=== PATIENT | female | born 1950 | race Caucasian/White ===

== ENCOUNTER 2020-01-06 13:59 | Outpatient (CLI) | payer MEDICARE, SELFPAY ==
--- NOTE | ~2020-01-06 | XR_ITS ---
XR chest 2V 01/06/2020 15:22 Indication: Hypertension. Procedure: 2 view chest Comparison: Comparison to multiple prior studies sequentially, with oldest reviewed study dated 06/18. Findings: Heart size normal. No focal air space disease, pulmonary edema, pleural effusion or suspect ed pneumothorax. Calcified granuloma right lower lobe. There are cholecystectomy clips. Impression: 1: No acute cardiopulmonary disease. Reviewed, dictated and finalized at location A. Impression: 1: No acute cardiopulmonary disease.
--- NOTE | 2020-01-06 14:57 | ECG_ITS ---
Measurements Intervals [place] Rate: 62 P: -8 IA: 186 QRS: -19 QRSD: 76 T: 19 QT: 430 QTc: 437 Interpretive Statements SINUS RHYTHM LOW QRS VOLTAGE IN PRECORDIAL LEADS VOLTAGE CRITERIA FOR LVH BASELINE ARTIFACT- I, II, III, AVR, AVL, AVF, V1-V6 BORDERLINE ECG Electronically Signed On 01-06-2020 16:10:43 CDT by Jose Elias Roca D.O.
[2020-01-06 15:17] LABS: Basophils Percent Auto 0.5 % (0.2-1.2); Eosinophils Absolute Auto 0.2 K/mm3 (0-0.3); Eosinophils Percent Auto 3.4 % (0-4.4); Hematocrit 48.5 % (37.0-47.0); Hemoglobin 15.7 g/dL (12.0-15.0); Immature Granulocyte Absolute 0.05 K/mm3 (0.00-0.031); Immature Granulocyte Percent A 0.8 % (0-0.5); Lymphocytes Percent Auto 26.5 % (18.3-44.2); Mean Corpuscular HGB Conc 32.4 g/dl (32-36); Mean Corpuscular Hemoglobin 28.6 pg (26-34); Mean Corpuscular Volume 88.3 fl (80-100); Mean Platelet Volume 9.8 fl (7.4-10.4); Monocytes Absolute Auto 0.5 K/mm3 (0.1-0.6); Monocytes Percent Auto 7.9 % (2.6-8.5); Neutrophils Absolute Auto 3.9 K/mm3 (1.3-6.7); Neutrophils Percent Auto 60.9 % (45.5-73.1); Platelet Count Result 226 k/mm3 (150-375); Red Blood Count 5.49 M/mm3 (4.2-5.4); Red Cell Distribution Width 14.3 % (11.5-14.5); White Blood Count 6.4 K/mm3 (4.5-10.0)
[2020-01-06 15:24] LABS: Albumin Level 4.6 g/dL (3.5-5.1); Estimated Glomerular Filt Rate 44; Glucose 109 mg/dL (65-105)
[2020-01-06 15:31] LABS: Hemoglobin A1C 6.5 % (<5.7)
[2020-01-06 16:15] LABS: Urine Cotinine NEGATIVE
== END 2020-01-06 14:00 | disposition home or self-care (01) ==
PROVIDERS: PCP Internal Medicine; Visit Provider Orthopaedic Surgery
DX: M17.11 Unilateral primary osteoarthritis, right knee (principal); R94.31 Abnormal electrocardiogram [ECG] [EKG]
CPT/HCPCS: 36415; 71046; 80307; 82040; 82565; 82947; 83036; 85025; 86850; 86900; 86901; 93005

== ENCOUNTER 2020-03-19 16:23 | Emergency (ER) | payer MEDICARE, SELFPAY ==
[2020-03-19] VITALS (7 sets, daily range): BP systolic 107–153; BP diastolic 75–118; PULSE 57–166; RESP 18–22; TEMP 35.7; O2SAT 94–99
--- NOTE | 2020-03-19 16:43 | ECG_ITS ---
Measurements Intervals [place] Rate: 88 P: SD: 0 QRS: -17 QRSD: 74 T: 11 QT: 361 QTc: 439 Interpretive Statements ATRIAL FLUTTER/TACHYCARDIA VENTRICULAR PREMATURE COMPLEX LOW QRS VOLTAGE IN PRECORDIAL LEADS VOLTAGE CRITERIA FOR LVH BASELINE ARTIFACT- II, III, AVL, AVF ABNORMAL ECG Electronically Signed On 03-19-2020 16:59:45 CDT by Jose Elias Roca D.O.
[2020-03-19 16:53] LABS: Basophils Absolute Auto 0.1 K/mm3 (0.0-0.1); Basophils Percent Auto 0.7 % (0.2-1.2); Eosinophils Absolute Auto 0.3 K/mm3 (0-0.3); Eosinophils Percent Auto 3.1 % (0-4.4); Hematocrit 49.8 % (37.0-47.0); Hemoglobin 16.8 g/dL (12.0-15.0); Immature Granulocyte Absolute 0.07 K/mm3 (0.00-0.031); Immature Granulocyte Percent A 0.8 % (0-0.5); Lymphocytes Absolute Auto 3.12 K/mm3 (0.9-3.2); Lymphocytes Percent Auto 37.2 % (18.3-44.2); Mean Corpuscular HGB Conc 33.7 g/dl (32-36); Mean Corpuscular Hemoglobin 29.3 pg (26-34); Mean Corpuscular Volume 86.8 fl (80-100); Mean Platelet Volume 9.6 fl (7.4-10.4); Monocytes Absolute Auto 0.6 K/mm3 (0.1-0.6); Monocytes Percent Auto 7.5 % (2.6-8.5); Neutrophils Absolute Auto 4.3 K/mm3 (1.3-6.7); Neutrophils Percent Auto 50.7 % (45.5-73.1); Platelet Count Result 275 k/mm3 (150-375); Red Blood Count 5.74 M/mm3 (4.2-5.4); Red Cell Distribution Width 13.2 % (11.5-14.5); White Blood Count 8.4 K/mm3 (4.5-10.0)
[2020-03-19 17:01] LABS: Blood Urea Nitrogen 38 mg/dL (7-17); Calcium 10.2 mg/dL (8.4-10.2); Carbon Dioxide 21 mmol/L (22-30); Chloride 106 mmol/L (98-107); Estimated CRCL calculation 33 ml/min; Estimated Glomerular Filt Rate 34; Glucose 105 mg/dL (65-105); Potassium 4.9 mmol/L (3.4-5.0); Sodium 136 mmol/L (137-145)
--- NOTE | 2020-03-19 18:10 | ED.GENADULT ---
HPI - General Adult General Chief complaint: Syncope Stated complaint: BP ISSUES, NEAR SYNCOPE Time Seen by Provider: 03/19/20 17:59 Source: patient and family Mode of arrival: ambulatory Limitations: no limitations History of Present Illness HPI narrative: Patient is 69 years old white female complaining of near syncope, not feeling well, for the last 48 hours. Patient reports that her blood pressure was low this morning. Patient had similar symptoms 6 months ago, used to be on 2 medications for blood pressure, 1 of them stopped, today patient did not receive her blood pressure medication because the blood pressure was low earlier today. Blood pressure at this time is 116/83. Patient denies any chest pain, shortness of breath, fever, nausea, vomiting, coughing, palpitation.. Patient reports that the near syncope get worse with standing and walking, better if she sits down or lay down. Usually last for 30 minutes then resolves spontaneously. Related Data Home Medications Medication Instructions Recorded Confirmed anastrozole 1 mg tablet 1 mg PO DAILY 12/29/19 01/06/20 apixaban 5 mg tablet 5 mg PO BID 12/29/19 01/06/20 gabapentin 300 mg capsule 300 mg PO BID 12/29/19 01/06/20 lisinopril 40 mg tablet 40 mg PO DAILY 12/29/19 01/06/20 metoprolol tartrate 50 mg tablet 50 mg PO Q12H 12/29/19 01/06/20 sotalol 120 mg tablet 120 mg PO Q12H 12/29/19 01/06/20 zolpidem 10 mg tablet 5 mg PO PRN PRN tablet 12/29/19 01/06/20 multivitamin,yq-nwcd-eyimsbof 1 tablet PO DAILY 01/06/20 01/06/20 [Complete Multivitamin] omeprazole 20 mg PO DAILY 01/06/20 01/06/20 hyoscyamine sulfate 0.125 mg 0.125 mg PO QID 01/10/20 sublingual tablet Allergies Allergy/AdvReac Type Severity Reaction Status Date / Time No Known Allergies Allergy Unknown Verified 03/19/20 16:37 Review of Systems Review of Systems: Narrative: CONSTITUTIONAL: Denies fever, chills, or sweats. EYES: Denies visual changes, redness, or discharge. ENT: Denies rhinorrhea, congestion, sore throat, or otalgia. CARDIOVASCULAR: Denies chest pain, palpitations, or edema. RESPIRATORY: Denies cough or dyspnea. GASTROINTESTINAL: Denies abdominal pain, nausea, vomiting, or diarrhea. GENITOURINARY: Denies dysuria or hematuria. SKIN: Denies rash or itching. MUSCULOSKELETAL: Denies back pain, joint pain, or myalgia. NEUROLOGIC: Denies headache, numbness, or weakness. PSYCHIATRIC: Denies anxiety or depression. PMFSH Past Medical History Medical History A-fib Breast cancer Chronic fatigue CKD (chronic kidney disease) stage 3, GFR 30-59 ml/min GERD (gastroesophageal reflux disease) Hypertension SONYA (obstructive sleep apnea) Surgical History Surgical History History of cholecystectomy History of hysterectomy Family History Family History Sibling Family history of cardiac disorder Mother Patient's mother is Social History Social History Smoking status: Never smoker Second hand tobacco smoke exposure: No Alcohol intake: never Gender identity (if verbalized by the patient): Female Exam Narrative: Exam Narrative: General appearance: Well-developed, well-nourished Skin: Normal color Head: Normocephalic, nontraumatic Eyes: Clear conjunctiva ENT: Oropharynx normal, ears normal, nose normal Neck: Supple, nontender Chest and respiratory: Airway patent, no respiratory distress, no accessory muscle use Heart: Regular rate/rhythm Abdomen: Soft, nontender, no organomegaly, quiet bowel sounds Vascular: Normal peripheral pulses, normal capillary refill. Musculoskeletal: Normal range of motion, nontender back Neurologic: Alert and oriented ?3, MOLD MAKER is normal as tested, no gross motor deficit
[2020-03-19] MEDS: SODIUM CHLORIDE 0.9% IV 1,000 ML 999 ML IV CONT (18:26)
== END 2020-03-19 19:08 | disposition home or self-care (01) ==
PROVIDERS: Emergency Provider Emergency Medicine; PCP Internal Medicine
DX: I95.1 Orthostatic hypotension (principal); I48.91 Unspecified atrial fibrillation; Z79.01 Long term (current) use of anticoagulants; Z85.3 Personal history of malignant neoplasm of breast; I12.9 Hypertensive chronic kidney disease with stage 1 through stage 4 chronic kidney disease, or unspecified chronic kidney disease; N18.3 Chronic kidney disease, stage 3 (moderate); G47.33 Obstructive sleep apnea (adult) (pediatric)
CPT/HCPCS: 36415; 80048; 85025; 93005; 96360; 99284; J7030

== ENCOUNTER 2020-04-04 11:00 | Outpatient (CLI) | payer MEDICARE, SELFPAY ==
--- NOTE | ~2020-04-04 | US_ITS ---
EXAMINATION: US thyroid DATE: 04/04/2020 11:24 INDICATION: Thyroid nodule TECHNIQUE: Multiple ultrasound images of the thyroid were obtained. COMPARISON: None. FINDINGS: The right thyroid lobe measures 4.2 x 1.6 x 1.9 cm. The left thyroid lobe measures 3.9 x 1.9 x 1.5 c m. 1.5 x 1.2 x 1.3 cm wider than tall mixed solid and cystic hypoechoic nodule at the lower pole of the left thyroid which demonstrates lobular margins with no echogenic foci. (TI-RADS 2, not suspiciou s, no FNA recommended) which is decreased slightly in size from prior study at which time it measured 1.8 x 1.3 x 1.5 cm. 1.1 x 0.5 x 0.8 cm wider than tall solid heterogeneously hypoechoic to very hypo echoic nodule with smooth margins and internal echogenic foci at the superior right thyroid (TI-RADS 5, highly suspicious , FNA if >=1.0 cm, annual followup is >0.5 cm). There is normal echotexture, ech ogenicity and vascular flow throughout the remainder of the thyroid gland. IMPRESSION: 1. Bilateral thyroid nodules. Recommend ultrasound-guided biopsy of the 1.1 cm TI RADS 5 right thyroi d nodule. Reviewed, dictated and finalized at location A. IMPRESSION: 1. Bilateral thyroid nodules. Recommend ultrasound-guided biopsy of the 1.1 cm TI RADS 5 right thyroid nodule.
== END 2020-04-04 11:01 | disposition home or self-care (01) ==
PROVIDERS: PCP Internal Medicine; Visit Provider Internal Medicine
DX: E04.1 Nontoxic single thyroid nodule (principal)
CPT/HCPCS: 76536

== ENCOUNTER 2020-04-25 13:16 | Outpatient (CLI) | payer MEDICARE, SELFPAY ==
--- NOTE | ~2020-04-25 | US_ITS ---
EXAMINATION: US FNA w image guidance DATE: 04/25/2020 14:34 INDICATION: Nontoxic single right thyroid nodule. TECHNIQUE: A time-out was performed to verify the patient's name, date of , and procedure to be performed . The procedure and its benefits and risks were discussed with the patient. Risks specifically discus sed included bleeding and infection. The patient understood the risks and agreed to proceed. The neck was prepped and draped in the usual sterile manner. 4 mL 1% lidocaine was used for local anesthesia . 6 passes were made with a 25G needle into the lesion. Appropriate needle location was documented with continuous sonographic guidance. The specimens were passed to the blood bank technologist in the room. A sterile bandage was applied. There were no immediate complications. FINDINGS: Grayscale ultrasound images demonstrate biopsy needles advanced into a 1.1 cm Cystic right thyroid nodule with internal echogenic foci. On real-time imaging there appear to be rosaura e subtle, tingling associated with the echogenic foci which would favor inspissated colloid over the microcalcifications.. IMPRESSION: 1. Successful ultrasound-guided fine needle aspiration of the 1.1 cm right thyroid nodules concern. Reviewed, dictated and finalized at location A. IMPRESSION: 1. Successful ultrasound-guided fine needle aspiration of the 1.1 cm right thy roid nodules concern.
== END 2020-04-25 13:17 | disposition home or self-care (01) ==
LOC: ANHIMG 13:18
PROVIDERS: PCP Internal Medicine; Visit Provider Otolaryngology
DX: E04.2 Nontoxic multinodular goiter (principal)
CPT/HCPCS: 10005; 88173; 88305

== ENCOUNTER 2020-07-10 16:20 | Outpatient (CLI) | payer MEDICARE, SELFPAY ==
--- NOTE | ~2020-07-10 | XR_ITS ---
EXAMINATION: XR chest 2V DATE: 07/10/2020 16:35 INDICATION: Hypertension. Preop. TECHNIQUE: Frontal and lateral views of the chest were obtained. COMPARISON: Chest 2 views 01/06/2020 FINDINGS: A calcified right lung nodule and calcified subcarinal lymph nodes are consistent with old granulomatous disease. No pleural effusion or pneumothorax. The heart size is normal. Surgical clips in the right upper quadrant are likely from cholecystectomy. IMPRESSION: 1. No acute cardiopulmonary disease. Reviewed, dictated and finalized at location A.
== END 2020-07-10 16:21 | disposition home or self-care (01) ==
PROVIDERS: PCP Internal Medicine; Visit Provider Internal Medicine
DX: Z01.818 Encounter for other preprocedural examination (principal)
CPT/HCPCS: 71046

== ENCOUNTER 2020-07-29 21:05 | Emergency (ER) | payer MEDICARE, SELFPAY ==
--- NOTE | ~2020-07-29 | CT_ITS ---
EXAMINATION: CT abdomen pelvis w con EXAM DATE: 07/29/2020 22:19 INDICATION: Constipation. TECHNIQUE: Spiral CT of the abdomen and pelvis was performed following intravenous injection of 100 m L Omnipaque 350. Axial, coronal and sagittal images were reviewed. The dose-length product (DLP) fo r this examination was 696.92 mGy-cm. The exposure was tailored according to patient size (auto mA e xposure control), and iterative reconstruction (ASIR) was used as additional dose reduction technique . 06/30/2014 FINDINGS: The liver, spleen, adrenal glands and pancreas are unremarkable. There are cholecystectomy clips. Portal and splenic veins are patent. Kidneys enhance symmetrically. There is no hydronephr osis. The uterus is not identified and has likely been surgically resected. The bladder is unremar kable. There is no retroperitoneal or pelvic lymphadenopathy. There is mild scattered arterioscler otic disease. The appendix is not positively visualized. There is no pericecal inflammatory change to suggest appe ndicitis. The stomach and small bowel are unremarkable. Moderate amount of rectal vault stool with possible proctitis. No free intraperitoneal gas. The heart is normal in size. There are no paulo cardial or pleural effusions. Right lower lobe granuloma. There are no osteoblastic or osteolytic l esions identified. IMPRESSION: Moderate rectal vault stool with possible proctitis. Reviewed, dictated and finalized at location A.
[2020-07-29 21:11] VITALS: BP 126/91; PULSE 114; RESP 25; TEMP 36.5; O2SAT 100
--- NOTE | 2020-07-29 21:15 | ECG_ITS ---
Measurements Intervals [place] Rate: 99 P: [place]: 0 QRS: -10 QRSD: 87 T: 96 QT: 411 QTc: 528 Interpretive Statements ATRIAL FLUTTER/TACHYCARDIA VENTRICULAR PREMATURE COMPLEX VOLTAGE CRITERIA FOR LVH NONSPECIFIC ST & T-WAVE ABNORMALITY- ANTERIOR LEADS BASELINE ARTIFACT- I, II, III, AVR, AVL, AVF, V1-V3 ABNORMAL ECG Electronically Signed On 08-01-2020 8:04:29 CDT by Jose Elias Roca D.O.
--- NOTE | 2020-07-29 21:16 | ED.ABDPAIN ---
HPI - Abdominal Pain General Chief Complaint: Dizziness Stated Complaint: dizzy, constipated, feels like shes going to pass Time Seen by Provider: 07/29/20 21:07 History of Present Illness HPI narrative: 69 yo female presnets from home for constipation. She had recent surgery she reports that she has not had a bowel movement since then. She has associated abdominal pain. she had been taking pain meidcation, but she stopped 3 days ago. She tried docusate, miralax, and a fleets enema. Additioanlly she c/o light headedness. Related Data Home Medications Medication Instructions Recorded Confirmed anastrozole 1 mg tablet 1 mg PO DAILY 12/29/19 07/05/20 apixaban 5 mg tablet 5 mg PO BID 12/29/19 07/05/20 gabapentin 300 mg capsule 300 mg PO BID 12/29/19 07/05/20 lisinopril 40 mg tablet 40 mg PO DAILY 12/29/19 07/05/20 metoprolol tartrate 50 mg tablet 50 mg PO Q12H 12/29/19 07/05/20 sotalol 120 mg tablet 120 mg PO Q12H 12/29/19 07/05/20 multivitamin,dh-uddx-bhkxrpjm 1 tablet PO DAILY 01/06/20 07/05/20 [Complete Multivitamin] omeprazole 20 mg PO DAILY 01/06/20 07/05/20 hyoscyamine sulfate 0.125 mg 0.125 mg PO QID 01/10/20 07/05/20 sublingual tablet Allergies Allergy/AdvReac Type Severity Reaction Status Date / Time No Known Allergies Allergy Unknown Verified 07/29/20 21:19 Review of Systems Review of Systems: All systems reviewed & are unremarkable except as noted in HPI and below Constitutional: Constitutional: Denies fever(s) ENT: Reports dizziness Cardiovascular: Cardiovascular: Denies chest pain Respiratory: Respiratory: Denies dyspnea Gastrointestinal: Gastrointestinal: Denies abdominal pain, Denies nausea and Denies vomiting Genitourinary: Genitourinary: Denies hematuria and Denies dysuria Neurologic: Reports dizziness and Denies numbness PMF Past Medical History Medical History A-fib Breast cancer Chronic fatigue CKD (chronic kidney disease) stage 3, GFR 30-59 ml/min GERD (gastroesophageal reflux disease) Hypertension SONYA (obstructive sleep apnea) Polycythemia Surgical History Surgical History History of cholecystectomy History of hysterectomy Family History Family History Sibling Family history of cardiac disorder Mother Patient's mother is Social History Social History Smoking status: Never smoker Second hand tobacco smoke exposure: No Alcohol intake: never Gender identity (if verbalized by the patient): Female Spiritual care concerns: No Exam Const: General: healthy appearing, no acute distress and alert Orientation/consciousness: patient oriented x3 HENMT: Head: normal to inspection Neck: Neck: normal visual inspection and no lymphadenopathy Chest: Chest palpation & inspection: no tenderness Resp: Effort & Inspection: tachypneic Auscultation: clear to auscultation bilaterally, no rales, no rhonchi and no wheezes Cardio: Jugular venous distension: no JVD Rate: regular rate Rhythm: regular rhythm Heart sounds: no murmurs GI: Inspection: distended GI Palp: Yes Soft to palpation and Yes Tenderness to palpation present (GI) (lower ) Rectal Exam: External hemorrhoid(s) present and fecal impaction Skin: General skin exam: normal color Neuro: General: patient oriented x3, moves all extremities and CN's II-XI intact bilaterally Speech: normal speech Extrem: General: no edema Psych: Appearance: well kempt Affect: normal affect and Anxious affect present Course Vital Signs Vital signs: Vital Signs Temperature 36.5 C 07/29/20 21:11 Pulse Rate 114 H 07/29/20 21:11 Respiratory Rate 25 H 07/29/20 21:11 Blood Pressure 126/91 H 07/29/20 21:11 Pulse Oximetry 100 07/29/20 21:11 Temperature 36.6 C
[2020-07-29 21:43] LABS: Basophils Absolute Auto 0.1 K/mm3 (0.0-0.1); Basophils Percent Auto 0.4 % (0.2-1.2); Eosinophils Absolute Auto 0.2 K/mm3 (0-0.3); Eosinophils Percent Auto 1.3 % (0-4.4); Hematocrit 42.4 % (37.0-47.0); Hemoglobin 14.6 g/dL (12.0-15.0); Immature Granulocyte Absolute 0.18 K/mm3 (0.00-0.031); Immature Granulocyte Percent A 1.3 % (0-0.5); Lymphocytes Absolute Auto 2.31 K/mm3 (0.9-3.2); Lymphocytes Percent Auto 16.1 % (18.3-44.2); Mean Corpuscular HGB Conc 34.4 g/dl (32-36); Mean Corpuscular Hemoglobin 29.6 pg (26-34); Mean Corpuscular Volume 85.8 fl (80-100); Mean Platelet Volume 9.5 fl (7.4-10.4); Monocytes Percent Auto 6.6 % (2.6-8.5); Neutrophils Absolute Auto 10.7 K/mm3 (1.3-6.7); Neutrophils Percent Auto 74.3 % (45.5-73.1); Platelet Count Result 393 k/mm3 (150-375); Red Blood Count 4.94 M/mm3 (4.2-5.4); Red Cell Distribution Width 13.4 % (11.5-14.5); White Blood Count 14.3 K/mm3 (4.5-10.0)
[2020-07-29] MEDS: SODIUM CHLORIDE 0.9% IV 1,000 ML 999 ML IV CONT (21:43)
[2020-07-29] MEDS: METHYLNALTREXONE 12 MG/0.6 ML VIAL SUB-Q (21:44)
[2020-07-29] MEDS: MAGNESIUM CITRATE 300 ML BTL PO (21:45)
[2020-07-29 21:51] VITALS: BP 94/75; PULSE 82; RESP 24; O2SAT 97
[2020-07-29 21:55] LABS: Alanine Aminotransferase 32 U/L (4-35); Albumin Level 4.4 g/dL (3.5-5.1); Alkaline Phosphatase 135 U/L (38-126); Anion Gap 14 mmol/L (8-16); Aspartate Amino Transferase 27 U/L (14-36); Bilirubin,Total 1.1 mg/dL (0.2-1.3); Blood Urea Nitrogen 32 mg/dL (7-17); Calcium 9.7 mg/dL (8.4-10.2); Carbon Dioxide 19 mmol/L (22-30); Chloride 101 mmol/L (98-107); Estimated CRCL calculation 59 ml/min; Estimated Glomerular Filt Rate 40; Glucose 159 mg/dL (65-105); Sodium 134 mmol/L (137-145)
[2020-07-29 22:55] VITALS: BP 100/63; PULSE 79; RESP 25; TEMP 36.6; O2SAT 100
[2020-07-30 00:28] VITALS: BP 108/66; PULSE 91; RESP 22; O2SAT 96
--- NOTE | 2020-07-30 00:37 | PC.NURSE ---
dr marielos menjivary removed a moderate amount of stool.
[2020-07-30 02:21] VITALS: BP 110/64; PULSE 73; RESP 20; O2SAT 96
== END 2020-07-30 02:23 | disposition home or self-care (01) ==
PROVIDERS: Emergency Provider Emergency Medicine; PCP Internal Medicine
DX: K56.41 Fecal impaction (principal); K62.89 Other specified diseases of anus and rectum; I48.91 Unspecified atrial fibrillation; Z79.01 Long term (current) use of anticoagulants; Z85.3 Personal history of malignant neoplasm of breast; I12.9 Hypertensive chronic kidney disease with stage 1 through stage 4 chronic kidney disease, or unspecified chronic kidney disease; N18.30 Chronic kidney disease, stage 3 unspecified; G47.33 Obstructive sleep apnea (adult) (pediatric); D75.1 Secondary polycythemia; Z98.890 Other specified postprocedural states; I49.3 Ventricular premature depolarization; R94.31 Abnormal electrocardiogram [ECG] [EKG]; I48.92 Unspecified atrial flutter; R00.0 Tachycardia, unspecified
CPT/HCPCS: 36415; 74177; 80053; 85025; 93005; 96360; 96361; 96372; 99284; A9270; J2212; J7030; Q9967

== ENCOUNTER 2022-03-19 00:31 | Emergency (ER) | payer MEDICARE, SELFPAY ==
--- NOTE | ~2022-03-19 | CT_ITS ---
EXAMINATION: CT abdomen pelvis wo con DATE: 03/19/2022 02:33 INDICATION: Nausea, vomiting, and diarrhea. TECHNIQUE: Computed tomography (CT) of the abdomen and pelvis was performed without intravenous contr ast. Automated exposure control and iterative reconstruction technique were employed. The dose-length product was 706.49 mGy-cm. COMPARISON: CT abdomen and pelvis 07/29/2020 FINDINGS: The visualized portions of the lung bases demonstrate mild atelectasis. A calcified right l carlyle nodule and calcified right hilar lymph nodes are consistent with old granulomatous disease. No pl eural effusion. The heart size is normal. No pericardial effusion. There is a small sliding hiatal he rnia. Partially visualized is a left breast implant. The liver is normal. There are changes of cholec ystectomy. Calcifications in the spleen are consistent with old granulomatous disease. The pancreas, adrenal glands, and right kidney are normal. There is mild right hydroureter. There is a 1.9 cm cyst in left kidney. Pelvic floor dysfunction is noted. There are no dilated loops of bowel. The appendix is normal. There are no pathologically enlarged lymph nodes. There is no free intraperitoneal fluid. There is mild thoracolumbar spondylosis. IMPRESSION: 1. Mild right hydroureter. No urolithiasis. Reviewed, dictated and finalized at location A.
[2022-03-19 00:33] VITALS: BP 183/113; PULSE 98; RESP 18; TEMP 37.2; O2SAT 100
[2022-03-19] MEDS: SODIUM CHLORIDE 0.9% IV 1,000 ML 999 ML IV CONT (01:06)
[2022-03-19] MEDS: ONDANSETRON INJ 4 MG/2 ML VIAL IV PUSH (01:07)
[2022-03-19 01:13] LABS: Basophils Percent Auto 0.4 % (0.2-1.2); Eosinophils Absolute Auto 0.1 K/mm3 (0-0.3); Hematocrit 44.1 % (37.0-47.0); Hemoglobin 14.4 g/dL (12.0-15.0); Immature Granulocyte Absolute 0.05 K/mm3 (0.00-0.031); Immature Granulocyte Percent A 0.7 % (0-0.5); Lymphocytes Absolute Auto 1.77 K/mm3 (0.9-3.2); Lymphocytes Percent Auto 25.7 % (18.3-44.2); Mean Corpuscular HGB Conc 32.7 g/dl (32-36); Mean Corpuscular Volume 85.8 fl (80-100); Mean Platelet Volume 9.5 fl (7.4-10.4); Monocytes Absolute Auto 0.4 K/mm3 (0.1-0.6); Monocytes Percent Auto 5.1 % (2.6-8.5); Neutrophils Absolute Auto 4.6 K/mm3 (1.3-6.7); Neutrophils Percent Auto 67.1 % (45.5-73.1); Platelet Count Result 282 k/mm3 (150-375); Red Blood Count 5.14 M/mm3 (4.2-5.4); Red Cell Distribution Width 13.3 % (11.5-14.5); White Blood Count 6.9 K/mm3 (4.5-10.0)
--- NOTE | 2022-03-19 01:16 | ED.NAVMDI ---
HPI - Nausea/Vomiting/Diarrhea General Chief complaint: Nausea/Vomiting/Diarrhea Stated complaint: nausea and vomiting Time Seen by Provider: 03/19/22 00:54 Source: patient Mode of arrival: ambulatory Limitations: no limitations History of Present Illness HPI Narrative: Patient is a 71-year-old female complaining of nausea, vomiting and diarrhea that started approximately 3 hours prior to arrival. Patient states that they were driving up from [place] when she started to experience the above symptoms. Patient describes her vomitus as nonbilious, nonbloody. Patient describes her diarrhea as loose, nonbloody. Patient denies any abdominal pain, urinary symptoms, fever or chills. Patient also complaining of left foot swelling that started today, denies any calf pain or swelling. Patient denies any chest pain or shortness of breath. Related Data Home Medications Medication Instructions Recorded Confirmed anastrozole 1 mg tablet 1 mg PO DAILY 12/29/19 10/16/21 apixaban 5 mg tablet (Eliquis) 5 mg PO BID 12/29/19 10/16/21 gabapentin 300 mg capsule 300 mg PO BID 12/29/19 10/16/21 lisinopril 40 mg tablet 40 mg PO DAILY 12/29/19 10/16/21 metoprolol tartrate 50 mg tablet 50 mg PO Q12H 12/29/19 10/16/21 sotalol 120 mg tablet 120 mg PO Q12H 12/29/19 10/16/21 multivitamin,oy-vyyr-bikrumzx 1 tablet PO DAILY 01/06/20 10/16/21 (Complete Multivitamin) omeprazole 20 mg capsule,delayed 20 mg PO DAILY 01/06/20 10/16/21 release hyoscyamine sulfate 0.125 mg 0.125 mg PO QID 01/10/20 10/16/21 sublingual tablet celecoxib 200 mg capsule (Celebrex) 200 mg PO DAILY 10/02/20 10/16/21 Allergies Allergy/AdvReac Type Severity Reaction Status Date / Time No Known Allergies Allergy Unknown Verified 03/19/22 00:35 Review of Systems Review of Systems: All systems reviewed & are unremarkable except as noted in HPI and below Constitutional: Constitutional: Denies body ache(s), Denies chills, Denies excessive sweating, Denies fatigue, Denies fever(s), Denies headache(s), Denies lethargy, Denies malaise, Denies weakness and Denies weight loss Eyes: Eyes: Denies blurry vision, Denies change in vision and Denies loss of vision ENT: Denies dizziness, Denies ear discharge, Denies headache(s), Denies lip swelling, Denies epistaxis, Denies nasal congestion, Denies neck pain, Denies throat swelling and Denies tongue swelling Cardiovascular: Cardiovascular: Denies chest pain, Denies chest pain at rest, Denies chest pain with activity, Denies diaphoresis, Denies rapid heart rate, Denies edema, Denies irregular heart rhythm, Denies lightheadedness, Denies palpitations, Denies dyspnea and Denies dyspnea on exertion Respiratory: Respiratory: Denies chest congestion, Denies cough, Denies hemoptysis, Denies dyspnea and Denies dyspnea on exertion Gastrointestinal: Gastrointestinal: Denies abdominal pain, Denies melena, Denies hematochezia and Denies hematemesis Musculoskeletal: Musculoskeletal: Denies abnormal gait, Denies deformity, Denies joint swelling, Denies limited range of motion, Denies neck pain and Denies numbness Neurologic: Denies Abnormal speech present, Denies abnormal gait, Denies confusion, Denies dizziness, Denies headache(s), Denies focal weakness, Denies loss of vision, Denies numbness, Denies Other visual disturbances, Denies Sensory deficit (Neuro) and Denies weakness Psychiatric: Psychiatric: Denies confusion, Denies depression, Denies auditory hallucinations, Denies homicidal ideation and Denies suicidal ideation Endocrine: Endocrine: Denies cold intolerance, Denies excessive sweating, Denies fatigue, Denies heat intolerance and Denies palpitations Hematologic/Lymphatic: Hematologic/Lymphatic: Denies easy bleeding and Denies easy bruising Allergic/Immunologic: Allergic/Immunologic: Denies lip swelling, Denies throat swelling and Denies tongue swelling PMFSH Past Medical History Medical History
[2022-03-19] MEDS: PROMETHAZINE HCL 25 MG/ML AMPUL 12.5 MG IV PUSH (01:33)
[2022-03-19] MEDS: PANTOPRAZOLE SODIUM IV 40 MG VIAL IV PUSH (01:34)
[2022-03-19 02:21] VITALS: BP 153/114; PULSE 95
[2022-03-19 02:22] VITALS: BP 169/97; PULSE 93
[2022-03-19 02:23] VITALS: BP 175/94; PULSE 94
[2022-03-19 02:35] LABS: Appearance Urine Clear (Clear); Bilirubin Urine Negative (Negative); Blood Urine Negative (Negative); Color Urine Yellow (Yellow); Glucose Urine UA Negative (Negative); Ketones Urine 1+ mg/dL (Negative); Leukocyte Esterase Ur 1+ LEU/UL (Negative); Nitrate Urine Negative (Negative); Protein Urine 1+ mg/dL (Negative); Urobilinogen Urine 0.2 mg/dL (<2.0)
[2022-03-19 02:39] LABS: Mucus Urine Rare /lpf; RBC Urine 0-2 /hpf (0-2); Squamous Epithelial Cell Urine Rare /hpf (Few)
[2022-03-19 02:40] LABS: Add Urine Microscopic? YES
[2022-03-19 02:52] VITALS: BP 175/94; PULSE 93; RESP 21; O2SAT 96
[2022-03-19 06:48] VITALS: BP 144/82; PULSE 88; RESP 18; O2SAT 98
== END 2022-03-19 06:50 | disposition home or self-care (01) ==
PROVIDERS: Emergency Provider Emergency Medicine; PCP Internal Medicine
DX: K52.9 Noninfective gastroenteritis and colitis, unspecified (principal); I48.91 Unspecified atrial fibrillation; I12.9 Hypertensive chronic kidney disease with stage 1 through stage 4 chronic kidney disease, or unspecified chronic kidney disease; N18.30 Chronic kidney disease, stage 3 unspecified; R53.82 Chronic fatigue, unspecified; K21.9 Gastro-esophageal reflux disease without esophagitis; G47.33 Obstructive sleep apnea (adult) (pediatric); D75.1 Secondary polycythemia; Z96.659 Presence of unspecified artificial knee joint; Z79.01 Long term (current) use of anticoagulants
CPT/HCPCS: 36415; 74176; 81001; 85025; 96361; 96374; 96375; 99284; C9113; J2405; J2550; J7030

== ENCOUNTER 2022-11-19 00:54 | Day surgery (SDC) | payer MEDICARE, SELFPAY ==
[2022-11-15 12:47] VITALS: BMI 29.1
--- NOTE | 2022-11-19 07:06 | WPDANESEPPF ---
Anes - Initial Pre Proc Eval Procedure: Operation Date: 11/19/22 10:15 Proposed Procedures p Esophagogastroduodenoscopy - Nitin Pop MD Date/Time: 11/19/22 07:06 Surgeon: Nitin Pop MD Pre Op Diagnosis: GERD Patient Data Age: 72 Gender: F Height: 1.65 m Weight: 79.5 kg Allergies Allergy/AdvReac Type Severity Reaction Status Date / Time No Known Allergies Allergy Unknown Verified 11/19/22 08:56 Home Medications Medication Instructions Recorded Confirmed Type anastrozole 1 mg tablet 1 mg PO DAILY 12/29/19 11/19/22 History apixaban 5 mg tablet (Eliquis) 5 mg PO BID 12/29/19 11/19/22 History gabapentin 300 mg capsule 300 mg PO BID 12/29/19 11/19/22 History lisinopril 40 mg tablet 40 mg PO DAILY 12/29/19 11/19/22 History metoprolol tartrate 50 mg tablet 50 mg PO Q12H 12/29/19 11/19/22 History sotalol 120 mg tablet 120 mg PO Q12H 12/29/19 11/19/22 History multivitamin,ta-sydo-vkpdnzcw 1 tablet PO DAILY 01/06/20 11/19/22 History (Complete Multivitamin tablet) omeprazole 20 mg capsule,delayed 20 mg PO DAILY 01/06/20 11/19/22 History release hyoscyamine sulfate 0.125 mg 0.125 mg PO QID PRN Abdominal 01/10/20 11/19/22 History sublingual tablet Discomfort celecoxib 200 mg capsule (Celebrex) 200 mg PO DAILY PRN Pain, Mild 10/02/20 11/19/22 History zolpidem 10 mg tablet (Ambien) 5 mg PO QHS PRN Insomnia #30 tabs 10/29/22 11/19/22 Rx Patient hx anesthesia problems: none Family hx anesthesia problems: none Results Review: All pre-operative results and documents have been reviewed as part of the pre-operative evaluation. [facility] Past Medical History Medical History A-fib Breast cancer Chronic fatigue CKD (chronic kidney disease) stage 3, GFR 30-59 ml/min GERD (gastroesophageal reflux disease) Hypertension SONYA (obstructive sleep apnea) Polycythemia Surgical History Surgical History History of cholecystectomy History of hysterectomy History of knee replacement Family History Family History Sibling Family history of cardiac disorder Mother Patient's mother is Social History Social History (Updated 10/29/22 @ 13:29 by Jamila Daniel MA) Smoking status: Never smoker Second hand tobacco smoke exposure: No Alcohol intake: current Substance use: never Substance use type: does not use Lack of Transportation: No Lack of Food: Never True Current Housing: I Have Housing Concerned About Future Housing: No Difficulty Paying Gas/Electric Bills: YES Difficulty Paying for Meds: YES Currently Unemployed: No Education: Bachelor's Degree Difficulty w/ Childcare or Family Care: No Living arrangements: with family Gender identity (if verbalized by the patient): Female Spiritual care concerns: No Anes - Eval Final PreProcedure Day of Procedure 11/19/22 07:06 Patient weight: overweight Heart: regular rate and rhythm Lungs: clear to auscultation Airway: Mallampati scale class II Neurological: alert and oriented Last oral intake: >/= 8 hours ASA classification: III Emergent: no Anesthetic plan: proceed Anesthesia type and monitoring: general GIVS and standard monitoring Results Review: All pre-operative results and documents have been reviewed as part of the pre-operative evaluation. Informed Consent: The patient's anesthetic plan and its attendant risks and benefits were discussed with the patient/family/POA. Questions were solicited and answers provided to the satisfaction of the patient/family/POA.
[2022-11-19 08:57] VITALS: BP 161/89; PULSE 56; RESP 16; TEMP 36.4; O2SAT 100
[2022-11-19] MEDS: LACTATED RINGERS 1,000 ML 150 ML IV CONT (09:03)
--- NOTE | 2022-11-19 09:27 | PM.HPGS ---
History of Present Illness History of Present Illness Consent: Risks, benefits, and alternatives have been discussed and questions answered. Patient agrees to proceed with procedure. Chief complaint: GERD Narrative: Carmen Stewart is a 72 year old female Presents for EGD. Patient has a history of acid reflux in the past. Distal esophageal web dilated in 2014. She currently takes omeprazole 20mg p.o. daily. Recently has begun to have substernal pressure pain that will wake her up at night occasionally last for 3 minutes. She states it feels as though an hour pressure. She denies any heartburn. She has had no reflux. Currently denies any difficulty swallowing. She is referred for follow-up EGD to assess this discomfort. Family history noncontributory patient denies any bleeding or weight loss. Patient has a history of colon polyps. Most recent colonoscopy 1 year ago [facility]. She anticipates follow-up EGD every 3 years at [facility] for these polyps. Review of Systems Review of Systems: Review of systems noncontributory. [facility] Past Medical History Medical History A-fib Breast cancer Chronic fatigue CKD (chronic kidney disease) stage 3, GFR 30-59 ml/min GERD (gastroesophageal reflux disease) Hypertension SONYA (obstructive sleep apnea) Polycythemia Surgical History Surgical History History of cholecystectomy History of hysterectomy History of knee replacement Family History Family History Sibling Family history of cardiac disorder Mother Patient's mother is Social History Social History (Updated 10/29/22 @ 13:29 by Jamila Daniel MA) Smoking status: Never smoker Second hand tobacco smoke exposure: No Alcohol intake: current Substance use: never Substance use type: does not use Lack of Transportation: No Lack of Food: Never True Current Housing: I Have Housing Concerned About Future Housing: No Difficulty Paying Gas/Electric Bills: YES Difficulty Paying for Meds: YES Currently Unemployed: No Education: Bachelor's Degree Difficulty w/ Childcare or Family Care: No Living arrangements: with family Gender identity (if verbalized by the patient): Female Spiritual care concerns: No Meds Home Medications and Allergies Home Medications Medication Instructions Recorded Confirmed Type anastrozole 1 mg tablet 1 mg PO DAILY 12/29/19 11/19/22 History apixaban 5 mg tablet (Eliquis) 5 mg PO BID 12/29/19 11/19/22 History gabapentin 300 mg capsule 300 mg PO BID 12/29/19 11/19/22 History lisinopril 40 mg tablet 40 mg PO DAILY 12/29/19 11/19/22 History metoprolol tartrate 50 mg tablet 50 mg PO Q12H 12/29/19 11/19/22 History sotalol 120 mg tablet 120 mg PO Q12H 12/29/19 11/19/22 History multivitamin,tg-yyni-usocnzeu 1 tablet PO DAILY 01/06/20 11/19/22 History (Complete Multivitamin tablet) omeprazole 20 mg capsule,delayed 20 mg PO DAILY 01/06/20 11/19/22 History release hyoscyamine sulfate 0.125 mg 0.125 mg PO QID PRN Abdominal 01/10/20 11/19/22 History sublingual tablet Discomfort celecoxib 200 mg capsule (Celebrex) 200 mg PO DAILY PRN Pain, Mild 10/02/20 11/19/22 History zolpidem 10 mg tablet (Ambien) 5 mg PO QHS PRN Insomnia #30 tabs 10/29/22 11/19/22 Rx Allergies Allergy/AdvReac Type Severity Reaction Status Date / Time No Known Allergies Allergy Unknown Verified 11/19/22 08:56 Vital Signs Vital Signs - 24 hr 11/19/22 08:57 Temperature 97.5 F L Pulse Rate 56 L Respiratory Rate 16 Blood Pressure 161/89 H Pulse Oximetry 100 Oxygen Delivery Room Air Exam Narrative: Physical exam reveals patient to be alert. Vital signs stable. HEENT exam is unremarkable. Patient is anicteric. Lungs are clear to auscultation and percussion. Heart is without murmur or extra sounds. Abdo
[2022-11-19 10:44] VITALS: BP 123/66; PULSE 61; RESP 20; O2SAT 100
[2022-11-19 10:54] VITALS: BP 120/61; PULSE 55; RESP 20; O2SAT 100
[2022-11-19 11:04] VITALS: BP 143/74; PULSE 53; RESP 20; O2SAT 100
--- NOTE | 2022-11-19 11:04 | SUR.PHASEII ---
Dr. Pop verbally stated to resume Eliquis today.
== END 2022-11-19 11:21 | disposition home or self-care (01) ==
PROVIDERS: PCP Internal Medicine; Visit Provider Internal Medicine Gastroenterology
PROC: 0DJ08ZZ Inspection of Upper Intestinal Tract, Via Natural or Artificial Opening Endoscopic (ICD-10-PCS; CPT 43235; principal; 2022-11-19 10:15)
DX: K21.9 Gastro-esophageal reflux disease without esophagitis (principal); Q39.4 Esophageal web; I48.91 Unspecified atrial fibrillation; I12.9 Hypertensive chronic kidney disease with stage 1 through stage 4 chronic kidney disease, or unspecified chronic kidney disease; N18.30 Chronic kidney disease, stage 3 unspecified; G47.33 Obstructive sleep apnea (adult) (pediatric); Z85.3 Personal history of malignant neoplasm of breast; Z79.01 Long term (current) use of anticoagulants; Z79.811 Long term (current) use of aromatase inhibitors
CPT/HCPCS: 43450; 43239; 87081; J2704; J7120

== ENCOUNTER 2023-01-09 14:41 | Outpatient (CLI) | payer MEDICARE, SELFPAY ==
--- NOTE | ~2023-01-09 | US_ITS ---
EXAMINATION: US thyroid DATE: 01/09/2023 16:07 INDICATION: Nontoxic single thyroid nodule. TECHNIQUE: Multiple ultrasound images of the thyroid were obtained. COMPARISON: Ultrasound 04/04/2020 FINDINGS: The right thyroid lobe measures 5.2 x 1.8 x 1.5 cm. The left thyroid lobe measures 5.3 x 1.9 x 2.0 c m. In the right thyroid lobe, there is a 14 mm mixed cystic and solid, hypoechoic, wider than tall n odule with smooth margin without echogenic foci (TI-RADS TR3). Biopsy this nodule was benign on 2019. In the right thyroid lobe, there is a 9 mm mixed cystic and solid, isoechoic, wider than tall n odule with ill-defined margin without echogenic foci (TR2). In the left thyroid lobe, there is a 2.3 cm mixed cystic and solid, isoechoic, wider than tall nodule with lobulated margin without echogenic foci (TR3). IMPRESSION: 1. Multinodular goiter. Consider thyroid ultrasound in 2 years. Reviewed, dictated and finalized at location A.
== END 2023-01-09 14:42 | disposition home or self-care (01) ==
PROVIDERS: PCP Internal Medicine; Visit Provider Otolaryngology
DX: E04.2 Nontoxic multinodular goiter (principal)
CPT/HCPCS: 76536

== ENCOUNTER 2023-04-02 14:25 | Outpatient (CLI) | payer MEDICARE, SELFPAY ==
--- NOTE | ~2023-04-02 | US_ITS ---
Ultrasound of the soft tissues of the head/neck CLINICAL HISTORY: Scalp mass along the right hairline, now reportedly resolved as per the patient. TECHNIQUE: Real-time sonographic imaging was performed at the site of the previously palpable lump. FINDINGS: No sonographic abnormality seen in the region scanned. No soft tissue mass or fluid collect ion seen. IMPRESSION: No sonographic abnormality seen at the area scanned. Reviewed, dictated and finalized at location .
== END 2023-04-02 14:26 | disposition home or self-care (01) ==
PROVIDERS: PCP Internal Medicine; Visit Provider Physician Assistant
DX: R22.0 Localized swelling, mass and lump, head (principal); Z85.3 Personal history of malignant neoplasm of breast
CPT/HCPCS: 76536

== ENCOUNTER 2023-05-02 16:01 | Outpatient (CLI) | payer MEDICARE, SELFPAY ==
--- NOTE | ~2023-05-02 | XR_ITS ---
EXAM: XR hip RT min 2V DATE: 05/02/2023 16:17 HISTORY: M25.551 - Pain in right hip . COMPARISON: 04/27/2008. FINDINGS: Normal mineralization. No fracture or dislocation. No lytic or blastic lesion. Mild joint space narrowing and moderate osteophytosis in the right hip. Moderate degenerative change in the pubi c symphysis. No erosion or periosteal change. Soft tissues within normal limits. IMPRESSION: Moderate right hip osteoarthritis. Moderate osteitis pubis. Reviewed, dictated and finalized at location K.
== END 2023-05-02 16:02 | disposition home or self-care (01) ==
PROVIDERS: PCP Internal Medicine; Visit Provider Internal Medicine
DX: M16.11 Unilateral primary osteoarthritis, right hip (principal)
CPT/HCPCS: 73502

== ENCOUNTER 2024-06-16 09:36 | Outpatient (CLI) | payer MEDICARE, SELFPAY ==
[2024-06-16 09:48] LABS: Basophils Percent Auto 0.6 % (0.2-1.2); Eosinophils Absolute Auto 0.2 K/mm3 (0-0.3); Eosinophils Percent Auto 2.5 % (0-4.4); Hemoglobin 17.1 g/dL (12.0-15.0); Immature Granulocyte Absolute 0.04 K/mm3 (0.00-0.031); Immature Granulocyte Percent A 0.6 % (0-0.5); Lymphocytes Absolute Auto 2.09 K/mm3 (0.9-3.2); Lymphocytes Percent Auto 32.2 % (18.3-44.2); Mean Corpuscular HGB Conc 32.3 g/dl (32-36); Mean Corpuscular Hemoglobin 29.1 pg (26-34); Mean Corpuscular Volume 90.3 fl (80-100); Mean Platelet Volume 9.7 fl (7.4-10.4); Monocytes Absolute Auto 0.4 K/mm3 (0.1-0.6); Monocytes Percent Auto 6.3 % (2.6-8.5); Neutrophils Absolute Auto 3.8 K/mm3 (1.3-6.7); Neutrophils Percent Auto 57.8 % (45.5-73.1); Platelet Count Result 222 k/mm3 (150-375); Red Blood Count 5.87 M/mm3 (4.2-5.4); Red Cell Distribution Width 13.7 % (11.5-14.5); White Blood Count 6.5 K/mm3 (4.5-10.0)
[2024-06-16 09:52] LABS: Blood Urea Nitrogen 22 mg/dL (8-26); Carbon Dioxide 25 mmol/L (22-30); Chloride 105 mmol/L (98-109); Estimated Glomerular Filt Rate 44; Glucose 152 mg/dL (70-105); Ionized Calcium (POC) 1.15 mmol/L (1.11-1.31); Potassium 4.7 mmol/L (3.5-4.9); Sodium 141 mmol/L (138-146)
== END 2024-06-16 09:37 | disposition home or self-care (01) ==
LOC: ANHLAB 09:39
PROVIDERS: PCP Internal Medicine; Visit Provider Internal Medicine Hematology & Oncology
DX: D75.1 Secondary polycythemia (principal)
CPT/HCPCS: 36415; 80047; 85025

== ENCOUNTER 2024-09-02 07:50 | Outpatient (CLI) | payer MEDICARE, SELFPAY ==
--- NOTE | ~2024-09-02 | XR_ITS ---
AP and lateral views of the left femur Clinical History: Pain Findings: No acute fracture or dislocation is seen. Osseous alignment is anatomic. Moderate degenerat keshia changes at the left knee are noted. Soft tissues are unremarkable. Impression: No acute abnormality. Moderate degenerative changes at the left knee. Reviewed, dictated and finalized at [facility]. UATE RESEARCH ASSISTANT Impression: No acute abnormality. Moderate degenerative changes at the left knee.
== END 2024-09-02 07:51 | disposition home or self-care (01) ==
PROVIDERS: PCP Internal Medicine; Visit Provider Internal Medicine
DX: M17.12 Unilateral primary osteoarthritis, left knee (principal)
CPT/HCPCS: 73552

== ENCOUNTER 2024-09-09 18:17 | Observation (INO) | payer MEDICARE, SELFPAY ==
[2024-09-09] VITALS (18 sets, daily range): BP systolic 105–192; BP diastolic 57–121; PULSE 60–106; RESP 16–22; TEMP 36.4–37.2; O2SAT 97–100; BMI 25.8
--- NOTE | ~2024-09-09 | XR_ITS ---
CHEST RADIOGRAPH CLINICAL HISTORY: ams . COMPARISON: 07/10/2020 TECHNIQUE: Single portable view of the chest. FINDINGS The cardiomediastinal silhouette is unremarkable. The lungs are clear. Visualized osseous structures and soft tissues are unremarkable. IMPRESSION: No focal infiltrate or effusion. Reviewed, dictated and finalized at location A. TOR FUELING SUPERVISOR
--- NOTE | ~2024-09-09 | CT_ITS ---
History: Code stroke PROCEDURE: CT head without contrast. COMPARISON: None TECHNIQUE: Axial imaging of the head performed from the skull base to the vertex without IV contrast. Sagittal a nd coronal reformations obtained. DLP: 681 mGy-cm FINDINGS: The ventricles are normal in size, shape and position for patient of this age. There is no mass, mass effect or midline shift. There is no abnormal extra-axial fluid collection or intracranial hemorrhage. Visualized paranasal sinuses are clear. The mastoid air cells are well aerated. No acute displaced fractures within the overlying cranium. Impression: No acute intracranial hemorrhage or suspicious mass effect. These findings were relayed to Dr. Heck at 6:38 PM on 09/09/2024 Reviewed, dictated and finalized at location A. GER OF SOFTWARE Impression: No acute intracranial hemorrhage or suspicious mass effect. These findings were relayed to Dr. Heck at 6:38 PM on 09/09/2024
--- NOTE | ~2024-09-09 | MR_ITS ---
EXAMINATION: MR brain/brain stem wo con DATE: 09/10/2024 12:48 INDICATION: Confusion. TECHNIQUE: Magnetic resonance imaging (MRI) of the brain and brainstem was performed without intraven ous contrast. COMPARISON: Brain MRI 09/06/2004, CT 09/09/2024 FINDINGS: There is no intracranial hemorrhage, acute infarction, or abnormal intracranial mass lesion . There are scattered areas of nonspecific increased T2-weighted signal intensity in the cerebral whi te matter and david, which is normal for the patient's age. The ventricles are normal. The paranasal s inuses are clear. The mastoid air cells are normal. The orbits are normal. IMPRESSION: 1. Normal aging brain. Reviewed, dictated and finalized at location A. ER HAND IMPRESSION: 1. Normal aging brain.
--- NOTE | ~2024-09-09 | US_ITS ---
EXAMINATION: US carotid duplex BI DATE: 09/10/2024 13:15 INDICATION: Confusion. TECHNIQUE: Grayscale, color Doppler, and pulsed Doppler images of the cervical carotid arteries were obtained. The degree of vessel stenosis is placed in one of the following categories: normal, <50%, 5 0-69%, >=70% but less than near-occlusion, near-occlusion, or total occlusion. Note that percent sten osis relative to normal distal artery lumen diameter is indirectly measured from velocity measurement s as described by Adan, et al. Radiology 2003; 229:[id number]. COMPARISON: None. FINDINGS: RIGHT: The right common carotid artery (CCA) peak systolic velocity (PSV) is 67 cm/s. The right internal car otid artery (ICA) PSV is 69 cm/s. The right ICA end-diastolic velocity (EDV) is 22 cm/s. The right IC A/CCA PSV ratio is 1.0. Grayscale and color Doppler images yield an estimate of <50% diameter reducti on from plaque in the ICA. There is antegrade flow in the right vertebral artery. LEFT: The left CCA PSV is 76 cm/s. The left ICA PSV is 80 cm/s. The left ICA EDV is 25 cm/s. The left ICA/C CA PSV ratio is 1.1. Grayscale and color Doppler images yield an estimate of <50% diameter reduction from plaque in the ICA. There is antegrade flow in the left vertebral artery. IMPRESSION: 1. <50% stenosis in the right internal carotid artery. 2. <50% stenosis in the left internal carotid artery. Reviewed, dictated and finalized at location A. RIBUTION SYSTEMS SUPERINTENDENT
--- NOTE | 2024-09-09 18:24 | ECG_ITS ---
Test Date: 2024-09-09 18:47:27 Measurements Intervals Dillon Rate: 83 P: 0 IN: 0 QRS: -12 QRSD: 68 T: 37 QT: 383 QTc: 451 Interpretive Statements ATRIAL FLUTTER/TACHYCARDIA BORDERLINE R WAVE PROGRESSION, ANTERIOR LEADS BASELINE ARTIFACT- I, II, III, AVR, AVL, AVF, V1 ABNORMAL ECG No previous ECG available for comparison Electronically Signed On 09-09-2024 20:17:13 RETAIL ASSET PROTECTION SPECIALIST by Jose Elias Roca D.O.
[2024-09-09 18:35] LABS: Glucose Point of Care 114 mg/dl (65-105)
[2024-09-09 18:37] LABS: Basophils Percent Auto 0.4 % (0.2-1.2); Eosinophils Absolute Auto 0.2 K/mm3 (0-0.3); Eosinophils Percent Auto 2.7 % (0-4.4); Hematocrit 50.9 % (37.0-47.0); Hemoglobin 17.4 g/dL (12.0-15.0); Immature Granulocyte Absolute 0.05 K/mm3 (0.00-0.031); Immature Granulocyte Percent A 0.6 % (0-0.5); Lymphocytes Absolute Auto 2.74 K/mm3 (0.9-3.2); Mean Corpuscular HGB Conc 34.2 g/dl (32-36); Mean Corpuscular Hemoglobin 30.6 pg (26-34); Mean Corpuscular Volume 89.5 fl (80-100); Mean Platelet Volume 9.8 fl (7.4-10.4); Monocytes Absolute Auto 0.6 K/mm3 (0.1-0.6); Monocytes Percent Auto 7.8 % (2.6-8.5); Neutrophils Absolute Auto 4.2 K/mm3 (1.3-6.7); Neutrophils Percent Auto 53.5 % (45.5-73.1); Platelet Count Result 252 k/mm3 (150-375); Red Blood Count 5.69 M/mm3 (4.2-5.4); Red Cell Distribution Width 13.8 % (11.5-14.5); White Blood Count 7.8 K/mm3 (4.5-10.0)
[2024-09-09 18:48] LABS: Alanine Aminotransferase 31 U/L (6-35); Albumin Level 4.3 g/dL (3.5-5.1); Alkaline Phosphatase 72 U/L (38-126); Anion Gap 8 mmol/L (4-12); Aspartate Amino Transferase 30 U/L (14-36); Bilirubin,Total 0.4 mg/dL (0.2-1.3); Blood Urea Nitrogen 32 mg/dL (7-17); Carbon Dioxide 26 mmol/L (22-30); Chloride 103 mmol/L (98-107); Estimated CRCL calculation 36 ml/min; Estimated Glomerular Filt Rate 49; Glucose 112 mg/dL (65-110); INR 1.2; Potassium 4.4 mmol/L (3.4-5.0); Prothrombin Time 15.3 Seconds (11.1-14.7); Sodium 137 mmol/L (137-145)
[2024-09-09 18:49] LABS: Partial Thromboplastin Time 30.1 Seconds (22.3-36.8)
--- NOTE | 2024-09-09 18:51 | PC.NURSE ---
pt visitor states pt was cooking dinner when she became disorientated while cooking dinner. pt visitor states that she takes blood thinner for a fib. pt is ao x 4 upon arrival. pt is does not have any visible facial deficits. pt visitor states patient says she is confused because she was asking questions she already knew the answer to . pt denies remembering conversation with visitor. edp dr. mcfadden at bedside with patient and patient visitor assessing.
--- NOTE | 2024-09-09 18:56 | ED.GENADULT ---
HPI - General Adult General Chief complaint: Arrhythmia/Palpitations Stated complaint: afib, ams Time Seen by Provider: 09/09/24 18:44 Source: patient and family Mode of arrival: ambulatory Limitations: no limitations History of Present Illness HPI narrative: PATIENT WAS STANDING MAKING DINNER, THEN START ASKING HER SHE SPOKE TO HER DAUGHTER TODAY AND KEPT REPEATING THE SAME QUESTION AGAIN AND AGAIN. THE DROVE HER TO THE ED. ON ARRIVAL TO THE ED PATIENT IS AWAKE, ALERT ORIENTED X4 DENYING ANY SYMPTOMS. DOES NOT KNOW THE CONVERSATION BETWEEN HER AND HER ABOUT HER DAUGHTER. HISTORY OF ATRIAL FIBRILLATION, CURRENTLY ON ELIQUIS Related Data Home Medications Medication Instructions Recorded Confirmed anastrozole 1 mg tablet 1 mg PO DAILY 12/29/19 09/01/24 apixaban 5 mg tablet (Eliquis) 5 mg PO BID 12/29/19 09/01/24 lisinopril 40 mg tablet 40 mg PO DAILY 12/29/19 09/01/24 metoprolol tartrate 50 mg tablet 50 mg PO Q12H 12/29/19 09/01/24 sotalol 120 mg tablet 120 mg PO Q12H 12/29/19 09/01/24 multivitamin,xn-wdyu-nexgzhko 1 tablet PO DAILY 01/06/20 09/01/24 (Complete Multivitamin tablet) celecoxib 200 mg capsule (Celebrex) 200 mg PO DAILY PRN Pain, Mild 10/02/20 09/01/24 Allergies Allergy/AdvReac Type Severity Reaction Status Date / Time No Known Allergies Allergy Unknown Verified 09/09/24 18:20 Review of Systems Review of Systems: All systems reviewed & are unremarkable except as noted in HPI and below PMFSH Past Medical History Medical History A-fib Breast cancer Chronic fatigue CKD (chronic kidney disease) stage 3, GFR 30-59 ml/min Dizziness Encounter for annual health examination Esophageal spasm Essential (primary) hypertension Gastro-esophageal reflux disease without esophagitis GERD (gastroesophageal reflux disease) Hereditary and idiopathic neuropathy, unspecified Hx of breast cancer Hypertension SONYA (obstructive sleep apnea) Other fatigue Paroxysmal atrial fibrillation Polycythemia Surgical History Surgical History History of cholecystectomy History of hysterectomy History of knee replacement Family History Family History Sibling Family history of cardiac disorder Mother Patient's mother is Father No problems noted. Social History Social History Smoking status: Never smoker Second hand tobacco smoke exposure: No Alcohol intake: current Substance use: never Substance use type: does not use Do You Feel Safe in your Home?: Yes Lack of Transportation: No Lack of Food: Never True Current Housing: I Have Housing Concerned About Future Housing: No Difficulty Paying Gas/Electric Bills: No Difficulty Paying for Meds: YES Currently Unemployed: No Education: Bachelor's Degree Difficulty w/ Childcare or Family Care: No Living arrangements: with family 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 Gender identity (if verbalized by the patient): Female Spiritual care concerns: No Exam Narrative: GENERAL APPEARANCE: WELL-DEVELOPED, WELL-NOURISHED SKIN: NORMAL COLOR HEAD: NORMOCEPHALIC, NONTRAUMATIC EYES: CLEAR CONJUNCTIVA ENT: OROPHARYNX NORMAL, EARS NORMAL, NOSE NORMAL NECK: SUPPLE, NONTENDER CHEST AND RESPIRATORY: AIRWAY PATENT, NO RESPIRATORY DISTRESS, NO ACCESSORY MUSCLE USE HEART: REGULAR RATE/RHYTHM ABDOMEN: SOFT, NONTENDER, NO ORGANOMEGALY, QUIET BOWEL SOUNDS VASCULAR: NORMAL PERIPHERAL PULSES, NORMAL CAPILLARY REFILL. MUSCULOSKELETAL: NORMAL RANGE OF MOTION, NONTENDER BACK NEUROLOGIC: ALERT AND ORIENTED ?3, LAWYER CRIMINAL IS NORMAL TESTED, NO GROSS MOTOR DEFICIT Course Vital Signs Vital signs: Vital Signs Temperature 37.0 C 09/09/24 18:24 Pulse Rate 106 H 09/09/24 18:24 Respiratory Rate 16 09/09/24 18:24 Blood Pressure 130/103 H 09/09/24 18:24 Pulse Oximetry 100 09/09/24 18:24 Temperature 37.2 C 09/09/24 18:46 Pulse Rate 68 09/09/24 19:15 Respiratory Rate 17 09/09/24 19:15 Blood Pressure 154/105 H 09/09/24 19:15 Pulse Oximetry 98 09/09/24 19:15 Oxygen Delivery Room Air 09/09/24 18:46 Medical Decision Making MDM Narrative Medical decision making narrative: patient presents with sudden onset of confusion and repeating the same sentence again and again lasted for few minutes, resolved on arrival to the emergency room History of AFib on Eliquis Vital signs showing blood pressure 130/103, heart rate 106, normal temperature and 100% oxygenation on room air Physical examination showing no neurologic abnormalities, patient is awake, alert oriented x4 Differential diagnosis include TIA, amnesia, stress related symptoms Blood workup today includes CBC and CMP showed hemoglobin of 17.4, hematocrit 50.9, PT 15.3, creatinine of 1.1, otherwise insignificant abnormalities CT head without contrast showed no acute abnormalities Chest x-ray showed no acute abnormalities Admit to hospitalist Vital Signs Vital Signs: Vital Signs Temperature 37.0 C 09/09/24 18:24 Pulse Rate 106 H 09/09/24 18:24 Respiratory Rate 16 09/09/24 18:24 Blood Pressure 130/103 H 09/09/24 18:24 Pulse Oximetry 100 09/09/24 18:24 Temperature 37.2 C 09/09/24 18:46 Pulse Rate 68 09/09/24 19:15 Respiratory Rate 17 09/09/24 19:15 Blood Pressure 154/105 H 09/09/24 19:15 Pulse Oximetry 98 09/09/24 19:15 Oxygen Delivery Room Air 09/09/24 18:46 Lab Data 09/09/24 18:31 09/09/24 18:31 Labs: Lab Results 09/09/24 09/09/24 Range/Units 18:28 18:31 WBC 7.8 (4.5-10.0) K/mm3 RBC 5.69 H (4.2-5.4) M/mm3 Hgb 17.4 H (12.0-15.0) g/dL Hct 50.9 H (37.0-47.0) % MCV 89.5 (80-100) fl MCH 30.6 (26-34) pg MCHC 34.2 (32-36) g/dl RDW 13.8 (11.5-14.5) % Plt Count 252 (150-375) k/mm3 MPV 9.8 (7.4-10.4) fl Immature Gran % (Auto) 0.6 H (0-0.5) % Neut % (Auto) 53.5 (45.5-73.1) % Lymph % (Auto) 35.0 (18.3-44.2) % Wright % (Auto) 7.8 (2.6-8.5) % Eos % (Auto) 2.7 (0-4.4) % Baso % (Auto) 0.4 (0.2-1.2) % Lymph # (Auto) 2.74 (0.9-3.2) K/mm3 Wright # (Auto) 0.6 (0.1-0.6) K/mm3 Eos # (Auto) 0.2 (0-0.3) K/mm3 Baso # (Auto) 0.0 (0.0-0.1) K/mm3 Abs Immat Gran (auto) 0.05 H (0.00-0.031) K/mm3 Absolute Neuts (auto) 4.2 (1.3-6.7) K/mm3 Absolute Nucleated RBC 0.000 (0.0-0.012) K/mm3 Nucleated RBC % 0.0 (0.0-0.2) % PT 15.3 H (11.1-14.7) Seconds INR 1.2 APTT 30.1 (22.3-36.8) Seconds Sodium 137 (137-145) mmol/L Potassium 4.4 (3.4-5.0) mmol/L Chloride 103 (98-107) mmol/L Carbon Dioxide 26 (22-30) mmol/L Anion Gap 8 (4-12) mmol/L BUN 32 H (7-17) mg/dL Creatinine 1.10 H (0.7-1.0) mg/dL Estim Creat Clear Calc 36 ml/min Estimated GFR 49 L (59 - ) Glucose 112 H (65-110) mg/dL POC Capillary Glucose 114 H (65-105) mg/dl Calcium 10.0 (8.4-10.2) mg/dL Total Bilirubin 0.4 (0.2-1.3) mg/dL AST 30 (14-36) U/L ALT 31 (6-35) U/L Alkaline Phosphatase 72 (38-126) U/L Troponin I < 0.012 (0.000-0.034) ng/mL Total Protein 8.0 (6.3-8.2) g/dL Albumin 4.3 (3.5-5.1) g/dL Discharge Plan Discharge Clinical Impression: Brain TIA Patient Disposition: Still a Patient Condition: Improved Prescriptions: No Action anastrozole 1 mg tablet 1 mg PO DAILY Eliquis 5 mg tablet 5 mg PO BID lisinopril 40 mg tablet 40 mg PO DAILY metoprolol tartrate 50 mg tablet 50 mg PO Q12H sotalol 120 mg tablet 120 mg PO Q12H celecoxib [Celebrex] 200 mg capsule 200 mg PO DAILY PRN (Reason: Pain, Mild) Patient Comments: DOES NOT TAKE OFTEN omeprazole 40 mg capsule,delayed release(DR/EC) 40 mg PO DAILY Qty: 30 12RF zolpidem [Ambien] 10 mg tablet 5 mg PO QHS PRN (Reason: Insomnia) Qty: 30 0RF Complete Multivitamin Tablet 1 tablet PO DAILY Follow-up/Referrals: Ryne Gomes DO [Primary Care Provider] - Quality Stroke Scale Stroke Scale 1: 1a Level of consciousness: alert-0 1b Level of consciousness questions: answers both correctly-0 1c Level of consciousness commands: obeys both correctly-0 2 Best gaze: normal-0 3 Visual: no visual loss-0 4 Facial palsy: normal-0 5a Motor: left arm: no drift-0 5b Motor: right arm: no drift-0 6a Motor: left leg: no drift-0 6b Motor: right leg: no drift-0 7 Limb ataxia: absent-0 8 Sensory: normal-0 9 Best language: no aphasia-0 10 Dysarthria: normal-0 11 Extinction and inattention: no abnormality-0 Level:: 0
[2024-09-09 19:00] LABS: Troponin I < 0.012 ng/mL (0.000-0.034)
--- NOTE | 2024-09-09 21:06 | PC.NURSE ---
pt able to ambulate with a steady unassisted gait to the bathroom. upon patient returning from the bathroom states, I am confused, what am I doing . upon assessment patient is able to answer her name, year/ month, setting correctly. pt is unsure why she is here. this rn reorientated patient to why she is at [facility]. pt began to relax and lay back in the bed. pt visitor at bedside comforting patient.
[2024-09-09 21:14] LABS: Add Urine Microscopic? YES; Appearance Urine Cloudy (Clear); Bacteria Urine None Seen /hpf; Bilirubin Urine Negative (Negative); Blood Urine 1+ (Negative); Color Urine Yellow (Yellow); Glucose Urine UA Negative (Negative); Ketones Urine Negative (Negative); Leukocyte Esterase Ur Negative LEU/UL (Negative); Nitrate Urine Negative (Negative); Non Pathogenic Casts 0-2; Protein Urine 4+ mg/dL (Negative); Specific Grav Ur 1.015 (1.001-1.035); Squamous Epithelial Cell Urine None Seen /hpf (Few); Urobilinogen Urine 0.2 mg/dL (<2.0); WBC Urine 0-5 /hpf (0-3)
[2024-09-09] MEDS: ASPIRIN 81 MG CHEWABLE TABLET 324 MG PO (21:30)
[2024-09-09] MEDS: hydrALAZINE HCL 20 MG/ML VIAL IV PUSH (22:31)
[2024-09-09] MEDS: ACETAMINOPHEN 325 MG TABLET 650 MG PO (23:37)
[2024-09-10] VITALS (10 sets, daily range): BP systolic 124–158; BP diastolic 71–73; PULSE 60–80; RESP 14–18; TEMP 36.2–36.8; O2SAT 94–98
--- NOTE | 2024-09-10 00:30 | ECHO_ITS ---
Patient Info Name: Carmen Stewart Age: 73 years : 1950 Gender: Female Ht: 63 in Wt: 153 lbs BSA: 1.77 m2 HR: 60 bpm BP: 129 / 71 mmHg Technical Quality: Good Exam Date: 09/10/2024 9:07 AM Exam Location: Echo Lab Patient Status: Inpatient Admit Date: 09/09/2024 Staff Ordering Physician: Sally Shannon PA-C Window And Siding Craftsman: Veronika Harrell RDCS Attending Provider: Otoniel Weaver MD Referring Physician: Mirtha TARIQ; Exam Type: CA echo doppler w bubble study Study Info Indications - vertigo, a fib Complete two-dimensional, color flow and Doppler transthoracic echocardiogram is performed with agitated saline. Summary 1. Left ventricular chamber dimension is normal. 2. Left ventricular systolic function is normal, estimated at 60-65%. 3. There is mild concentric increased left ventricular wall thickness. 4. The left ventricular diastolic function is abnormal. 5. E/e' 12 is mildly elevated. 6. Left atrial chamber dimension is moderately enlarged. 7. There is mild mitral valve regurgitation. 8. There is trace tricuspid valve regurgitation. 9. No pulmonary hypertension, estimated pulmonary arterial systolic pressure is 29 mmHg. Left Ventricle E/e' 12 is mildly elevated. Left ventricular chamber dimension is normal. Left ventricular systolic function is normal, estimated at 60-65%. There is mild concentric increased left ventricular wall thickness. The left ventricular diastolic function is abnormal. Right Ventricle Right ventricular systolic function is normal and with normal TAPSE 2.1 cm. Right ventricular chamber dimension is normal. Left Atria Left atrial chamber dimension is moderately enlarged. Right Atria Right atrial chamber dimension is normal. Atrial Septum Agitated saline injection with and without valsalva maneuver opacified right side cardiac chambers without shunt to left side cardiac chambers. Intact interatrial septum visualized by 2D and agitated saline imaging. Aortic Valve The aortic valve is trileaflet. There is no aortic valve stenosis. There is no aortic valve regurgitation. Pulmonic Valve There is no pulmonic regurgitation. Mitral Valve There is no mitral valve stenosis. There is mild mitral valve regurgitation. Tricuspid Valve There is trace tricuspid valve regurgitation. No pulmonary hypertension, estimated pulmonary arterial systolic pressure is 29 mmHg. Pericardium/Pleural There is no pericardial effusion. Inferior Vena Cava Normal inferior vena cava with >50% collapse upon inspiration consistent with normal right atrial pressure, 5 mmHg. Aorta The aortic root size at the sinus of Valsalva is normal. Left Ventricular Outflow Tract Name Value Normal LVOT 2D LVOT Diameter 1.8 cm LVOT Doppler LVOT Peak Gradient 2 mmHg LVOT Mean Gradient 1 mmHg LVOT VTI 18 cm LVOT VTI/AV VTI Ratio 0.7 LVOT Stroke Volume 43 ml LVOT CO 3.1 l/min LVOT CI 1.7 l/min/m2 Mitral Valve Name Value Normal MV Doppler MV Decel [place] 338 cm/s2 MV PHT 65 ms MV Area (PHT) 3.4 cm2 4.0-5.0 MV Diastolic Function MV E Peak Velocity 76 cm/s MV A Peak Velocity 67 cm/s MV E/A 1.1 MV Decel Time 226 ms MV Annular TDI MV E/e' (Septal) 12.5 <=8.0 MV E/e' (Lateral) 11.9 <=8.0 MV E/e' (Average) 12.2 Tricuspid Valve Name Value Normal TV Regurgitation Doppler TR Peak Velocity 247 cm/s TR Peak Gradient 18 mmHg Estimated PAP/RSVP RA Pressure 5 mmHg <=5 PA Systolic Pressure 29 mmHg <36 RV Systolic Pressure 29 mmHg <36 Aortic Valve Name Value Normal AV Doppler AV Peak Velocity 121 cm/s AV Peak Gradient 6 mmHg AV Mean Gradient 3 mmHg AV VTI 26 cm AV Area (Cont Eq VTI) 1.7 cm2 >=3.0 AV Area (Cont Eq Darnell) 1.4 cm2 AV Regurgitation 2D LVOT Area 2.4 cm2 Ventricles Name Value Normal LV Dimensions 2D/MM IVS Diastolic Thickness (2D) 1.2 cm 0.6-1.0 LVID Diastole (2D) 3.7 cm 3.8-5.2 LVIW Diastolic Thickness (2D) 1.2 cm 0.6-0.9 LVID Systole (2D) 2.7 cm 2.2-3.5 LVOT Diameter 1.8 cm LV Mass (2D Cubed) 145.66 g 67.00-162.00 LV Mass Index (2D Cubed) 82 g/m2 43-95 Relative Wall Thickness (2D) 0.66 LV Fractional Shortening/Ejection Fraction 2D/MM LV Fractional Shortening (2D) 27 % 27-45 LV EF (2D [place]) 53 % 54-74 LV Diastolic Volume (4C MOD) 105 ml LV EF (4C MOD) 67 % LV Diastolic Volume (2C MOD) 123 ml LV EF (2C MOD) 53 % LV Diastolic Volume (BP MOD) 114 ml 46-106 LV Diastolic Volume Index (BP MOD) 64 ml/m2 29-61 LV Systolic Volume (BP MOD) 45 ml 14-42 LV Systolic Volume Index (BP MOD) 25 ml/m2 8-24 LV EF (BP MOD) 60 % 54-74 LV Diastolic Length (4C) 7.7 cm LV Systolic Length (4C) 6.8 cm LV Stroke Volume (4C MOD) 71 ml Atria Name Value Normal LA Dimensions LA Volume (4C A-L) 34 ml LA Volume (BP A-L) 36 ml RA Dimensions RA Area (4C) 14.3 cm2 <=18.0 Report Signatures
[2024-09-10 05:54] LABS: Anion Gap 6 mmol/L (4-12); Blood Urea Nitrogen 26 mg/dL (7-17); Calcium 9.4 mg/dL (8.4-10.2); Carbon Dioxide 22 mmol/L (22-30); Chloride 108 mmol/L (98-107); Estimated CRCL calculation 39 ml/min; Estimated Glomerular Filt Rate 54; Glucose 123 mg/dL (65-110); Potassium 4.1 mmol/L (3.4-5.0); Sodium 136 mmol/L (137-145)
[2024-09-10 05:58] LABS: Hemoglobin 16.7 g/dL (12.0-15.0); Mean Corpuscular HGB Conc 34.8 g/dl (32-36); Mean Corpuscular Hemoglobin 30.9 pg (26-34); Mean Corpuscular Volume 88.7 fl (80-100); Mean Platelet Volume 10.3 fl (7.4-10.4); Platelet Count Result 229 k/mm3 (150-375); Red Blood Count 5.41 M/mm3 (4.2-5.4); White Blood Count 8.1 K/mm3 (4.5-10.0)
--- NOTE | 2024-09-10 07:20 | P.PNIM_ITS ---
Progress Note: A&P Assessment and Plan (1) Brain TIA: Code(s): G45.9 - Transient cerebral ischemic attack, unspecified Status: Acute Assessment and Plan: CT head No acute intracranial hemorrhage or suspicious mass effect. brain MRI pending echo with bubble pending ultrasound carotid Dopplers pending EEG pending (2) Hyperlipidemia: Code(s): E78.5 - Hyperlipidemia, unspecified Status: Acute Assessment and Plan: fasting lipid panel tomorrow morning (3) Hypertension: Code(s): I10 - Essential (primary) hypertension Status: Acute Assessment and Plan: continue lisinopril hydralazine p.r.n. Time Spent With Patient Time with patient: Greater than 35 minutes Subjective Date/time seen: 09/10/24 07:20 Interval history: 73-year-old female presents confusion, very repetitive. CT brain was unremarkable. Possible transient global amnesia, rule out CVA. plan for MRI, echocardiogram , EEG and carotid Dopplers Review of Systems Review of Systems: 12 systems were reviewed and are negative except for as per HPI. Exam Narrative: General: well appearing, appears stated age. HEENT: normocephalic, atraumatic. Mucous membranes moist. EOMI, PERRLA, bilateral sclera anicteric, no conjunctival injection. Neck supple without JVD, lymphadenopathy, or bruit. Respiratory: clear to ascultation bilaterally. No rales/rhonic/wheezes. Cardiovascular: Regular rate and rhythm, normal S1-S2 upon ascultation. No murmurs, rubs, or clicks. PMI is nondisplaced, capillary refill less than 3 second. Abdomen: Soft, round, no pulsatile masses, nondistended and nontender. No rebound, no guarding. No CVA tenderness, no hepatosplenomegaly. Bowel sounds present to all four quadrants. No high pitch or tinkling sounds, resonant to pe rcussion. Extremities: No cyanosis, clubbing, or edema present. Pulses are palpable 2/2. Active ROM to all four extremities. Neuro: Alert and orientated x 4. PERRLA. Cranial nerves 2-12 intact without focal deficit. Skin: Warm, dry, and intact, without rash, erythema, or lesion. Psych: pleasant, cooperative, normal speech, normal affect, no hallucinations, no dysarthia Objective Data Vital Signs Vital Signs: Vital Signs - 24 hr 09/09/24 18:24 09/09/24 18:46 09/09/24 18:46 Temperature 98.6 F 98.9 F Pulse Rate 106 H 87 83 Respiratory Rate 16 19 Blood Pressure 130/103 H 171/114 H Pulse Oximetry 100 99 Oxygen Delivery 09/09/24 18:46 09/09/24 18:49 09/09/24 19:15 Temperature Pulse Rate 68 Respiratory Rate 17 Blood Pressure 171/114 H 154/105 H Pulse Oximetry 99 98 98 Oxygen Delivery Room Air 09/09/24 18:47 09/09/24 19:02 09/09/24 19:17 Temperature Pulse Rate 87 70 74 Respiratory Rate 22 H 18 19 Blood Pressure 171/114 H 154/105 H 144/100 H Pulse Oximetry 99 99 98 Oxygen Delivery 09/09/24 19:31 09/09/24 19:47 09/09/24 20:02 Temperature Pulse Rate 73 65 64 Respiratory Rate 19 22 H 20 Blood Pressure 165/96 H 192/106 H 170/107 H Pulse Oximetry 98 98 99 Oxygen Delivery 09/09/24 20:18 09/09/24 20:32 09/09/24 22:04 Temperature Pulse Rate 62 61 86 Respiratory Rate 17 16 22 H Blood Pressure 162/96 H 172/110 H 161/121 H Pulse Oximetry 100 98 98 Oxygen Delivery 09/09/24 22:27 09/09/24 22:31 09/09/24 22:36 Temperature Pulse Rate 63 60 65 Respiratory Rate 18 18 18 Blood Pressure 171/109 H 155/109 H 157/93 H Pulse Oximetry 97 99 98 Oxygen Delivery 09/09/24 22:48 09/09/24 23:16 09/09/24 23:05 Temperature 97.5 F L Pulse Rate 71 78 Respiratory Rate 16 18 Blood Pressure 116/69 105/57 L Pulse Oximetry 98 99 Oxygen Delivery Room Air 09/10/24 06:00 Temperature 98.3 F Pulse Rate 60 Respiratory Rate 18 Blood Pressure 129/71 Pulse Oximetry 98 Oxygen Delivery Meds/Results Medications: Active Medications Generic Name Dose Route Start Last Admin Trade Name Freq PRN Reason Stop Dose Admin Acetaminophen 650 mg 09/09/24 20:54 09/09/24 23:37 Acetaminophen 325 Mg Tablet PO 650 mg Q4H PRN Administration Mild Pain (1-3) or Fever Anastrozole 1 mg 09/10/24 09:00 Anastrozole (*Chemo) 1 Mg Tablet PO DAILY [facility] Apixaban 5 mg 09/10/24 09:00 Apixaban 5 Mg Tablet PO Q12HR [facility] Aspirin 81 mg 09/10/24 08:00 Aspirin 81 Mg Chewable Tablet PO DAILY@0800 [facility] Celecoxib 200 mg 09/10/24 04:32 Celecoxib 200 Mg Capsule PO DAILY PRN Pain, Mild Lisinopril 40 mg 09/10/24 09:00 Lisinopril 20 Mg Tablet PO DAILY [facility] Metoprolol Tartrate 50 mg 09/10/24 09:00 Metoprolol Tartrate 50 Mg Tab PO Q12HR [facility] Miscellaneous Information 1 each 09/10/24 00:01 Celecoxib Home Med Ordered Prn For Mild Pain, Patient Is Already On Tylenol For Pain 1-3. XX 10/10/24 00:00 CLARIFY [facility] Multivitamins/Calcium 1 tablet 09/10/24 09:00 Therapeutic Multivitamins/Minerals Tab (*Bkc) PO DAILY [facility] Pantoprazole Sodium 40 mg 09/10/24 09:00 Pantoprazole 40 Mg Tablet PO Q12H PRN ACID REFLUX Perflutren Lipid Microsphere 0 ml 09/10/24 00:30 Perflutren Lipid Microspheres 1.5 Ml Vial Diluted To 10 Ml Total Volume IV PUSH 09/13/24 00:30 ONCE PRN adequate visualization Protocol Sotalol HCl 120 mg 09/10/24 09:00 Sotalol Hcl 40 Mg Tablet PO Q12HR [facility] Radiology Results: ITS Impressions Head CT 09/09/24 18:38 Impression: No acute intracranial hemorrhage or suspicious mass effect. These findings were relayed to Dr. Heck at 6:38 PM on 09/09/2024 Chest X-Ray 09/09/24 19:27 IMPRESSION: No focal infiltrate or effusion. Labs Labs: Laboratory Results - last 24 hr 09/09/24 09/09/24 09/09/24 18:28 18:31 21:03 WBC 7.8 RBC 5.69 H Hgb 17.4 H Hct 50.9 H MCV 89.5 MCH 30.6 MCHC 34.2 RDW 13.8 Plt Count 252 MPV 9.8 Immature Gran % (Auto) 0.6 H Neut % (Auto) 53.5 Lymph % (Auto) 35.0 Weld % (Auto) 7.8 Eos % (Auto) 2.7 Baso % (Auto) 0.4 Lymph # (Auto) 2.74 Weld # (Auto) 0.6 Eos # (Auto) 0.2 Baso # (Auto) 0.0 Abs Immat Gran (auto) 0.05 H Absolute Neuts (auto) 4.2 Absolute Nucleated RBC 0.000 Nucleated RBC % 0.0 PT 15.3 H INR 1.2 APTT 30.1 Sodium 137 Potassium 4.4 Chloride 103 Carbon Dioxide 26 Anion Gap 8 BUN 32 H Creatinine 1.10 H Estim Creat Clear Calc 36 Estimated GFR 49 L Glucose 112 H POC Capillary Glucose 114 H Calcium 10.0 Total Bilirubin 0.4 AST 30 ALT 31 Alkaline Phosphatase 72 Troponin I < 0.012 Total Protein 8.0 Albumin 4.3 TSH (Reflex) Urine Color Yellow Urine Appearance Cloudy H Urine pH 6.0 Ur Specific [place] 1.015 Urine Protein 4+ H Urine Glucose (UA) Negative Urine Ketones Negative Ur Blood (Man) 1+ H Urine Nitrate Negative Urine Bilirubin Negative Urine Urobilinogen 0.2 Leukocyte Esterase Rfl Negative Urine RBC 3-5 H Urine WBC 0-5 Ur Squamous Epith Cells None seen Urine Bacteria None seen Urine Casts 0-2 09/10/24 05:10 WBC 8.1 RBC 5.41 H Hgb 16.7 H Hct 48.0 H MCV 88.7 MCH 30.9 MCHC 34.8 RDW 14.0 Plt Count 229 MPV 10.3 Immature Gran % (Auto) Neut % (Auto) Lymph % (Auto) Weld % (Auto) Eos % (Auto) Baso % (Auto) Lymph # (Auto) Weld # (Auto) Eos # (Auto) Baso # (Auto) Abs Immat Gran (auto) Absolute Neuts (auto) Absolute Nucleated RBC Nucleated RBC % PT INR APTT Sodium 136 L Potassium 4.1 Chloride 108 H Carbon Dioxide 22 Anion Gap 6 BUN 26 H Creatinine 1.00 Estim Creat Clear Calc 39 Estimated GFR 54 L Glucose 123 H POC Capillary Glucose Calcium 9.4 Total Bilirubin AST ALT Alkaline Phosphatase Troponin I Total Protein Albumin TSH (Reflex) 2.290 Urine Color Urine Appearance Urine pH Ur Specific [place] Urine Protein Urine Glucose (UA) Urine Ketones Ur Blood (Man) Urine Nitrate Urine Bilirubin Urine Urobilinogen Leukocyte Esterase Rfl Urine RBC Urine WBC Ur Squamous Epith Cells Urine Bacteria Urine Casts Quality VTE Prophylaxis VTE prophylaxis: mechanical ordered and pharmacologic ordered Stroke Date of last known normal: 09/09/24 Hospitalist MIPS Advance Care Plan I have confirmed that the patient's Advanced Care Plan is present, code status is documented, or surrogate decision maker is listed in patient medical record.: Yes Medication Reconciliation I have utilized all available resources to obtain, update and review the patients current medications (includes all prescriptions, OTC, herbals, cannabis, and nutritional supplements).: Yes
[2024-09-10] MEDS: THERAPEUTIC MULTIVITAMINS/MINERALS TAB (*BKC) 1 TABLET PO (08:17)
[2024-09-10] MEDS: SOTALOL HCL 40 MG TABLET 120 MG PO ×2 (08:18→20:40)
[2024-09-10] MEDS: METOPROLOL TARTRATE 50 MG TAB PO ×2 (08:18→20:41)
[2024-09-10] MEDS: lisinopriL 20 MG TABLET 40 MG PO (08:18)
[2024-09-10] MEDS: APIXABAN 5 MG TABLET PO ×2 (08:19→20:41)
[2024-09-10] MEDS: ASPIRIN 81 MG CHEWABLE TABLET PO (08:19)
[2024-09-10] MEDS: ANASTROZOLE (*CHEMO) 1 MG TABLET PO (08:49)
[2024-09-10] MEDS: ALPRAZolam (*CRX) 0.25 MG TABLET PO (12:00)
--- NOTE | 2024-09-10 15:17 | WPDNEURCNPN ---
Assessment and Plan Assessment and plan (1) Brain TIA: Code(s): G45.9 - Transient cerebral ischemic attack, unspecified Status: Acute (2) Polycythemia: Code(s): D75.1 - Secondary polycythemia Status: Acute (3) Neuropathy: Code(s): G62.9 - Polyneuropathy, unspecified Status: Acute (4) Type II diabetes mellitus with renal manifestations: Code(s): E11.29 - Type 2 diabetes mellitus with other diabetic kidney complication Status: Acute Plan I suspect that she might have had a an embolic event due to atrial fibrillation despite being on anticoagulation which is quite possible. The blood pressure might have gone up due to this event and then she has had headache. Of course partial complex seizure would be in the differential diagnosis. Treatment will still be still that of the atrial fibrillation and cerebrovascular disease. MRI of the brain did not show any significant abnormality. Carotid Doppler study did not show any significant abnormal findings. Neuro exam did not show any significant focal findings at this time. She has similar spell 12 years ago. Although she has been Eliquis but as we aware the despite this she can still have an occasional spell of embolization. I believe that the possibility of left atrial appendage ablation is being considered. Also suggest lipid profile and continue cardiac workup for atrial fibrillation. Consult date: 09/10/24 HPI: Cramen Stewart is a 73 year old female With history of episode where she kept repeating the same sentence to her yesterday while she was in the kitchen seeing that I do not feel right and she has was somewhat confused and later on she did not remember the whole episode. Something like this happen once a gain 12 years ago. She is known to have atrial fibrillation and she is on Eliquis. Atrial fibrillation initially diagnosed in 2005 or so. She has a pending appointment to see a cardiac newspaper distributor supervisor in near future. Apparently she has also been known to have atrial flutter fibrillation. Is also history of cancer of breast. Her took her blood pressure when she was having the spell and noted that her blood pressure was high however he did not pay attention to the heart rate at that time. She appeared awake and did not appear to be paralyzed on either left or right side or have any seizure-like activity but the patient has lack of awareness of what happened for nearly half an hour. Pre it was noted that she also has history of polycythemia and her hematocrit was 50.9 on admission and was 48.7 today. She also has had headache last night but please also to in or head on and off past with the for the 12 years ago she has had a similar spell a the seroma wears the at that time she was also diagnosed to have peripheral neuropathy and neck pain and has had follow-up with Dr. Polanco. The notes are in the chart and reviewed by myself. Review of Systems Review of Systems: All systems reviewed & are unremarkable except as noted in HPI and below PMFSH Past Medical History Medical History A-fib Breast cancer Chronic fatigue CKD (chronic kidney disease) stage 3, GFR 30-59 ml/min Dizziness Encounter for annual health examination Esophageal spasm Essential (primary) hypertension Gastro-esophageal reflux disease without esophagitis GERD (gastroesophageal reflux disease) Hereditary and idiopathic neuropathy, unspecified Hx of breast cancer Hypertension SONYA (obstructive sleep apnea) Other fatigue Paroxysmal atrial fibrillation Polycythemia Surgical History Surgical History History of cholecystectomy History of hysterectomy History of knee replacement Family History Family History Sibling Family history of cardiac disorder Mother Patient's mother is Father No problems noted. Social History Social History Smoking status: Never smoker Second hand tobacco smoke exposure: No Alcohol intake: never Substance use: never Substance use type: does not use Do You Feel Safe in your Home?: Yes Lack of Transportation: No Lack of Food: Never True Current Housing: I Have Housing Concerned About Future Housing: No Difficulty Paying Gas/Electric Bills: No Difficulty Paying for Meds: No Currently Unemployed: No Education: Bachelor's Degree Difficulty w/ Childcare or Family Care: No Living arrangements: with family Occupation/Education: retired Additional occupation/education comments: [employer] Gender identity (if verbalized by the patient): Female Spiritual care concerns: No Meds Home Medications and Allergies Home Medications Medication Instructions Recorded Confirmed Type anastrozole 1 mg tablet 1 mg PO DAILY 12/29/19 09/09/24 History apixaban 5 mg tablet (Eliquis) 5 mg PO BID 12/29/19 09/09/24 History lisinopril 40 mg tablet 40 mg PO DAILY 12/29/19 09/09/24 History metoprolol tartrate 50 mg tablet 50 mg PO Q12H 12/29/19 09/09/24 History sotalol 120 mg tablet 120 mg PO Q12H 12/29/19 09/09/24 History multivitamin,[id number] 1 tablet PO DAILY 01/06/20 09/09/24 History (Complete Multivitamin tablet) celecoxib 200 mg capsule (Celebrex) 200 mg PO DAILY PRN Pain, Mild 10/02/20 09/09/24 History omeprazole 40 mg capsule,delayed 40 mg PO DAILY PRN Acid Reflux 09/09/24 09/09/24 History release Allergies Allergy/AdvReac Type Severity Reaction Status Date / Time No Known Allergies Allergy Unknown Verified 09/09/24 18:20 Vital Signs Vital Signs - 24 hr 09/09/24 18:24 09/09/24 18:46 09/09/24 18:46 Temperature 98.6 F 98.9 F Pulse Rate 106 H 87 83 Respiratory Rate 16 19 Blood Pressure 130/103 H 171/114 H Pulse Oximetry 100 99 Oxygen Delivery 09/09/24 18:46 09/09/24 18:49 09/09/24 19:15 Temperature Pulse Rate 68 Respiratory Rate 17 Blood Pressure 171/114 H 154/105 H Pulse Oximetry 99 98 98 Oxygen Delivery Room Air 09/09/24 18:47 09/09/24 19:02 09/09/24 19:17 Temperature Pulse Rate 87 70 74 Respiratory Rate 22 H 18 19 Blood Pressure 171/114 H 154/105 H 144/100 H Pulse Oximetry 99 99 98 Oxygen Delivery 09/09/24 19:31 09/09/24 19:47 09/09/24 20:02 Temperature Pulse Rate 73 65 64 Respiratory Rate 19 22 H 20 Blood Pressure 165/96 H 192/106 H 170/107 H Pulse Oximetry 98 98 99 Oxygen Delivery 09/09/24 20:18 09/09/24 20:32 09/09/24 22:04 Temperature Pulse Rate 62 61 86 Respiratory Rate 17 16 22 H Blood Pressure 162/96 H 172/110 H 161/121 H Pulse Oximetry 100 98 98 Oxygen Delivery 09/09/24 22:27 09/09/24 22:31 09/09/24 22:36 Temperature Pulse Rate 63 60 65 Respiratory Rate 18 18 18 Blood Pressure 171/109 H 155/109 H 157/93 H Pulse Oximetry 97 99 98 Oxygen Delivery 09/09/24 22:48 09/09/24 23:16 09/09/24 23:05 Temperature 97.5 F L Pulse Rate 71 78 Respiratory Rate 16 18 Blood Pressure 116/69 105/57 L Pulse Oximetry 98 99 Oxygen Delivery Room Air 09/10/24 06:00 09/10/24 08:18 09/10/24 08:18 Temperature 98.3 F Pulse Rate 60 72 72 Respiratory Rate 18 Blood Pressure 129/71 Pulse Oximetry 98 Oxygen Delivery 09/10/24 08:00 09/10/24 11:08 09/10/24 12:00 Temperature Pulse Rate 71 68 Respiratory Rate Blood Pressure Pulse Oximetry 94 Oxygen Delivery Room Air 09/10/24 14:00 Temperature 97.7 F Pulse Rate 70 Respiratory Rate 14 Blood Pressure 124/73 Pulse Oximetry 98 Oxygen Delivery Exam Const: General: cooperative, well developed and alert Orientation/consciousness: patient oriented x3 HENMT: Head: atraumatic Mouth: Yes oropharynx normal Eyes: Alignment and Position: position normal Pupils: Equal, round and reactive pupils present EOM: EOMs intact bilaterally Neck: Neck: supple Resp: Effort & Inspection: normal respiratory effort Cardio: Rate: regular rate Rhythm: regular rhythm Neuro: General: patient oriented x3 Cranial nerves: Yes CN's II-XII intact bilaterally, Yes facial sensation intact/muscles of mastication intact, Yes Equal, round and reactive pupils present, Yes facial symmetry and Yes Midline tongue present Cognition (Neuro): normal cognition Speech: normal speech Gait exam (Neuro): Normal gait present Motor exam (neuro): 5/5 motor strength present throughout Sensory Exam: normal sensation Coordination: [id number] test normal and Normal rapid alternating movements of the distal upper extremity present (Neuro) Results Labs 09/10/24 05:10 09/10/24 05:10 Labs: Short CBC 09/09/24 09/10/24 Range/Units 18:31 05:10 WBC 7.8 8.1 (4.5-10.0) K/mm3 Hgb 17.4 H 16.7 H (12.0-15.0) g/dL Hct 50.9 H 48.0 H (37.0-47.0) % Plt Count 252 229 (150-375) k/mm3 BMP 09/09/24 09/10/24 18:31 05:10 Sodium 137 136 L Potassium 4.4 4.1 Chloride 103 108 H Carbon Dioxide 26 22 BUN 32 H 26 H Creatinine 1.10 H 1.00 Glucose 112 H 123 H Calcium 10.0 9.4 Cardiac Enzymes 09/09/24 Range/Units 18:31 Troponin I < 0.012 (0.000-0.034) ng/mL Liver Function 09/09/24 Range/Units 18:31 Total Bilirubin 0.4 (0.2-1.3) mg/dL AST 30 (14-36) U/L ALT 31 (6-35) U/L Alkaline Phosphatase 72 (38-126) U/L Albumin 4.3 (3.5-5.1) g/dL Urine 09/09/24 Range/Units 21:03 Urine Color Yellow (Yellow) Urine Appearance Cloudy H (Clear) Urine pH 6.0 (5.0-9.0) Ur Specific [place] 1.015 (1.001-1.035) Urine Protein 4+ H (Negative) mg/dL Urine Glucose (UA) Negative (Negative) mg/dL
[2024-09-10 17:07] LABS: Cholesterol 187 mg/dL (0-200); HDL Direct 55 mg/dL; Triglycerides 107 mg/dL (<150)
[2024-09-10 17:18] LABS: LDL Cholesterol Direct 111 mg/dL
[2024-09-10 18:13] LABS: Folic Acid 14.1 ng/mL (2.76->20)
[2024-09-10] MEDS: ACETAMINOPHEN 325 MG TABLET 650 MG PO (20:41)
[2024-09-11] VITALS (7 sets, daily range): BP systolic 124–131; BP diastolic 75–84; PULSE 58–69; RESP 16–18; TEMP 36.1–36.2; O2SAT 96–98
[2024-09-11 05:54] LABS: Hematocrit 47.5 % (37.0-47.0); Hemoglobin 15.6 g/dL (12.0-15.0); Mean Corpuscular HGB Conc 32.8 g/dl (32-36); Mean Corpuscular Hemoglobin 30.6 pg (26-34); Mean Corpuscular Volume 93.3 fl (80-100); Mean Platelet Volume 9.9 fl (7.4-10.4); Platelet Count Result 188 k/mm3 (150-375); Red Blood Count 5.09 M/mm3 (4.2-5.4); Red Cell Distribution Width 14.1 % (11.5-14.5); White Blood Count 6.3 K/mm3 (4.5-10.0)
[2024-09-11 06:07] LABS: Anion Gap 8 mmol/L (4-12); Blood Urea Nitrogen 27 mg/dL (7-17); Calcium 8.9 mg/dL (8.4-10.2); Carbon Dioxide 22 mmol/L (22-30); Chloride 107 mmol/L (98-107); Cholesterol 172 mg/dL (0-200); Estimated CRCL calculation 39 ml/min; Estimated Glomerular Filt Rate 54; Glucose 106 mg/dL (65-110); HDL Direct 49 mg/dL; Potassium 4.1 mmol/L (3.4-5.0); Sodium 137 mmol/L (137-145); Triglycerides 87 mg/dL (<150)
[2024-09-11 06:17] LABS: LDL Cholesterol Direct 99 mg/dL
[2024-09-11] MEDS: APIXABAN 5 MG TABLET PO (08:42)
[2024-09-11] MEDS: ASPIRIN 81 MG CHEWABLE TABLET PO (08:42)
[2024-09-11] MEDS: THERAPEUTIC MULTIVITAMINS/MINERALS TAB (*BKC) 1 TABLET PO (08:42)
[2024-09-11] MEDS: SOTALOL HCL 40 MG TABLET 120 MG PO (08:42)
[2024-09-11] MEDS: lisinopriL 20 MG TABLET 40 MG PO (08:42)
[2024-09-11] MEDS: ANASTROZOLE (*CHEMO) 1 MG TABLET PO (08:43)
[2024-09-11] MEDS: METOPROLOL TARTRATE 50 MG TAB PO (08:43)
--- NOTE | 2024-09-11 15:45 | PM.DS ---
DS: Admitting Diagnosis Discharge Date 09/11/2024 Admitting Diagnosis Altered Mental Status DS: Discharge Diagnosis Discharge Diagnosis (1) Brain TIA: Code(s): G45.9 - Transient cerebral ischemic attack, unspecified Status: Acute Assessment and Plan: - Patient noted with an episode of altered mentation and brought to the ER for evaluation. - Patient noted to be repeating the same question to her multiple times and BP elevated when checked, SBP 170's. - Patient with Hx of A-Fib. - EKG on admission; A-Flutter Rate 83. - Currently maintains SR on telemetry. - MRI brain negative for acute. - CT head No acute intracranial hemorrhage or suspicious mass effect. - ECHO showing EF 60-65% with no intra-cardiac thrombus. - Carotid duplex negative. - Seen by Neurologist and symptoms suspected to be secondary to possibly embolic event vs partial complex seizure vs other. - Pt scheduled to see train control technician this coming week and consider left atrial appendage ablation. - LDL 99, started on statin. - No focal neuro deficits noted inpatient. - Patient stable for discharge and cleared by neurologist for discharge and outpatient follow-up. (2) Hyperlipidemia: Code(s): E78.5 - Hyperlipidemia, unspecified Status: Acute Assessment and Plan: - LDL 99. - Started on statin. - Outpatient follow-up by PCP. (3) Hypertension: Code(s): I10 - Essential (primary) hypertension Status: Acute Assessment and Plan: - Well controlled inpatient. - Resume lisinopril. Plan Discharge home. DS: Summary Hospital Course Reason for hospitalization: Altered Mental Status. Hospital Course: Patient was brought in to the ER by her with reports of alteration on temptation. Patient apparently was asking her the same question repeatedly, which is not her norm. Patient's BP was observed at home and noted to be elevated, SBP > 170's, DBP > 100. She was brought to the ER for evaluation due to the patient's Hx of Paroxismal A-Fib and pt being on anticoagulation. Patient's initial EKG showed A-Flutter Rate 83, with her CT head noted to be negative for acute. She was admitted for further work-up, with the patient's MRI brain being negative for acute, carotid duplex negative, and TTE showing EF 60-65% with no intracardiac embolus noted. She was seen by the Neurologist and her symptoms were suspected to be likely secondary to possibly TIA vs partial complex seizure vs other. Patient has an appointment with an train control technician this coming week, and consideration for possible left-atrial appendage ablation to be discussed according to patient. Patient with no acute neuro deficits noted inpatient, telemetry maintaining SR, and patient with no acute symptoms. Pt has been cleared for discharge by the neurologist who will follow-up with patient outpatient. Patient is medically stable for discharge with no acute distress noted or reported prior to discharge. Patient to be started on low-dose aspirin and statin, and will continue with Eliquis for anticoagulation. Status at Discharge Functional status at discharge: independent ambulation Overall status at discharge: patient is back to baseline Time Spent with Patient Time attestation: Total time spent providing and/or coordinating discharge services: Time spent: Greater than 30 minutes Exam Narrative: General: well appearing, appears stated age, no acute distress. HEENT: normocephalic, atraumatic. Mucous membranes moist. EOMI, PERRL, anicteric, Neck supple. Respiratory: clear to auscultation bilaterally. Cardiovascular: Regular rate and rhythm, no murmurs. Abdomen: Soft, round, nondistended and nontender. Bowel sounds present to all four quadrants. Extremities: No cyanosis, clubbing, or edema present. Pulses are palpable 2/2. Active ROM to all four extremities. Neuro: Alert and orientated x 4. Cranial nerves 2-12 intact without focal deficit. Skin: Warm, dry, and intact, without rash, erythema, or lesion. Psych: pleasant and cooperative. DS: Data Data Completed and Pending Labs on day of discharge: Labs from last 24 hours 09/11/24 09/10/24 05:09 16:42 WBC 6.3 RBC 5.09 Hgb 15.6 H Hct 47.5 H MCV 93.3 D MCH 30.6 MCHC 32.8 RDW 14.1 Plt Count 188 MPV 9.9 Sodium 137 Potassium 4.1 Chloride 107 Carbon Dioxide 22 Anion Gap 8 BUN 27 H Creatinine 1.00 Estim Creat Clear Calc 39 Estimated GFR 54 L Glucose 106 Calcium 8.9 Triglycerides 87 107 Cholesterol 172 187 LDL Cholesterol Direct 99 111 HDL Direct 49 55 Vitamin B12 295.0 Methylmalonic Acid Pending Folate 14.1 Discharge Plan Discharge Attending physician on discharge: Deven Uribe Consulting providers: Gail Villanueva Discharging Clinician: Yeimi Robison Anticipated Discharge Date/Time: 09/11/24 16:16 Patient Disposition: Home, Self-Care Activity: as tolerated Diet: heart healthy Patient Instructions: Antibiotic Form Stand Alone Forms: General Discharge Information Follow-up/Referrals: Gail Villanueva MD [Physician] - 2 Weeks Ryne Gomes DO [Primary Care Provider] - 1 Week Discharge Medications: New aspirin [Children's Aspirin] 81 mg Tablet,Chewable 81 mg PO DAILY@0800 Qty: 30 0RF simvastatin 20 mg tablet 20 mg PO QPM Qty: 30 0RF Continued anastrozole 1 mg tablet 1 mg PO DAILY Eliquis 5 mg tablet 5 mg PO BID lisinopril 40 mg tablet 40 mg PO DAILY metoprolol tartrate 50 mg tablet 50 mg PO Q12H sotalol 120 mg tablet 120 mg PO Q12H celecoxib [Celebrex] 200 mg capsule 200 mg PO DAILY PRN (Reason: Pain, Mild) Patient Comments: DOES NOT TAKE OFTEN omeprazole 40 mg capsule,delayed release(DR/EC) 40 mg PO DAILY PRN (Reason: Acid Reflux) Complete Multivitamin Tablet 1 tablet PO DAILY Date of admission: 09/09/24 22:40 Primary Care Provider: Ryne Gomes Admitting Provider: Otoniel Weaver Attending physician on admission: Otoniel Weaver Condition: Improved Quality VTE Prophylaxis VTE prophylaxis: pharmacologic ordered Hospitalist MIPS Heart Failure (Exclusion) Patient has history of Heart Transplant or Left Ventricular Assistive Device?: No IF YES, STOP HERE Heart Failure (Qualifier) Patient has current or prior documentation of LVEF less than or equal to 40%, or mod/servere depressed LVSF?: No IF NO, STOP HERE If Yes, Heart Failure (Qualifier) Patient was prescribed or already taking an Angiotensin-Converting Enzyme (DIAMANTE) Inhibitor, or Antiotensin Receptor Shantelle (ARB): Yes
[2024-09-15 14:03] LABS: Methylmalonic Acid 202 nmol/L (69-390)
--- NOTE | 2024-09-15 15:37 | HP_ITS ---
DATE OF SERVICE: 09/09/2024 CHIEF COMPLAINT: Confusion. HISTORY OF PRESENT ILLNESS: This is a pleasant 73-year-old female with paroxysmal atrial fibrillation, on chronic anticoagulation, polycythemia, sarcoidosis, obstructive sleep apnea, hypertension, chronic kidney disease, gastroesophageal reflux disease, remote history of breast cancer, and prediabetes, who presented to the Emergency Department via private vehicle accompanied by her for evaluation of confusion. The patient and her provide the following history. She seemed to be in her usual state of health when she got up this morning and had a normal afternoon at home. When her returned home this evening, she was in the kitchen cooking dinner. She called out for him that dinner was ready and when he went into the kitchen, she was standing at the counter and told him that she was feeling confused. She kept telling him that something does not feel right and she kept repeatedly asking the same questions. It is my understanding that she had a similar episode years ago in which she was diagnosed with transient global amnesia. She denies other associated symptoms and specifically, denies vertigo or visual changes, facial droop, difficulty speaking and swallowing, focal weakness, and paresthesias. She also denies recent cold and flu symptoms, fever, headache, chest pain, palpitations, shortness of breath, nausea, vomiting, diarrhea, and dysuria. She has not had any recent falls or head trauma. PAST MEDICAL HISTORY: 1. Paroxysmal atrial fibrillation, on chronic anticoagulation. 2. Remote history of right breast cancer. 3. Chronic kidney disease, stage 3. 4. Prediabetes. 5. Hypertension. 6. Gastroesophageal reflux disease. 7. Polycythemia. 8. Obstructive sleep apnea. 9. Sarcoidosis. PAST SURGICAL HISTORY: 1. Cholecystectomy. 2. Hysterectomy. 3. Total knee arthroplasty. 4. Right breast mastectomy. ALLERGIES: NO KNOWN DRUG ALLERGIES. HOME MEDICATIONS: 1. Anastrozole 1 mg daily. 2. Apixaban 5 mg daily. 3. Celecoxib 200 mg as needed for pain. 4. Lisinopril 40 mg daily. 5. Metoprolol tartrate 50 mg twice daily. 6. Multivitamin daily. 7. Omeprazole 40 mg as needed for reflux. 8. Sotalol 120 mg q.12 hours. 9. Zolpidem 5 mg as needed for insomnia. FAMILY HISTORY: Noncontributory. SOCIAL HISTORY: The patient is and lives with her spouse in [place]. She designates her Sha as her surrogate decision maker and she wishes to be full code. No alcohol, tobacco, or illicit substance abuse. PERTINENT LABORATORY DATA: WBC count 7.8, hemoglobin 17.4, hematocrit 50.9%, and platelet 252. Sodium 137, potassium 4.4, BUN 32, and creatinine 1.10. Troponin less than 0.012. IMAGIN. Head CT no acute intracranial findings. 2. Chest x-ray, no focal infiltrate or effusion. PHYSICAL EXAMINATION: CURRENT VITAL SIGNS: Temperature 97.5, pulse 78, respiratory rate 18, SpO2 97% room air, and temperature 105.7. GENERAL: Well-developed female, sitting up in bed, in no acute distress. Weight 80.73 kg. BMI: 26.7. HEENT: Normocephalic, atraumatic. RADHA, EOMI. Sclerae anicteric. Oral mucosa moist neck supple. No carotid bruits. RESPIRATORY: Respirations are nonlabored. LUNGS: Clear to auscultation. CARDIOVASCULAR: Irregular rate and rhythm with normal S1, S2. GASTROINTESTINAL: Abdomen is soft, nontender, nondistended with positive bowel sounds. INTEGUMENT: Skin is warm, dry, and intact on limited exam. EXTREMITIES: No cyanosis, clubbing, or edema. Radial and pedal pulses palpable. NEUROLOGIC: She is alert and oriented x4, although is confused about what transpired earlier this evening. Cranial nerves 2 to 12 are grossly intact. No pronator drift. Speech is clear. No facial asymmetry. Hand house calls nurse practitioner and foot pushes are strong and equal bilaterally. Normal [id number]-je-zlfz and rapid alternating movements. Strength equal in upper and lower extremities. PSYCHIATRIC: Pleasant, cooperative. She is confused with regard to the events that happened earlier today and is repetitive. INITIAL IMPRESSION: 1. Confusion. 2. Paroxysmal atrial fibrillation, on chronic anticoagulation. 3. Hypertension. 4. Chronic kidney disease, stage 3. 5. Gastroesophageal reflux disease. 6. History of breast cancer. PLAN: The patient presented to the Emergency Department for evaluation of confusion as detailed in HPI. Labs, imaging, and EKG were all reports were personally reviewed. She continues to be a bit repetitive at this time. There are no gross focal deficits on exam. Differential diagnosis includes transient global amnesia versus transient cerebral ischemia versus partial seizure versus less likely cerebrovascular accident. She will be monitored on telemetry overnight with q.4h neurologic checks. Brain MRI, carotid Doppler ultrasounds, and echocardiogram have been ordered. Check fasting lipids in a.m. Blood pressures have been running a bit higher than her baseline and will be monitored closely. Renal function is stable on review of previous labs. Her hemoglobin is a little over 17 and she reports that she typically has therapeutic phlebotomy when it is over 18. Her home medications will be reviewed and resumed as appropriate. And of dictation D I MT: Celestina MORALES
--- NOTE | 2024-09-18 12:49 | WPDHPUPDATE1 ---
History and Physical Update Update Date/Time: 09/18/24 12:49 Addendum to 09/09/2024 history and physical: I have utilized all available immediate resources to obtain, update, or review the patient's current medications (including all prescriptions, opzd-irt-ddleggo products, herbals, cannabis/cannabidiol products, and vitamin/mineral/dietary (nutritional) supplements). YES I confirmed that the patient's Advance Care Plan is present, code status is documented, or surrogate decision maker is listed in the patient's medical record. YES
== END 2024-09-11 16:35 | disposition home or self-care (01) ==
LOC: ANHED 20:54 → ANH2MED 09-10 13:55
PROVIDERS: Nurse Practitioner Gerontology; Physician Assistant; Psychiatry & Neurology Neurology; Admitting Provider Internal Medicine; Emergency Provider Emergency Medicine; PCP Internal Medicine; Visit Provider Nurse Practitioner Adult Health
DX: G45.9 Transient cerebral ischemic attack, unspecified (principal); R29.700 NIHSS score 0; D75.1 Secondary polycythemia; E78.5 Hyperlipidemia, unspecified; I48.0 Paroxysmal atrial fibrillation; I48.92 Unspecified atrial flutter; I12.9 Hypertensive chronic kidney disease with stage 1 through stage 4 chronic kidney disease, or unspecified chronic kidney disease; N18.30 Chronic kidney disease, stage 3 unspecified; R73.03 Prediabetes; G47.33 Obstructive sleep apnea (adult) (pediatric); K21.9 Gastro-esophageal reflux disease without esophagitis; G60.9 Hereditary and idiopathic neuropathy, unspecified; D86.9 Sarcoidosis, unspecified; R53.82 Chronic fatigue, unspecified; Z79.01 Long term (current) use of anticoagulants; Z79.899 Other long term (current) drug therapy; Z85.3 Personal history of malignant neoplasm of breast; Z90.49 Acquired absence of other specified parts of digestive tract; Z96.659 Presence of unspecified artificial knee joint
CPT/HCPCS: 36415; 70450; 70551; 71045; 80048; 80053; 80061; 81001; 82607; 82746; 82948; 83921; 84443; 84484; 85025; 85027; 85610; 85730; 93005; 93306; 93880; 96374; 96375; 97161; 97165; 99285; A9270; G0378; J0360

== ENCOUNTER 2025-02-25 11:04 | Outpatient (CLI) | payer MEDICARE, SELFPAY ==
--- NOTE | ~2025-02-25 | US_ITS ---
US thyroid INDICATION: Nontoxic thyroid nodule TECHNIQUE: Real-time sonographic images of the thyroid gland were obtained. COMPARISON: Comparison to multiple prior studies sequentially, with oldest reviewed study dated 06/2020. FINDINGS: The right thyroid lobe measures 4.6 x 1.6 x 1.7 cm. The left thyroid lobe measures 5.1 x 1 .6 x 1.7 cm. The thyroid gland is diffusely heterogeneous with multiple small masses of varying size and echogenicity. In the right lobe largest mass measures 10 x 5 x 9 mm and is mostly solid, hypoecho ic, wider than tall, smoothly marginated without microcalcifications. There is an 8 mm cyst. In the l eft lobe there is a heterogeneous left thyroid mass measuring 1.8 x 1.4 x 1.8 cm which is solid, pred ominantly hypoechoic, wider than tall, internal echogenic foci with ill-defined margins without signi ficant change from prior examination allowing for differences of technique. IMPRESSION: 1. Stable bilateral thyroid masses, consistent with multinodular goiter. Consider ultrasound in 2 ye ars.. Reviewed, dictated and finalized at location A. IMPRESSION: 1. Stable bilateral thyroid masses, consistent with multinodular goiter. Consi aurea ultrasound in 2 years..
--- OUTSIDE RECORDS SUMMARY | 2025-02-26 12:28 | XMS_ITS | Encounter Summary ---
Author Organization [facility] Address [address] [place] [address] Phone Care Team Providers Care Parts Casting Machine Operator Name Role Phone Natalie Cerrato MD Unavailable Joaquin Hurd MD Unavailable Gretta Heath MD Unavailable [phone] Ryne Gomes DO Primary Care Provider [phone] Tobin Francis MD Unavailable [phone] Encounter Details Date Type Department Care Team (Late st Contact Info) Description 02/22/2025 Telephone [facility] Cardiology [address] [facility] Advanced Medicine 8th [place] [address] [place] [address] Tobin Francis MD [address] [facility] [place], [place] [id number] Social History Tobacco Use Types Packs/Day Years Used Date Smoking Tobacco: Never Smokeless Tobacco: Never Alcohol Use Standard Drinks/Week Comments No 0 (1 standard drink = 0.6 oz pur e alcohol) AUDIT-C Answer Date Recorded Q1: How often do you have a drink containing alcohol? Never 12/14/2024 Q2: How many drinks containi ng alcohol do you have on a typical day when you are drinking? Patient does not drink Q3: How often do you have si x or more drinks on one occasion? Never 12/14/2024 PHQ-2 Answer Date Recorded PHQ-2 Total Score (If total score is 3 or more points, staff should administer the PHQ-9) 0 12/14/2024 PHQ-9 Answer Date Recorded PHQ-9 Total Score 0 12/14/2024 Personal Safety Answer Date Recorded Have you ever been in or are you currently in a harmful physical or emotional relationship or is someone making you feel afraid or unsafe? Denies 12/14/2024 Comments No Sex and Gender Information Value Date Recorded Sex Assigned at Not on file Legal Sex Female 8:52 PM ASSEMBLY HAND Gender Identity Female 12/13/2020 9:57 AM ASSEMBLY HAND Sexual Orientation Straight 12/13/2020 9: 57 AM ASSEMBLY HAND documented as of this encounter Miscellaneous Notes * Telephone Encounter - Michelle Ramírez RN - 02/25/2025 9:41 AM CDT Plastics called and informed that this patient just had an ablation in November and can not stop the eliquis at all until after 03/13 after this then 2-3 days prior to the surgery is out usual recommendation * Telephone Encounter - Angela Landon - 02/22/2025 3:24 PM CDT [facility] is calling in regards to seeing how long the patient has to wait to get breast reconstruction surgery after her ablation. They also would like to know how long the patient would need to be off Eliquis. documented in this encounter Plan of Treatment Not on file documented as of this encounter Visit Diagnoses Not on filedocumented in this encounter Care Teams Parts Casting Machine Operator Relationship Specialty Start Date End Date Ryne Gomes DO [address] [address] PCP - General Internal Medicine 07/19/24 Natalie Cerrato MD [address] [place] [address] Surgeon Surgical Oncology 05/01/18 Joaquin Hurd MD [address] [place] [address] Consulting Physician Cardiology 07/21/19 Gretta Heath MD [address] [place] [address] Medical Oncologist/Diamond Wheel Molder Medical Oncology 07/06/20 Tobin Francis MD [address] [place] [address] Consulting Physician Cardiology 10/06/24 documented as of this encounter
--- OUTSIDE RECORDS SUMMARY | 2025-02-26 12:28 | XMS_ITS | Clinical Summary ---
Author Organization [facility] Address [address] [place] [address] Care Team Providers Care Lineman Name Role Phone Natalie Cerrato MD Unavailable [phone] Joaquin Hurd MD Unavailable Gretta Heath MD Unavailable [phone] Ryne Gomes DO Primary Care Provider [phone] Tobin Francis MD Unavailable [phone] Allergies No known active allergies Medications multivitamin tablet tablet take 1 by Oral route once 0 0 06/03/2014 Active zolpidem (AMBIEN) 10 mg tabletIndicatio ns:Sleep-Onset Insomnia Take 0.5 tablets (5 mg total) by mouth nightly as needed for sleep 1/2 tablet prn q hs Active Eliquis 5 mg tablet TAKE 1 TABLET(5 MG) BY MOUTH TWICE DAILY 180 tablet 3 04/08/2024 Active cholecalciferol , vitamin D3, (VITAMIN D3 ORAL)Indication s:supplement Take 1 tablet by mouth every evening Active amiodarone (PACERONE) 200 mg tablet Take 1 tablet (200 mg total) by mouth daily 30 tablet 12/16/[address] (PROTONIX) 40 mg EC tablet TAKE 1 TABLET(40 MG) BY MOUTH DAILY 90 tablet 12/15/2024 Active anastrozole (ARIMIDEX) 1 mg tabletIndicatio ns:Malignant neoplasm of lower-inner quadrant of left breast in female, estrogen receptor positive (HCC) Take 1 tablet (1 mg total) by mouth daily 90 tablet 3 01/10/2025 Active lisinopriL (PRINIVIL,ZESTR IL) 40 mg tablet Take 1 tablet (40 mg total) by mouth every morning 90 tablet 3 01/13/2025 Active Active Problems Problem Noted Date Diagnosed Date AF (atrial fibrillation) 12/14/2024 Assessment & Plan (01/26/2025 4:38 PM CDT): -Persistent symptomatic atrial fibrillations s/p electrical isolation of the pulmonary veins and LA roof line and right atrial CTI line AF terminated with isolation of the RPV pair- 12/14/2024 -Post ablation, she continues to have some PAF, but burden has lessened -Given ongoing nausea and increased SOB, will stop amiodarone -Continue Eliquis for stroke risk reduction -BP elevated, I have asked her to follow up with her PCP for HTN management Atrial flutter 12/08/2023 History of colon polyps 07/24/2021 Overview (07/24/2021): Added automatically from request for surgery [id number] S/P breast reconstruction 02/19/2021 Overview (02/19/2021): Added automatically from request for surgery [id number] Idiopathic peripheral neuropathy 09/12/2020 Assessment & Plan (09/03/2021 11:46 AM PIE BOTTOMER): Patient continues on gabapentin for treatment of dysesthesia and paresthesia associated with idiopathic peripheral neuropathy in her lower extremities. She cites good tolerability and efficacy. I have renewed her gabapentin 300 mg t.i.d. as previously prescribed. She will follow-up in neurology clinic in a year. Assessment & Plan (09/12/2020 12:55 PM PIE BOTTOMER): Patient is a former patient of [facility] being treated for idiopathic peripheral neuropathy manifested as neuropathic pain and numbness in her feet and legs. Prior medical records from [facility] have been requested but are unavailable for review E at this time. They will be requested to incorporate into her medical record to facilitate transfer in care. Her physical examination is consistent with a history of neuropathy. She states that the gabapentin 300 mg t.i.d. that she was previously prescribed as working well for her with good tolerability and efficacy. She is in need of refill. I will renew her gabapentin 300 mg t.i.d. as previously prescribed. I will see her back in the office in 1 year. Neuropathic pain of both legs 09/12/2020 Assessment & Plan (09/12/2020 12:56 PM PIE BOTTOMER): Patient has history of peripheral neuropathy with neuropathic pain as a presenting symptom. Gabapentin 300 mg t.i.d. has been historically prescribed with good tolerability and efficacy. 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 07/01/2019 Malignant neoplasm of lower- inner quadrant of breast in female, estrogen receptor positive 07/01/2019 HX: breast cancer 07/01/2019 Bone disease 07/01/2019 Labile hypertension 04/12/2019 Dizziness 10/06/2018 History of breast cancer 05/14/2018 Assessment & Plan (12/15/2024 8:05 AM PIE BOTTOMER): Continue anastrazole Assessment & Plan (12/14/2024 2:03 PM PIE BOTTOMER): Continue anastrazole H/O sarcoidosis 02/20/2018 ALEXIS (dyspnea on exertion) 02/20/2018 Assessment & Plan (01/26/2025 4:30 PM CDT): -Post ablation, she has ongoing SOB, nausea and worsening reflux/GERD symptoms -Chest CT w/wo contrast Chronic fatigue 02/20/2018 Decorative tattoo 04/15/2017 Stage 3 chronic kidney disease 01/13/2017 Overview (03/21/2017): CKD (chronic kidney disease) stage 3, GFR 30-59 ml/min Chronic anticoagulation 07/10/2016 Overview (01/31/2017): Chronic anticoagulation Assessment & Plan (12/15/2024 8:06 AM PIE BOTTOMER): For atrial fibrillation, continue apixaban Assessment & Plan (12/14/2024 2:03 PM PIE BOTTOMER): Resume Eliquis tonight per cardiology post procedure recs Dehydration 05/06/2016 Benign hypertension 04/18/2016 Overview (01/30/2017): HTN (hypertension), benign Assessment & Plan (12/15/2024 8:06 AM PIE BOTTOMER): Continue home lisinopril 40mg daily Assessment & Plan (12/14/2024 2:03 PM PIE BOTTOMER): BP controlled post ablation. Continue home lisinopril 40 daily Paroxysmal atrial fibrillation 04/18/2016 Overview (01/30/2017): Paroxysmal atrial fibrillation Assessment & Plan (12/15/2024 8:05 AM PIE BOTTOMER): Presented for planned EP study with ablation under general anesthesia 12/14, successful electrical isolation of the pulmonary veins and LA roof line and right atrial CTI line. AF terminated with isolation of the RPV pair per procedure notes. Ms. Stewart was monitored overnight, Monitor on tele overnight - amiodarone 200 mg daily - Eliquis 5 mg BID - Protonix 40 mg daily x 30 days per cards - Monitor R groin site (hx CKD 3 on Eliquis) - Cardiology to see in am and plan DC home Assessment & Plan (12/14/2024 2:13 PM PIE BOTTOMER): Presented for planned EPS with ablation under general anesthesia. Successful electrical isolation of the pulmonary veins and LA roof line and right atrial CTI line. AF terminated with isolation of the RPV pair per procedure notes Monitor on tele overnight Resume amiodarone 200 mg daily tonight Resume Eliquis 5 mg BID tonight (last dose AM 12/13) Protonix 40 mg daily x 30 days per cards Monitor R groin site (hx CKD 3 on Eliquis) Cardiology to see in am and plan DC home Malignant neoplasm of female breast 04/18/2016 Overview (01/30/2017): Malignant neoplasm of female breast, unspecified laterality, unspecified site of breast Palpitations 04/18/2016 Overview (01/31/2017): Palpitations Right upper quadrant abdominal pain 07/31/2015 Gastroesophageal reflux disease without esophagi tis 06/13/2015 Assessment & Plan (01/26/2025 4:39 PM CDT): -Increase GERD symptoms post ablation despite taking Protonix -Chest CT as above -Follow up with GI/PCP Other chest pain 03/06/2015 Diarrhea 03/06/2015 Elevated liver enzymes 03/06/2015 Resolved Problems Problem Noted Date Diagnosed Date Resolved Date Encounter for monitoring sotalol therapy 04/01/2018 12/14/2024 Encounters Date Type Department Care Team Description 02/22/2025 10:15 AM CDT Office Visit [facility] [address] [facility] [address] [place] [address] Emmanuel Mantilla MD Status post breast reconstruction (Primary Dx); Ruptured silicone breast implant, initial encounter 02/22/2025 Telephone [facility] [address] [place] [address] [address] [place] [address] Emmanuel Mantilla MD 02/22/2025 Telephone [facility] [address] [place] [address] Advanced Medicine 8th [place] [address] [place] [address] Tobin Francis MD 02/07/2025 Telephone [facility] [address] [facility] Floor 8 [place] [address] chest with schedule for 03/2302/04/2025 10:18 AM CDT - 02/04/2025 11:59 PM CDT Hospital Encounter [facility] [address] [place] [address] Persistent atrial fibrillation (HCC); ALEXIS (dyspnea on exertion); H/O sarcoidosis; Gastroesophageal reflux disease without esophagitis; HX: breast cancer Discharge Disposition: Discharge to home or self care 02/04/2025 Results Follow-Up [facility] [address] [facility] Medical Office Building [address] [place] [address] Nati Zapata NP 01/31/2025 Telephone [facility] 8th [place] [address] [place] [phone] Tobin Francis MD 01/26/2025 2:15 PM CDT Office Visit [facility] [address] [place] [address] 8th [place] [address] [place] [address] Nati Zapata NP Paroxysmal atrial fibrillation (HCC) (Primary Dx); Persistent atrial fibrillation (HCC); ALEXIS (dyspnea on exertion); H/O sarcoidosis; Gastroesophageal reflux disease without esophagitis; HX: breast cancer 01/26/2025 Results Follow-Up [facility] [address] [place] [address] 8th [place] [address] [place] [phone] Nati Zapata NP 01/14/2025 Telephone [facility] [address] [facility] [address] [place] [address] Bret Freeman MD 01/11/2025 1:03 PM CDT - 01/11/2025 11:59 PM CDT Hospital Encounter [facility] Breast Imaging [facility] ([facility]) [address] [place] [address] History of breast reconstruction Discharge Disposition: Discharge to home or self care 01/10/2025 Orders Only [facility] Floor 8 [place] [address] Suzette Howell, RN Malignant neoplasm of lower-inner quadrant of left breast in female, estrogen receptor positive (HCC) 12/24/2024 Orders Only [facility] [address] [facility] [address] 8 [place] [address] Suzette Howell RN Malignant neoplasm of lower-inner quadrant of left breast in female, estrogen receptor positive (HCC) (Primary Dx); Lymph node enlargement 12/24/2024 Telephone [facility] [address] [facility] [address] [place] [address] Emmanuel Mantilla MD 12/14/2024 8:23 AM PIE BOTTOMER Anesthesia Event [facility] Electrophysiology Lab [address] [place] [address] Veronika Begum MD Hall, Jill Marie, NP 12/14/2024 7:30 AM PIE BOTTOMER - 12/14/2024 10:35 AM PIE BOTTOMER Surgery [facility] Electrophysiology Lab [address] [place] [address] Tobin Francis MD ABLATION ATRIAL FIBRILLATION (A-FIB) VIA PULMONARY VEIN ISOLATION [id number] 12/14/2024 5:56 AM PIE BOTTOMER - 12/15/2024 11:23 AM PIE BOTTOMER Hospital Encounter [address] [address] Tobin Francis MD Patel, Kieran, MD Choi, Cheuk Ho Jeffrey, MD Atrial flutter, unspecified type (HCC) [I48.92] (Primary Dx); Paroxysmal atrial fibrillation (HCC) Discharge Disposition: Discharge to home or self care 12/10/2024 10:31 AM PIE BOTTOMER - 12/10/2024 11:59 PM PIE BOTTOMER Hospital Encounter [facility] [address] [place] [address] Tobin Francis MD Paroxysmal atrial fibrillation (HCC) Discharge Disposition: Discharge to home or self care 12/10/2024 9:30 AM PIE BOTTOMER Pre-Admission Testing [facility] Center for Preoperative Assessment and Planning [facility]) [address] [place] [address] Medication management; Paroxysmal atrial fibrillation (HCC) from Last 3 Months Immunizations Immunization Administration Dates Next Due Influenza, Trivalent, Adjuvanted, Intramuscular 01/07/2020 Influenza, Trivalent, High D ose, Split, Preservative Free, Intramuscular 12/15/2024 Influenza, Trivalent, Preservative Free, Intramu scular 07/25/2015 Influenza, Unspecified 08/29/2016 Pneumococcal Conjugate PCV 13 01/07/2020 Tdap 08/02/2014 ZOSTER LIVE 08/02/2014 Surgical History Surgery Date Site/Laterality Comments CHOLECYSTECTOMY 10/27/2005 - 10/26/2006 HYSTERECTOMY 10/27/2002 - 10/26/2003 PORT PLACEMENT CHEST >5 YEARS 05/01/2016 N/A MASTECTOMY 10/27/2015 - 10/26/2016 w/reconstruction TOTAL KNEE ARTHROPLASTY 09/26/2020 - 10/26/2020 Right BREAST SURGERY August2016 JOINT REPLACEMENT July2020 CARDIAC ELECTROPHYSIOLOGY PROCEDURE 12/14/2024 N/A Procedure: ABLATION ATRIAL FIBRILLATION (A-FIB) VIA PULMONARY VEIN ISOLATION 00528; Surgeon: Tobin Francis MD; Location: [facility] EP LAB; Service: Cardiovascular; Laterality: N/A; 3rd case Medical devices from this surgery are in the Medical Devices section. CARDIAC ELECTROPHYSIOLOGY PROCEDURE 12/14/2024 N/A Procedure: ABLATION ATRIAL FIBRILLATION ADDITIONAL LINE OR FOCI (+) [id number]; Surgeon: Tobin Francis MD; Location: [facility] EP LAB; Service: Cardiovascular; Laterality: N/A; Medical devices from this surgery are in the Medical Devices section. Medical History Medical History Date Comments Gastroesophageal reflux disease Hypertension Neuropathy Irregular heartbeat Sleep apnea Hiatal hernia Back pain Paroxysmal A-fib (HCC) paroxysma l atrial Sarcoidosis Ocular History of colon polyps Breast cancer, left (HCC) Last c hemo 2017 Arthritis Transient ischemic attack (TIA) 08/2024 Family History Medical History Relation Name Comments Parkinsonism Father Pneumonia Father Cancer Mother Iris curless Heart attack Mother Iris curless Myocardial Infa rction; Cause of : Myocardial Infarction Hypertension Mother Iris curless Non-Hodgkin's Lymphoma Mother Iris curless No Known Problems Sister 1 No Known Problems Sister 2 No Known Problems Sister 3 No Known Problems Sister 4 Cancer Son Jefferson Stewart Anesthesia problems Neg Hx Relation Name Status Comments Father Mother Iris curless (Age 70) Sister 1 Alive Sister 2 Alive Sister 3 Alive Sister 4 Alive Son Jefferson Stewart Social History Tobacco Use Types Packs/Day Years Used Date Smoking Tobacco: Never Smokeless Tobacco: Never Tobacco Cessation:Counseling Given: Not Answered Alcohol Use Standard Drinks/Week Comments No 0 [...] on file Legal Sex Female 8:52 PM PIE BOTTOMER Gender Identity Female 12/13/2020 9:57 AM PIE BOTTOMER Sexual Orientation Straight 12/13/2020 9: 57 AM PIE BOTTOMER Obstetrics History Last Filed Vital Signs Vital Sign Reading Time Taken Comments Blood Pressure 163/98 01/26/2025 2:18 PM CDT Pulse 88 01/26/2025 2:18 PM CDT Temperature 36.5 C (97.7 F) 12/15/2024 8:15 AM PIE BOTTOMER Respiratory Rate 16 12/15/2024 8:15 AM PIE BOTTOMER Oxygen Saturation 100% 01/26/2025 2:18 PM CDT Inhaled Oxygen Concentration - - Weight 68.5 kg (151 lb) 02/22/2025 10:03 AM CDT Height 161 cm (5' 3.4 ) 02/22/2025 10:03 AM CDT Body Mass Index 26.41 02/22/2025 10:03 AM CDT Plan of Treatment Health Maintenance Due Date Last Done Comments Hepatitis B Screening 1968 Zoster Vaccine (1 of 2) 09/27/2014 08/02/2014 Well Visit 65+ 2014 Pneumococcal vaccine 65+ (2 of 2 - PPSV23) 03/03/2020 01/07/2020 DTaP/Tdap/Td Vaccine (2 - Td or Tdap) 08/02/2024 08/02/2014 Depression Screening 09/22/2025 09/22/2024, 09/22/20 Fall Risk Assessment 12/15/2025 12/15/2024 Osteoporosis Screening-Bone Density Scan 04/07/2026 04/07/2024, 04/01/2022, 04/01/2022, Additional history exists Colon Cancer Screening-Colonoscopy 09/26/2031 09/26/2021, 03/28/2015 Hepatitis C Screening Completed 04/21/2015 Colon Cancer Screening-CT Colonography Discontinued 09/26/2021, 03/28/2015 Colon Cancer Screening-DNA Stool Discontinued 09/26/20, 03/28/2015 Colon Cancer Screening-FIT Discontinued 09/26/2021, Colon Cancer Screening-Sigmoidoscopy Discontinued 09/26/2021, 03/28/2015 Breast Cancer Screening-Mammogram Discontinued 10/13/2024, 10/10/2023, 09/25/2022, Additional history exists Influenza Vaccine Completed 12/15/2024, , 08/29/2016, Additional history exists Medical Devices Implanted Type Area Online Marketing Specialist Device Identifier Shelf Expiration Date Model / Serial / Lot [employer] Vascade Mvp 6-12fr Venous Closure [id number] - [id number] - [id number] Implanted:Qty : 1 on 12/14/2024 by Tobin Francis MD at [facility] Collagen Right: Femoral Vein [employer] 08/06/2026 800-612C- [id number] / [id number] / [id number] [id number] [employer] Vascade Mvp 6-12fr Venous Closure [id number] - [id number] - [id number] Implanted:Qty : 1 on 12/14/2024 by Tobin Francis MD at [facility] Collagen Right: Femoral Vein [employer] 08/06/2026 800-612C- [id number] / [id number] [id number] / [id number] [id number] [employer] Vascade Mvp 6-12fr Venous Closure [id number] - [id number] - [id number] Implanted:Qty : 1 on 12/14/2024 by Tobin Francis MD at [facility] Collagen Right: Femoral Vein [employer] 08/06/2026 800-612C- [id number] / [id number] [id number] / [id number] [id number] Procedures Procedure Name Priority Date/Time Associated Diagnosis Comments CT CHEST W CONTRAST Schedule Routine, Read Routine (OP Routine) 02/04/2025 10:54 AM CDT Persistent atrial fibrillation (HCC) ALEXIS (dyspnea on exertion) H/O sarcoidosis Gastroesophageal reflux disease without esophagitis HX: breast cancer POCT CREATININE - DEVICE Routine 025 10:35 AM CDT ECG 12-LEAD Routine 01/26/2025 2:30 PM CDT Paroxysmal atrial fibrillation (HCC) US CHEST BREAST RELATED Routine 01/12/20 25 1:24 PM CDT History of breast reconstruction ATRIAL FIBRILLATION ABLATION ADDITIONAL LINE OR FOCI Routine 12/14/2024 10:50 AM PIE BOTTOMER Paroxysmal atrial fibrillation (HCC) ELECTROPHYSIOLOGIC EVALUATION (EPS) / ATRIAL FIBRILLATION ABLATION VIA PULMONARY VEIN ISOLATION Routine 12/14/2024 10:50 AM PIE BOTTOMER Paroxysmal atrial fibrillation (HCC) POCT ACTIVATED CLOTTING TIME, HIGH RANGE Routine 12/14/2024 10:09 AM PIE BOTTOMER POCT ACTIVATED CLOTTING TIME, HIGH RANGE Routine 12/14/2024 9:42 AM PIE BOTTOMER POCT ACTIVATED CLOTTING TIME, HIGH RANGE Routine 12/14/2024 9:25 AM PIE BOTTOMER NM AN PROCEDURE PLACEHOLDER Routine 12/14/2024 9:03 AM PIE BOTTOMER NM AN ELECTIVE ENDOTRACHEAL AIRWAY Routine 12/14/2024 9:03 AM PIE BOTTOMER EGFR STAT 12/14/2024 6:01 AM PIE BOTTOMER BASIC METABOLIC PANEL STAT 12/14/2024 6:[address] HEART MORPHOLOGY W CONTRAST Schedule Routine, Read Routine (OP Routine) 12/10/2024 11:40 AM PIE BOTTOMER Paroxysmal atrial fibrillation (HCC) POCT CREATININE - DEVICE Routine 025 11:11 AM PIE BOTTOMER EGFR Routine 12/10/2024 10:27 AM PIE BOTTOMER Paroxysmal atrial fibrillation (HCC) URINALYSIS, MICROSCOPIC ONLY Routine 12/10/2024 10:27 AM PIE BOTTOMER Paroxysmal atrial fibrillation (HCC) BASIC METABOLIC PANEL Routine 12/10/2024 10:27 AM PIE BOTTOMER Paroxysmal atrial fibrillation (HCC) CBC WITHOUT DIFFERENTIAL Routine 025 10:27 AM PIE BOTTOMER Paroxysmal atrial fibrillation (HCC) URINALYSIS AND REFLEX TO MICROSCOPIC Routine 12/10/2024 10:27 AM PIE BOTTOMER Paroxysmal atrial fibrillation (HCC) ECG 12-LEAD Routine 12/10/2024 10:04 AM PIE BOTTOMER Medication management SCREENING MAMMOGRAM RIGHT W MELLO UNILATERAL ONLY Schedule Routine, Read Routine (OP Routine) 10/13/2024 3:19 PM PIE BOTTOMER History of breast cancer Breast cancer screening by mammogram DEXA AXIAL SKELETON BONE DENSITY 1 OR MORE SITES Schedule Routine, Read Routine (OP Routine) 04/07/2024 11:17 AM CDT 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, estrogen receptor positive, unspecified laterality (HCC) 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 No acute findings in the chest. Specifically, no evidence of esophageal rupture. 2. Stable subcentimeter bilateral subpectoral lymph nodes. Electronically signed by: Deepika Gibbs M.D. Narrative 02/04/2025 11:12 AM CDT EXAMINATION: CT CHEST W CONTRAST HISTORY: 74-year-old female status post A. fib ablation presenting with dyspnea and concern for esophageal injury. Patient also has a history of breast cancer. TECHNIQUE: Transaxial computed tomographic images of the chest were obtained after the administration of Optiray 350 69 ml according to standard protocol. COMPARISON: CT dated 12/10/2024 and 05/01/2016 FINDINGS: Calcified granuloma in the right lower lobe. Mild bibasilar atelectasis. No suspicious pulmonary nodule. No pleural effusion or pneumothorax. The central airways are patent. Unchanged subcentimeter bilateral subpectoral and left axillary lymph nodes. No mediastinal or hilar lymphadenopathy. Calcified mediastinal and hilar lymph nodes in keeping with old healed granulomatous disease. Unchanged subcentimeter thyroid nodules. The thoracic aorta is normal in caliber with scattered atherosclerotic calcifications. There is an apparent right subclavian artery. The esophagus is decompressed. There is no periesophageal soft tissue stranding. No organized fluid collection. No significant esophageal wall thickening. Imaged portions of the upper abdomen show no acute findings. Scattered calcified splenic granulomas. The gallbladder is surgically absent. Stable changes of left mastectomy and breast reconstruction with intracapsular left silicone implant rupture, unchanged. No suspicious osseous lesions. Procedure Note Deepika Gibbs MD - 02/04/2025 EXAMINATION: CT CHEST W CONTRAST HISTORY: 74-year-old female status post A. fib ablation presenting with dyspnea and concern for esophageal injury. Patient also has a history of breast cancer. TECHNIQUE: Transaxial computed tomographic images of the chest were obtained after the administration of Optiray 350 69 ml according to standard protocol. COMPARISON: CT dated 12/10/2024 and 05/01/2016 FINDINGS: Calcified granuloma in the right lower lobe. Mild bibasilar atelectasis. No suspicious pulmonary nodule. No pleural effusion or pneumothorax. The central airways are patent. Unchanged subcentimeter bilateral subpectoral and left axillary lymph nodes. No mediastinal or hilar lymphadenopathy. Calcified mediastinal and hilar lymph nodes in keeping with old healed granulomatous disease. Unchanged subcentimeter thyroid nodules. The thoracic aorta is normal in caliber with scattered atherosclerotic calcifications. There is an apparent right subclavian artery. The esophagus is decompressed. There is no periesophageal soft tissue stranding. No organized fluid collection. No significant esophageal wall thickening. Imaged portions of the upper abdomen show no acute findings. Scattered calcified splenic granulomas. The gallbladder is surgically absent. Stable changes of left mastectomy and breast reconstruction with intracapsular left silicone implant rupture, unchanged. No suspicious osseous lesions. IMPRESSION: 1. No acute findings in the chest. Specifically, no evidence of esophageal rupture. 2. Stable subcentimeter bilateral subpectoral lymph nodes. Electronically signed by: Deepika Gibbs M.D. Nati Zapata NP IMG CT PROCEDURES Final R esult * (ABNORMAL) POCT creatinine (02/04/2025 10:35 AM CDT) Creatinine POC 1.6(H) 0.6 - 1.1 mg/dL Blood 02/04/2025 10:3 5 AM CDT 02/04/2025 10:35 AM CDT Ryne Gomes DO LAB POCT ORDERABLES - DEVICE Fin al Result [facility] Department [place] [address] * ECG 12 lead (01/26/2025 2:30 PM CDT) Nati Zapata NP ECG ORDERABLES Edited Re sult - Final * US Chest Breast Related (01/11/2025 1:24 PM CDT) Anatomical Region Laterality Modality Chest N/A Ultrasound 01/11/2025 2:25 PM CDT Impressions 01/11/2025 2:25 PM CDT Left breast intracapsular silicone implant rupture. OVERALL FINAL ASSESSMENT: BI-RADS Category 2: Benign. RECOMMENDATION: 1. Annual screening mammography is recommended of the right breast is due September 2025. 2. Clinical follow-up is recommended with plastic surgery determine management of the ruptured implant. These findings were discussed with the patient at the conclusion of the examination and all questions addressed. The radiology attending physician has personally reviewed this study, and had reviewed and/or edited this written report and agrees with it. Electronically signed by: Sophia Hidalgo M.D. Narrative 01/11/2025 2:25 PM CDT EXAMINATION: LEFT UNILATERAL CHEST WALL SONOGRAM HISTORY: 74-year-old female with history of ductal carcinoma in situ in the left breast in 2015, for which patient underwent left mastectomy and silicone implant placement in August 2016. Concern for implant rupture as of CT Chest Wall dated 12/10/2024. COMPARISON: CT Chest Wall 12/10/2024. TECHNIQUE: Ultrasound examination of the area of indicated or reported concern was performed. FINDINGS: Intracapsular rupture of retropectoral silicone implant of the left chest wall. There is mixed echogenicity material between the envelope of the implant and the capsule of the breast consistent with intracapsular rupture of silicone implant. 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 Concern for implant rupture as of CT Chest Wall dated 12/10/2024. COMPARISON: CT Chest Wall 12/10/2024. TECHNIQUE: Ultrasound examination of the area of indicated or reported concern was performed. FINDINGS: Intracapsular rupture of retropectoral silicone implant of the left chest wall. There is mixed echogenicity material between the envelope of the implant and the capsule of the breast consistent with intracapsular rupture of silicone implant. IMPRESSION: Left breast intracapsular silicone implant rupture. OVERALL FINAL ASSESSMENT: BI-RADS Category 2: Benign. RECOMMENDATION: 1. Annual screening mammography is recommended of the right breast is due September 2025. 2. Clinical follow-up is recommended with plastic surgery determine management of the ruptured implant. These findings were discussed with the patient at the conclusion of the examination and all questions addressed. The radiology attending physician has personally reviewed this study, and had reviewed and/or edited this written report and agrees with it. Electronically signed by: Sophia Hidalgo M.D. us Emmanuel Mantilla MD IM MAMMO PROCEDURES Final Result * ELECTROPHYSIOLOGIC EVALUATION (EPS) / ATRIAL FIBRILLATION ABLATION VIA PULMONARY VEIN ISOLATION, ATRIAL FIBRILLATION ABLATION ADDITIONAL LINE OR FOCI (12/14/2024 10:50 AM PIE BOTTOMER) Anatomical Region Laterality Modality X-Ray Angiograph y Narrative 12/14/2024 11:10 AM PIE BOTTOMER Table formatting from the original result was not included. Images from the original result were not included. Patient Name: Carmen Stewart Date of : 1950 Referring Physician: Dr. Romero and Dr. Hurd ([facility]) Procedure Date: 12/14/2024 PROCEDURE: ATRIAL FIBRILLATION ABLATION Procedure: [x] AF Ablation procedure (38157) -- includes LA/CS pacing, transseptal, 3D mapping, IC ultrasound [x] +Other AF line/ablation (33388) -- right or left flutters (up to 2) [] +Other Arrhythmia (66769) -- SVT or VT (up to 2) [] +IV drug (07798) HISTORY HPI Carmen Stewart is a 74 y.o. year old female with symptomatic persistent, atrial fibrillation referred for consideration for catheter ablation. Carmen Stewart presented today in sinus rhythm, but with anesthesia, she converted to a disorganized atrial tachycardia. Afib Symptoms Include: [x] Anxiety [x] Chest Pain [] Dyspnea at rest [x] Dyspnea on exertion [x] Fatigue [x] Irregular heartbeat [] Lightheadedness [x] Palpitations [] other Prior Therapies to Maintain Sinus Rhythm: [x] Amiodarone [] Sotalol [] Dofetilide [] Flecainide [] Propafenone [] Dronedarone [] Catheter ablation [] Maze surgery [id number] Score: [] Congestive heart failure history [] Hypertension history [] Age > 64 [x] Age > 74 (2) [] Diabetes history [] Stroke/TIA history (2) [x] Female gender [] Vascular disease Therapies to Minimize Stroke Risk: [] Warfarin [x] Apixaban [] Rivaroxaban [] Dabigatran [] Edoxaban [] Left Atrial Appendage Closure [] Other Preoperative Cardiac Imaging: Preop CT scan demonstrated 3 PVs and no FABIAN thrombus. Risks and expected recovery has been explained in detail. Alternative options have been explored, and in a shared-decision making fashion we have decided that this was the most appropriate procedure. Method NPO status confirmed. Grounding pad applied. Defibrillator pads applied. Continuous surface ECG, pulse oximetry, and blood pressure were monitored. Procedure was performed under general anesthesia, with anesthesia services. A li bladder catheter was not used. A radial arterial line was not used. Both groins were clipped, prepped with Chloraprep, and draped in sterile fashion. Local anesthesia administered with lidocaine 2%. Right femoral vein was accessed for catheter placement, using ultrasound guidance, micro-puncture needle/wire, and modified seldinger technique. 3 sheaths were placed. The following catheters and long sheaths were used: [] Basurto ViewFlex Xtra 10Fr ICE catheter (2D) [x] [employer] SoundStar ECO 8Fr ICE catheter (2D) [] Matinicus Scientific 8.5Fr Ultra ICE catheter (2D) [] Basurto Inquiry 6Fr 10-pole diagnostic catheter [] Basurto CRD2 5Fr 4-pole diagnostic catheter [] Basurto Advisor HD Grid 16-pole diagnostic catheter [x] [employer] DecaNav 10-pole diagnostic catheter [] [employer] OctaRay 32-pole diagnostic catheter [] [employer] Optrell 48-pole diagnostic catheter [] Basurto 8Fr SL1 long sheath [] Basurto 11Fr Agilis NxT deflectable sheath [x] [employer] 11Fr Visigo deflectable sheath [] Medtronic FlexCath Contour 15Fr deflectable sheath [] Oscor 13Fr deflectable sheath Ablation Device: [] [employer]Media Tacticath (D-curve) unidirectional irrigated ablation catheter [] Basurto Medical Tacticath (D/F-curve) bidirectional irrigated ablation catheter [] Basurto Medical Tactiflex (D-curve) unidirectional irrigated ablation catheter [] Basurto Medical Tactiflex (D/F-curve) bidirectional irrigated ablation catheter [] [employer] Thermocool ST (D-curve) unidirectional irrigated ablation ablation catheter [x] [employer] QDot (D-curve) unidirectional irrigated ablation ablation catheter [] MicroSolar Arctic Front balloon cryoablation catheter [] MicroSolar Pulse Select multipolar pulsed field catheter Mapping System: [] BasurtoОЛЬГА [x] [employer] Intracardiac ultrasound (ICE) was carefully advanced into the right atrium to guide sheath placement over a J-wire, catheter placement, guide transseptal puncture, identify potential complications, identify anatomic structures and ensure proper contact between ablation catheter and tissue. Heparin was given to achieve a target ACT of 350 seconds. Heparin was given prior to transseptal puncture. Transseptal access was performed under ICE guidance. The single transseptal puncture was performed with a SafeSept wire through a Brockenbrough needle assembly.The wire was visualized as it entered the LSPV. 3D mapping was performed to identify pulmonary veins, and relevant structures. The course of the esophagus was identified by ICE or fluoroscopy and tagged on the 3D map. The right phrenic nerve was identified with high output pacing (20mA/2ms pacing) and tagged on the 3D map. Catheter-based radiofrequency ablation was performed using a Sutus power generator. A bilateral wide area antral PVI was performed with manual catheter manipulation. RF ablation was used: target power of 90 Márquez/4 seconds was used on the posterior wall, 50 Márquez/10-15 seconds was used elsewhere, with 7-20 grams of non-zero force Ablation strategy included: [x] Bilateral antral wide area circumferential ablation (WACA or PVI) [x] Empiric LA Linear Lesions (i.e. roof line, floor line, mitral annular line) [] Complex Fractionated Atrial Electrogram [] Cryoablation [] Convergent Procedure [x] Focal Ablation [] Ganglion Plexus Ablation [] Segmental PV Ablation [] Rotor Based Mapping Adjunctive Ablation Location: [x] RA cavotricuspid isthmus line [] RA SVC isolation [] RA coronary sinus isolation [x] LA roof line [] LA floor line [] LA anterior line [] LA lateral line [] Ligament/Vein of Niraj [x] Other: focal in RPV brina for epicardial connection Ablation was not performed on the esophagus. Ablation was terminated for any rise in esophageal temperature. Maximum esophageal temperature was 37.5 degrees. Esophagus was diffusely over the common left PV vein pair. Interestingly, the LPVs were auto-isolated. Entrance and exit block were demonstrated after 30+ minutes after ablation using careful voltage mapping and high-output pacing (10mA/2ms) inside the ablation lesion set and on the ablation lesion set. No arrhythmia was induced post-ablation. Maps after the ablation confirm isolation of all four PV and creation of LA roof line. CTI timing went from 60ms to 150ms, birdirectionally. PA view, with auto-isolation of LPV and catheter ablation isolation of the RPVs. HAITIAN, with isolation of LPV and LA roof line. WEINSTEIN view. Phrenic tagged in blue. Termination of AF with isolation of the RPVs. ICE was used to rule out pericardial effusion. Hemostasis was obtained with a Cardiva MVP collagen plug. Protamine was NOT used for reversal. Estimated Blood Loss 5-10 mL Complications None Sheath Access: 9:00 am Sheath Pull: 10:50 am Conclusions Successful electrical isolation of the pulmonary veins and LA roof line and right atrial CTI line AF terminated with isolation of the RPV pair. Recommendations Continue oral anticoagulant (first dose tonight). Antiarrhythmic use: amiodarone for one more month, then stop.. OTC PPI for one month. Follow up in 1 months and 3 months in EP clinic as scheduled. Head of bed to 30 degrees in holding. OK to ambulate in three hours Anticipate Overnight rest & observation in the hospital I was present during the entire procedure and personally confirmed the above report. Tobin Francis MD 12/14/2024 Tobin Francis MD CV ELECTROPHYSIOLOGY PROCS Final Result * (ABNORMAL) POC Activated Clotting Time, High Range (12/14/2024 10:09 AM PIE BOTTOMER) ACT 353(H) 87 - 138 sec POC Performer [address] [facility] POC Device Number [id number] [facility] Blood 12/14/2024 10:0 9 AM PIE BOTTOMER 12/14/2024 10:09 AM PIE BOTTOMER Tobin Francis MD LAB BLOOD ORDERABLES Final Result Performing Organization Address [facility] de Phone Number [facility] [place] [address] * (ABNORMAL) POC Activated Clotting Time, High Range (12/14/2024 9:42 AM PIE BOTTOMER) ACT 371(H) 87 - 138 sec POC Performer [address] [facility] POC Device Number [id number] [facility] Blood 12/14/2024 9:42 AM PIE BOTTOMER 12/14/2024 9:42 AM PIE BOTTOMER Tobin Francis MD LAB BLOOD ORDERABLES Final Result Performing Organization Address [facility] de Phone Number [facility] [place] [address] * (ABNORMAL) POC Activated Clotting Time, High Range (12/14/2024 9:25 AM PIE BOTTOMER) ACT 337(H) 87 - 138 sec POC Performer [address] [facility] POC Device Number [id number] [facility] Blood 12/14/2024 9:25 AM PIE BOTTOMER 12/14/2024 9:25 AM PIE BOTTOMER Tobin Francis MD LAB BLOOD ORDERABLES Final Result Performing Organization Address [facility] [place] [address] * NM AN ELECTIVE ENDOTRACHEAL AIRWAY, NM AN PROCEDURE PLACEHOLDER (12/14/2024 9:03 AM PIE BOTTOMER) Narrative Jefferson Victor, TORIE - 12/14/2024 9:03 AM PIE BOTTOMER Jefferson Victor, STRIP DEBURRER 12/14/2024 9:03 AM Airway Patient location: OR Urgency: elective Indications for airway management: anesthesia and airway protection Difficult airway: no Staff: Supervising provider: Veronika Begum MD Placed by: STRIP DEBURRER: Jefferson Victor CRNA Emergent airway documentation: Risks and benefits discussed: yes Consent obtained: yes Consent given by: patient Airway prep: Preoxygenated: yes Patient position: sniffing Mask difficulty assessment: 1 - vent by mask Spontaneous ventilation during airway: absent Sedation level during airway: GA Final airway details: Final airway type: endotracheal airway Tube type: ETT ETT size: 7.0 mm Cuffed: yes Technique used for successful ETT placement: direct laryngoscopy Devices/Methods used in placement: intubating stylet Insertion site: oral Blade type: Ricci Blade size: 3 Cormack-Lehane (direct): grade I - full view of glottis Initial cuff pressure: 25 cm H2O Cuff volume: 7 mL Cuff inflated with: air ETT to lips: 22 cm Placement verified by: auscultation and CO2 detection Airway secured with: silk tape Number of attempts: 1 Veronika Begum MD ANESTHESIA ORDERABLES F inal Result * (ABNORMAL) eGFR (12/14/2024 6:01 AM PIE BOTTOMER) eGFR 34(L) >=60 mL/min/1. 73 m2 Comment: Interpretive Data Reference Interval Normal >/= 90 mL/min/1.73m2 Mildly decreased* 60 - 89 mL/min/1.73m2 Mildly to moderately decreased 45 - 59 mL/min/1.73m2 Moderately to severely decreased 30 - 44 mL/min/1.73m2 Severely decreased 15 - 29 mL/min/1.73m2 Kidney Failure < 15 mL/min/1.73m2 *Relative to young adult level Estimated glomerular filtration rate is determined by the 2020 CKD-EPI equation recommended by the National Kidney Foundation (A Unifying Approach to GFR Estimation: Recommendations of the NKF-ASK Task Force on Reassessing the Inclusion of Race in Diagnosing Kidney Disease, JASN 2020). The CKD-EPI equation should not be used for patients with unstable renal function and has not been validated in children and those over 70. Current interpretive data was last reviewed 2021. Blood 12/14/2024 6:01 AM PIE BOTTOMER 12/14/2024 6:42 AM PIE BOTTOMER Annie Norris BUSINESS INTELLIGENCE ARCHITECT LAB BLOOD ORDERABLES Final Re sult Performing Organization Address City/[facility]/ZIP Co de Phone Number [facility] [place] [address] * (ABNORMAL) Basic metabolic panel (12/14/2024 6:01 AM PIE BOTTOMER) Sodium 141 135 - 145 mmol/L Potassium, pl 4.7 3.3 - 4.9 mmol/L [facility] Comment:Hemolyzed; Potassium value may be falsely elevated by as much as 0.6-1.0 mmol/L. Suggest redraw and reanalysis. Chloride 105 97 - 110 mmol/L [facility] CO2 24 22 - 32 mmol/L [facility] Anion gap 12 2 - 15 mmol/L [facility] BUN 27(H) 6 - 25 mg/dL [facility] Creatinine 1.58(H) 0.60 - 1.10 mg/dL [facility] Glucose 119 70 - 199 mg/dL [facility] Comment: Interpretive Data Fasting glucose >/= 126 mg/dl is diagnostic for diabetes. Fasting is defined as no caloric intake for at least 8 hours. Fasting glucose between 100 mg/dl to 125 mg/dl is diagnostic of prediabetes. In a patient with classic symptoms of hyperglycemia or hyperglycemic crisis, a random glucose >/= 200 mg/dl is diagnostic for diabetes. In the absence of unequivocal hyperglycemia, results should be confirmed by repeat testing. The classification and Diagnosis of Diabetes Diabetes Care 2021; 46: S19-S40. Current interpretive data was last revised 2022. Calcium 9.0 8.5 - 10.3 mg/dL [facility] Blood 12/14/2024 6:01 AM PIE BOTTOMER 12/14/2024 6:42 AM PIE BOTTOMER Annie Norris BUSINESS INTELLIGENCE ARCHITECT LAB BLOOD ORDERABLES Final Re sult [facility] Department [place] [address] * CT Heart Morphology W Contrast (12/10/2024 11:40 AM PIE BOTTOMER) Anatomical Region Laterality Modality Chest N/A Computed Tomogra phy 12/10/2024 1:12 PM PIE BOTTOMER Impressions 12/10/2024 5:29 PM PIE BOTTOMER 1. Pulmonary vein anatomy as described above. 2. A subcentimeter left subpectoral lymph node has increased in size when compared to 2016 examination. This is favored to be reactive, though a conservative approach for further management would be a follow-up chest CT in 3-6 months if no priors more recent than the 2016 examination are available. Dictated by: Conrad Mena MD The radiology attending physician has personally reviewed this study, and had reviewed and/or edited this written report and agrees with it. Electronically signed by: Carlos Villanueva M.D. Narrative 12/10/2024 5:29 PM PIE BOTTOMER EXAMINATION: CT HEART MORPHOLOGY W CONTRAST HISTORY: Patient with arrhythmia, pre radiofrequency ablation procedure. TECHNIQUE: Heart CT performed during administration of 93 mL of Optiray 350, intravenously per pulmonary vein protocol. Images were transferred to an independent workstation for additional 3D post-processing. FINDINGS: Comparison is made to CT dated 05/01/2016 Pulmonary vein anatomy: There is 1 veins on the left and 2 veins on the right. * Right superior pulmonary vein ostial diameter: 25 x 24 mm. * Right inferior pulmonary vein ostial diameter: 28 x 25 mm. * Left pulmonary vein ostial diameter: 32 x 24 mm. * No early branching The left atrial appendage does not contain thrombus Left atrial diameter: 43 mm Esophagus lies immediately posterior to the left pulmonary vein. Other findings: The heart size is normal. There is no pericardial effusion. There are no significant coronary calcifications. The thoracic aorta is normal in caliber. There is an aberrant right subclavian artery. Calcified granuloma in the right lower lobe. No consolidation, pleural effusion, or pneumothorax. Several subcentimeter hypodense thyroid nodules. Calcified mediastinal and hilar lymph nodes in keeping with old granulomatous disease. There is a subcentimeter left subpectoral lymph node on series 9 image 36 measuring 8 mm. This is increased in size when compared to the 2016 examination. There is a left subpectoral silicone breast implant which demonstrates evidence of intracapsular rupture. Calcified granulomas in the spleen. Cholecystectomy. Small hiatal hernia. No suspicious osseous lesion. Procedure Note Carlos Villanueva MD - 12/10/2024 EXAMINATION: CT HEART MORPHOLOGY W CONTRAST HISTORY: Patient with arrhythmia, pre radiofrequency ablation procedure. TECHNIQUE: Heart CT performed during administration of 93 mL of Optiray 350, intravenously per pulmonary vein protocol. Images were transferred to an independent workstation for additional 3D post-processing. FINDINGS: Comparison is made to CT dated 05/01/2016 Pulmonary vein anatomy: There is 1 veins on the left and 2 veins on the right. * Right superior pulmonary vein ostial diameter: 25 x 24 mm. * Right inferior pulmonary vein ostial diameter: 28 x 25 mm. * Left pulmonary vein ostial diameter: 32 x 24 mm. * No early branching The left atrial appendage does not contain thrombus Left atrial diameter: 43 mm Esophagus lies immediately posterior to the left pulmonary vein. Other findings: The heart size is normal. There is no pericardial effusion. There are no significant coronary calcifications. The thoracic aorta is normal in caliber. There is an aberrant right subclavian artery. Calcified granuloma in the right lower lobe. No consolidation, pleural effusion, or pneumothorax. Several subcentimeter hypodense thyroid nodules. Calcified mediastinal and hilar lymph nodes in keeping with old granulomatous disease. There is a subcentimeter left subpectoral lymph node on series 9 image 36 measuring 8 mm. This is increased in size when compared to the 2016 examination. There is a left subpectoral silicone breast implant which demonstrates evidence of intracapsular rupture. Calcified granulomas in the spleen. Cholecystectomy. Small hiatal hernia. No suspicious osseous lesion. IMPRESSION: 1. Pulmonary vein anatomy as described above. 2. A subcentimeter left subpectoral lymph node has increased in size when compared to 2016 examination. This is favored to be reactive, though a conservative approach for further management would be a follow-up chest CT in 3-6 months if no priors more recent than the 2016 examination are available. Dictated by: Conrad Mena MD The radiology attending physician has personally reviewed this study, and had reviewed and/or edited this written report and agrees with it. Electronically signed by: Carlos Villanueva M.D. us Tobin Francis MD IMG CT PROCEDURES Fi nal Result * (ABNORMAL) POCT creatinine (12/10/2024 11:11 AM PIE BOTTOMER) Creatinine POC 1.6(H) 0.6 - 1.1 mg/dL Blood 12/10/2024 11:1 1 AM PIE BOTTOMER 12/10/2024 11:11 AM PIE BOTTOMER us Tobin Francis MD LAB POCT ORDERABLES - DEVICE Final Result [facility] Department [place] [address] * (ABNORMAL) eGFR (12/10/2024 10:27 AM PIE BOTTOMER) eGFR 34(L) >=60 mL/min/1. 73 m2 Comment: Interpretive Data Reference Interval Normal >/= 90 mL/min/1.73m2 Mildly decreased* 60 - 89 mL/min/1.73m2 Mildly to moderately decreased 45 - 59 mL/min/1.73m2 Moderately to severely decreased 30 - 44 mL/min/1.73m2 Severely decreased 15 - 29 mL/min/1.73m2 Kidney Failure < 15 mL/min/1.73m2 *Relative to young adult level Estimated glomerular filtration rate is determined by the 2020 CKD-EPI equation recommended by the National Kidney Foundation (A Unifying Approach to GFR Estimation: Recommendations of the NKF-ASK Task Force on Reassessing the Inclusion of Race in Diagnosing Kidney Disease, JASN 202). The CKD-EPI equation should not be used for patients with unstable renal function and has not been validated in children and those over 70. Current interpretive data was last reviewed 2021. Blood 12/10/2024 10:2 7 AM PIE BOTTOMER 12/10/2024 11:09 AM PIE BOTTOMER us Tobin Francis MD LAB BLOOD ORDERABLES Final Result [facility] [place] [address] * (ABNORMAL) Urinalysis reflex to microscopic (12/10/2024 10:27 AM PIE BOTTOMER) Color, ur Straw Yellow Clarity, ur Clear Clear [facility] Specific gravity, ur 1.023 1.003 - 1.030 [facility] pH, urine 6.0 [facility] Comment: Interpretive Data U rine pH is affected by diet, medications, systemic acid-base disturbances, and renal tubular function. pH may affect urinary stone formation. For example, urine pH below 6.0 may help reduce the tendency for calcium phosphate stones and pH greater than 6.0 may reduce the tendency for uric acid stone formation. Source: [facility] Current Interpretive Data was last revised on 2017 Protein, ur ql 3+(A) Negative [facility] Glucose, ur ql Negative Negative [facility] Ketones, ur Negative Negative [facility] Bilirubin, ur Negative Negative [facility] Blood, ur Negative Negative [facility] Urobilinogen, ur <2.0 <2.0 mg/dL [facility] Nitrite, ur Negative Negative [facility] Leukocyte esterase, ur Negative Negative [facility] UA reflex comment Reflex to microscopic UA will be performed. [facility] Urine 12/10/2024 10:2 7 AM PIE BOTTOMER 12/10/2024 10:50 AM PIE BOTTOMER Tobin Francis MD LAB URINE ORDERABLES Final Result [facility] Department [place] [address] * (ABNORMAL) Urinalysis, microscopic only (12/10/2024 10:27 AM PIE BOTTOMER) WBC, ur 0-5 0 - 5 /HPF RBC, ur 0-2 0 - 2 /HPF [facility] Epithelial cells, squamous, ur 1-5 0 - 5 /HPF [facility] Epithelial cells, transitional, ur 1-5 0 - 0 /HPF [facility] Bacteria, ur Trace(A) [facility] Mucous, ur Present(A) [facility] Hyaline casts, ur 11-20(A) 0 - 10 /LPF [facility] Urine 12/10/2024 10:2 7 AM PIE BOTTOMER 12/10/2024 10:50 AM PIE BOTTOMER Tobin Francis MD LAB URINE ORDERABLES Final Result Performing Organization Address City/[facility]/ZIP Co de Phone Number [facility] Department [place] [address] * (ABNORMAL) CBC without differential (12/10/2024 10:27 AM PIE BOTTOMER) WBC 8.1 3.8 - 9.9 K/cumm Hgb 16.1(H) 11.9 - 15.5 g/dL [facility] Hct 47.5(H) 35.6 - 45.5 % [facility] Plt 240 150 - 400 K/cumm [facility] MPV 9.9 9.1 - 12.3 fL [facility] RBC 5.34(H) 3.90 - 5.20 M/cumm [facility] MCV 89.0 81.3 - 96.4 fL [facility] MCH 30.1 27.1 - 33.3 pg [facility] MCHC 33.9 32.3 - 35.7 g/dL [facility] RDW CV 14.0 11.1 - 14.9 % [facility] RDW SD 44.8 35.7 - 48.1 fL [facility] NRBC abs 0.00 0.00 - 0.01 K/cumm [facility] Blood 12/10/2024 10:2 7 AM PIE BOTTOMER 12/10/2024 11:09 AM PIE BOTTOMER Tobin Francis MD LAB BLOOD ORDERABLES Final Result Performing Organization Address City/[facility]/ZIP Co de Phone Number [facility] Department [place] [address] * (ABNORMAL) Basic metabolic panel (12/10/2024 10:27 AM PIE BOTTOMER) Pathologist [facility] Sodium 142 135 - 145 mmol/L Potassium, pl 4.4 3.3 - 4.9 mmol/L [facility] Chloride 104 97 - 110 mmol/L [facility] CO2 27 22 - 32 mmol/L [facility] Anion gap 11 2 - 15 mmol/L [facility] BUN 32(H) 6 - 25 mg/dL [facility] Creatinine 1.58(H) 0.60 - 1.10 mg/dL [facility] Glucose 117 70 - 199 mg/dL [facility] Comment: Interpretive Data Fasting glucose >/= 126 mg/dl is diagnostic for diabetes. Fasting is defined as no caloric intake for at least 8 hours. Fasting glucose between 100 mg/dl to 125 mg/dl is diagnostic of prediabetes. In a patient with classic symptoms of hyperglycemia or hyperglycemic crisis, a random glucose >/= 200 mg/dl is diagnostic for diabetes. In the absence of unequivocal hyperglycemia, results should be confirmed by repeat testing. The classification and Diagnosis of Diabetes Diabetes Care 2021; 46: S19-S40. Current interpretive data was last revised 2022. Calcium 9.3 8.5 - 10.3 mg/dL [facility] Blood 12/10/2024 10:2 7 AM PIE BOTTOMER 12/10/2024 11:09 AM PIE BOTTOMER Tobin Francis MD LAB BLOOD ORDERABLES Final Result [facility] Department [place] [address] * ECG 12 lead (12/10/2024 10:04 AM PIE BOTTOMER) Ventricular Rate EKG/Min 65 BPM [facility] Atrial Rate 65 BPM [facility] NM-Interval (MSEC) 272 ms [facility] QRS-Interval (MSEC) 78 ms [facility] QT-Interval (MSEC) 428 ms [facility] QTc 445 ms [facility] P Oh[place] 43 degrees [facility] R [place]man -12 degrees [facility] T [place] 43 degrees [facility] Diagnosis Sinus rhythm with 1st degree A-V block Possible Anterior infarct , age undetermined Abnormal ECG When compared with ECG of 11-SEP-2006 20:34, no significant change Confirmed by NINA OCONNELL M.D ([id number]) on 12/13/2024 9:54:35 AM [facility] 12/10/2024 10:0 4 AM PIE BOTTOMER 12/13/2024 9:54 AM PIE BOTTOMER us Tobin Francis MD ECG ORDERABLES Poornima esvin Result [facility] * Screening Mammogram Right W [place] Unilateral Only (10/13/2024 3:19 PM PIE BOTTOMER) Anatomical Region Laterality Modality Breast Right Mammography Narrative 10/14/2024 3:16 PM PIE BOTTOMER Mammogram Technique: Right Breast Digital Breast Tomosynthesis, Unilateral C-view 2D Screening mammogram. Views obtained: . Computer Aided Detection was performed. Mammogram Findings: The present examination has been compared to prior imaging studies performed at [facility] on 09/18/2021, 09/25/2022 and 10/10/2023. There are scattered areas of fibroglandular density. There is no suspicious abnormality in the right breast. Patient status post contralateral mastectomy for personal history of breast cancer. Impression: There is no mammographic evidence of malignancy. Annual screening mammography is recommended. OVERALL FINAL ASSESSMENT: BI-RADS CATEGORY 1: Negative. Procedure Note Rosa M Lui MD - 10/14/2024 Mammogram Technique: Right Breast Digital Breast Tomosynthesis, Unilateral C-view 2DScreening mammogram. Views obtained: . Computer Aided Detection was performed. Mammogram Findings: The present examination has been compared to prior imaging studies performed at [facility] on 09/18/2021, 09/25/2022 and 10/10/2023. There are scattered areas of fibroglandular density. There is no suspicious abnormality in the right breast. Patient status post contralateral mastectomy for personal history ofbreast cancer. Impression: There is no mammographic evidence of malignancy. Annual screening mammography is recommended. OVERALL FINAL ASSESSMENT: BI-RADS CATEGORY 1: Negative. Caterina Paul [employer]IGENCE ARCHITECT IMG MAMMO PROCEDURES Final Res ult * Dexa Axial Skeleton Bone Density 1 or 2 Site (04/07/2024 11:17 AM CDT) Anatomical Region Laterality Modality Body N/A Digital Radiogra phy 04/07/2024 11:2 2 AM CDT Impressions 04/07/2024 12:05 PM CDT 1. The bone mineral density of the lumbar spine is normal. There has been a statistically significant increase in bone mineral density since the baseline examination of 04/21/2019. 2. The bone mineral density of the left femoral neck is normal. 3. The bone mineral density of the left total hip is normal. There has been no significant change in bone mineral density since the baseline examination of 04/21/2019. 4. Overall, the above findings are normal by WHO criteria. 5. Calculation of fracture risk using the FRAX model is not appropriate in certain settings. It was not performed in this patient because the patient met the following condition(s): normal bone density, interfering medication (anastrozole, zoledronic acid). General comments regarding interpretation of bone density measurements: A) In children, premenopausal woman and males under age 50 not at increased risk for fractures only Z-scores, not T-scores are used to indicate risk. A Z-score above -2.0 is defined as within the expected range for age and Z-score at or less than -2.0 is below the expected range for age . A Z-score below the expected range for age in a patient with recent fractures and/or chronic corticosteroid treatment is consistent with a diagnosis of osteoporosis. B) In post menopausal women and males over 50, comparison of the measured bone mineral density with the average value in young normal subjects (the T-score ) has been found to be useful in assessing fracture risk. Fracture risk approximately doubles for each 1.0 standard deviation (SD) in individual's hip or spine bone mineral density is below the average value of young normal subjects. The World Health Organization (WHO) has defined T-scores of -1.0 to -2.5 as diagnostic of low bone mass (OSTEOPENIA), and T-scores of -2.5 or lower to be diagnostic of OSTEOPOROSIS, based on the site of lowest bone density. Note that there will be a change in reporting format and reference databases as patients move from the younger population (group A) to the older population (group B) The National Osteoporosis Foundation (www.nof.org) recommends adequate intake of calcium and vitamin D and regular weight-bearing exercise in all patients. They recommend pharmacologic treatment in postmenopausal women and men age 50 and older presenting with any of the followin) Osteoporosis, after appropriate evaluation to exclude secondary causes. 2) A hip or vertebral (clinical or radiographic) fracture, regardless of the bone density. 3) Low bone mass (Osteopenia) and one or more of: other prior fractures, secondary causes associated with high risk of fracture (such as glucocorticoid use or total immobilization), or computed high risk of fracture (10-yr probability of hip fracture >= 3% or a 10-yr probability of any major osteoporosis-related fracture >= 20% based on the [place].-adapted WHO algorithm), available at http://www.shef.ac.uk/FRAX). Dictated by: Hannah Urbina MD The radiology attending physician has personally reviewed this study, and had reviewed and/or edited this written report and agrees with it. Electronically signed by: Salome Craven M.D. Narrative 04/07/2024 12:05 PM CDT BONE DENSITOMETRY OF THE SPINE AND HIP DATE OF STUDY: 04/07/2024 HISTORY: 73-year-old postmenopausal woman with breast cancer. She is being treated with anastrozole, vitamin D supplementation. Evaluate bone mineral density. Additional risk factors for fracture: None FINDINGS (SPINE): The bone mineral density of L1-L4 was assessed by dual-energy x-ray absorptiometry. The average bone mineral density within this region is 1.077 gm/sq-cm. This is 2.6 standard deviations above the mean of the average bone mineral density for age- and gender-matched subjects (the Z-score). It is 0.3 standard deviations above the mean peak bone mineral density in young adults (the T-score). FINDINGS (FEMORAL NECK): The bone mineral density of the left femoral neck was assessed by dual-energy x-ray absorptiometry. The average bone mineral density within the femoral neck region is 0.954 gm/sq-cm. This is 3.0 standard deviations above the mean of the average bone mineral density for age- and gender-matched subjects (the Z-score). It is 0.9 standard deviations above the mean peak bone mineral density in young adults (the T-score). FINDINGS (TOTAL HIP): The bone mineral density of the left hip was assessed by dual-energy x-ray absorptiometry. The average bone mineral density within the total hip region is 0.912 gm/sq-cm. This is 1.5 standard deviations above the mean of the average bone mineral density for age- and gender-matched subjects (the Z-score). It is 0.2 standard deviations below the mean peak bone mineral density in young adults (the T-score). SUMMARY OF CURRENT RESULTS: Region BMD T-score Z-score AP Spine (L1-L4) 1.077 0.3 2.6 Femoral Neck (Left) 0.954 0.9 3.0 Total Hip (Left) 0.912 -0.2 1.5 COMPARISON WITH PREVIOUS RESULTS Region Age BMD T-score BMD Change BMD Change Exam Date g/cm2 vs Baseline vs Previous AP Spine (L2-L4) 04/07/2024 73 1.123 0.4 0.081 (7.8%)* 0.054 (5.1%)* 04/01/2022 71 1.069 -0.1 0.027 (2.6%)* 0.027 (2.6%)* 04/21/2019 68 1.042 -0.3 Total Hip(Left) 04/07/2024 73 0.912 -0.2 0.015 (1.7%) 0.006 (0.7%) 04/01/2022 71 0.906 -0.3 0.009 (1.0%) 0.009 (1.0%) 04/21/2019 68 0.897 -0.4 *Denotes significance at 95% confidence level Procedure Note Salome Craven MD - 04/07/2024 BONE DENSITOMETRY OF THE SPINE AND HIP DATE OF STUDY: 04/07/2024 HISTORY: 73-year-old postmenopausal woman with breast cancer. She is being treated with anastrozole, vitamin D supplementation. Evaluate bone mineral density. Additional risk factors for fracture: None FINDINGS (SPINE): The bone mineral density of L1-L4 was assessed by dual-energy x-ray absorptiometry. The average bone mineral density within this region is 1.077 gm/sq-cm. This is 2.6 standard deviations above the mean of the average bone mineral density for age- and gender-matched subjects (the Z-score). It is 0.3 standard deviations above the mean peak bone mineral density in young adults (the T-score). FINDINGS (FEMORAL NECK): The bone mineral density of the left femoral neck was assessed by dual-energy x-ray absorptiometry. The average bone mineral density within the femoral neck region is 0.954 gm/sq-cm. This is 3.0 standard deviations above the mean of the average bone mineral density for age- and gender-matched subjects (the Z-score). It is 0.9 standard deviations above the mean peak bone mineral density in young adults (the T-score). FINDINGS (TOTAL HIP): The bone mineral density of the left hip was assessed by dual-energy x-ray absorptiometry. The average bone mineral density within the total hip region is 0.912 gm/sq-cm. This is 1.5 standard deviations above the mean of the average bone mineral density for age- and gender-matched subjects (the Z-score). It is 0.2 standard deviations below the mean peak bone mineral density in young adults (the T-score). SUMMARY OF CURRENT RESULTS: Region BMD T-score Z-score AP Spine (L1-L4) 1.077 0.3 2.6 Femoral Neck (Left) 0.954 0.9 3.0 Total Hip (Left) 0.912 -0.2 1.5 COMPARISON WITH PREVIOUS RESULTS Region Age BMD T-score BMD Change BMD Change Exam Date g/cm2 vs Baseline vs Previous AP Spine (L2-L4) 04/07/2024 73 1.123 0.4 0.081 (7.8%)* 0.054 (5.1%)* 04/01/2022 71 1.069 -0.1 0.027 (2.6%)* 0.027 (2.6%)* 04/21/2019 68 1.042 -0.3 Total Hip(Left) 04/07/2024 73 0.912 -0.2 0.015 (1.7%) 0.006 (0.7%) 04/01/2022 71 0.906 -0.3 0.009 (1.0%) 0.009 (1.0%) 04/21/2019 68 0.897 -0.4 *Denotes significance at 95% confidence level IMPRESSION: 1. The bone mineral density of the lumbar spine is normal. There has been a statistically significant increase in bone mineral density since the baseline examination of 04/21/2019. 2. The bone mineral density of the left femoral neck is normal. 3. The bone mineral density of the left total hip is normal. There has been no significant change in bone mineral density since the baseline examination of 04/21/2019. 4. Overall, the above findings are normal by WHO criteria. 5. Calculation of fracture risk using the FRAX model is not appropriate in certain settings. It was not performed in this patient because the patient met the following condition(s): normal bone density, interfering medication (anastrozole, zoledronic acid). General comments regarding interpretation of bone density measurements: A) In children, premenopausal woman and males under age 50 not at increased risk for fractures only Z-scores, not T-scores are used to indicate risk. A Z-score above -2.0 is defined as within the expected range for age and Z-score at or less than -2.0 is below the expected range for age . A Z-score below the expected range for age in a patient with recent fractures and/or chronic corticosteroid treatment is consistent with a diagnosis of osteoporosis. B) In post menopausal women and males over 50, comparison of the measured bone mineral density with the average value in young normal subjects (the T-score ) has been found to be useful in assessing fracture risk. Fracture risk approximately doubles for each 1.0 standard deviation (SD) in individual's hip or spine bone mineral density is below the average value of young normal subjects. The World Health Organization (WHO) has defined T-scores of -1.0 to -2.5 as diagnostic of low bone mass (OSTEOPENIA), and T-scores of -2.5 or lower to be diagnostic of OSTEOPOROSIS, based on the site of lowest bone density. Note that there will be a change in reporting format and reference databases as patients move from the younger population (group A) to the older population (group B) The National Osteoporosis Foundation (www.nof.org) recommends adequate intake of calcium and vitamin D and regular weight-bearing exercise in all patients. They recommend pharmacologic treatment in postmenopausal women and men age 50 and older presenting with any of the followin) Osteoporosis, after appropriate evaluation to exclude secondary causes. 2) A hip or vertebral (clinical or radiographic) fracture, regardless of the bone density. 3) Low bone mass (Osteopenia) and one or more of: other prior fractures, secondary causes associated with high risk of fracture (such as glucocorticoid use or total immobilization), or computed high risk of fracture (10-yr probability of hip fracture >= 3% or a 10-yr probability of any major osteoporosis-related fracture >= 20% based on the [place].-adapted WHO algorithm), available at http://www.shef.ac.uk/FRAX). Dictated by: Hannah Urbina MD The radiology attending physician has personally reviewed this study, and had reviewed and/or edited this written report and agrees with it. Electronically signed by: Salome Craven M.D. Gretta Heath MD IMDesiree DXA PROCEDURES F inal Result * COLONOSCOPY (09/26/2021 10:27 AM PIE BOTTOMER) Anatomical Region Laterality Modality Other Narrative Procedure Note Trang Alfred MD - 09/26/2021 10:27 AM CST ENDOSCOPY LAB Patient Name: Carmen Stewart Procedure Date: 09/26/2021 10:27 AM Date of : 1950 Admit Type: Outpatient Age: 70 Gender: Female Attending MD: Trang Alfred M.D. Room: [facility] ENDOSCOPY ROOM 01 Note Status: Finalized Procedure: Colonoscopy Indications: High risk colon cancer surveillance: Personalhistory of colonic polyps, Last colonoscopy: March 2015.Family h/o colon polyps. Providers: Trang Alfred M.D. Referring MD: Stewart Campbell MD Medicines: Monitored Anesthesia Care Complications: No immediate complications. Estimated blood loss: Minimal. Estimated Blood Loss: Estimated blood loss was minimal. Procedure: Pre-Anesthesia Assessment: - Immediately prior to administration ofmedications, the patient was re-assessed for adequacy to receive sedatives. The benefits, risks and alternatives of theprocedure and sedation were discussed and informed consentwas obtained. All questions were answered. Please referto the signed informed consent document in the medical record. The scope was passed under direct vision.The [id number] was introduced through the anusand advanced to the terminal ileum. The colonoscopy was performed without difficulty. The patient tolerated the procedure well. The quality of the bowel preparation was evaluated using the BBPS (BostonBowel Preparation Scale) with scores of: Right Colon = 3, Transverse Colon = 3 and Left Colon = 3 (entiremucosa seen well with no residual staining, smallfragments of stool or opaque liquid). The total BBPS score equals 9. Findings: The digital rectal exam was normal. The terminal ileum appeared normal. Two sessile polyps were found in the cecum. The polyps were 2 to 4 mmin size. These polyps were removed with a cold snare. Resection and retrieval were complete. A 3 mm polyp was found in the ascending colon. The polyp was sessile. The polyp was removed with a cold snare. Resection and retrieval were complete. A 6 mm likely subtle polyp was found in the transverse colon. Thepolyp was flat. The polyp was removed with a cold snare. Resection and retrieval were complete. A 2 mm polyp was found in the descending colon. The polyp wassessile. The polyp was removed with a cold snare. Resection and retrieval were complete. A few small-mouthed diverticula were found in the sigmoid colon. Random colon biopsies were obtained with cold biopsy forceps. Internal hemorrhoids were found during retroflexion. The hemorrhoids were moderate. Impression: - The examined portion of the ileum was normal. - Two 2 to 4 mm polyps in the cecum, removed with a cold snare. Resected and retrieved. - One 3 mm polyp in the ascending colon, removedwith a cold snare. Resected and retrieved. - One 6 mm polyp in the transverse colon, removedwith a cold snare. Resected and retrieved. - One 2 mm polyp in the descending colon, removedwith a cold snare. Resected and retrieved. - Diverticulosis in the sigmoid colon. - Internal hemorrhoids. Recommendation: - Follow-up biopsy results. Please call the officeif you do not receive results in 2 weeks. - Patient has a contact number available for emergencies. The signs and symptoms of potential delayed complications were discussed with thepatient. Return to normal activities tomorrow. Written discharge instructions were provided to thepatient. - Contact Information: During normal business hours - [facility] Coordinator: [phone] After hours, evening, nights, weekends and holidays- Please call the hospital hammer operator at and ask for the GI fellow dermatology nurse practitioner. Electronically by Dr Trang Alfred Trang Alfred M.D. 09/26/2021 10:57:55 AM Number of Addenda: 0 Note Initiated On: 09/26/2021 10:27 AM Trang Alfred MD ENDOSCOPY PROCEDURES Final Result * Serum Hepatitis C ab (04/21/2015 5:19 AM CDT) HCV ab NON-REACTI VE NON-REACTI VE HISTORICAL RESULTS Hepatitis signal to cutoff ratio 0.01 <1.00 HISTORICAL RESULTS Serum 04/21/2015 5:19 AM CDT Narrative HISTORICAL RESULTS - 04/26/2015 5:00 PM CDT Test performed at [employer] [facility] [address] Director: CONRAD JONES DO,MPH us Historical Provider LAB BLOOD ORDERABLES Poornima l Result HISTORICAL RESULTS from Last 3 Months or Most Recently Relevant to [place] [address] [facility] MEDICARE ADVANTAGE [employer] MEDICARE ADVANTAGE UHC MEDICARE ADVANTAGE Advance Directives For more information, please contact: [phone] * Full Code (Latest Code Status on File) Date Activated Date Inactivated Comments 09/26/2021 9:54 AM 09/26/2021 3:23 PM Care Teams Lineman Relationship Specialty Start Date End Date Ryne Gomes DO [address] [place] [id number] PCP - General Internal Medicine 07/19/24 Natalie Cerrato MD [address] [place] [address] Surgeon Surgical Oncology 05/01/18 Joaquin Hurd MD [address] [place] [address] Consulting Physician Cardiology 07/21/19 Gretta Heath MD [address] [place] [address] Medical Oncologist/Tying Machine Operator Medical Oncology 07/06/20 Tobin Francis MD [address] [place] [address] Consulting Physician Cardiology 10/06/24
--- OUTSIDE RECORDS SUMMARY | 2025-02-26 12:28 | XMS_ITS | Encounter Summary ---
Author Organization [facility] Address [address] [place] [address] Phone Care Team Providers Care Biosolids Management Technician Name Role Phone Natalie Cerrato MD Unavailable Joaquin Hurd MD Unavailable [phone] Gretta Heath MD Unavailable [phone] Ryne Gomes DO Primary Care Provider [phone] Tobin Francis MD Unavailable [phone] Encounter Details Date Type Department Care Team (Late st Contact Info) Description 02/04/2025 Results Follow-Up [facility] Cardiology [address] [facility] [address] [place] [address] Nati Zapata, SARAH [address] [address] Social History Tobacco Use Types Packs/Day Years [...] on file Legal Sex Female 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 Gender Identity Female 12/13/2020 9:57 AM ENTERTAINMENT & MEDIA CORRESPONDENT Sexual Orientation Straight 12/13/2020 9: 57 AM ENTERTAINMENT & MEDIA CORRESPONDENT documented as of this encounter Plan of Treatment Not on file documented as of this encounter Visit Diagnoses Not on filedocumented in this encounter Care Teams Biosolids Management Technician Relationship Specialty Start Date End Date Ryne Gomes DO [address] [place] [address] PCP - General Internal Medicine 07/19/24 Natalie Cerrato MD [address] [place] [address] Surgeon Surgical Oncology 05/01/18 Joaquin Hurd MD [address] [place] [address] Consulting Physician Cardiology 07/21/19 Gretta Heath MD [address] [place] [address] Medical Oncologist/Nanotechnology Technician Medical Oncology 07/06/20 Tobin Francis MD [address] [facility] [address] [place] [address] Consulting Physician Cardiology 10/06/24 documented as of this encounter
--- OUTSIDE RECORDS SUMMARY | 2025-02-26 12:28 | XMS_ITS ---
Author Organization [facility] Address [address] [place] [address] [address] [place] [address] Care Team Providers Care Utility Locate Technician Name Role Phone Angela Carlin Unavailable [phone] REASON FOR VISIT LBP Encounters Encounter Location Date Provider Diagnosis [facility] [address] [facility] [address] [place] [address] 08/23/2024 Angela Carlin Plan Of Treatment No Information Progress Notes * Carmen STEWART EDOB:[birth year] (74 yo F)Acc No.[id number]:08/23/2024 Patient: Carmen MORELAND Taiwo Provider: Radha Carlin MD :1950 A ge:73 Y S ex:Female Date:08/23/2024 [facility] Subjective: * Chief Complaints: * 1 . LBP. * Medical History: Objective: * Vitals: Assessment: Plan: * Treatment: Forms: * Billing Information: * Visit Code: * Procedure Codes: * Electronic signature of Larisa Carlin MD on 02/26/2025 at 12:27 PM CDT Sign off status: Pending * Provider: Radha Carlin MD Date: Generated for Deidra garcia/Ellen/eTransmitting on: 0 02/26/2025 12:27 PM CDT
--- OUTSIDE RECORDS SUMMARY | 2025-02-26 12:28 | XMS_ITS | Encounter Summary ---
Author Organization [facility] Address [address] [place] [address] Phone Care Team Providers Care [place] Guide Name Role Phone Natalie Cerrato MD Unavailable [phone] Joaquin Hurd MD Unavailable [phone] Gretta Heath MD Unavailable [phone] Ryne Gomes DO Primary Care Provider [phone] Tobin Francis MD Unavailable [phone] Encounter Details Date Type Department Care Team (Late st Contact Info) Description 01/26/2025 Results Follow-Up [facility] Cardiology [address] 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 Gender Identity Female 12/13/2020 9:57 AM PATTERN CHAIN MAKER SUPERVISOR Sexual Orientation Straight 12/13/2020 9: 57 AM PATTERN CHAIN MAKER SUPERVISOR documented as of this encounter Plan of Treatment Not on file documented as of this encounter Visit Diagnoses Not on filedocumented in this encounter Care Teams [place] Guide Relationship Specialty Start Date End Date Ryne Gomes DO [address] [place] [address] PCP - General Internal Medicine 07/19/24 Natalie Cerrato MD [address] [place] [address] Surgeon Surgical Oncology 05/01/18 Joaquin Hurd MD [address] [place] [address] Consulting Physician Cardiology 07/21/19 Gretta Heath MD [address] [facility] [address] [place] [address] Medical Oncologist/Special Day Class Teacher Medical Oncology 07/06/20 Tobin Francis MD [address] [facility] [address] [place] [address] Consulting Physician Cardiology 10/06/24 documented as of this encounter
--- OUTSIDE RECORDS SUMMARY | 2025-02-26 12:28 | XMS_ITS | Encounter Summary ---
Author Organization [facility] Address [address] [place] [address] Phone Care Team Providers Care Portrait Artist Name Role Phone Stewart Campbell MD Primary Care Provider [phone] Natalie Cerrato MD Unavailable [phone] Joaquin Hurd MD Unavailable Gretta Heath MD Unavailable [phone] Ryne Gomes DO Primary Care Provider [phone] Tobin Francis MD Unavailable [phone] Encounter Details Date Type Department Care Team (Late st Contact Info) Description 04/07/2024 Orders Only [facility] Oncology [address] [facility] [address] [place] [address] Gretta Heath MD [address] [facility] [address] [place] [address] Malignant neoplasm of lower-inner quadrant of left breast in female, estrogen receptor positive (HCC) (Primary Dx) Social History Tobacco Use Types Packs/Day Years Used Date Smoking Tobacco: Never Smokeless Tobacco: Never Alcohol Use Standard Drinks/Week Comments No 0 (1 standard drink = 0.6 oz pur e alcohol) AUDIT-C Answer Date Recorded Q1: How often do you have a drink containing alc ohol? Monthly or less 09/26/2021 Q2: How many drinks containi ng alcohol do you have on a typical day when you are drinking? 1 or 2 09/26/2021 Q3: How often do you have si x or more drinks on one occasion? Never 09/26/2021 Comments No Sex and Gender Information Value Date Recorded Sex Assigned at Not on file Legal Sex Female 8:52 PM DISASTER RESPONSE DIRECTOR Gender Identity Female 12/13/2020 9:57 AM DISASTER RESPONSE DIRECTOR Sexual Orientation Straight 12/13/2020 9: 57 AM DISASTER RESPONSE DIRECTOR documented as of this encounter Plan of Treatment Not on file documented as of this encounter Visit Diagnoses Diagnosis Malignant neoplasm of lower-inner quadrant of left breast in female, estrogen receptor positive (HCC)- Primary documented in this encounter Care Teams Portrait Artist Relationship Specialty Start Date End Date Stewart Campbell MD [address] [facility] [address] [place] [address] PCP - General 01/24/17 07/18/24 Ryne Gomes DO [address] [facility] [address] [place] [address] PCP - General Internal Medicine 07/19/24 Natalie Cerrato MD [address] [place] [address] Surgeon Surgical Oncology 05/01/18 Joaquin Hurd MD [address] [place] [address] Consulting Physician Cardiology 07/21/19 Gretta Heath MD [address] [facility] [address] [place] [address] Medical Oncologist/Stress Engineer Medical Oncology 07/06/20 Tobin Francis MD [address] [address] Consulting Physician Cardiology 10/06/24 documented as of this encounter
--- OUTSIDE RECORDS SUMMARY | 2025-02-26 12:28 | XMS_ITS | Continuity of Care Document ---
Author Organization [facility] Address [address] [place] [address] [address] [place] [address] Phone Care Team Providers Care Nurse Transitional Name Role Phone Daryl Livingston Unavailable Unavailable Procedures Procedure Date Office/outpatient Visit, Est Office/outpatient Visit, Est Eye Exam & Treatment Office/outpatient Visit, [facility] Advance Directives Directive Yes / No Effective Date File Name No Information Encounters Encounter Description Practice Location Reason(s) For Visit Diagnoses Date Provider Providers Copied on Encounter Office/outpat ient Visit, [facility], [address] [place] [address] [address], [place], [place], [id number], tel:[phone] [facility] No Information Mar- 3-201 0 Miki Brito. [address] [facility] [address] [address], [place], [place], [facility], . tel:[phone] Office/outpat ient Visit, [facility], [address] [place] [address] [address], [place], [place], [id number], [place] tel:[phone] [facility] No Information 1 0-200 9 Aleyda Jorge [address] [place] , [address], [place], [place], [facility], [place]. tel:[phone] [facility], [address] [place] [address] [address], [place], [place], [address], [place] tel:[phone] [facility] No Information 2 1-200 8 Aleyda Jorge [address], [place], [address], [place]. tel:[phone] Office/outpat ient Visit, [facility] Eye [facility], [address], [place], [place], [address], [place] tel:[phone] [facility] No Information 200 7 Chante Ortiz. [address], [place], [place], [id number], [place]. tel:[phone] Family History Family Member Type Diagnosis Age At Onset No Information Payers Payer name Insurance type Covered green party ID Authoriza tion(s) No Information Social History Type Description Quantity Date Captured Comments Sex Female Smoking Status No Information Chief Complaint And Reason For Visit No Information Reason For Referral Reason For Referral No Information History Of Present Illness Encounter Date Complaint History Of Prese nt Illness No Information Functional Status Date Functional Assessmen t No Information Instructions Date Instruction Additional Infor mation No Information Assessments Type Assessment Date No Information Patient Care Teams Name Effective Dates (start - stop) Status Members No Information
--- OUTSIDE RECORDS SUMMARY | 2025-02-26 12:29 | XMS_ITS | Clinical Summary ---
Author Organization [facility] Address [address] [facility] [place] [address] Care Team Providers Care Program Specialist Name Role Phone Stewart Campbell DO Primary Care Provider Source Comments [facility],non-owned Affiliates and Associated Physician Practices is amultiple site organization consisting of ambulatory clinics and hospital sitesin [place], [place], [place] and [place]. This disclosure is being madepursuant to the Care Everywhere program and may not contain all information available regarding this patient. 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 Gender Identity Not on file Sexual Orientation Not on file Plan of Treatment Health Maintenance Due Date Last Done Comments BONE DENSITY TESTING 1950 COLOGUARD (AGES 45-75) - COL ON CA SCREENING 1950 COLON MONITORING 1950 COLONOSCOPY - COLON CA SCREENING 1949 CT COLONOGRAPHY - COLON CA SCREENING 1950 Colorectal Cancer Screening 1950 FIT - COLON CA SCREENING 1949 FLEX SIG - COLON CA SCREENING 1949 LIPID TESTING 1950 MAMMOGRAM 1950 HEPATITIS C SCREENING 09/26/1967 DTAP/TDAP/TD VACCINES (1 - Tdap) 1968 PNEUMOCOCCAL VACCINE 50+ (1 of 1 - PCV) 1999 ZOSTER VACCINE (1 of 2) 1999 COVID-19 VACCINE ( - 2023-2 5 season) 2024 Respiratory Syncytial Virus (RSV) Vaccine Pt: or over 60 yrs (1 - 1-dose 75+ series) 2024 DEPRESSION SCREENING 10/27/2024 INFLUENZA VACCINE (Season Ended) 2025 HEPATITIS B VACCINE Aged Out No longe r eligible based on patient's age to complete this topic HIB VACCINE Aged Out No longer eligi ble based on patient's age to complete this topic HPV VACCINE Aged Out No longer eligi ble based on patient's age to complete this topic MENINGOCOCCAL (Group B) VACC INE SHARED DECISION-MAKING Aged Out No longer eligibl e based on patient's age to complete this topic MENINGOCOCCAL GROUPS A/C/Y/W VACCINE Aged Out No longer eligible b ased on patient's age to complete [place] [address] MEDICARE Care Teams Program Specialist Relationship Specialty Start Date End Date Stewart Campbell DO [address] [facility] [address] [place] [address] PCP - General 05/11/20
--- OUTSIDE RECORDS SUMMARY | 2025-02-26 12:29 | XMS_ITS | Encounter Summary ---
Author Organization [facility] Address [address] [place] [address] Phone Care Team Providers Care Apparel Cutter Name Role Phone Stewart Campbell MD Primary Care Provider [phone] Natalie Cerrato MD Unavailable [phone] Joaquin Hurd MD Unavailable [phone] Gretta Heath MD Unavailable [phone] Ryne Gomes DO Primary Care Provider [phone] Tobin Francis MD Unavailable [phone] Encounter Details Date Type Department Care Team (Latest Contact Info) Description 09/22/2021 Orders Only [facility] Scanning, Provider Social History Tobacco Use Types Packs/Day Years [...] on file Legal Sex Female 8:52 PM IT SECURITY CONSULTANT Gender Identity Female 12/13/2020 9:57 AM IT SECURITY CONSULTANT Sexual Orientation Straight 12/13/2020 9: 57 AM IT SECURITY CONSULTANT documented as of this encounter Plan of Treatment Not on file documented as of this encounter Procedures Procedure Name Priority Date/Time Associated Diagnosis Comments SCAN - PATHOLOGY 09/22/2021 documented in this encounter Results * SCAN - PATHOLOGY (09/22/2021) us Provider Scanning Edited Result - Final documented in this encounter Visit Diagnoses Not on filedocumented in this encounter Care Teams Apparel Cutter Relationship Specialty Start Date End Date Stewart Campbell MD [address] [place] [address] PCP - General 01/24/17 07/18/24 Ryne Gomes DO [address] [place] [address] PCP - General Internal Medicine 07/19/24 Natalie Cerrato MD [address] [place] [address] Surgeon Surgical Oncology 05/01/18 Joaquin Hurd MD [address] [place] [address] Consulting Physician Cardiology 07/21/19 Gretta Heath MD [address] [facility] [address] [place] [address] Medical Oncologist/Cargo Service Supervisor Medical Oncology 07/06/20 Tobin Francis MD [address] [facility] [address] [place] [address] Consulting Physician Cardiology 10/06/24 documented as of this encounter
--- OUTSIDE RECORDS SUMMARY | 2025-02-26 12:29 | XMS_ITS | Clinical Summary ---
Author Organization [facility] Address [address] [place] [address] Care Team Providers Care Real Estate Legal Secretary Name Role Phone Stewart Campbell DO Primary Care Provider [phone] Allergies No known active allergies Medications anastrozole (ARIMIDEX) 1 mg tablet Take 1 mg by mouth daily. Active apixaban (ELIQUIS) 5 mg tablet Take by mouth 2 times daily. Active gabapentin (NEURONTIN) 300 mg capsule Take 300 mg by mouth 2 times daily. Active lisinopriL (PRINIVIL) 40 mg tablet Take 40 mg by mouth daily. Active multivitamin (DAILY-JESUS ALBERTO) tablet Take 1 Tablet by mouth daily. Active zolpidem (AMBIEN) 10 mg tablet TK 1/2 T PO HS PRN FOR INSOMNIA 06/20/2020 Active celecoxib (CeleBREX) 200 mg capsule TK 1 C PO BID 09/18/2020 Acti ve acetaminophen (TYLENOL) 325 mg tablet Take 650 mg by mouth. Active CALCIUM CITRATE-VITAMIN D3 ORAL Take by mouth 2 times daily. Active DULoxetine (CYMBALTA) 60 mg Capsule, Delayed Release(E.C.) Take one capsule (60 mg) by mouth daily. 10/08/2021 Active hyoscyamine 0.125 mg tablet Take 0.125 mg by mouth. 07/24/2021 Active ondansetron (ZOFRAN) 4 mg Tablet TAKE 1 TABLET BY MOUTH EVERY 8 HOURS FOR 3 DAYS NEEDED FOR NAUSEA OR VOMITING 03/19/2022 Active amiodarone (CORDARONE) 200 mg tablet Take 200 mg by mouth daily. 12/15/2024 Active Active Problems Problem Noted Date Diagnosed Date Erythrocytosis 07/05/2020 Encounters Date Type Department Care Team Description 02/14/2025 [facility] Oncology and Hematology - [address] [place] [address] Vineet Simpson MD Erythrocytosis 01/31/2025 Orders Only [facility] Oncology and Hematology - [address] [place] [id number] Vineet Simpson MD Erythrocytosis 01/17/2025 Orders Only [facility] Oncology and Hematology - [address] Vineet Simpson MD Erythrocytosis 01/12/2025 External Device Data STL ABSTRACTION Provider, Abstract 01/03/2025 Orders Only [facility] Oncology and Hematology - [address] Vineet Simpson MD Erythrocytosis 01/01/2025 External Device Data STL ABSTRACTION Provider, Abstract 12/31/2024 External Device Data STL ABSTRACTION Provider, Abstract 12/28/2024 External Device Data STL ABSTRACTION Provider, Abstract 12/20/2024 Orders Only [facility] Oncology and Hematology - [address] Vineet Simpson MD Erythrocytosis 12/17/2024 9:15 AM EPIC BEACON ANALYST Office Visit [facility] Oncology and Hematology - [address] [place] [phone] Vineet Simpson MD Erythrocytosis (Primary Dx) 12/17/2024 Orders Only [facility] Oncology and Hematology - [address] [place] [address] Vineet Simpson MD 12/14/2024 External Device Data STL ABSTRACTION Provider, Abstract 12/06/2024 Orders Only [facility] Oncology and Hematology - [address] [place] [address] Vineet Simpson MD Erythrocytosis from Last 3 Months Family History Medical History Relation Name Comments Cancer Mother Relation Name Status Comments Father Mother Sister 1 Alive Sister 2 Alive Sister 3 Alive Sister 4 Alive Social History Tobacco Use Types Packs/Day Years Used Date Smoking Tobacco: Never Smokeless Tobacco: Never Alcohol Use Standard Drinks/Week Comments Yes 0 (1 standard drink = 0.6 oz pur e alcohol) Comments No Sex and Gender Information Value Date Recorded Sex Assigned at Not on file Legal Sex Female 9:31 AM CDT Gender Identity Not on file Sexual Orientation Not on file Last Filed Vital Signs Vital Sign Reading Time Taken Comments Blood Pressure 153/96 12/17/2024 9:25 AM EPIC BEACON ANALYST did not take b/p meds this morning Pulse 86 12/17/2024 9:22 AM EPIC BEACON ANALYST Temperature 36.1 C (97 F) 12/17/2024 9:22 AM EPIC BEACON ANALYST Respiratory Rate 15 12/17/2024 9:22 AM EPIC BEACON ANALYST Oxygen Saturation 97% 12/17/2024 9:2 2 AM EPIC BEACON ANALYST Inhaled Oxygen Concentration - - Weight 70.6 kg (155 lb 9.6 oz) 12/17/2024 9:22 AM EPIC BEACON ANALYST Height 165.1 cm (5' 5 ) 05/16/2022 11:3 0 AM CDT Body Mass Index 25.89 05/16/2022 11:30 AM CDT Plan of Treatment Upcoming Encounters Date Type Department Care Team (Late st Contact Info) Description 02/28/2025 Orders Only [facility] Oncology and Hematology [address] [place] [address] Vineet Simpson MD [address] [place] [address] Erythrocytosis 06/16/2025 11:00 AM CDT Office Visit [facility] Oncology and Hematology - [address] [place] [address] Vineet Simpson MD [address] [place] [address] Health Maintenance Due Date Last Done Comments FIT-DNA Q 3 years 1994 FIT/FOBT Q 1 year 1994 Flex Sig/CT Colonography Q 5 years 1994 ZOSTER VACCINE (2 of 3) 09/27/2014 08/02/2014 PNEUMOCOCCAL VACCINE 50+ YEA RS (2 of 2 - PPSV23) 01/06/2021 01/07/2020 DTAP/TDAP/TD VACCINES (2 - T d or Tdap) 08/02/2024 08/02/2014 RSV VACCINE (60+ or ) (1 - 1-dose 75+ series) 2024 OSTEOPOROSIS SCREENING 04/07/2029 , 04/07/2024, 04/01/2022, Additional history exists COLORECTAL SCREENING 09/26/2031 09/26/2021, 09/26/2021, 09/26/2021, Additional history exists Colorectal Cancer Screening 09/26/2031 INFLUENZA VACCINE Completed 12/15/2024, , 07/25/2015 Procedures Procedure Name Priority Date/Time Associated Diagnosis Comments BASIC METABOLIC PANEL Routine 12/17/2024 11:50 AM EPIC BEACON ANALYST from Last 3 Months Results * BASIC METABOLIC PANEL (12/17/2024 11:50 AM EPIC BEACON ANALYST) Blood Vineet Simpson MD CHEMISTRY ORDERABLES Final Resu lt from Last 3 [place] [address] [facility] [id number] Care Teams Real Estate Legal Secretary Relationship Specialty Start Date End Date Stewart Campbell DO [address] [facility] [address] [place] [address] PCP - General Internal Medicine 05/25/20
--- OUTSIDE RECORDS SUMMARY | 2025-02-26 12:29 | XMS_ITS | Encounter Summary ---
Author Organization [facility] Address [address] [place] [address] Phone Care Team Providers Care Gunite Mixer Name Role Phone Stewart Campbell MD Primary Care Provider [phone] Natalie Cerrato MD Unavailable [phone] Anil Saldaña MD Unavailable [phone] Joaquin Hurd MD Unavailable [phone] Gretta Heath MD Unavailable [phone] Ryne Gomes DO Primary Care Provider [phone] Tobin Francis MD Unavailable [phone]- [phone] Encounter Details Date Type Department Care Team (Latest Contact Info) Description 01/13/2019 Orders Only [facility] Scanning, Provider Social History Tobacco Use Types Packs/Day Years Used Date Smoking Tobacco: Never Smokeless Tobacco: Never Alcohol Use Standard Drinks/Week Comments No 0 (1 standard drink = 0.6 oz pur e alcohol) Comments Unknown Sex and Gender Information Value Date Recorded Sex Assigned at Not on file Legal Sex Female 8:52 PM FACTORY SUPERVISOR Gender Identity Female 12/13/2020 9:57 AM FACTORY SUPERVISOR Sexual Orientation Straight 12/13/2020 9: 57 AM FACTORY SUPERVISOR documented as of this encounter Plan of Treatment Not on file documented as of this encounter Procedures Procedure Name Priority Date/Time Associated Diagnosis Comments SCAN - RADIOLOGY/IMAGING 01/13/2019 documented in this encounter Results * SCAN - RADIOLOGY/IMAGING (01/13/2019) Anatomical Region Laterality Modality Other Provider Scanning Final Result documented in this encounter Visit Diagnoses Not on filedocumented in this encounter Care Teams Gunite Mixer Relationship Specialty Start Date End Date Stewart Campbell MD [address] [place] [address] PCP - General 01/24/17 07/18/24 Ryne Gomes DO [address] [place] [address] PCP - General Internal Medicine 07/19/24 Natalie Cerrato MD [address] [place] [address] Surgeon Surgical Oncology 05/01/18 Anil Saldaña MD [address] [place] [address] Medical Oncologist/Kiln Door Repairer Medical Oncology 07/21/19 07/05/20 Joaquin Hurd MD [address] [place] [address] Consulting Physician Cardiology 07/21/19 Gretta Heath MD [address] [facility] [address] [place] [address] Medical Oncologist/Kiln Door Repairer Medical Oncology 07/06/20 Tobin Francis MD [address] [facility] [address] [address] Consulting Physician Cardiology 10/06/24 documented as of this encounter
--- OUTSIDE RECORDS SUMMARY | 2025-02-26 12:29 | XMS_ITS | Encounter Summary ---
Author Organization [facility] Address [address] [address] Care Team Providers Care Lead Technical Writer Name Role Phone Stewart Campbell MD Primary Care Provider [phone] Stewart Campbell MD Primary Care Provider [phone] Natalie Cerrato MD Unavailable [phone] Anil Saldaña MD Unavailable Joaquin Hurd MD Unavailable [phone] Gretta Heath MD Unavailable [phone] Ryne Gomes DO Primary Care Provider [phone] Tobin Francis MD Unavailable [phone] Encounter Details Date Type Department Care Team (Late st Contact Info) Description 01/13/2017 Orders Only [facility] ProviderSara MD [address] [place] [address] Social History Tobacco Use Types Packs/Day Years Used Date Smoking Tobacco: Never Alcohol Use Standard Drinks/Week Comments No 0 (1 standard drink = 0.6 oz pur e alcohol) Comments Unknown Sex and Gender Information Value Date Recorded Sex Assigned at Not on file Legal Sex Female 8:52 PM CRIPPLE WORKER Gender Identity Female 12/13/2020 9:57 AM CRIPPLE WORKER Sexual Orientation Straight 12/13/2020 9: 57 AM CRIPPLE WORKER documented as of this encounter Plan of Treatment Not on file documented as of this encounter Procedures Procedure Name Priority Date/Time Associated Diagnosis Comments CARDIOLOGY REPORT 01/13/2017 documented in this encounter Results * CARDIOLOGY REPORT (01/13/2017) Anatomical Region Laterality Modality Other Narrative 01/13/2017 Ordered by an unspecified provider. us Historical Provider [facility] MELINDA VIVEROS Final Result documented in this encounter Visit Diagnoses Not on filedocumented in this encounter Care Teams Lead Technical Writer Relationship Specialty Start Date End Date Stewart Campbell MD [address] [facility] [address] [place] [address] PCP - General 01/24/17 07/18/24 Stewart Campbell MD [address] [facility] [address] [place] [address] PCP - General 01/10/17 01/23/17 Ryne Gomes DO [address] [address] PCP - General Internal Medicine 07/19/24 Natalie Cerrato MD [address] [facility] [address] [place] [address] Surgeon Surgical Oncology 05/01/18 Anil Saldaña MD [address] [place], [place] [address] Medical Oncologist/Lead Shop Operator Medical Oncology 07/21/19 07/05/20 Joaquin Hurd MD [address] [facility] [id number] Consulting Physician Cardiology 07/21/19 Gretta Heath MD [address] [facility] [address] [place] [address] Medical Oncologist/Lead Shop Operator Medical Oncology 07/06/20 Toibn Francis MD [address] [employer] [address] [place], [place] [address] Consulting Physician Cardiology 10/06/24 documented as of this encounter
--- OUTSIDE RECORDS SUMMARY | 2025-02-26 12:29 | XMS_ITS | Encounter Summary ---
Author Organization [facility] Address [address] [place] [address] Phone Care Team Providers Care Road Freight Conductor Name Role Phone Stewart Campbell MD Primary Care Provider [phone] Nataile Cerrato MD Unavailable [phone] Joaquin Hurd MD Unavailable [phone] Gretta Heath MD Unavailable [phone] Ryne Gomes DO Primary Care Provider [phone] Tobin Francis MD Unavailable [phone] Encounter Details Date Type Department Care Team (Late st Contact Info) Description 04/06/2024 Orders Only [facility] Oncology [address] [facility] Advanced Medicine 7th [place] [address] [place] [address] [place] [address] 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 Social History Tobacco Use Types Packs/Day Years [...] on file Legal Sex Female 8:52 PM MORGUE ATTENDANT Gender Identity Female 12/13/2020 9:57 AM MORGUE ATTENDANT Sexual Orientation Straight 12/13/2020 9: 57 AM MORGUE ATTENDANT documented as of this encounter Plan of Treatment Not on file documented as of this encounter Visit Diagnoses Diagnosis 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, estrogen receptor positive, unspecified laterality (HCC)- Primary Bone disease Disorder of bone and cartilage, unspecified snf (current) use of aromatase inhibitors documented in this encounter Care Teams Road Freight Conductor Relationship Specialty Start Date End Date Stewart Campbell MD [address] [place] [address] PCP - General 01/24/17 07/18/24 Ryne Gomes DO [address] [place] [address] PCP - General Internal Medicine 07/19/24 Natalie Cerrato MD [address] [place] [address] Surgeon Surgical Oncology 05/01/18 Joaquin Hurd MD [address] [place] [address] Consulting Physician Cardiology 07/21/19 Gretta Heath MD [address] [place] [address] [address] [place] [address] Medical Oncologist/Career Coordinator Medical Oncology 07/06/20 Tobin Francis MD [address] [facility] [address] [place] [address] Consulting Physician Cardiology 10/06/24 documented as of this encounter
--- OUTSIDE RECORDS SUMMARY | 2025-02-26 12:29 | XMS_ITS | Encounter Summary ---
Author Organization [facility] Address [address] [place] [address] Phone Care Team Providers Care Marketing Planner Name Role Phone Stewart Campbell MD Primary Care Provider [phone] Natalie Cerrato MD Unavailable Anil Saldaña MD Unavailable Joaquin Hurd MD Unavailable Gretta Heath MD Unavailable [phone] Ryne Gomes DO Primary Care Provider [phone] Tobin Francis MD Unavailable [phone] Reason for Visit * Reason Onset Date Comments Provider Update 10/21/2018 Encounter Details Date Type Department Care Team (Late st Contact Info) Description 10/21/2018 Telephone [facility] Oncology [address] [facility] [address] [place] [address] Ramana Collins MD [address] [place] [address] Provider Update Social History Tobacco Use Types Packs/Day Years Used Date Smoking Tobacco: Never Smokeless Tobacco: Never Alcohol Use Standard Drinks/Week Comments No 0 (1 standard drink = 0.6 oz pur e alcohol) Comments Unknown Sex and Gender Information Value Date Recorded Sex Assigned at Not on file Legal Sex Female 8:52 PM MAINTENANCE INSTRUCTOR Gender Identity Female 12/13/2020 9:57 AM MAINTENANCE INSTRUCTOR Sexual Orientation Straight 12/13/2020 9: 57 AM MAINTENANCE INSTRUCTOR documented as of this encounter Plan of Treatment Not on file documented as of this encounter Visit Diagnoses Not on filedocumented in this encounter Care Teams Marketing Planner Relationship Specialty Start Date End Date Stewart Campbell MD [address] [place] [address] PCP - General 01/24/17 07/18/24 Ryne Gomes DO [address] [place] [address] PCP - General Internal Medicine 07/19/24 Natalie Cerrato MD [address] [place] [address] Surgeon Surgical Oncology 05/01/18 Anil Saldaña MD [address] [place] [address] Medical Oncologist/Device Processing Engineer Medical Oncology 07/21/19 07/05/20 Joaquin Hurd MD [address] [place] [address] Consulting Physician Cardiology 07/21/19 Gretta Heath MD [address] [facility] [address] [place] [address] Medical Oncologist/Device Processing Engineer Medical Oncology 07/06/20 Tobin Francis MD [address] [facility] [address] [place] [address] Consulting Physician Cardiology 10/06/24 documented as of this encounter
--- OUTSIDE RECORDS SUMMARY | 2025-02-26 12:29 | XMS_ITS ---
Author Organization [facility] Address [address] [place] [address] Care Team Providers Care Biosecurity Officer Name Role Phone Natalie Cerrato MD Unavailable [phone] Joaquin Hurd MD Unavailable [phone] Gretta Heath MD Unavailable [phone] Ryne Gomes DO Primary Care Provider [phone] Tobin Francis MD Unavailable [phone] Active Problems Problem Noted Date Diagnosed Date [...] (07/24/2021): Added automatically from request for surgery [id number] S/P breast reconstruction 02/19/2021 Overview (02/19/2021): Added automatically from request for surgery [id number] Idiopathic peripheral neuropathy 09/12/2020 Assessment & Plan (09/03/2021 11:46 AM WOUND SPECIALIST): Patient continues on gabapentin for treatment of dysesthesia and paresthesia associated with idiopathic peripheral neuropathy in her lower extremities. She cites good tolerability and efficacy. I have renewed her gabapentin 300 mg t.i.d. as previously prescribed. She will follow-up in neurology clinic in a year. Assessment & Plan (09/12/2020 12:55 PM WOUND SPECIALIST): Patient is a former patient of [facility] being treated for idiopathic peripheral neuropathy manifested as neuropathic pain and numbness in her feet and legs. Prior medical records from [facility] have been requested but are unavailable [...] 09/12/2020 Assessment & Plan (09/12/2020 12:56 PM WOUND SPECIALIST): Patient has history of peripheral neuropathy with neuropathic pain as a presenting symptom. Gabapentin 300 mg t.i.d. has been historically prescribed with good tolerability and efficacy. 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 07/01/2019 Malignant neoplasm of lower- inner quadrant of breast in female, estrogen receptor positive 07/01/2019 HX: breast cancer 07/01/2019 Bone disease 07/01/2019 Labile hypertension 04/12/2019 Dizziness 10/06/2018 History of breast cancer 05/14/2018 Assessment & Plan (12/15/2024 8:05 AM WOUND SPECIALIST): Continue anastrazole Assessment & Plan (12/14/2024 2:03 PM WOUND SPECIALIST): Continue anastrazole H/O sarcoidosis 02/20/2018 ALEXIS (dyspnea [...] anticoagulation Assessment & Plan (12/15/2024 8:06 AM WOUND SPECIALIST): For atrial fibrillation, continue apixaban Assessment & Plan (12/14/2024 2:03 PM WOUND SPECIALIST): Resume Eliquis tonight per cardiology post procedure recs Dehydration 05/06/2016 Benign hypertension 04/18/2016 Overview (01/30/2017): HTN (hypertension), benign Assessment & Plan (12/15/2024 8:06 AM WOUND SPECIALIST): Continue home lisinopril 40mg daily Assessment & Plan (12/14/2024 2:03 PM WOUND SPECIALIST): BP controlled post ablation. Continue home lisinopril 40 daily Paroxysmal atrial fibrillation 04/18/2016 Overview (01/30/2017): Paroxysmal atrial fibrillation Assessment & Plan (12/15/2024 8:05 AM WOUND SPECIALIST): Presented for planned EP study with ablation [...] home Assessment & Plan (12/14/2024 2:13 PM WOUND SPECIALIST): Presented for planned EPS with ablation under [...] 03/06/2015 Diarrhea 03/06/2015 Elevated liver enzymes 03/06/2015 Current Treatment and Therapy Plans No current plan information found. Past Treatment and Therapy Plans Line Care Plan Name Start Date Discontinue Date Treatment Medications Discontinue Reason Plan Provider IV MAINTENANCE THERAPY PLAN 0 01/06/2024 No medications scheduled. Automatic discontinuation of dormant plans Gretta Heath MD Lifetime Dose Tracking * Chemical Lifetime Dose Automatic Entry Manual Entr y DLP 1,618 mGycm 1,618 mGycm 0 mGycm Resolved Problems Problem Noted Date Diagnosed Date Resolved Date Encounter for monitoring sotalol therapy 04/01/2018 12/14/2024
--- OUTSIDE RECORDS SUMMARY | 2025-02-26 12:29 | XMS_ITS | Encounter Summary ---
Author Organization [facility] Address [address] [place] [address] Phone Care Team Providers Care Blanket Cutting Machine Operator Name Role Phone Stewart Campbell MD Primary Care Provider [phone] Natalie Cerrato MD Unavailable [phone] Anil Saldaña MD Unavailable [phone] Joaquin Hurd MD Unavailable [phone] Gretta Heath MD Unavailable [phone] Ryne Gomes DO Primary Care Provider [phone] Tobin Francis MD Unavailable [phone] Reason for Visit * Reason Onset Date Comments Provider Update 10/22/2018 Encounter Details Date Type Department Care Team (Late st Contact Info) Description 10/22/2018 Telephone [facility] Oncology [address] [facility] [address] [place] [address] Ramana Collins MD [address] [place] [place] [address] Provider Update Social History Tobacco Use Types Packs/Day Years Used Date Smoking Tobacco: Never Smokeless Tobacco: Never Alcohol Use Standard Drinks/Week Comments No 0 (1 standard drink = 0.6 oz pur e alcohol) Comments Unknown Sex and Gender Information Value Date Recorded Sex Assigned at Not on file Legal Sex Female 8:52 PM ART GILDER Gender Identity Female 12/13/2020 9:57 AM ART GILDER Sexual Orientation Straight 12/13/2020 9: 57 AM ART GILDER documented as of this encounter Plan of Treatment Not on file documented as of this encounter Visit Diagnoses Not on filedocumented in this encounter Care Teams Blanket Cutting Machine Operator Relationship Specialty Start Date End Date Stewart Campbell MD [address] [place] [address] PCP - General 01/24/17 07/18/24 Ryne Gomes DO [address] [place] [address] PCP - General Internal Medicine 07/19/24 Natalie Cerrato MD [address] [place] [address] Surgeon Surgical Oncology 05/01/18 Anil Saldaña MD [address] [place] [address] Medical Oncologist/Pottery Machine Operator Medical Oncology 07/21/19 07/05/20 Joaquin Hurd MD [address] [place] [address] Consulting Physician Cardiology 07/21/19 Gretta Heath MD [address] [facility] [address] [place] [address] Medical Oncologist/Pottery Machine Operator Medical Oncology 07/06/20 Tobin Francis MD [address] [facility] [address] [place] [address] Consulting Physician Cardiology 10/06/24 documented as of this encounter
--- OUTSIDE RECORDS SUMMARY | 2025-02-26 12:29 | XMS_ITS | Referral Summary ---
Author Organization [facility] Address [address] [place] [address] Care Team Providers Care Software Quality Test Engineer Name Role Phone Natalie Cerrato MD Unavailable Joaquin Hurd MD Unavailable Gretta Heath MD Unavailable [phone] Ryne Gomes DO Primary Care Provider [phone] Tobin Francis MD Unavailable [phone] Encounters Date Type Department Care Team Description 02/22/2025 Telephone [facility] Surgery [address] [place] [address] Emmanuel Mantilla MD 02/22/2025 Telephone [facility] Cardiology [address] [place] [address] [facility] 8th [place] [address] [place] [address] Tobin Francis MD 02/22/2025 10:15 AM CDT Office Visit [facility] Surgery [address] [place] [address] Emmanuel Mantilla MD Status post breast reconstruction (Primary Dx); Ruptured silicone breast implant, initial encounter 02/07/2025 Telephone [facility] Oncology [facility] Floor 8 [place] [address] Suzette Howell, RN CT chest with schedule for 03/2302/04/2025 Results Follow-Up [facility] Cardiology [address] Building [address] [place] [address] Nati Zapata NP 02/04/2025 10:18 AM CDT - 02/04/2025 11:59 PM CDT Hospital Encounter [facility] Rad[facility] [address] [place] [address] Persistent atrial fibrillation (HCC); ALEXIS (dyspnea on exertion); H/O sarcoidosis; Gastroesophageal reflux disease without esophagitis; HX: breast cancer Discharge Disposition: Discharge to home or self care 01/31/2025 Telephone [facility] Cardiology [address] [place] [address] Advanced Medicine 8th [place] [address] [place] [address] Tobin Francis MD 01/26/2025 Results Follow-Up [facility] Cardiology [address] [place] [address] [facility] 8th [place] [address] [place] [address] Nati Zapata NP 01/26/2025 2:15 PM CDT Office Visit [facility] Cardiology [address] [place] [address] [facility] 8th [place] [address] [place] [address] Nati Zapata NP Paroxysmal atrial fibrillation (HCC) (Primary Dx); Persistent atrial fibrillation (HCC); ALEXIS (dyspnea on exertion); H/O sarcoidosis; Gastroesophageal reflux disease without esophagitis; HX: breast cancer 01/14/2025 Telephone [facility] Cardiology [address] [facility] [address] [place] [address] Bret Freeman MD 01/11/2025 1:03 PM CDT - 01/11/2025 11:59 PM CDT Hospital Encounter [facility] Breast Imaging [facility] [address] [place] [address] History of breast reconstruction Discharge Disposition: Discharge to home or self care 01/10/2025 Orders Only [facility] Oncology [address] [facility] 8 [place] [address] Suzette Howell, RN Malignant neoplasm of lower-inner quadrant of left breast in female, estrogen receptor positive (HCC) 12/24/2024 Orders Only [facility] Oncology [address] [facility] 8 [place] [address] Suzette Howell, RN Malignant neoplasm of lower-inner quadrant of left breast in female, estrogen receptor positive (HCC) (Primary Dx); Lymph node enlargement 12/24/2024 Telephone [facility] Surgery [address] [place] [phone] Emmanuel Mantilla MD 12/14/2024 5:56 AM MANAGER DOMESTIC - 12/15/2024 11:23 AM MANAGER DOMESTIC Hospital Encounter [address] [address] Tobin Francis MD Patel, Kieran, MD Choi, Cheuk Ho Jeffrey, MD Atrial flutter, unspecified type (HCC) [I48.92] (Primary Dx); Paroxysmal atrial fibrillation (HCC) Discharge Disposition: Discharge to home or self care 12/14/2024 7:30 AM MANAGER DOMESTIC - 12/14/2024 10:35 AM MANAGER DOMESTIC Surgery [facility] Electrophysiology Lab [address] [place] [address] Tobin Francis MD ABLATION ATRIAL FIBRILLATION (A-FIB) VIA PULMONARY VEIN ISOLATION [id number] 12/14/2024 8:23 AM MANAGER DOMESTIC Anesthesia Event [facility] Electrophysiology Lab [address] [place] [address] Veronika Begum MD Hall, Jill Marie, NP 12/10/2024 10:31 AM MANAGER DOMESTIC - 12/10/2024 11:59 PM MANAGER DOMESTIC Hospital Encounter [facility] Radiology [facility] [address] [place] [address] Tobin Francis MD Paroxysmal atrial fibrillation (HCC) Discharge Disposition: Discharge to home or self care 12/10/2024 9:30 AM MANAGER DOMESTIC Pre-Admission Testing [facility] Center for Preoperative Assessment and Planning [facility] Advanced [facility] ([facility]) [address] [place], [place] [id number] Medication management; Paroxysmal atrial fibrillation (HCC) from Last 3 Months Allergies No known active allergies Medications multivitamin [...] (07/24/2021): Added automatically from request for surgery [id number] S/P breast reconstruction 02/19/2021 Overview (02/19/2021): Added automatically from request for surgery [id number] Idiopathic peripheral neuropathy 09/12/2020 Assessment & Plan (09/03/2021 11:46 AM MANAGER DOMESTIC): Patient continues on gabapentin for treatment of dysesthesia and paresthesia associated with idiopathic peripheral neuropathy in her lower extremities. She cites good tolerability and efficacy. I have renewed her gabapentin 300 mg t.i.d. as previously prescribed. She will follow-up in neurology clinic in a year. Assessment & Plan (09/12/2020 12:55 PM MANAGER DOMESTIC): Patient is a former patient of [facility] being treated for idiopathic peripheral neuropathy manifested as neuropathic pain and numbness in her feet and legs. Prior medical records from [facility] have been requested but are unavailable [...] 09/12/2020 Assessment & Plan (09/12/2020 12:56 PM MANAGER DOMESTIC): Patient has history of peripheral neuropathy with neuropathic pain as a presenting symptom. Gabapentin 300 mg t.i.d. has been historically prescribed with good tolerability and efficacy. 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/2019 correction (current) use of aromatase inhibitors 07/01/2019 Malignant neoplasm of lower- inner quadrant of breast in female, estrogen receptor positive 07/01/2019 HX: breast cancer 07/01/2019 Bone disease 07/01/2019 Labile hypertension 04/12/2019 Dizziness 10/06/2018 History of breast cancer 05/14/2018 Assessment & Plan (12/15/2024 8:05 AM MANAGER DOMESTIC): Continue anastrazole Assessment & Plan (12/14/2024 2:03 PM MANAGER DOMESTIC): Continue anastrazole H/O sarcoidosis 02/20/2018 ALEXIS (dyspnea [...] anticoagulation Assessment & Plan (12/15/2024 8:06 AM MANAGER DOMESTIC): For atrial fibrillation, continue apixaban Assessment & Plan (12/14/2024 2:03 PM MANAGER DOMESTIC): Resume Catherine burdick per cardiology post procedure recs Dehydration 05/06/2016 Benign hypertension 04/18/2016 Overview (01/30/2017): HTN (hypertension), benign Assessment & Plan (12/15/2024 8:06 AM MANAGER DOMESTIC): Continue home lisinopril 40mg daily Assessment & Plan (12/14/2024 2:03 PM MANAGER DOMESTIC): BP controlled post ablation. Continue home lisinopril 40 daily Paroxysmal atrial fibrillation 04/18/2016 Overview (01/30/2017): Paroxysmal atrial fibrillation Assessment & Plan (12/15/2024 8:05 AM MANAGER DOMESTIC): Presented for planned EP study with ablation [...] home Assessment & Plan (12/14/2024 2:13 PM MANAGER DOMESTIC): Presented for planned EPS with ablation under [...] Encounter for monitoring sotalol therapy 04/01/2018 12/14/2024 Immunizations Immunization Administration Dates Next Due Influenza, Trivalent, Adjuvanted, Intramuscular 01/07/2020 Influenza, Trivalent, High D ose, Split, Preservative Free, Intramuscular 12/15/2024 Influenza, Trivalent, Preservative Free, Intramu scular 07/25/2015 Influenza, Unspecified 08/29/2016 Pneumococcal Conjugate PCV 13 01/07/2020 Tdap 08/02/2014 ZOSTER LIVE 08/02/2014 Social History Tobacco Use Types Packs/Day Years [...] on file Legal Sex Female 8:52 PM MANAGER DOMESTIC Gender Identity Female 12/13/2020 9:57 AM MANAGER DOMESTIC Sexual Orientation Straight 12/13/2020 9: 57 AM MANAGER DOMESTIC Last Filed Vital Signs Vital Sign Reading Time Taken Comments Blood Pressure 163/98 01/26/2025 2:18 PM CDT Pulse 88 01/26/2025 2:18 PM CDT Temperature 36.5 C (97.7 F) 12/15/2024 8:15 AM MANAGER DOMESTIC Respiratory Rate 16 12/15/2024 8:15 AM MANAGER DOMESTIC Oxygen Saturation 100% 01/26/2025 2:18 PM CDT Inhaled Oxygen Concentration - - Weight 68.5 kg (151 lb) 02/22/2025 10:03 AM CDT Height 161 cm (5' 3.4 ) 02/22/2025 10:03 AM CDT Body Mass Index 26.41 02/22/2025 10:03 AM CDT Plan of Treatment Not on file Medical Devices Implanted Type Area Stunt Driver Device Identifier Shelf Expiration Date Model / Serial / Lot [employer] Vascade Mvp 6-12fr Venous Closure [id number] - [id number] - [id number] Implanted:Qty : 1 on 12/14/2024 by Tobin Francis MD at [facility] Collagen Right: Femoral Vein [employer] 08/06/2026 800-612C- [id number] / [id number] / [id number] [employer] Vascade Mvp 6-12fr Venous Closure [id number] - [id number] - [id number] Implanted:Qty : 1 on 12/14/2024 by Tobin Francis MD at [facility] Collagen Right: Femoral Vein [employer] 08/06/2026 800-612C- 10U / [id number] [id number] / [id number] [id number] [employer] Vascade Mvp 6-12fr Venous Closure [id number] - [id number] - [id number] Implanted:Qty : 1 on 12/14/2024 by Tobin Francis MD at [facility] Collagen Right: Femoral Vein [employer] 08/06/2026 [id number] [id number] / [id number] / [id number] Procedures Procedure Name Priority Date/Time Associated [...] LINE OR FOCI Routine 12/14/2024 10:50 AM MANAGER DOMESTIC Paroxysmal atrial fibrillation (HCC) ELECTROPHYSIOLOGIC EVALUATION (EPS) / ATRIAL FIBRILLATION ABLATION VIA PULMONARY VEIN ISOLATION Routine 12/14/2024 10:50 AM MANAGER DOMESTIC Paroxysmal atrial fibrillation (HCC) POCT ACTIVATED CLOTTING TIME, HIGH RANGE Routine 12/14/2024 10:09 AM MANAGER DOMESTIC POCT ACTIVATED CLOTTING TIME, HIGH RANGE Routine 12/14/2024 9:42 AM MANAGER DOMESTIC POCT ACTIVATED CLOTTING TIME, HIGH RANGE Routine 12/14/2024 9:25 AM MANAGER DOMESTIC DC AN PROCEDURE PLACEHOLDER Routine 12/14/2024 9:03 AM MANAGER DOMESTIC DC AN ELECTIVE ENDOTRACHEAL AIRWAY Routine 12/14/2024 9:03 AM MANAGER DOMESTIC EGFR STAT 12/14/2024 6:01 AM MANAGER DOMESTIC BASIC METABOLIC PANEL STAT 12/14/2024 6:[address] HEART MORPHOLOGY W CONTRAST Schedule Routine, Read Routine (OP Routine) 12/10/2024 11:40 AM MANAGER DOMESTIC Paroxysmal atrial fibrillation (HCC) POCT CREATININE - DEVICE Routine 025 11:11 AM MANAGER DOMESTIC EGFR Routine 12/10/2024 10:27 AM MANAGER DOMESTIC Paroxysmal atrial fibrillation (HCC) URINALYSIS, MICROSCOPIC ONLY Routine 12/10/2024 10:27 AM MANAGER DOMESTIC Paroxysmal atrial fibrillation (HCC) BASIC METABOLIC PANEL Routine 12/10/2024 10:27 AM MANAGER DOMESTIC Paroxysmal atrial fibrillation (HCC) CBC WITHOUT DIFFERENTIAL Routine 025 10:27 AM MANAGER DOMESTIC Paroxysmal atrial fibrillation (HCC) URINALYSIS AND REFLEX TO MICROSCOPIC Routine 12/10/2024 10:27 AM MANAGER DOMESTIC Paroxysmal atrial fibrillation (HCC) ECG 12-LEAD Routine 12/10/2024 10:04 AM MANAGER DOMESTIC Medication management SCREENING MAMMOGRAM RIGHT W MELLO UNILATERAL ONLY Schedule Routine, Read Routine (OP Routine) 10/13/2024 3:19 PM MANAGER DOMESTIC History of breast cancer Breast cancer screening by mammogram DEXA AXIAL SKELETON BONE DENSITY 1 OR MORE SITES Schedule Routine, Read Routine (OP Routine) 04/07/2024 11:17 AM CDT 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, estrogen receptor positive, unspecified laterality (HCC) correction (current) use of aromatase inhibitors COLONOSCOPY 09/26/2021 10:27 AM MANAGER DOMESTIC SERUM HEPATITIS C AB Routine 04/21/2015 5:19 [...] nodes. Electronically signed by: Deepika Gibbs M.D. us Nati Zapata CARE MANAGEMENT SPECIALIST IMG CT PROCEDURES Final R esult * (ABNORMAL) POCT creatinine (02/04/2025 10:35 AM CDT) Creatinine POC 1.6(H) 0.6 - 1.1 mg/dL Blood 02/04/2025 10:3 5 AM CDT 02/04/2025 10:35 AM CDT us Ryneleticia Gomes DO LAB POCT ORDERABLES - DEVICE Fin al Result [facility] Department [place] [address] * ECG 12 lead (01/26/2025 2:30 PM CDT) us Nati Zapata CARE MANAGEMENT SPECIALIST ECG ORDERABLES Edited Re sult - Final [...] in situ in the left breast in 2016, for which patient underwent left mastectomy and [...] Sophia Hidalgo M.D. us Emmanuel Mantilla MD IMG MAMMO PROCEDURES Final Result * ELECTROPHYSIOLOGIC EVALUATION (EPS) / ATRIAL FIBRILLATION ABLATION VIA PULMONARY VEIN ISOLATION, ATRIAL FIBRILLATION ABLATION ADDITIONAL LINE OR FOCI (12/14/2024 10:50 AM MANAGER DOMESTIC) Anatomical Region Laterality Modality X-Ray Angiograph y Narrative 12/14/2024 11:10 AM MANAGER DOMESTIC Table formatting from the original result was not included. Images from the original result were not included. Patient Name: Carmen Stewart Date of : 1950 Referring Physician: Dr. Romero and Dr. Hurd ([facility]) Procedure Date: 12/14/2024 PROCEDURE: ATRIAL FIBRILLATION ABLATION Procedure: [x] AF Ablation procedure (07264) -- includes LA/CS pacing, transseptal, 3D mapping, IC ultrasound [x] +Other AF line/ablation () -- right or left flutters (up to 2) [] +Other Arrhythmia () -- SVT or VT (up to 2) [] +IV drug (63388) HISTORY HPI Carmen Stewart is a 74 [...] Dronedarone [] Catheter ablation [] Maze surgery [id number] Score: [] Congestive heart failure history [] [...] ViewFlex Xtra 10Fr ICE catheter (2D) [x] [employer] SoundStar ECO 8Fr ICE catheter (2D) [] Origami Inc. 8.5Fr Ultra ICE catheter (2D) [] Basurto Inquiry 6Fr 10-pole diagnostic catheter [] Basurto CRD2 5Fr 4-pole diagnostic catheter [] Basurto Advisor HD Grid 16-pole diagnostic catheter [x] [employer] DecaNav 10-pole diagnostic catheter [] Buccaneerter OctaRay 32-pole diagnostic catheter [] [employer] Optrell 48-pole diagnostic catheter [] Basurto 8Fr SL1 long sheath [] Basurto 11Fr Agilis NxT deflectable sheath [x] [employer] 11Fr Visigo deflectable sheath [] Medtronic FlexCath Contour 15Fr deflectable sheath [] Oscor 13Fr deflectable sheath Ablation Device: [] Basurto Medical Tacticath (D-curve) unidirectional irrigated ablation catheter [] Basurto Medical Tacticath (D/F-curve) bidirectional irrigated ablation catheter [] Basurto Medical Tactiflex (D-curve) unidirectional irrigated ablation catheter [] Basurto Medical Tactiflex (D/F-curve) bidirectional irrigated ablation catheter [] [employer] Thermocool ST (D-curve) unidirectional irrigated ablation ablation catheter [x] [employer] QDot (D-curve) unidirectional irrigated ablation ablation catheter [] Medtronic Arctic Front balloon cryoablation catheter [] Medtronic Pulse Select multipolar pulsed field catheter Mapping System: [] BasurtoОЛЬГА [x] John [employer] John Wanderlust Intracardiac ultrasound (ICE) was carefully advanced into [...] Catheter-based radiofrequency ablation was performed using a [employer] power generator. A bilateral wide area antral [...] and catheter ablation isolation of the RPVs. CHINESE, with isolation of LPV and LA roof [...] Clotting Time, High Range (12/14/2024 10:09 AM MANAGER DOMESTIC) ACT 353(H) 87 - 138 sec POC Performer [address] [place] [address] POC Device Number [id number] [facility] Blood 12/14/2024 10:0 9 AM MANAGER DOMESTIC 12/14/2024 10:09 AM MANAGER DOMESTIC Tobin Francis MD LAB BLOOD ORDERABLES Final Result Performing Organization Address [facility]/ZIP Co de Phone Number [facility] Department [place] [address] * (ABNORMAL) POC Activated Clotting Time, High Range (12/14/2024 9:42 AM MANAGER DOMESTIC) ACT 371(H) 87 - 138 sec POC Performer [address] [place] [address] POC Device Number [id number] [facility] Blood 12/14/2024 9:42 AM MANAGER DOMESTIC 12/14/2024 9:42 AM MANAGER DOMESTIC Tobin Francis MD LAB BLOOD ORDERABLES Final Result [facility] Department [place] [address] * (ABNORMAL) POC Activated Clotting Time, High Range (12/14/2024 9:25 AM MANAGER DOMESTIC) ACT 337(H) 87 - 138 sec POC Performer [address] [facility] POC Device Number [id number] [facility] Blood 12/14/2024 9:25 AM MANAGER DOMESTIC 12/14/2024 9:25 AM MANAGER DOMESTIC us Tobin Francis MD LAB BLOOD ORDERABLES Final Result Performing Organization Address [facility] de Phone Number [facility] Department [place] [address] * DC AN ELECTIVE ENDOTRACHEAL AIRWAY, DC AN PROCEDURE PLACEHOLDER (12/14/2024 9:03 AM MANAGER DOMESTIC) Narrative Jefferson Victor CRNA - 12/14/2024 9:03 AM MANAGER DOMESTIC Jefferson Victor CRNA 12/14/2024 9:03 AM Airway Patient location: OR Urgency: elective Indications for airway management: anesthesia and airway protection Difficult airway: no Staff: Supervising provider: Veronika Begum MD Placed by: PLASTIC FINISHER: Jefferson Victor CRNA Emergent airway documentation: Risks [...] with: silk tape Number of attempts: 1 us Veronika Begum MD ANESTHESIA ORDERABLES F inal Result * (ABNORMAL) eGFR (12/14/2024 6:01 AM MANAGER DOMESTIC) eGFR 34(L) >=60 mL/min/1. 73 m2 Comment: [...] last reviewed 2021. Blood 12/14/2024 6:01 AM MANAGER DOMESTIC 12/14/2024 6:42 AM MANAGER DOMESTIC Annie Norris NP LAB BLOOD ORDERABLES Final Re sult [facility] Department [place] [address] * (ABNORMAL) Basic metabolic panel (12/14/2024 6:01 AM MANAGER DOMESTIC) Pathologist [facility] Sodium 141 135 - 145 mmol/L Potassium, pl 4.7 3.3 - 4.9 mmol/L [facility] Comment:Hemolyzed; Potassium value may be falsely elevated by as much as 0.6-1.0 mmol/L. Suggest redraw and reanalysis. Chloride 105 97 - 110 mmol/L [facility] CO2 24 22 - 32 mmol/L [facility] Anion gap 12 2 - 15 mmol/L [facility] BUN 27(H) 6 - 25 mg/dL [facility] Creatinine 1.58(H) 0.60 - 1.10 mg/dL [facility] Glucose 119 70 - 199 mg/dL [facility] Comment: Interpretive Data Fasting glucose >/= 126 [...] 2022. Calcium 9.0 8.5 - 10.3 mg/dL [facility] Blood 12/14/2024 6:01 AM MANAGER DOMESTIC 12/14/2024 6:42 AM MANAGER DOMESTIC us Annie Norris CARE MANAGEMENT SPECIALIST LAB BLOOD ORDERABLES Final Re sult [facility] Department [place] [address] * CT Heart Morphology W Contrast (12/10/2024 11:40 AM MANAGER DOMESTIC) Anatomical Region Laterality Modality Chest N/A Computed Tomogra phy 12/10/2024 1:12 PM MANAGER DOMESTIC Impressions 12/10/2024 5:29 PM MANAGER DOMESTIC 1. Pulmonary vein anatomy as described above. [...] Carlos Villanueva M.D. Narrative 12/10/2024 5:29 PM MANAGER DOMESTIC EXAMINATION: CT HEART MORPHOLOGY W CONTRAST HISTORY: [...] it. Electronically signed by: Carlos Villanueva M.D. Tobin Francis MD IMG CT PROCEDURES Fi nal Result * (ABNORMAL) POCT creatinine (12/10/2024 11:11 AM MANAGER DOMESTIC) Creatinine POC 1.6(H) 0.6 - 1.1 mg/dL Blood 12/10/2024 11:1 1 AM MANAGER DOMESTIC 12/10/2024 11:11 AM MANAGER DOMESTIC Tobin Francis MD LAB POCT ORDERABLES - DEVICE Final Result [facility] Department [place] [address] * (ABNORMAL) eGFR (12/10/2024 10:27 AM MANAGER DOMESTIC) eGFR 34(L) >=60 mL/min/1. 73 m2 Comment: [...] reviewed 2021. Blood 12/10/2024 10:2 7 AM MANAGER DOMESTIC 12/10/2024 11:09 AM MANAGER DOMESTIC us Tobin Francis MD LAB BLOOD ORDERABLES Final Result [facility] Department [place] [address] * (ABNORMAL) Urinalysis reflex to microscopic (12/10/2024 10:27 AM MANAGER DOMESTIC) Color, ur Straw Yellow Clarity, ur Clear Clear [facility] Specific gravity, ur 1.023 1.003 - 1.030 [facility] pH, urine 6.0 [facility] Comment: Interpretive Data U rine pH is affected by diet, medications, systemic acid-base disturbances, and renal tubular function. pH may affect urinary stone formation. For example, urine pH below 6.0 may help reduce the tendency for calcium phosphate stones and pH greater than 6.0 may reduce the tendency for uric acid stone formation. Source: [facility] [employer] Current Interpretive Data was last revised on 2017 Protein, ur ql 3+(A) Negative [facility] Glucose, ur ql Negative Negative [facility] Ketones, ur Negative Negative [facility] Bilirubin, ur Negative Negative [facility] Blood, ur Negative Negative [facility] Urobilinogen, ur <2.0 <2.0 mg/dL [facility] Nitrite, ur Negative Negative [facility] Leukocyte esterase, ur Negative Negative [facility] UA reflex comment Reflex to microscopic UA will be performed. [facility] Urine 12/10/2024 10:2 7 AM MANAGER DOMESTIC 12/10/2024 10:50 AM MANAGER DOMESTIC Tobin Francis MD LAB URINE ORDERABLES Final Result Performing Organization Address [facility] de Phone Number [facility] [employer] [place], [place] [id number] * (ABNORMAL) Urinalysis, microscopic only (12/10/2024 10:27 AM MANAGER DOMESTIC) WBC, ur 0-5 0 - 5 /HPF RBC, ur 0-2 0 - 2 /HPF [facility] Epithelial cells, squamous, ur 1-5 0 - 5 /HPF [facility] Epithelial cells, transitional, ur 1-5 0 - 0 /HPF [facility] Bacteria, ur Trace(A) [facility] Mucous, ur Present(A) [facility] Hyaline casts, ur 11-20(A) 0 - 10 /LPF [facility] Urine 12/10/2024 10:2 7 AM MANAGER DOMESTIC 12/10/2024 10:50 AM MANAGER DOMESTIC Tobin Francis MD LAB URINE ORDERABLES Final Result Performing Organization Address [facility] Co de Phone Number [facility] [place] [address] * (ABNORMAL) CBC without differential (12/10/2024 10:27 AM MANAGER DOMESTIC) WBC 8.1 3.8 - 9.9 K/cumm Hgb 16.1(H) 11.9 - 15.5 g/dL [facility] Hct 47.5(H) 35.6 - 45.5 % [facility] Plt 240 150 - 400 K/cumm [facility] MPV 9.9 9.1 - 12.3 fL [facility] RBC 5.34(H) 3.90 - 5.20 M/cumm [facility] MCV 89.0 81.3 - 96.4 fL [facility] MCH 30.1 27.1 - 33.3 pg [facility] MCHC 33.9 32.3 - 35.7 g/dL [facility] RDW CV 14.0 11.1 - 14.9 % [facility] RDW SD 44.8 35.7 - 48.1 fL [facility] NRBC abs 0.00 0.00 - 0.01 K/cumm [facility] Blood 12/10/2024 10:2 7 AM MANAGER DOMESTIC 12/10/2024 11:09 AM MANAGER DOMESTIC Tobin Francis MD LAB BLOOD ORDERABLES Final Result [facility] [place] [address] * (ABNORMAL) Basic metabolic panel (12/10/2024 10:27 AM MANAGER DOMESTIC) Sodium 142 135 - 145 mmol/L Potassium, pl 4.4 3.3 - 4.9 mmol/L [facility] Chloride 104 97 - 110 mmol/L [facility] CO2 27 22 - 32 mmol/L [facility] Anion gap 11 2 - 15 mmol/L [facility] BUN 32(H) 6 - 25 mg/dL [facility] Creatinine 1.58(H) 0.60 - 1.10 mg/dL [facility] Glucose 117 70 - 199 mg/dL [facility] Comment: Interpretive Data Fasting glucose >/= 126 [...] 2022. Calcium 9.3 8.5 - 10.3 mg/dL [facility] Blood 12/10/2024 10:2 7 AM MANAGER DOMESTIC 12/10/2024 11:09 AM MANAGER DOMESTIC Tobin Francis MD LAB BLOOD ORDERABLES Final Result [facility] [place] [address] * ECG 12 lead (12/10/2024 10:04 AM MANAGER DOMESTIC) Pathologist [facility] Ventricular Rate EKG/Min 65 BPM [facility] Atrial Rate 65 BPM [facility] DC-Interval (MSEC) 272 ms [facility] QRS-Interval (MSEC) 78 ms [facility] QT-Interval (MSEC) 428 ms [facility] QTc 445 ms [facility] P [place] 43 degrees [facility] R [place] -12 degrees [facility] T [place] 43 degrees [facility] Diagnosis Sinus rhythm with 1st degree A-V block Possible Anterior infarct , age undetermined Abnormal ECG When compared with ECG of 11-SEP-2006 20:34, no significant change Confirmed by NINA OCONNELL M.D ([id number]) on 12/13/2024 9:54:35 AM [facility] 12/10/2024 10:0 4 AM MANAGER DOMESTIC 12/13/2024 9:54 AM MANAGER DOMESTIC Tobin Francis MD ECG ORDERABLES Poornima l Result [facility] * Screening Mammogram Right W [place] Unilateral Only (10/13/2024 3:19 PM MANAGER DOMESTIC) Anatomical Region Laterality Modality Breast Right Mammography Narrative 10/14/2024 3:16 PM MANAGER DOMESTIC Mammogram Technique: Right Breast Digital Breast Tomosynthesis, Unilateral C-view 2D Screening mammogram. Views obtained: . Computer Aided Detection was performed. Mammogram Findings: The present examination has been compared to prior imaging studies performed at [facility] on 09/18/2021, 09/25/2022 and 10/10/2023. There [...] compared to prior imaging studies performed at [facility] on 09/18/2021, 09/25/2022 and 10/10/2023. There are scattered areas of fibroglandular density. There is no suspicious abnormality in the right breast. Patient status post contralateral mastectomy for personal history ofbreast cancer. Impression: There is no mammographic evidence of malignancy. Annual screening mammography is recommended. OVERALL FINAL ASSESSMENT: BI-RADS CATEGORY 1: Negative. Caterina Paul NP IMG MAMMO PROCEDURES Final Res ult * [...] by: Salome Craven M.D. Gretta Heath MD [facility] DXA PROCEDURES F inal Result * COLONOSCOPY (09/26/2021 10:27 AM MANAGER DOMESTIC) Anatomical Region Laterality Modality Other Narrative Procedure Note Trang Alfred MD - 09/26/2021 10:27 AM CST ENDOSCOPY LAB Patient Name: Carmen Stewart Procedure Date: 09/26/2021 10:27 AM Date of : 1950 Admit Type: Outpatient Age: 70 Gender: Female Attending MD: Trang Alfred M.D. Room: [facility] ENDOSCOPY ROOM 01 Note Status: Finalized Procedure: [...] The scope was passed under direct vision.The [id number] was introduced through the anusand advanced to [...] During normal business hours - Please call [place] Coordinator: [phone] After hours, evening, nights, weekends and holidays- Please call the hospital tuft machine operator at and ask for the GI fellow online communications manager. Electronically by Dr Trang Alfred Trang Alfred [...] 04/26/2015 5:00 PM CDT [facility] performed at [facility] [address] Director: CONRAD JONES DO,MPH us Historical Provider LAB BLOOD ORDERABLES Poornima mcallister Result HISTORICAL RESULTS from Last 3 Months or Most Recently Relevant to Health Maintenance Insurance [employer] MEDICARE [facility] MEDIC[facility] Address: [facility] [address] [place] [address] [employer] MEDICARE ADVANTAGE [facility] MEDICARE Address: [address] [address] [place] [address] [facility] MEDICARE ADVANTAGE [facility] MEDIC[facility] Address: [facility] [address] [place] [address] Advance Directives For more information, please contact: [phone] * Full Code (Latest Code Status on File) Date Activated Date Inactivated Comments 09/26/2021 9:54 AM 09/26/2021 3:23 PM Care Teams Software Quality Test Engineer Relationship Specialty Start Date End Date Ryne Gomes DO [address] [place] [address] PCP - General Internal Medicine 07/19/24 Natalie Cerrato MD [address] [place] [address] Surgeon Surgical Oncology 05/01/18 Joaquin Hurd MD [address] [place] [address] Consulting Physician Cardiology 07/21/19 Gretta Heath MD [address] [facility] [address] [place] [address] Medical Oncologist/Ground Worker Medical Oncology 07/06/20 Tobin Francis MD [address] [facility] [address] [place] [address] Consulting Physician Cardiology 10/06/24
--- OUTSIDE RECORDS SUMMARY | 2025-02-26 12:29 | XMS_ITS | Clinical Summary ---
Author Organization [facility] Address [address] [place] [address] Care Team Providers Care Hand Plate Stacker Name Role Phone None, Provider MD Primary Care Provider Unavaila ble Social History Tobacco Use Types Packs/Day Years Used Date Smoking Tobacco: Never Assessed Comments Unknown Sex and Gender Information Value Date Recorded Sex Assigned at Not on file Legal Sex Female 7:19 PM CDT Gender Identity Not on file Sexual Orientation Not on file Plan of Treatment Health Maintenance Due Date Last Done Comments Colorectal Cancer Screening Colonoscopy (10 Years) 1950 Hepatitis C 1967 Zoster Vaccines (2 of 3) 09/27/2014 08/02/2014 Annual Medicare Wellness Visit 2014 Dexa Scan (General) 2014 Pneumococcal Vaccine: 50+ Years (2 of 2 - PPSV23) 01/06/2021 01/07/2020 COVID-19 Vaccine (3 - 2023-2 5 season) 2024 10/11/2021, 01/04/2021 DTaP, Tdap and Td Vaccines ( 2 - Td or Tdap) 08/02/2024 08/02/2014 RSV Immunization or 60+ Years (1 - 1-dose 75+ series) 2024 Meningococcal B Vaccine Aged Out No l onger eligible based on patient's age to complete this topic Meningococcal Vaccine Aged Out No timothy triny eligible based on patient's age to complete this topic RSV Immunizations Under 20 Months Aged Out No longer eligible b ased on patient's age to complete this topic Insurance [facility]ICARE [facility] Care Teams Hand Plate Stacker Relationship Specialty Start Date End Date None, Provider, PCP - General UNKNOWN PHYSICIAN SPECIALTY 08/23/22
--- OUTSIDE RECORDS SUMMARY | 2025-02-26 12:29 | XMS_ITS | Patient Health Record ---
Author Organization [facility] Address [address] [facility] [address] [place] [address] Care Team Providers Care Substation Operator Helper Name Role Phone Angela Carlin Unavailable [phone] Reason For Referral No Information Plan Of Treatment No Information Insurance Providers Payer Name Payer Address Payer Phone Subscriber Number Group Number Insured Name Patient Relationship to Insured Coverage Start Date Coverage End Date Medicare of [place] J [address] [address] [place] [address] [id number] Carmen Stewart Self - patient is the insured 4 [facility] [address] [place] [phone] [id number] Carmen Stewart Self - patient is the insured 5
== END 2025-02-25 11:05 | disposition home or self-care (01) ==
PROVIDERS: PCP Internal Medicine; Visit Provider Internal Medicine
DX: E04.2 Nontoxic multinodular goiter (principal)
CPT/HCPCS: 76536

== ENCOUNTER 2025-03-16 12:59 | Observation (INO) | payer MEDICARE, SELFPAY ==
[2025-03-16] VITALS (19 sets, daily range): BP systolic 141–178; BP diastolic 82–120; PULSE 62–119; RESP 13–30; TEMP 36.4–36.9; O2SAT 97–100; BMI 25.7
--- NOTE | ~2025-03-16 | XR_ITS ---
XR chest 2V Ordering provider: Malcolm Welch MD History: 74 years Female with . CHEST PRESSURE, HX OF ABLATION . Comparison: September 09, 2024 FINDINGS: MEDIASTINUM: The cardiac silhouette is not enlarged. LUNGS: No infiltrates, effusions or pneumothorax. Calcified granuloma in the right lower lobe. OTHER: No free air under the diaphragm. Degenerative changes of the spine. IMPRESSION: No acute cardiopulmonary pathology. Reviewed, dictated and finalized at location A.
--- NOTE | 2025-03-16 13:02 | ECG_ITS ---
Test Date: 2025-03-16 13:09:28 Measurements Intervals [place] Rate: 105 P: 0 [place]: 0 QRS: -3 QRSD: 86 T: 52 QT: 338 QTc: 447 Interpretive Statements ATRIAL FIBRILLATION WITH RAPID VENTRICULAR RESPONSE NONSPECIFIC T-WAVE ABNORMALITY ABNORMAL RHYTHM ECG Compared to ECG 09/09/2024 18:47:27 T-wave abnormality now present Atrial flutter no longer present Electronically Signed On 03-16-2025 16:24:36 CDT by Alessandro Barakat M.D.
--- OUTSIDE RECORDS SUMMARY | 2025-03-16 13:04 | XMS_ITS | Encounter Summary ---
Author Organization [facility] Address [address] [place] [address] Phone Care Team Providers Care Concrete Mixing Plant Laborer Name Role Phone Natalie Cerrato MD Unavailable [phone] Joaquin Hurd MD Unavailable [phone] Gretta Heath MD Unavailable [phone] Ryne Gomes DO Primary Care Provider [phone] Tobin Francis MD Unavailable [phone] Encounter Details Date Type Department Care Team (Late st Contact Info) Description 02/04/2025 Results Follow-Up [facility] Cardiology [address] [facility] [address] [place] [address] Nati Zapata, SARAH [address] [facility] [address] [place] [address] [place] Chest W Contrast Social History Tobacco Use Types Packs/Day Years [...] on file Legal Sex Female 8:52 PM ALTERATIONS TAILOR Gender Identity Female 12/13/2020 9:57 AM ALTERATIONS TAILOR Sexual Orientation Straight 12/13/2020 9: 57 AM ALTERATIONS TAILOR documented as of this encounter Plan of Treatment Not on file documented as of this encounter Visit Diagnoses Not on filedocumented in this encounter Care Teams Concrete Mixing Plant Laborer Relationship Specialty Start Date End Date Ryne Gomes DO [address] [facility] [address] [place] [address] PCP - General Internal Medicine 07/19/24 Natalie Cerrato MD [address] [place] [address] Surgeon Surgical Oncology 05/01/18 Joaquni Hurd MD [address] [place] [address] Consulting Physician Cardiology 07/21/19 Gretta Heath MD [address] [facility] [address] [place] [address] Medical Oncologist/Insurance [place] Medical Oncology 07/06/20 Tobin Francis MD [address] [address] Consulting Physician Cardiology 10/06/24 documented as of this encounter
--- OUTSIDE RECORDS SUMMARY | 2025-03-16 13:04 | XMS_ITS | Encounter Summary ---
Author Organization [facility] Address [address] [place] [address] Phone Care Team Providers Care Landscape Engineer Name Role Phone Stewart Campbell MD Primary Care Provider [phone] Natalie Cerrato MD Unavailable [phone] Joaquin Hurd MD Unavailable [phone] Gretta Heath MD Unavailable [phone] Ryne Gomes DO Primary Care Provider [phone] Tobin Francis MD Unavailable [phone] Encounter Details Date Type Department Care Team (Late st Contact Info) Description 04/06/2024 Orders Only [facility] Oncology [address] [facility] Advanced Medicine 7th [place] [address] [place] [address] [place] [address] [facility] [address] [place] [address] 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, estrogen receptor positive, unspecified laterality (HCC) (Primary Dx); Bone disease; post acute care nurse (current) use of aromatase inhibitors Social History [...] on file Legal Sex Female 8:52 PM CONCRETE PUMP OPERATOR HELPER Gender Identity Female 12/13/2020 9:57 AM CONCRETE PUMP OPERATOR HELPER Sexual Orientation Straight 12/13/2020 9: 57 AM CONCRETE PUMP OPERATOR HELPER documented as of this encounter Plan of Treatment Not on file documented as of this encounter Visit Diagnoses Diagnosis 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, estrogen receptor positive, unspecified laterality (HCC)- Primary Bone disease Disorder of bone and cartilage, unspecified post acute care nurse (current) use of aromatase inhibitors documented in this encounter Care Teams Landscape Engineer Relationship Specialty Start Date End Date Stewart Campbell MD [address] [place] [address] PCP - General 01/24/17 07/18/24 Ryne Gomes DO [address] [place] [address] PCP - General Internal Medicine 07/19/24 Natalie Cerrato MD [address] [place] [address] Surgeon Surgical Oncology 05/01/18 Joaquin Hurd MD [address] [place] [address] Consulting Physician Cardiology 07/21/19 Gretta Heath MD [address] [place] [address] [address] [place] [address] Medical Oncologist/Internal Recruiter Medical Oncology 07/06/20 Tobin Francis MD [address] [facility] [address] [place] [address] Consulting Physician Cardiology 10/06/24 documented as of this encounter
--- OUTSIDE RECORDS SUMMARY | 2025-03-16 13:04 | XMS_ITS | Encounter Summary ---
Author Organization [facility] Address [address] [place] [address] Care Team Providers Care Examiner Of Currency Name Role Phone Stewart Campbell DO Primary Care Provider [phone] Encounter Details Date Type Department Care Team (Late st Contact Info) Description 03/15/2025 External Device Data [facility]STRACTION Provider, Abstract NO ADDRESS ON FILE Social History Tobacco Use Types Packs/Day Years Used Date Smoking Tobacco: Never Smokeless Tobacco: Never Alcohol Use Standard Drinks/Week Comments Yes 0 (1 standard drink = 0.6 oz pur e alcohol) Comments No Sex and Gender Information Value Date Recorded Sex Assigned at Not on file Legal Sex Female 9:31 AM CDT Gender Identity Not on file Sexual Orientation Not on file documented as of this encounter Plan of Treatment Upcoming Encounters Date Type Department Care Team (Late st Contact Info) Description 06/16/2025 11:00 AM CDT Office Visit [facility] Oncology and Hematology - [place] [address] [facility] [address] [place] [address] [place] [address] [place] [address] [address] [place] [address] documented as of this encounter Visit Diagnoses Not on filedocumented in this encounter Care Teams Examiner Of Currency Relationship Specialty Start Date End Date Stewart Campbell DO [address] [facility] [address] [place] [id number] PCP - General Internal Medicine 05/25/20 documented as of this encounter
--- OUTSIDE RECORDS SUMMARY | 2025-03-16 13:04 | XMS_ITS | Clinical Summary ---
Author Organization [facility] Address [address] [place] [address] Care Team Providers Care Vp Client Services Name Role Phone Natalie Cerrato MD Unavailable [phone] Joaquin Hurd MD Unavailable [phone] Gretta Heath MD Unavailable [phone] Ryne Gomes DO Primary Care Provider [phone] Tobin Francis MD Unavailable [phone] Allergies No known active allergies Medications multivitamin [...] (07/24/2021): Added automatically from request for surgery [id number] S/P breast reconstruction 02/19/2021 Overview (02/19/2021): Added automatically from request for surgery [id number] Idiopathic peripheral neuropathy 09/12/2020 Assessment & Plan (09/03/2021 11:46 AM CLOTHES PRESSER): Patient continues on gabapentin for treatment of dysesthesia and paresthesia associated with idiopathic peripheral neuropathy in her lower extremities. She cites good tolerability and efficacy. I have renewed her gabapentin 300 mg t.i.d. as previously prescribed. She will follow-up in neurology clinic in a year. Assessment & Plan (09/12/2020 12:55 PM CLOTHES PRESSER): Patient is a former patient of [facility] being treated for idiopathic peripheral neuropathy manifested as neuropathic pain and numbness in her feet and legs. Prior medical records from [facility] have been requested but are unavailable [...] 09/12/2020 Assessment & Plan (09/12/2020 12:56 PM CLOTHES PRESSER): Patient has history of peripheral neuropathy with neuropathic pain as a presenting symptom. Gabapentin 300 mg t.i.d. has been historically prescribed with good tolerability and efficacy. 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/2019 buttermaker continuous churn (current) use of aromatase inhibitors 07/01/2019 Malignant neoplasm of lower- inner quadrant of breast in female, estrogen receptor positive 07/01/2019 HX: breast cancer 07/01/2019 Bone disease 07/01/2019 Labile hypertension 04/12/2019 Dizziness 10/06/2018 History of breast cancer 05/14/2018 Assessment & Plan (12/15/2024 8:05 AM CLOTHES PRESSER): Continue anastrazole Assessment & Plan (12/14/2024 2:03 PM CLOTHES PRESSER): Continue anastrazole H/O sarcoidosis 02/20/2018 ALEXIS (dyspnea [...] anticoagulation Assessment & Plan (12/15/2024 8:06 AM CLOTHES PRESSER): For atrial fibrillation, continue apixaban Assessment & Plan (12/14/2024 2:03 PM CLOTHES PRESSER): Resume Eliquis tonight per cardiology post procedure recs Dehydration 05/06/2016 Benign hypertension 04/18/2016 Overview (01/30/2017): HTN (hypertension), benign Assessment & Plan (12/15/2024 8:06 AM CLOTHES PRESSER): Continue home lisinopril 40mg daily Assessment & Plan (12/14/2024 2:03 PM CLOTHES PRESSER): BP controlled post ablation. Continue home lisinopril 40 daily Paroxysmal atrial fibrillation 04/18/2016 Overview (01/30/2017): Paroxysmal atrial fibrillation Assessment & Plan (12/15/2024 8:05 AM CLOTHES PRESSER): Presented for planned EP study with ablation [...] home Assessment & Plan (12/14/2024 2:13 PM CLOTHES PRESSER): Presented for planned EPS with ablation under [...] Encounters Date Type Department Care Team Description 03/02/2025 Telephone [facility] Cardiology [address] [place] [address] Bret Freeman MD 02/22/2025 10:15 AM CDT Office Visit [facility] Surgery [address] [place] [phone] Emmanuel Mantilla MD Status post breast reconstruction (Primary Dx); Ruptured silicone breast implant, initial encounter 02/22/2025 Telephone [facility] Surgery [address] [place] [phone] Emmanuel Mantilla MD 02/22/2025 Telephone [facility] Cardiology [address] [place] [address] Advanced Medicine 8th [place] [address] [place] [address] Tobin Francis MD 02/07/2025 Telephone [facility] Oncology [address] Floor [address] [place] [address] Suzette Howell, ROBERT CT chest with schedule for 03/2302/04/2025 10:18 AM CDT - 02/04/2025 11:59 PM CDT Hospital Encounter [facility] [address] [facility] [place] [address] Persistent atrial fibrillation (HCC); ALEXIS (dyspnea on exertion); H/O sarcoidosis; Gastroesophageal reflux disease without esophagitis; HX: breast cancer Discharge Disposition: Discharge to home or self care 02/04/2025 Results Follow-Up [facility] Cardiology [address] Medical Office [address] [place] [address] Chest W Contrast 01/31/2025 Telephone [facility] Cardiology [address] [place] [address] 8th [place] [address] [place] [phone] Tobin Francis MD 01/26/2025 2:15 PM CDT Office Visit [facility] Cardiology [address] [place] [address] 8th [place] [address] [place] [phone] Nati Zapata NP Paroxysmal atrial fibrillation (HCC) (Primary Dx); Persistent atrial fibrillation (HCC); ALEXIS (dyspnea on exertion); H/O sarcoidosis; Gastroesophageal reflux disease without esophagitis; HX: breast cancer 01/26/2025 Results Follow-Up [facility] Cardiology [address] [place] [address] 8th [place] [address] [place] [phone] Nati Zapata NP ECG 12 lead 01/14/2025 Telephone [facility] Cardiology [address] [place] [phone] Bret Freeman MD 01/11/2025 1:03 PM CDT - 01/11/2025 11:59 PM CDT Hospital Encounter [facility] Advanced Medicine Breast Imaging [facility] Advanced Medicine ([facility] [address] [place] [address] History of breast reconstruction Discharge Disposition: Discharge to home or self care 01/10/2025 Orders Only [facility] Oncology [address] [place] [address] [address] [place] [address] Suzette Howell, RN Malignant neoplasm of lower-inner quadrant of left breast in female, estrogen receptor positive (HCC) 12/24/2024 Orders Only [facility] Oncology [address] [place] [address] [address] [place] [address] Suzette Howell RN Malignant neoplasm of lower-inner quadrant of left breast in female, estrogen receptor positive (HCC) (Primary Dx); Lymph node enlargement 12/24/2024 Telephone [facility] Surgery [address] [place] [phone] Emmanuel Mantilla MD from Last 3 Months Immunizations Immunization Administration [...] ATRIAL FIBRILLATION (A-FIB) VIA PULMONARY VEIN ISOLATION [id number]; Surgeon: Tobin Francis MD; Location: [facility] EP [facility]; Service: Cardiovascular; Laterality: N/A; 3rd case Medical devices from this surgery are in the Medical Devices section. CARDIAC ELECTROPHYSIOLOGY PROCEDURE 12/14/2024 N/A Procedure: ABLATION ATRIAL FIBRILLATION ADDITIONAL LINE OR FOCI (+) [id number]; Surgeon: Tobin Francis MD; Location: [facility] EP [facility]; Service: Cardiovascular; Laterality: N/A; [...] on file Legal Sex Female 8:52 PM CLOTHES PRESSER Gender Identity Female 12/13/2020 9:57 AM CLOTHES PRESSER Sexual Orientation Straight 12/13/2020 9: 57 AM CLOTHES PRESSER Obstetrics History Last Filed Vital Signs Vital Sign Reading Time Taken Comments Blood Pressure 163/98 01/26/2025 2:18 PM CDT Pulse 88 01/26/2025 2:18 PM CDT Temperature 36.5 C (97.7 F) 12/15/2024 8:15 AM CLOTHES PRESSER Respiratory Rate 16 12/15/2024 8:15 AM CLOTHES PRESSER Oxygen Saturation 100% 01/26/2025 2:18 PM CDT [...] 08/02/2024 08/02/2014 Depression Screening 09/22/2025 09/22/2024, 09/22/20 24 Fall Risk Assessment 12/15/2025 12/15/2024 Osteoporosis Screening-Bone [...] history exists Medical Devices Implanted Type Area Dynamite Reclaimer Device Identifier Shelf Expiration Date Model / Serial / Lot [employer] Vascade Mvp 6-12fr Venous Closure [id number] - [id number] - [id number] Implanted:Qty : 1 on 12/14/2024 by Tobin Francis MD at [facility] Collagen Right: Femoral Vein [employer] 08/06/2026 800-612C- [id number] / [id number] / [id number] [employer] Vascade Mvp 6-12fr Venous Closure [id number] - [id number] - [id number] Implanted:Qty : 1 on 12/14/2024 by Tobin Francis MD at [facility] Collagen Right: Femoral Vein [employer] 08/06/2026 800-612C- 10U / [id number] / [id number] [id number] [employer] Vascade Mvp 6-12fr Venous Closure [id number] - [id number] - [id number] Implanted:Qty : 1 on 12/14/2024 by Tobin Francis MD at [facility] Collagen Right: Femoral Vein [employer] 08/06/2026 800-612C- [id number] / [id number] / [id number] Procedures Procedure Name Priority Date/Time Associated Diagnosis Comments CT CHEST W CONTRAST Schedule Routine, Read Routine (OP Routine) 02/04/2025 10:54 AM CDT Persistent atrial fibrillation (HCC) ALEXIS (dyspnea on exertion) H/O sarcoidosis Gastroesophageal reflux disease without esophagitis HX: breast cancer POCT CREATININE - DEVICE Routine 02/04/2025 10:35 AM CDT ECG 12-LEAD Routine 01/26/2025 2:30 PM CDT Paroxysmal atrial fibrillation (HCC) US CHEST BREAST RELATED Routine 01/11/2025 1:24 PM CDT History of breast reconstruction SCREENING MAMMOGRAM RIGHT W MELLO UNILATERAL ONLY Schedule Routine, Read Routine (OP Routine) 10/13/2024 3:19 PM CLOTHES PRESSER History of breast cancer Breast cancer screening by mammogram DEXA AXIAL SKELETON BONE DENSITY 1 OR MORE SITES Schedule Routine, Read Routine (OP Routine) 04/07/2024 11:17 AM CDT 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, estrogen receptor positive, unspecified laterality (HCC) buttermaker continuous churn (current) use of aromatase inhibitors COLONOSCOPY 09/26/2021 10:27 AM CLOTHES PRESSER SERUM HEPATITIS C AB Routine 04/21/2015 5:19 [...] signed by: Deepika Gibbs M.D. Nati Zapata RAIL CAR WELDER IMG CT PROCEDURES Final R esult * (ABNORMAL) POCT creatinine (02/04/2025 10:35 AM CDT) Creatinine POC 1.6(H) 0.6 - 1.1 mg/dL Blood 02/04/2025 10:3 5 AM CDT 02/04/2025 10:35 AM CDT Ryne Gomes DO LAB POCT ORDERABLES - DEVICE Fin al Result [facility] Department [place] [address] * ECG 12 lead (01/26/2025 2:30 PM CDT) us Nati Zapata RAIL CAR WELDER ECG ORDERABLES Edited Re sult - Final [...] MD IMG MAMMO PROCEDURES Final Result * Screening Mammogram Right W Mello Unilateral Only (10/13/2024 3:19 PM CLOTHES PRESSER) Anatomical Region Laterality Modality Breast Right Mammography Narrative 10/14/2024 3:16 PM CLOTHES PRESSER Mammogram Technique: Right Breast Digital Breast Tomosynthesis, Unilateral C-view 2D Screening mammogram. Views obtained: . Computer Aided Detection was performed. Mammogram Findings: The present examination has been compared to prior imaging studies performed at [facility] on 09/18/2021, 09/25/2022 and 10/10/2023. There are [...] compared to prior imaging studies performed at [facility] on 09/18/2021, 09/25/2022 and 10/10/2023. There are scattered areas of fibroglandular density. There is no suspicious abnormality in the right breast. Patient status post contralateral mastectomy for personal history ofbreast cancer. Impression: There is no mammographic evidence of malignancy. Annual screening mammography is recommended. OVERALL FINAL ASSESSMENT: BI-RADS CATEGORY 1: Negative. Caterina Paul NP IM MAMMO PROCEDURES Final Res ult * Dexa [...] by: Salome Craven M.D. Gretta Heath MD IMG DXA PROCEDURES F inal Result * COLONOSCOPY (09/26/2021 10:27 AM CLOTHES PRESSER) Anatomical Region Laterality Modality Other Narrative Procedure [...] The scope was passed under direct vision.The [id number] was introduced through the anusand advanced to [...] During normal business hours - [facility] [place]: [phone] After hours, evening, nights, weekends and holidays- Please call the hospital crayon molding machine operator at and ask for the GI fellow immigration attorney. Electronically by Dr Trang Alfred Trang Alfred [...] 04/26/2015 5:00 PM CDT Test performed at [facility] [address] [address] [place] [address] Director: CONRAD JONES DO,MPH us Historical Provider LAB BLOOD ORDERABLES Poornima l Result HISTORICAL RESULTS from Last 3 Months or Most Recently Relevant to Health Maintenance Insurance [facility] MED[facility] ADVANTAGE [facility] Address: [address] [address] [place] [address] [facility] MEDIC[facility] AD[facility]ANTAGE [facility] Address: [address] [address] [place] [address] [facility] MEDIC[facility] ADVANTAGE [facility] Address: [address] [address] [place] [address] Advance Directives For more information, please contact: [phone] * Full Code (Latest Code Status on File) Date Activated Date Inactivated Comments 09/26/2021 9:54 AM 09/26/2021 3:23 PM Care Teams Vp Client Services Relationship Specialty Start Date End Date Ryne Gomes DO [address] [address] PCP - General Internal Medicine 07/19/24 Natalie Cerrato MD [address] [place] [address] Surgeon Surgical Oncology 05/01/18 Joaquin Hurd MD [address] [place] [address] Consulting Physician Cardiology 07/21/19 Gretta Heath MD [address] [place] [address] Medical Oncologist/Leather Seasoner Medical Oncology 07/06/20 Tobin Francis MD [address] [place] [address] Consulting Physician Cardiology 10/06/24
--- OUTSIDE RECORDS SUMMARY | 2025-03-16 13:04 | XMS_ITS | Referral Summary ---
Author Organization [facility] Address [address] [place] [address] Care Team Providers Care Windscreen Fitter Name Role Phone Natalie Cerrato MD Unavailable Joaquin Hurd MD Unavailable Gretta Heath MD Unavailable [phone] Ryne Gomes DO Primary Care Provider [phone] Tobin Francis MD Unavailable [phone] Encounters Date Type Department Care Team Description 03/02/2025 Telephone [facility] Cardiology [address] [facility] [address] [place] [address] Bret Freeman MD 02/22/2025 Telephone [facility] Surgery [address] [place] [address] Emmanuel Mantilla MD 02/22/2025 Telephone [facility] Cardiology [address] [facility] 8th [place] [address] [place] [address] Tobin Francis MD 02/22/2025 10:15 AM CDT Office Visit [facility] Surgery [address] [place] [address] Emmanuel Mantilla MD Status post breast reconstruction (Primary Dx); Ruptured silicone breast implant, initial encounter 02/07/2025 Telephone [facility] Oncology [address] [facility] Floor 8 [place] [address] Suzette Howell, RN CT chest with schedule for 03/2302/04/2025 Results Follow-Up [facility] Cardiology [address] [facility] Medical Office Building [address] [place] [address] Chest W Contrast 02/04/2025 10:18 AM CDT - 02/04/2025 11:59 PM CDT Hospital Encounter [facility] [address] [place] [address] Persistent atrial fibrillation (HCC); ALEXIS (dyspnea on exertion); H/O sarcoidosis; Gastroesophageal reflux disease without esophagitis; HX: breast cancer Discharge Disposition: Discharge to home or self care 01/31/2025 Telephone [facility] Cardiology [address] [place] [address] 8th [place] [address] [place] [address] Tobin Francis MD 01/26/2025 Results Follow-Up [facility] Cardiology [address] [place] [address] 8th [place] [address] [place] [address] Nati Zapata NP ECG 12 lead 01/26/2025 2:15 PM CDT Office Visit [facility] Cardiology [address] [place] [address] 8th [place] [address] [place] [address] Nati Zapata NP Paroxysmal atrial fibrillation (HCC) (Primary Dx); Persistent atrial fibrillation (HCC); ALEXIS (dyspnea on exertion); H/O sarcoidosis; Gastroesophageal reflux disease without esophagitis; HX: breast cancer 01/14/2025 Telephone [facility] Cardiology [address] [facility] [address] [place] [address] Bret Freeman MD 01/11/2025 1:03 PM CDT - 01/11/2025 11:59 PM CDT Hospital Encounter [facility] Breast [facility] [address] [place] [address] History of breast reconstruction Discharge Disposition: Discharge to home or self care 01/10/2025 Orders Only [facility] Oncology [address] [facility] [address] 8 [place] [address] Suzette Howell RN Malignant neoplasm of lower-inner quadrant of left breast in female, estrogen receptor positive (HCC) 12/24/2024 Orders Only [facility] Oncology [address] [facility] [address] 8 [place] [address] Suzette Howell RN Malignant neoplasm of lower-inner quadrant of left breast in female, estrogen receptor positive (HCC) (Primary Dx); Lymph node enlargement 12/24/2024 Telephone [facility] Surgery [address] [facility] [address] [place] [address] Emmanuel Mantilla MD from Last 3 Months Allergies No known [...] (07/24/2021): Added automatically from request for surgery [id number] S/P breast reconstruction 02/19/2021 Overview (02/19/2021): Added automatically from request for surgery [id number] Idiopathic peripheral neuropathy 09/12/2020 Assessment & Plan (09/03/2021 11:46 AM PIEROGI MAKER): Patient continues on gabapentin for treatment of dysesthesia and paresthesia associated with idiopathic peripheral neuropathy in her lower extremities. She cites good tolerability and efficacy. I have renewed her gabapentin 300 mg t.i.d. as previously prescribed. She will follow-up in neurology clinic in a year. Assessment & Plan (09/12/2020 12:55 PM PIEROGI MAKER): Patient is a former patient of [facility] being treated for idiopathic peripheral neuropathy manifested as neuropathic pain and numbness in her feet and legs. Prior medical records from [facility] have been requested but are unavailable [...] 09/12/2020 Assessment & Plan (09/12/2020 12:56 PM PIEROGI MAKER): Patient has history of peripheral neuropathy with neuropathic pain as a presenting symptom. Gabapentin 300 mg t.i.d. has been historically prescribed with good tolerability and efficacy. 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/2019 long-term (current) use of aromatase inhibitors 07/01/2019 Malignant neoplasm of lower- inner quadrant of breast in female, estrogen receptor positive 07/01/2019 HX: breast cancer 07/01/2019 Bone disease 07/01/2019 Labile hypertension 04/12/2019 Dizziness 10/06/2018 History of breast cancer 05/14/2018 Assessment & Plan (12/15/2024 8:05 AM PIEROGI MAKER): Continue anastrazole Assessment & Plan (12/14/2024 2:03 PM PIEROGI MAKER): Continue anastrazole H/O sarcoidosis 02/20/2018 ALEXIS (dyspnea [...] anticoagulation Assessment & Plan (12/15/2024 8:06 AM PIEROGI MAKER): For atrial fibrillation, continue apixaban Assessment & Plan (12/14/2024 2:03 PM PIEROGI MAKER): Resume Catherine burdick per cardiology post procedure recs Dehydration 05/06/2016 Benign hypertension 04/18/2016 Overview (01/30/2017): HTN (hypertension), benign Assessment & Plan (12/15/2024 8:06 AM PIEROGI MAKER): Continue home lisinopril 40mg daily Assessment & Plan (12/14/2024 2:03 PM PIEROGI MAKER): BP controlled post ablation. Continue home lisinopril 40 daily Paroxysmal atrial fibrillation 04/18/2016 Overview (01/30/2017): Paroxysmal atrial fibrillation Assessment & Plan (12/15/2024 8:05 AM PIEROGI MAKER): Presented for planned EP study with ablation [...] home Assessment & Plan (12/14/2024 2:13 PM PIEROGI MAKER): Presented for planned EPS with ablation under [...] on file Legal Sex Female 8:52 PM PIEROGI MAKER Gender Identity Female 12/13/2020 9:57 AM PIEROGI MAKER Sexual Orientation Straight 12/13/2020 9: 57 AM PIEROGI MAKER Last Filed Vital Signs Vital Sign Reading Time Taken Comments Blood Pressure 163/98 01/26/2025 2:18 PM CDT Pulse 88 01/26/2025 2:18 PM CDT Temperature 36.5 C (97.7 F) 12/15/2024 8:15 AM PIEROGI MAKER Respiratory Rate 16 12/15/2024 8:15 AM PIEROGI MAKER Oxygen Saturation 100% 01/26/2025 2:18 PM CDT Inhaled Oxygen Concentration - - Weight 68.5 kg (151 lb) 02/22/2025 10:03 AM CDT Height 161 cm (5' 3.4 ) 02/22/2025 10:03 AM CDT Body Mass Index 26.41 02/22/2025 10:03 AM CDT Plan of Treatment Not on file Medical Devices Implanted Type Area Heat Treater Helper Device Identifier Shelf Expiration Date Model / Serial / Lot [employer] Vascade Mvp 6-12fr Venous Closure [id number] - [id number] - [id number] Implanted:Qty : 1 on 12/14/2024 by Tobin Francis MD at [facility] Collagen Right: Femoral Vein [employer] 08/06/2026 [id number] [id number] / [id number] / [id number] [employer] Vascade Mvp 6-12fr Venous Closure [id number] - [id number] - [id number] Implanted:Qty : 1 on 12/14/2024 by Tobin Francis MD at [facility] Collagen Right: Femoral Vein [employer] 08/06/2026 [id number] [id number] / [id number] [id number] / [id number] [id number] [employer] Vascade Mvp 6-12fr Venous Closure [id number] - [id number] - [id number] Implanted:Qty : 1 on 12/14/2024 by Tobin Francis MD at [facility] Collagen Right: Femoral Vein [employer] 08/06/2026 [id number] [id number] / [id number] / [id number] [id number] Procedures Procedure Name Priority Date/Time Associated [...] Read Routine (OP Routine) 10/13/2024 3:19 PM PIEROGI MAKER History of breast cancer Breast cancer screening by mammogram DEXA AXIAL SKELETON BONE DENSITY 1 OR MORE SITES Schedule Routine, Read Routine (OP Routine) 04/07/2024 11:17 AM CDT 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, estrogen receptor positive, unspecified laterality (HCC) long-term (current) use of aromatase inhibitors COLONOSCOPY 09/26/2021 10:27 AM PIEROGI MAKER SERUM HEPATITIS C AB Routine 04/21/2015 5:19 [...] POCT ORDERABLES - DEVICE Fin al Result Performing Organization Address City/State/[facility] Co de Phone Number [facility] Department [place] [address] * ECG 12 lead (01/26/2025 2:30 PM [...] W Mello Unilateral Only (10/13/2024 3:19 PM PIEROGI MAKER) Anatomical Region Laterality Modality Breast Right Mammography Narrative 10/14/2024 3:16 PM PIEROGI MAKER Mammogram Technique: Right Breast Digital Breast Tomosynthesis, Unilateral C-view 2D Screening mammogram. Views obtained: . Computer Aided Detection was performed. Mammogram Findings: The present examination has been compared to prior imaging studies performed at [facility] on 09/18/2021, 09/25/2022 and 10/10/2023. There are scattered areas of fibroglandular density. There is no suspicious abnormality in the right breast. Patient status post contralateral mastectomy for personal history of breast cancer. Impression: There is no mammographic evidence of malignancy. Annual screening mammography is recommended. OVERALL FINAL ASSESSMENT: BI-RADS CATEGORY 1: Negative. Procedure Note Bhaskar Lui MD - 10/14/2024 Mammogram Technique: Right Breast Digital Breast Tomosynthesis, Unilateral C-view 2DScreening mammogram. Views obtained: . Computer Aided Detection was performed. Mammogram Findings: The present examination has been compared to prior imaging studies performed at [facility] on 09/18/2021, 09/25/2022 and 10/10/2023. [...] inal Result * COLONOSCOPY (09/26/2021 10:27 AM PIEROGI MAKER) Anatomical Region Laterality Modality Other Narrative Procedure Note Trang Alfred MD - 09/26/2021 10:27 AM CST ENDOSCOPY LAB Patient Name: Carmen Stewart Procedure Date: 09/26/2021 10:27 AM Date of : 1950 Admit Type: Outpatient Age: 70 Gender: Female Attending MD: Trang Alfred M.D. Room: [facility] ENDOSCOPY ROOM 01 Note Status: Finalized [...] The scope was passed under direct vision.The [id number] was introduced through the anusand advanced to [...] During normal business hours - Please call [facility] Coordinator: [phone] After hours, evening, nights, weekends and holidays- Please call the hospital telecommunication operator at and ask for the GI fellow precision machine operator. Electronically by Dr Trang Alfred Trang Alfred [...] 04/26/2015 5:00 PM CDT Test performed at [facility] [address] [place] [address] Director: CONRAD JONES DO,MPH us Historical Provider LAB BLOOD ORDERABLES Poornima mcallister Result HISTORICAL RESULTS from Last 3 Months or Most Recently Relevant to Health Maintenance Insurance [facility] MEDICARE ADVANTAGE Advance Directives For more information, please contact: [phone] * Full Code (Latest Code Status on File) Date Activated Date Inactivated Comments 09/26/2021 9:54 AM 09/26/2021 3:23 PM Care Teams Windscreen Fitter Relationship Specialty Start Date End Date Ryne Gomes DO [address] [facility] [address] [place] [address] PCP - General Internal Medicine 07/19/24 Natalie Cerrato MD [address] [place] [address] Surgeon Surgical Oncology 05/01/18 Joaquin Hurd MD [address] [place] [address] Consulting Physician Cardiology 07/21/19 Gretta Heath MD [address] [facility] [address] [place] [address] Medical Oncologist/Metal Hardener Medical Oncology 07/06/20 Tobin Francis MD [address] [address] Consulting Physician Cardiology 10/06/24
--- OUTSIDE RECORDS SUMMARY | 2025-03-16 13:04 | XMS_ITS | Encounter Summary ---
Author Organization [facility] Address [address] [place] [address] Phone Care Team Providers Care Level Vial Grinder Name Role Phone Stewart Campbell MD Primary Care Provider [phone] Natalie Cerrato MD Unavailable Anil Saldaña MD Unavailable Joaquin Hurd MD Unavailable [phone] Gretta Heath MD Unavailable [phone] Ryne Gomes DO Primary Care Provider [phone] Tobin Francis MD Unavailable [phone] Reason for Visit * Reason Onset Date Comments Provider Update 10/22/2018 Encounter Details Date Type Department Care Team (Late st Contact Info) Description 10/22/2018 Telephone [facility] Oncology [address] [facility] [address] [place] [address] Ramana Collins MD [address] [place] [address] Provider Update Social History Tobacco Use Types Packs/Day Years Used Date Smoking Tobacco: Never Smokeless Tobacco: Never Alcohol Use Standard Drinks/Week Comments No 0 (1 standard drink = 0.6 oz pur e alcohol) Comments Unknown Sex and Gender Information Value Date Recorded Sex Assigned at Not on file Legal Sex Female 8:52 PM OPEN PIT QUARRY SUPERVISOR Gender Identity Female 12/13/2020 9:57 AM OPEN PIT QUARRY SUPERVISOR Sexual Orientation Straight 12/13/2020 9: 57 AM OPEN PIT QUARRY SUPERVISOR documented as of this encounter Plan of Treatment Not on file documented as of this encounter Visit Diagnoses Not on filedocumented in this encounter Care Teams Level Vial Grinder Relationship Specialty Start Date End Date Stewart Campbell MD [address] [place] [address] PCP - General 01/24/17 07/18/24 Ryne Gomes DO [address] [place] [address] PCP - General Internal Medicine 07/19/24 Natalie Cerrato MD [address] [place] [address] Surgeon Surgical Oncology 05/01/18 Anil Saldaña MD [address] [place] [address] Medical Oncologist/Jive Developer Medical Oncology 07/21/19 07/05/20 Joaquin Hurd MD [address] [place] [address] Consulting Physician Cardiology 07/21/19 Gretta Heath MD [address] [facility] [address] [place] [address] Medical Oncologist/Jive Developer Medical Oncology 07/06/20 Tobin Francis MD [address] [facility] [address] [place] [address] Consulting Physician Cardiology 10/06/24 documented as of this encounter
--- OUTSIDE RECORDS SUMMARY | 2025-03-16 13:04 | XMS_ITS ---
Author Organization [facility] Address [address] [place] [address] Care Team Providers Care Air Intelligence Specialist Name Role Phone Natalie Cerrato MD Unavailable [phone] Joaquin Hurd MD Unavailable [phone] Gretta Heath MD Unavailable [phone] Ryne Gomes DO Primary Care Provider [phone] Tobin Francis MD Unavailable [phone] Active Problems Problem Noted Date Diagnosed Date [...] (07/24/2021): Added automatically from request for surgery [id number] S/P breast reconstruction 02/19/2021 Overview (02/19/2021): Added automatically from request for surgery [id number] Idiopathic peripheral neuropathy 09/12/2020 Assessment & Plan (09/03/2021 11:46 AM COUNTER TACKER): Patient continues on gabapentin for treatment of dysesthesia and paresthesia associated with idiopathic peripheral neuropathy in her lower extremities. She cites good tolerability and efficacy. I have renewed her gabapentin 300 mg t.i.d. as previously prescribed. She will follow-up in neurology clinic in a year. Assessment & Plan (09/12/2020 12:55 PM COUNTER TACKER): Patient is a former patient of [facility] being treated for idiopathic peripheral neuropathy manifested as neuropathic pain and numbness in her feet and legs. Prior medical records from [facility] have been requested but are unavailable [...] 09/12/2020 Assessment & Plan (09/12/2020 12:56 PM COUNTER TACKER): Patient has history of peripheral neuropathy with neuropathic pain as a presenting symptom. Gabapentin 300 mg t.i.d. has been historically prescribed with good tolerability and efficacy. 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/2019 skilled nursing (current) use of aromatase inhibitors 07/01/2019 Malignant neoplasm of lower- inner quadrant of breast in female, estrogen receptor positive 07/01/2019 HX: breast cancer 07/01/2019 Bone disease 07/01/2019 Labile hypertension 04/12/2019 Dizziness 10/06/2018 History of breast cancer 05/14/2018 Assessment & Plan (12/15/2024 8:05 AM COUNTER TACKER): Continue anastrazole Assessment & Plan (12/14/2024 2:03 PM COUNTER TACKER): Continue anastrazole H/O sarcoidosis 02/20/2018 ALEXIS (dyspnea [...] anticoagulation Assessment & Plan (12/15/2024 8:06 AM COUNTER TACKER): For atrial fibrillation, continue apixaban Assessment & Plan (12/14/2024 2:03 PM COUNTER TACKER): Resume Eliquis tonight per cardiology post procedure recs Dehydration 05/06/2016 Benign hypertension 04/18/2016 Overview (01/30/2017): HTN (hypertension), benign Assessment & Plan (12/15/2024 8:06 AM COUNTER TACKER): Continue home lisinopril 40mg daily Assessment & Plan (12/14/2024 2:03 PM COUNTER TACKER): BP controlled post ablation. Continue home lisinopril 40 daily Paroxysmal atrial fibrillation 04/18/2016 Overview (01/30/2017): Paroxysmal atrial fibrillation Assessment & Plan (12/15/2024 8:05 AM COUNTER TACKER): Presented for planned EP study with ablation [...] home Assessment & Plan (12/14/2024 2:13 PM COUNTER TACKER): Presented for planned EPS with ablation under [...]
--- OUTSIDE RECORDS SUMMARY | 2025-03-16 13:04 | XMS_ITS | Patient Health Record ---
Author Organization [facility] Address [address] [place] [address] Care Team Providers Care Bellhop Name Role Phone Angela Carlin Unavailable [phone] Reason For Referral No Information Plan Of Treatment No Information Insurance Providers Payer Name Payer Address Payer Phone Subscriber Number Group Number Insured Name Patient Relationship to Insured Coverage Start Date Coverage End Date [place] [address] [address] [place] [address] [id number] Carmen Stewart Self - patient is the insured 4 [facility] [address] [place] [phone] [id number] Carmen Stewart Self - patient is the insured 5
--- OUTSIDE RECORDS SUMMARY | 2025-03-16 13:04 | XMS_ITS | Encounter Summary ---
Author Organization [facility] Address [address] [place] [address] Phone Care Team Providers Care Electric Freight Car Operator Name Role Phone Stewart Campbell MD Primary Care Provider [phone] Natalie Cerrato MD Unavailable Anil Saldaña MD Unavailable [phone] Joaquin Hurd MD Unavailable [phone] Gretta Heath MD Unavailable [phone] Ryne Gomes DO Primary Care Provider [phone] Tobin Francis MD Unavailable [phone] Encounter Details Date Type Department Care Team [...] on file Legal Sex Female 8:52 PM CAN WORKER Gender Identity Female 12/13/2020 9:57 AM CAN WORKER Sexual Orientation Straight 12/13/2020 9: 57 AM CAN WORKER documented as of this encounter Plan of Treatment Not on file documented as of this encounter Procedures Procedure Name Priority Date/Time Associated Diagnosis Comments SCAN - RADIOLOGY/IMAGING 01/13/2019 documented in this encounter Results * SCAN - RADIOLOGY/IMAGING (01/13/2019) Anatomical Region Laterality Modality Other Provider Scanning Final Result documented in this encounter Visit Diagnoses Not on filedocumented in this encounter Care Teams Electric Freight Car Operator Relationship Specialty Start Date End Date Stewart Campbell MD [address] [place] [address] PCP - General 01/24/17 07/18/24 Ryne Gomes DO [address] [place] [address] PCP - General Internal Medicine 07/19/24 Natalie Cerrato MD [address] [place] [address] Surgeon Surgical Oncology 05/01/18 Anil Saldaña MD [address] [place] [address] Medical Oncologist/Chain Testing Machine Operator Medical Oncology 07/21/19 07/05/20 Joaquin Hurd MD [address] [place] [address] Consulting Physician Cardiology 07/21/19 Gretta Heath MD [address] [facility] [address] [place] [address] Medical Oncologist/Chain Testing Machine Operator Medical Oncology 07/06/20 Tobin Francis MD [address] [facility] [address] [address] Consulting Physician Cardiology 10/06/24 documented as of this encounter
--- OUTSIDE RECORDS SUMMARY | 2025-03-16 13:04 | XMS_ITS | Encounter Summary ---
Author Organization [facility] Address [address] [place] [address] Care Team Providers Care Scheduler Maintenance Name Role Phone Stewart Campbell DO Primary Care Provider [phone] Encounter Details Date Type Department Care Team (Late st Contact Info) Description 03/16/2025 External Device Data STL ABSTRACTION Provider, Abstract [...] [facility] - Jeremias [address] [facility] [address] [place] [address] [place] [address] [place] [address] [address] [place] [address] documented as of this encounter Visit Diagnoses Not on filedocumented in this encounter Care Teams Scheduler Maintenance Relationship Specialty Start Date End Date Stewart Campbell DO [address] [facility] [address] [place] [address] PCP - General Internal Medicine 05/25/20 documented as of this encounter
--- OUTSIDE RECORDS SUMMARY | 2025-03-16 13:04 | XMS_ITS | Encounter Summary ---
Author Organization [facility] [employer] Address [address] [place] [address] Care Team Providers Care Inorganic Chemist Name Role Phone Stewart Campbell DO Primary Care Provider Encounter Details Date Type Department Care Team ([facility] Contact Info) Description 03/14/2025 Orders Only [facility] Oncology and Hematology [address] [place] [address] Vineet Simpson MD [facility] [address] [place] [address] Erythrocytosis Social History Tobacco Use Types Packs/Day Years [...] Description 06/16/2025 11:00 AM CDT Office Visit [facility] Oncology and Hematology - Jeremias [address] [place] [address] Vineet Simpson MD [facility] [address] [place] [address] documented as of this encounter Visit Diagnoses Diagnosis Erythrocytosis Reserved for inherently not codable concepts WITHOUT codable children documented in this encounter Care Teams Inorganic Chemist Relationship Specialty Start Date End Date Stewart Campbell, DO [address] [facility] [address] [place] [address] PCP - General Internal Medicine 05/25/20 documented as of this encounter
--- OUTSIDE RECORDS SUMMARY | 2025-03-16 13:04 | XMS_ITS | Encounter Summary ---
Author Organization [facility] Address [address] [place] [address] Phone Care Team Providers Care Circus Supervisor Name Role Phone Natalie Cerrato MD Unavailable Joaquin Hurd MD Unavailable Gretta Heath MD Unavailable [phone] Ryne Gomes DO Primary Care Provider [phone] Tobin Francis MD Unavailable [phone] Encounter Details Date Type Department Care Team (Late st Contact Info) Description 01/26/2025 Results Follow-Up [facility] Cardiology [address] [facility] Advanced Medicine 8th [place] [address] [place] [address] Nati Zapata, SARAH [address] [facility] [address] [place] [address] ECG 12 lead Social History Tobacco Use Types Packs/Day Years [...] on file Legal Sex Female 8:52 PM LOG LOADER Gender Identity Female 12/13/2020 9:57 AM LOG LOADER Sexual Orientation Straight 12/13/2020 9: 57 AM LOG LOADER documented as of this encounter Plan of Treatment Not on file documented as of this encounter Visit Diagnoses Not on filedocumented in this encounter Care Teams Circus Supervisor Relationship Specialty Start Date End Date Ryne Gomes DO [address] [facility] [address] [place] [address] PCP - General Internal Medicine 07/19/24 Natalie Cerrato MD [address] [place] [address] Surgeon Surgical Oncology 05/01/18 Joaquin Hurd MD [address] [place] [address] Consulting Physician Cardiology 07/21/19 Gretta Heath MD [address] [facility] [address] [place] [address] Medical Oncologist/Tabber Medical Oncology 07/06/20 Tobin Francis MD [address] [address] Consulting Physician Cardiology 10/06/24 documented as of this encounter
--- OUTSIDE RECORDS SUMMARY | 2025-03-16 13:04 | XMS_ITS | Clinical Summary ---
Author Organization [facility] Address [address] [facility] [place] [address] Care Team Providers Care Beef Tagger Name Role Phone Stewart Campbell DO Primary Care Provider Source Comments [facility],non-owned Affiliates and Associated Physician Practices is amultiple site organization consisting of ambulatory clinics and hospital sitesin [place], [place], [place] and [place]. This disclosure is being madepursuant to the Care Everywhere program and may not contain all information available regarding this patient. Last updated 18.[facility] CoverMe Social History Tobacco Use Types Packs/Day Years Used Date Smoking Tobacco: Never Assessed Comments Unknown Sex and Gender Information Value Date Recorded Sex Assigned at Not on file Legal Sex Female 6:14 AM SYSTEM SOFTWARE DEVELOPER Gender Identity Not on file Sexual Orientation [...] patient's age [place] [address] MEDICARE Care Teams Beef Tagger Relationship Specialty Start Date End Date Stewart Campbell DO [address] [facility] [address] [place] [address] PCP - General 05/11/20
--- OUTSIDE RECORDS SUMMARY | 2025-03-16 13:04 | XMS_ITS | Encounter Summary ---
Author Organization [facility] Address [address] [place] [address] Phone Care Team Providers Care Principal Systems Engineer Name Role Phone Natalie Cerrato MD Unavailable Joaquin Hurd MD Unavailable [phone] Gretta Heath MD Unavailable [phone] Ryne Gomes DO Primary Care Provider [phone] Tobin Francis MD Unavailable [phone]- [phone] Encounter Details Date Type Department Care Team (Late st Contact Info) Description 02/22/2025 Telephone [facility] Cardiology [address] [facility] Advanced Medicine 8th [place] [address] [place] [address] Tobin Francis MD [address] [facility] [address] [place], [place] [id number] Social History Tobacco Use Types Packs/Day Years [...] on file Legal Sex Female 8:52 PM MEDICAL BILLING REPRESENTATIVE Gender Identity Female 12/13/2020 9:57 AM MEDICAL BILLING REPRESENTATIVE Sexual Orientation Straight 12/13/2020 9: 57 AM MEDICAL BILLING REPRESENTATIVE documented as of this encounter Miscellaneous Notes [...] Angela Landon - 02/22/2025 3:24 PM CDT [facility] is calling in regards to seeing how long the patient has to wait to get breast reconstruction surgery after her ablation. They also would like to know how long the patient would need to be off Eliquis. documented in this encounter Plan of Treatment Not on file documented as of this encounter Visit Diagnoses Not on filedocumented in this encounter Care Teams Principal Systems Engineer Relationship Specialty Start Date End Date Ryne Gomes DO [address] [address] PCP - General Internal Medicine 07/19/24 Natalie Cerrato MD [address] [place] [address] Surgeon Surgical Oncology 05/01/18 Joaquin Hurd MD [address] [place] [address] Consulting Physician Cardiology 07/21/19 Gretta Heath MD [address] [place] [address] Medical Oncologist/Ophthalmic Technician Medical Oncology 07/06/20 Tobin Francis MD [address] [place] [address] Consulting Physician Cardiology 10/06/24 documented as of this encounter
--- OUTSIDE RECORDS SUMMARY | 2025-03-16 13:04 | XMS_ITS | Clinical Summary ---
Author Organization [facility] Kashif Langley Address [address] [place] [address] Care Team Providers Care Zinc Miner Name Role Phone Stewart Campbell DO Primary Care Provider [phone] Allergies No known active allergies Medications anastrozole [...] Encounters Date Type Department Care Team Description 03/16/2025 External Device Data STL ABSTRACTION Provider, Abstract 03/15/2025 External Device Data STL ABSTRACTION Provider, Abstract 03/14/2025 Orders Only [facility] Oncology and Hematology - Jerem[place] [address] [place] [id number] Vineet Simpson MD Erythrocytosis 02/28/2025 Orders Only [facility] On[facility] Hematology - Jerem[place] [address] [place] [address] Vineet Simpson MD Erythrocytosis 02/14/2025 Orders Only [facility] Oncology and Hematology - Jeremias [address] [place] [address] Vineet Simpson MD Erythrocytosis 01/31/2025 Orders Only [facility] On[facility] and Hematology - Jeremias [address] [place] [address] Vineet Simpson MD Erythrocytosis 01/17/2025 Orders Only [facility] On[facility] and Hematology - Jeremias [address] [place] [address] Vineet Simpson MD Erythrocytosis 01/12/2025 External Device Data STL ABSTRACTION Provider, Abstract 01/03/2025 Orders Only [facility] Oncology and Hematology - Jeremias [address] [place] [address] Vineet Simpson MD Erythrocytosis 01/01/2025 External Device Data STL ABSTRACTION Provider, Abstract 12/31/2024 External Device Data STL ABSTRACTION Provider, Abstract 12/28/2024 External Device Data STL ABSTRACTION Provider, Abstract 12/20/2024 Orders Only [facility] Oncology and Hematology - Jeremias [address] [place] [address] Vineet Simpson MD Erythrocytosis 12/17/2024 9:15 AM PERSONAL TRAINER Office Visit [facility] Oncology and Hematology - Jeremias [address] [place] [address] Vineet Simpson MD Erythrocytosis (Primary Dx) 12/17/2024 Orders Only [facility] Oncology and Hematology [facility] [address] [facility] [address] [place] [address] Vineet Simpson MD from Last 3 Months Family History Medical [...] Comments Blood Pressure 153/96 12/17/2024 9:25 AM PERSONAL TRAINER did not take b/p meds this morning Pulse 86 12/17/2024 9:22 AM PERSONAL TRAINER Temperature 36.1 C (97 F) 12/17/2024 9:22 AM PERSONAL TRAINER Respiratory Rate 15 12/17/2024 9:22 AM PERSONAL TRAINER Oxygen Saturation 97% 12/17/2024 9:2 2 AM PERSONAL TRAINER Inhaled Oxygen Concentration - - Weight 70.6 kg (155 lb 9.6 oz) 12/17/2024 9:22 AM PERSONAL TRAINER Height 165.1 cm (5' 5 ) 05/16/2022 11:3 0 AM CDT Body Mass Index 25.89 05/16/2022 11:30 AM CDT Plan of Treatment Upcoming Encounters Date Type Department Care Team (Late st Contact Info) Description 06/16/2025 11:00 AM CDT Office Visit [facility] Oncology and Hematology - Jeremias [address] [place] [address] Vineet Simpson MD [address] [facility] [address] [place] [address] Health Maintenance Due Date Last Done [...] 1-dose 75+ series) 2024 OSTEOPOROSIS SCREENING 04/07/2029 4, 04/07/2024, 04/01/2022, Additional history exists COLORECTAL SCREENING 09/26/2031 09/26/2021, 09/26/2021, 09/26/2021, Additional history exists Colorectal Cancer Screening 09/26/2031 INFLUENZA VACCINE Completed 12/15/2024, , 07/25/2015 Procedures Procedure Name Priority Date/Time Associated Diagnosis Comments BASIC METABOLIC PANEL Routine 12/17/2024 11:50 AM PERSONAL TRAINER from Last 3 Months Results * BASIC METABOLIC PANEL (12/17/2024 11:50 AM PERSONAL TRAINER) Blood Vineet Simpson MD CHEMISTRY ORDERABLES Final Resu lt from Last 3 [place] [address] [facility] [id number] Care Teams Zinc Miner Relationship Specialty Start Date End Date Stewart Campbell DO [address] [facility] [address] [place] [address] PCP - General Internal Medicine 05/25/20
--- OUTSIDE RECORDS SUMMARY | 2025-03-16 13:04 | XMS_ITS | Encounter Summary ---
Author Organization [facility] Address [address] [place] [address] Phone Care Team Providers Care Classroom Paraprofessional Name Role Phone Stewart Campbell MD Primary Care Provider [phone] Natalie Cerrato MD Unavailable [phone] Joaquin Hurd MD Unavailable [phone] Gretta Heath MD Unavailable [phone] Ryne Gomes DO Primary Care Provider [phone] Tobin Francis MD Unavailable [phone] Encounter Details Date Type Department Care Team [...] on file Legal Sex Female 8:52 PM WIND FARM OPERATIONS MANAGER Gender Identity Female 12/13/2020 9:57 AM WIND FARM OPERATIONS MANAGER Sexual Orientation Straight 12/13/2020 9: 57 AM WIND FARM OPERATIONS MANAGER documented as of this encounter Plan of Treatment Not on file documented as of this encounter Procedures Procedure Name Priority Date/Time Associated Diagnosis Comments SCAN - PATHOLOGY 09/22/2021 documented in this encounter Results * SCAN - PATHOLOGY (09/22/2021) us Provider Scanning Edited Result - Final documented in this encounter Visit Diagnoses Not on filedocumented in this encounter Care Teams Classroom Paraprofessional Relationship Specialty Start Date End Date Stewart Campbell MD [address] [place] [address] PCP - General 01/24/17 07/18/24 Ryne Gomes DO [address] [place] [address] PCP - General Internal Medicine 07/19/24 Natalie Cerrato MD [address] [place] [address] Surgeon Surgical Oncology 05/01/18 Joaquin Hurd MD [address] [place] [address] Consulting Physician Cardiology 07/21/19 Gretta Heath MD [address] [facility] [address] [place] [address] Medical Oncologist/Nutrition Aide Medical Oncology 07/06/20 Tobin Francis MD [address] [facility] [address] [place] [address] Consulting Physician Cardiology 10/06/24 documented as of this encounter
--- OUTSIDE RECORDS SUMMARY | 2025-03-16 13:04 | XMS_ITS | Encounter Summary ---
Author Organization [facility] Address [address] [address] Care Team Providers Care Photograph Retoucher Name Role Phone Stewart Campbell MD Primary Care Provider [phone] Stewart Campbell MD Primary Care Provider [phone] Natalie Cerrato MD Unavailable [phone] Anil Saldaña MD Unavailable Joaquin Hurd MD Unavailable [phone] Gretta Heath MD Unavailable [phone] Ryne Gomes DO Primary Care Provider [phone] Tobin Francis MD Unavailable [phone] Encounter Details Date Type Department Care Team (Late st Contact Info) Description 01/13/2017 Orders Only [facility] ProviderSara MD [address] [place] [address] Social History Tobacco Use Types Packs/Day Years Used Date Smoking Tobacco: Never Alcohol Use Standard Drinks/Week Comments No 0 (1 standard drink = 0.6 oz pur e alcohol) Comments Unknown Sex and Gender Information Value Date Recorded Sex Assigned at Not on file Legal Sex Female 8:52 PM CONSULTANT RN Gender Identity Female 12/13/2020 9:57 AM CONSULTANT RN Sexual Orientation Straight 12/13/2020 9: 57 AM CONSULTANT RN documented as of this encounter Plan of [...] on filedocumented in this encounter Care Teams Photograph Retoucher Relationship Specialty Start Date End Date Stewart Campbell MD [address] [facility] [address] [place] [address] PCP - General 01/24/17 07/18/24 Stewart Campbell MD [address] [facility] [address] [place] [address] PCP - General 01/10/17 01/23/17 Ryne Gomes DO [address] [address] PCP - General Internal Medicine 07/19/24 Natalie Cerrato MD [address] [facility] [address] [place] [address] Surgeon Surgical Oncology 05/01/18 Anil Saldaña MD [address] [place], [place] [address] Medical Oncologist/Box Chipper Medical Oncology 07/21/19 07/05/20 Joaquin Hurd MD [address] [facility] [place] [address] Consulting Physician Cardiology 07/21/19 Gretta Heath MD [address] [facility] [address] [place] [address] Medical Oncologist/Box Chipper Medical Oncology 07/06/20 Tobin Francis MD [address] [place], [place] [address] Consulting Physician Cardiology 10/06/24 documented as of this encounter
--- OUTSIDE RECORDS SUMMARY | 2025-03-16 13:04 | XMS_ITS | Encounter Summary ---
Author Organization [facility] Address [address] [place] [address] Phone Care Team Providers Care Satellite Tv Technician Installer Name Role Phone Stewart Campbell MD Primary Care Provider [phone] Natalie Cerrato MD Unavailable Anil Saldaña MD Unavailable [phone] Joaquin Hurd MD Unavailable Gretta Heath MD Unavailable [phone] Ryne Gomes DO Primary Care Provider [phone] Tobin Francis MD Unavailable [phone] Reason for Visit * Reason Onset Date Comments Provider Update 10/21/2018 Encounter Details Date Type Department Care Team (Late st Contact Info) Description 10/21/2018 Telephone [facility] Oncology [address] [facility] [address] [place] [address] Ramana Collins MD [address] [place] [place] [address] Provider Update Social History Tobacco Use Types Packs/Day Years Used Date Smoking Tobacco: Never Smokeless Tobacco: Never Alcohol Use Standard Drinks/Week Comments No 0 (1 standard drink = 0.6 oz pur e alcohol) Comments Unknown Sex and Gender Information Value Date Recorded Sex Assigned at Not on file Legal Sex Female 8:52 PM UTILITIES MANAGER Gender Identity Female 12/13/2020 9:57 AM UTILITIES MANAGER Sexual Orientation Straight 12/13/2020 9: 57 AM UTILITIES MANAGER documented as of this encounter Plan of Treatment Not on file documented as of this encounter Visit Diagnoses Not on filedocumented in this encounter Care Teams Satellite Tv Technician Installer Relationship Specialty Start Date End Date Stewart Campbell MD [address] [place] [address] PCP - General 01/24/17 07/18/24 Ryne Gomes DO [address] [place] [address] PCP - General Internal Medicine 07/19/24 Natalie Cerrato MD [address] [place] [address] Surgeon Surgical Oncology 05/01/18 Anil Saldaña MD [address] [place] [address] Medical Oncologist/Cardiology Clinical Nurse Specialist Medical Oncology 07/21/19 07/05/20 Joaquin Hurd MD [address] [place] [address] Consulting Physician Cardiology 07/21/19 Gretta Heath MD [address] [facility] [address] [place] [address] Medical Oncologist/Cardiology Clinical Nurse Specialist Medical Oncology 07/06/20 Tobin Francis MD [address] [facility] [address] [place] [address] Consulting Physician Cardiology 10/06/24 documented as of this encounter
--- OUTSIDE RECORDS SUMMARY | 2025-03-16 13:04 | XMS_ITS | Continuity of Care Document ---
Author Organization [facility] Address [address] [place] [address] [address] [place] [address] Phone Care Team Providers Care Political Scientist Name Role Phone Daryl Livingston Unavailable Unavailable Procedures Procedure Date Office/outpatient Visit, Est Office/outpatient Visit, Est Eye Exam & Treatment Office/outpatient Visit, [facility] Advance Directives Directive Yes / No Effective Date File Name No Information Encounters Encounter Description Practice Location Reason(s) For Visit Diagnoses Date Provider Providers Copied on Encounter Office/outpat ient Visit, [facility], [address] [place] [address] [address], [place], [place], [id number], tel:[phone] [facility] No Information Mar- 3-201 0 Miki Brito. [address] [facility] [place] [address], [place], [place], [facility], . tel:[phone] Office/outpat ient Visit, [facility], [address] [place] [address] [address], [place], [place], [id number], [place] tel:[phone] [facility] No Information 1 0-200 9 Aleyda Jorge [address] , [address], [place], [facility], [place]. tel:[phone] [facility], [address] [place] [address] [address], [place], [place], [id number], [place] tel:[phone] [facility] No Information 2 1-200 8 Aleyda Jorge [address], [place], [address], [place]. tel:[phone] Office/outpat ient Visit, [facility], [address], [place], [place], [id number], [place] tel:[phone] [facility] No Information 200 7 Chante Ortiz. [address], [place], [place], [id number], [place]. tel:[phone] Family History Family Member Type Diagnosis Age At Onset No Information Payers Payer name Insurance type Covered republican ID Authoriza tion(s) No Information Social History [...]
--- OUTSIDE RECORDS SUMMARY | 2025-03-16 13:04 | XMS_ITS ---
Author Organization [facility] Address [address] [place] [address] [address] [place] [address] Care Team Providers Care Manager Lpn Name Role Phone Angela Carlin Unavailable [phone] REASON FOR VISIT LBP Encounters Encounter Location Date Provider Diagnosis [facility] [address] [facility] [address] [place] [address] 08/23/2024 Angela Carlin Plan Of Treatment No Information Progress Notes * Carmen STEWART EDOB:[birth year] (74 yo F)Acc No.[id number]:08/23/2024 Patient: Alex DAVENPORTARYANCarmen Taiwo Provider: Radha Carlin MD :1950 A ge:73 Y S ex:Female Date:08/23/2024 [facility] Subjective: * Chief Complaints: * 1 . LBP. * Medical History: Objective: * Vitals: Assessment: Plan: * Treatment: Forms: * Billing Information: * Visit Code: * Procedure Codes: * Electronic signature of Larisa Carlin MD on 03/16/2025 at 01:03 PM CDT Sign off status: Pending * Provider: Radha Carlin MD Date: Generated for Deidra garcia/Ellen/eTransmitting on: 0 03/16/2025 01:03 PM CDT
--- OUTSIDE RECORDS SUMMARY | 2025-03-16 13:04 | XMS_ITS | Encounter Summary ---
Author Organization [facility] Address [address] [place] [address] Phone Care Team Providers Care Insurance Claim Auditor Name Role Phone Stewart Campbell MD Primary Care Provider [phone] Natalie Cerrato MD Unavailable [phone] Joaquin Hurd MD Unavailable [phone] Gretta Heath MD Unavailable [phone] Ryne Gomes DO Primary Care Provider [phone] Tobin Francis MD Unavailable [phone] Encounter Details Date Type Department Care Team (Late st Contact Info) Description 04/07/2024 Orders Only [facility] Oncology [address] [facility] [address] [place] [address] Gretta Heath MD [address] [facility] [address] [place] [address] Malignant neoplasm of lower-inner quadrant [...] on file Legal Sex Female 8:52 PM EXPANSION JOINT FINISHER Gender Identity Female 12/13/2020 9:57 AM EXPANSION JOINT FINISHER Sexual Orientation Straight 12/13/2020 9: 57 AM EXPANSION JOINT FINISHER documented as of this encounter Plan of Treatment Not on file documented as of this encounter Visit Diagnoses Diagnosis Malignant neoplasm of lower-inner quadrant of left breast in female, estrogen receptor positive (HCC)- Primary documented in this encounter Care Teams Insurance Claim Auditor Relationship Specialty Start Date End Date Stewart Campbell MD [address] [facility] [address] [place] [address] PCP - General 01/24/17 07/18/24 Ryne Gomes DO [address] [facility] [address] [place] [address] PCP - General Internal Medicine 07/19/24 Natalie Cerrato MD [address] [place] [address] Surgeon Surgical Oncology 05/01/18 Joaquin Hurd MD [address] [place] [address] Consulting Physician Cardiology 07/21/19 Gretta Heath MD [address] [facility] [address] [place] [address] Medical Oncologist/Investment Banker Medical Oncology 07/06/20 Tobin Francis MD [address] [address] Consulting Physician Cardiology 10/06/24 documented as of this encounter
[2025-03-16 13:39] LABS: Basophils Percent Auto 0.4 % (0.2-1.2); Eosinophils Absolute Auto 0.1 K/mm3 (0-0.3); Hematocrit 48.7 % (37.0-47.0); Hemoglobin 15.8 g/dL (12.0-15.0); Immature Granulocyte Absolute 0.05 K/mm3 (0.00-0.031); Immature Granulocyte Percent A 0.7 % (0-0.5); Lymphocytes Absolute Auto 1.91 K/mm3 (0.9-3.2); Lymphocytes Percent Auto 27.4 % (18.3-44.2); Mean Corpuscular HGB Conc 32.4 g/dl (32-36); Mean Corpuscular Hemoglobin 29.2 pg (26-34); Mean Platelet Volume 9.8 fl (7.4-10.4); Monocytes Absolute Auto 0.5 K/mm3 (0.1-0.6); Monocytes Percent Auto 6.4 % (2.6-8.5); Neutrophils Absolute Auto 4.5 K/mm3 (1.3-6.7); Neutrophils Percent Auto 64.1 % (45.5-73.1); Platelet Count Result 275 k/mm3 (150-375); Red Blood Count 5.41 M/mm3 (4.2-5.4); Red Cell Distribution Width 13.8 % (11.5-14.5)
[2025-03-16 13:49] LABS: Alanine Aminotransferase 31 U/L (6-35); Albumin Level 5.2 g/dL (3.5-5.1); Alkaline Phosphatase 85 U/L (38-126); Anion Gap 18 mmol/L (4-12); Aspartate Amino Transferase 36 U/L (14-36); Blood Urea Nitrogen 32 mg/dL (7-17); Calcium 11.4 mg/dL (8.4-10.2); Carbon Dioxide 17 mmol/L (22-30); Chloride 104 mmol/L (98-107); Estimated CRCL calculation 21 ml/min; Estimated Glomerular Filt Rate 26; Glucose 143 mg/dL (65-110); Lipase 145 U/L (23-300); Potassium 4.1 mmol/L (3.4-5.0); Sodium 139 mmol/L (137-145)
[2025-03-16 13:53] LABS: Prothrombin Time 13.8 Seconds (11.1-14.7)
[2025-03-16 13:54] LABS: Partial Thromboplastin Time 26.6 Seconds (22.3-36.8)
[2025-03-16 14:01] LABS: Troponin I < 0.012 ng/mL (0.000-0.034)
--- NOTE | 2025-03-16 14:22 | ED.CHESTPAIN ---
HPI - Chest Pain General Chief Complaint: Chest Pain <AMBIKA Cordova Last Filed: 03/16/25 19:23> Stated Complaint: CHEST PRESSURE,SOB HX ABLATION <AMBIKA Cordova Last Filed: 03/16/25 19:23> Time Seen by Provider: 03/16/25 14:06 <AMBIKA Cordova Last Filed: 03/16/25 19:23> Source: patient <AMBIKA Cordova Last Filed: 03/16/25 19:23> Mode of arrival: ambulatory <AMBIKA Cordova Last Filed: 03/16/25 19:23> Limitations: no limitations <AMBIKA Cordova Last Filed: 03/16/25 19:23> History of Present Illness HPI narrative: Patient is a 74-year-old female who presents the ED with report of chest pain and near syncope. Patient reports a history of AFib. On Eliquis 5mg BID. She sees Dr. Freeman. She had a cardiac ablation performed in November of this year at [facility]. She had previously been on metoprolol and sotalol prior to the ablation, but was taken off these and switched to amiodarone. She was on amiodarone for a brief period before and after the ablation. She is not on any beta-blockers or amiodarone currently. She states since the ablation, she has been having intermittent episodes of chest pain, shortness breath, dizziness/lightheadedness, near syncope. States the chest pain often occurred after eating. They thought symptoms may be GI related. She was started on a PPI. She was on her way to an appointment with GI today, when she had an episode of chest pain, shortness breath, dizziness while driving. She pulled over to the side of the road and had her sister bring her to the ED. Patient denies current chest pain. Denies recent cough or cold symptoms. Denies fevers. Denies pain or swelling in her legs. <AMBIKA Cordova Last Filed: 03/16/25 19:23> Related Data Home Medications: Home Medications ?Medication ?Instructions ?Recorded ?Confirmed ?Last Taken ?Type anastrozole 1 mg tablet 1 mg PO DAILY 12/29/19 03/02/25 Unknown History apixaban 5 mg tablet (Eliquis) 5 mg PO BID 12/29/19 03/02/25 11/16/22 History lisinopril 40 mg tablet 40 mg PO DAILY 12/29/19 03/02/25 Unknown History celecoxib 200 mg capsule (Celebrex) 200 mg PO DAILY PRN Pain, Mild 10/02/20 03/02/25 Unknown History <AMBIKA Cordova Last Filed: 03/16/25 19:23> Allergies/Adverse Reactions: Allergies Allergy/AdvReac Type Severity Reaction Status Date / Time No Known Allergies Allergy Unknown Verified 03/02/25 14:12 <Angela Rodriguez PA-C - Last Filed: 03/16/25 19:23> Review of Systems Review of Systems: All systems reviewed & are unremarkable except as noted in HPI. <AMBIKA Cordova Last Filed: 03/16/25 19:23> All systems reviewed & are unremarkable except as noted in HPI and below <Angela Rodriguez PA-C - Last Filed: 03/16/25 19:23> [facility] Past Medical History Medical History: Medical History Paroxysmal atrial fibrillation Other fatigue Hx of breast cancer Hereditary and idiopathic neuropathy, unspecified Gastro-esophageal reflux disease without esophagitis Essential (primary) hypertension Esophageal spasm Encounter for annual health examination Dizziness Polycythemia Chronic fatigue CKD (chronic kidney disease) stage 3, GFR 30-59 ml/min SONYA (obstructive sleep apnea) Breast cancer A-fib Hypertension GERD (gastroesophageal reflux disease) <AMBIKA Cordova Last Filed: 03/16/25 19:23> Surgical History Surgical History: Surgical History History of knee replacement History of cholecystectomy History of hysterectomy <AMBIKA Cordova Last Filed: 03/16/25 19:23> Family History Family History: Family History Sibling Family history of cardiac disorder Mother Patient's mother is Father No problems noted. <Angela Rodriguez PA-C - Last Filed: 03/16/25 19:23> Social History Social History: Social History Smoking status: Never smoker Second hand tobacco smoke exposure: No Alcohol intake: never Substance use: never Substance use type: does not use Do You Feel Safe in your Home?: Yes Lack of Transportation: No Lack of Food: Never True Current Housing: I Have Housing Concerned About Future Housing: No Difficulty Paying Gas/Electric Bills: No Difficulty Paying for Meds: No Currently Unemployed: No Education: Bachelor's Degree Difficulty w/ Childcare or Family Care: No Living arrangements: with family 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 Gender identity (if verbalized by the patient): Female Spiritual care concerns: No <Angela Rodriguez PA-C - Last Filed: 03/16/25 19:23> Exam Narrative: GENERAL: Mildly anxious appearing, well-nourished, non-toxic, in no acute distress. HEAD: Normocephalic, atraumatic. RESPIRATORY: Airway patent, respirations nonlabored. Clear to auscultation bilaterally, no rales, rhonchi, wheezing. CARDIOVASCULAR: Tachycardic with irregular rhythm without murmurs, rubs, or gallops. Peripheral pulses intact ABDOMINAL: Soft, nontender, nondistended. Normoactive BS. MUSCULOSKELETAL: Moves all extremities. No gross deformities. No peripheral edema. SKIN: Warm, dry, normal color. NEURO: A&O X3. Speech clear. Cranial nerves II-XII grossly intact. Steady gait. No ataxic movements. PSYCHIATRIC: Mildly anxious. Normal interaction. <Angela Rodriguez PA-C - Last Filed: 03/16/25 19:23> Course IRRIGATION SYSTEM INSTALLER/PA Physician Supervision This visit was performed by both a physician and an APC. I performed all aspects of the MDM as documented. <Malcolm Welch MD - Last Filed: 03/16/25 18:43> Vital Signs Vital signs: Vital Signs Temperature 97.6 F 03/16/25 13:24 Pulse Rate 119 H 03/16/25 13:24 Respiratory Rate 28 H 03/16/25 13:24 Blood Pressure 178/118 H 03/16/25 13:24 Pulse Oximetry 100 03/16/25 13:24 Oxygen Delivery Room Air 03/16/25 13:24 Temperature 97.6 F 03/16/25 13:24 Pulse Rate 84 03/16/25 18:50 Respiratory Rate 17 03/16/25 18:50 Blood Pressure 153/93 H 03/16/25 18:50 Pulse Oximetry 98 03/16/25 18:50 Oxygen Delivery Room Air 03/16/25 15:05 <Angela Rodriguez PA-C - Last Filed: 03/16/25 19:23> Vital Signs Temperature 97.6 F 03/16/25 13:24 Pulse Rate 119 H 03/16/25 13:24 Respiratory Rate 28 H 03/16/25 13:24 Blood Pressure 178/118 H 03/16/25 13:24 Pulse Oximetry 100 03/16/25 13:24 Oxygen Delivery Room Air 03/16/25 13:24 Temperature 97.6 F 03/16/25 13:24 Pulse Rate 84 03/16/25 18:50 Respiratory Rate 17 03/16/25 18:50 Blood Pressure 153/93 H 03/16/25 18:50 Pulse Oximetry 98 03/16/25 18:50 Oxygen Delivery Room Air 03/16/25 15:05 <Malcolm Welch MD - Last Filed: 03/16/25 18:43> MDM - Chest Pain MDM Narrative Medical decision making narrative: Patient presented to ED with intermittent episodes of chest pain, shortness breath, dizziness/lightheadedness, near-syncope for the past few months. History of AFib with previous heart ablation in November. Not currently on any beta-blockers or amiodarone, or any other rate controlling medications. Patient's initial EKG here showing AFib with RVR, rates in the low 100s. On telemetry monitoring, patient's heart rate ranging from 70s to 130s, seems to be going in and out of AFib. She is anticoagulated on Eliquis 5 mg b.i.d. and reports compliance with this. No concerning ischemic changes on EKG. Patient is denying active chest pain. Baseline troponin undetectable. BNP within normal range per age. Chest x-ray is clear. Remainder of basic laboratory studies are notable for bicarb 17, anion gap of 18. Slight JENS with creatinine today of 1.9. Baseline around 1.5. Fluids are ongoing. Given profound symptomatology/near syncope/chest pain with paroxysmal AFib, will admit for further evaluation/trending of trops. Discussed case with Dr. Barakat, cardiology, recommended metoprolol 5iv now, 25mg po bid tartrate for rate control. Will consult. Discussed case with Wandy Lynn NP hospitalist, accepted patient for admission. Patient in agreement with plan and need for admission. <Angela Rodriguez PA-C - Last Filed: 03/16/25 19:23> Medical Records Data Attestation: I reviewed the patient's medical records. <Angela Rodriguez PA-C - Last Filed: 03/16/25 19:23> Lab Data Attestation: I reviewed the patient's lab results. <Angela Rodriguez PA-C - Last Filed: 03/16/25 19:23> Result diagrams: 03/16/25 13:33 03/16/25 13:33 <Angela Rodriguez PA-C - Last Filed: 03/16/25 19:23> Labs: Lab Results 03/16/25 03/16/25 03/16/25 Range/Units 13:32 13:33 16:35 WBC 7.0 (4.5-10.0) K/mm3 RBC 5.41 H (4.2-5.4) M/mm3 Hgb 15.8 H (12.0-15.0) g/dL Hct 48.7 H (37.0-47.0) % MCV 90.0 (80-100) fl MCH 29.2 (26-34) pg MCHC 32.4 (32-36) g/dl RDW 13.8 (11.5-14.5) % Plt Count 275 D (150-375) k/mm3 MPV 9.8 (7.4-10.4) fl Immature Gran % (Auto) 0.7 H (0-0.5) % Neut % (Auto) 64.1 (45.5-73.1) % Lymph % (Auto) 27.4 (18.3-44.2) % [place] % (Auto) 6.4 (2.6-8.5) % Eos % (Auto) 1.0 (0-4.4) % Baso % (Auto) 0.4 (0.2-1.2) % Lymph # (Auto) 1.91 (0.9-3.2) K/mm3 [place] # (Auto) 0.5 (0.1-0.6) K/mm3 Eos # (Auto) 0.1 (0-0.3) K/mm3 Baso # (Auto) 0.0 (0.0-0.1) K/mm3 Abs Immat Gran (auto) 0.05 H (0.00-0.031) K/mm3 Absolute Neuts (auto) 4.5 (1.3-6.7) K/mm3 Absolute Nucleated RBC 0.000 (0.0-0.012) K/mm3 Nucleated RBC % 0.0 (0.0-0.2) % PT 13.8 (11.1-14.7) Seconds INR 1.0 APTT 26.6 (22.3-36.8) Seconds Sodium 139 (137-145) mmol/L Potassium 4.1 (3.4-5.0) mmol/L Chloride 104 (98-107) mmol/L Carbon Dioxide 17 L (22-30) mmol/L Anion Gap 18 H (4-12) mmol/L BUN 32 H (7-17) mg/dL Creatinine 1.90 H (0.7-1.0) mg/dL Estim Creat Clear Calc 21 ml/min Estimated GFR 26 L (59 - ) Glucose 143 H (65-110) mg/dL Calcium 11.4 H (8.4-10.2) mg/dL Total Bilirubin 1.0 (0.2-1.3) mg/dL AST 36 (14-36) U/L ALT 31 (6-35) U/L Alkaline Phosphatase 85 (38-126) U/L Troponin I < 0.012 < 0.012 (0.000-0.034) ng/mL NT-Pro-B Natriuret Pep 420 H (19.9-100) pg/mL Total Protein 9.0 H (6.3-8.2) g/dL Albumin 5.2 H (3.5-5.1) g/dL Lipase 145 (23-300) U/L <Angela Rodriguez PA-C - Last Filed: 03/16/25 19:23> Lab Results 03/16/25 03/16/25 03/16/25 Range/Units 13:32 13:33 16:35 WBC 7.0 (4.5-10.0) K/mm3 RBC 5.41 H (4.2-5.4) M/mm3 Hgb 15.8 H (12.0-15.0) g/dL Hct 48.7 H (37.0-47.0) % MCV 90.0 (80-100) fl MCH 29.2 (26-34) pg MCHC 32.4 (32-36) g/dl RDW 13.8 (11.5-14.5) % Plt Count 275 D (150-375) k/mm3 MPV 9.8 (7.4-10.4) fl Immature Gran % (Auto) 0.7 H (0-0.5) % Neut % (Auto) 64.1 (45.5-73.1) % Lymph % (Auto) 27.4 (18.3-44.2) % [place] % (Auto) 6.4 (2.6-8.5) % Eos % (Auto) 1.0 (0-4.4) % Baso % (Auto) 0.4 (0.2-1.2) % Lymph # (Auto) 1.91 (0.9-3.2) K/mm3 [place] # (Auto) 0.5 (0.1-0.6) K/mm3 Eos # (Auto) 0.1 (0-0.3) K/mm3 Baso # (Auto) 0.0 (0.0-0.1) K/mm3 Abs Immat Gran (auto) 0.05 H (0.00-0.031) K/mm3 Absolute Neuts (auto) 4.5 (1.3-6.7) K/mm3 Absolute Nucleated RBC 0.000 (0.0-0.012) K/mm3 Nucleated RBC % 0.0 (0.0-0.2) % PT 13.8 (11.1-14.7) Seconds INR 1.0 APTT 26.6 (22.3-36.8) Seconds Sodium 139 (137-145) mmol/L Potassium 4.1 (3.4-5.0) mmol/L Chloride 104 (98-107) mmol/L Carbon Dioxide 17 L (22-30) mmol/L Anion Gap 18 H (4-12) mmol/L BUN 32 H (7-17) mg/dL Creatinine 1.90 H (0.7-1.0) mg/dL Estim Creat Clear Calc 21 ml/min Estimated GFR 26 L (59 - ) Glucose 143 H (65-110) mg/dL Calcium 11.4 H (8.4-10.2) mg/dL Total Bilirubin 1.0 (0.2-1.3) mg/dL AST 36 (14-36) U/L ALT 31 (6-35) U/L Alkaline Phosphatase 85 (38-126) U/L Troponin I < 0.012 < 0.012 (0.000-0.034) ng/mL NT-Pro-B Natriuret Pep 420 H (19.9-100) pg/mL Total Protein 9.0 H (6.3-8.2) g/dL Albumin 5.2 H (3.5-5.1) g/dL Lipase 145 (23-300) U/L <Malcolm Welch MD - Last Filed: 03/16/25 18:43> Imaging Data Attestation: I personally reviewed and interpreted this imaging study as follows: <Angela Rodriguez PA-C - Last Filed: 03/16/25 19:23> Radiologist's impression: ITS Impressions Chest X-Ray 03/16/25 14:40 IMPRESSION: No acute cardiopulmonary pathology. <Angela Rodriguez PA-C - Last Filed: 03/16/25 19:23> ECG Data EKG #1: Attestation: I personally reviewed and interpreted this ECG as follows: <Angela Rodriguez PA-C - Last Filed: 03/16/25 19:23> ECG completion date: 03/16/25 <AMBIKA Cordova Last Filed: 03/16/25 19:23> ECG completion time: 13:09 <AMBIKA Cordova Last Filed: 03/16/25 19:23> EKG Interpretation: tachycardia (105), atrial fibrillation (RVR) and non-specific ST changes <AMBIKA Cordova Last Filed: 03/16/25 19:23> Discharge Plan Discharge Clinical Impression: Paroxysmal A-fib, JENS (acute kidney injury), Near syncope Chest pain Qualifiers: Chest pain type: unspecified Qualified Code(s): R07.9 - Chest pain, unspecified <AMBIKA Cordova Last Filed: 03/16/25 19:23> Patient Disposition: Still a Patient <AMBIKA Cordova Last Filed: 03/16/25 19:23> Condition: Stable <AMBIKA Cordova Last Filed: 03/16/25 19:23> Patient Language: Kiswahili <AMBIKA Cordova Last Filed: 03/16/25 19:23> Prescriptions: No Action anastrozole 1 mg tablet 1 mg PO DAILY Eliquis 5 mg tablet 5 mg PO BID lisinopril 40 mg tablet 40 mg PO DAILY celecoxib [Celebrex] 200 mg capsule 200 mg PO DAILY PRN (Reason: Pain, Mild) Patient Comments: DOES NOT TAKE OFTEN pantoprazole 40 mg tablet,delayed release (DR/EC) 40 mg PO QAM Qty: 30 0RF atorvastatin [Lipitor] 20 mg tablet 20 mg PO DAILY Qty: 90 2RF zolpidem [Ambien] 10 mg tablet 5 mg PO QHS PRN (Reason: Insomnia) Qty: 30 0RF <AMBIKA Cordova Last Filed: 03/16/25 19:23> Follow-up/Referrals: Ryne Gomes DO [Primary Care Provider] - <AMBIKA Cordova Last Filed: 03/16/25 19:23>
--- OUTSIDE RECORDS SUMMARY | 2025-03-16 14:23 | XMS_ITS | Referral Summary ---
Author Organization [facility], [facility] Address [address] [place] [address] Care Team Providers Care Urban Planning Teacher Name Role Phone Natalie Cerrato MD Unavailable Joaquin Hurd MD Unavailable Gretta Heath MD Unavailable [phone] Ryne Gomes DO Primary Care Provider [phone] Tobin Francis MD Unavailable [phone] Encounters Date Type Department Care Team Description 03/02/2025 Telephone [facility] Cardiology [address] [facility] [address] [place] [address] Bret Freeman MD 02/22/2025 Telephone [facility] Surgery [address] [facility] [address] [place] [address] Emmanuel Mantilla MD 02/22/2025 Telephone [facility] Cardiology [address] [facility] 8th [place] [address] [place] [address] Tobin Francis MD 02/22/2025 10:15 AM CDT Office Visit [facility] Surgery [address] [facility] [address] [place] [address] Emmanuel Mantilla MD Status post breast reconstruction (Primary Dx); Ruptured silicone breast implant, initial encounter 02/07/2025 Telephone [facility] Oncology [address] [facility] Floor 8 [place] [address] Suzette Howell, RN CT chest with schedule for 03/2302/04/2025 Results Follow-Up [facility] Cardiology [address] [facility] Medical Office Building [address] [place] [address] Chest W Contrast 02/04/2025 10:18 AM CDT - 02/04/2025 11:59 PM CDT Hospital Encounter [facility] [address] [place] [address] Persistent atrial fibrillation (HCC); ALEXIS (dyspnea on exertion); H/O sarcoidosis; Gastroesophageal reflux disease without esophagitis; HX: breast cancer Discharge Disposition: Discharge to home or self care 01/31/2025 Telephone [facility] Cardiology [address] [place] [address] 8th [place] [address] [place] [address] Tobin Francis MD 01/26/2025 Results Follow-Up [facility] Cardiology [address] [place] [address] 8th [place] [address] [place] [address] Nati Zapata NP ECG 12 lead 01/26/2025 2:15 PM CDT Office Visit [facility] Cardiology [address] [place] [address] 8th [place] [address] [place] [address] Nati Zapata NP Paroxysmal atrial fibrillation (HCC) (Primary Dx); Persistent atrial fibrillation (HCC); ALEXIS (dyspnea on exertion); H/O sarcoidosis; Gastroesophageal reflux disease without esophagitis; HX: breast cancer 01/14/2025 Telephone [facility] Cardiology [address] [facility] [address] [place] [address] Bret Freeman MD 01/11/2025 1:03 PM CDT - 01/11/2025 11:59 PM CDT Hospital Encounter [facility] [address] [place] [address] History of breast reconstruction Discharge Disposition: Discharge to home or self care 01/10/2025 Orders Only [facility] Oncology [address] [facility] Floor 8 [place] [address] Suzette Howell RN Malignant neoplasm of lower-inner quadrant of left breast in female, estrogen receptor positive (HCC) 12/24/2024 Orders Only [facility] Oncology [address] [facility] Floor 8 [place] [address] Suzette Howell RN Malignant neoplasm of lower-inner quadrant of left breast in female, estrogen receptor positive (HCC) (Primary Dx); Lymph node enlargement 12/24/2024 Telephone [facility] Surgery [address] [facility] [address] [place] [address] Emmanuel Mantilla MD from Last [...] (07/24/2021): Added automatically from request for surgery [id number] S/P breast reconstruction 02/19/2021 Overview (02/19/2021): Added automatically from request for surgery [id number] Idiopathic peripheral neuropathy 09/12/2020 Assessment & Plan (09/03/2021 11:46 AM SHIRT TRIMMER): Patient continues on gabapentin for treatment of dysesthesia and paresthesia associated with idiopathic peripheral neuropathy in her lower extremities. She cites good tolerability and efficacy. I have renewed her gabapentin 300 mg t.i.d. as previously prescribed. She will follow-up in neurology clinic in a year. Assessment & Plan (09/12/2020 12:55 PM SHIRT TRIMMER): Patient is a former patient of [facility] being treated for idiopathic peripheral neuropathy manifested as neuropathic pain and numbness in her feet and legs. Prior medical records from [facility] have been requested but are unavailable [...] 09/12/2020 Assessment & Plan (09/12/2020 12:56 PM SHIRT TRIMMER): Patient has history of peripheral neuropathy with neuropathic pain as a presenting symptom. Gabapentin 300 mg t.i.d. has been historically prescribed with good tolerability and efficacy. 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/2019 [facility] (current) use of aromatase inhibitors 07/01/2019 Malignant neoplasm of lower- inner quadrant of breast in female, estrogen receptor positive 07/01/2019 HX: breast cancer 07/01/2019 Bone disease 07/01/2019 Labile hypertension 04/12/2019 Dizziness 10/06/2018 History of breast cancer 05/14/2018 Assessment & Plan (12/15/2024 8:05 AM SHIRT TRIMMER): Continue anastrazole Assessment & Plan (12/14/2024 2:03 PM SHIRT TRIMMER): Continue anastrazole H/O sarcoidosis 02/20/2018 ALEXIS (dyspnea [...] anticoagulation Assessment & Plan (12/15/2024 8:06 AM SHIRT TRIMMER): For atrial fibrillation, continue apixaban Assessment & Plan (12/14/2024 2:03 PM SHIRT TRIMMER): Resume Catherine burdick per cardiology post procedure recs Dehydration 05/06/2016 Benign hypertension 04/18/2016 Overview (01/30/2017): HTN (hypertension), benign Assessment & Plan (12/15/2024 8:06 AM SHIRT TRIMMER): Continue home lisinopril 40mg daily Assessment & Plan (12/14/2024 2:03 PM SHIRT TRIMMER): BP controlled post ablation. Continue home lisinopril 40 daily Paroxysmal atrial fibrillation 04/18/2016 Overview (01/30/2017): Paroxysmal atrial fibrillation Assessment & Plan (12/15/2024 8:05 AM SHIRT TRIMMER): Presented for planned EP study with ablation [...] home Assessment & Plan (12/14/2024 2:13 PM SHIRT TRIMMER): Presented for planned EPS with ablation under [...] on file Legal Sex Female 8:52 PM SHIRT TRIMMER Gender Identity Female 12/13/2020 9:57 AM SHIRT TRIMMER Sexual Orientation Straight 12/13/2020 9: 57 AM SHIRT TRIMMER Last Filed Vital Signs Vital Sign Reading Time Taken Comments Blood Pressure 163/98 01/26/2025 2:18 PM CDT Pulse 88 01/26/2025 2:18 PM CDT Temperature 36.5 C (97.7 F) 12/15/2024 8:15 AM SHIRT TRIMMER Respiratory Rate 16 12/15/2024 8:15 AM SHIRT TRIMMER Oxygen Saturation 100% 01/26/2025 2:18 PM CDT Inhaled Oxygen Concentration - - Weight 68.5 kg (151 lb) 02/22/2025 10:03 AM CDT Height 161 cm (5' 3.4 ) 02/22/2025 10:03 AM CDT Body Mass Index 26.41 02/22/2025 10:03 AM CDT Plan of Treatment Not on file Medical Devices Implanted Type Area Pharmacy Scheduler Device Identifier Shelf Expiration Date Model / Serial / Lot [employer] Vascade Mvp 6-12fr Venous Closure [id number] - [id number] - [id number] Implanted:Qty : 1 on 12/14/2024 by Tobin Francis MD at [facility] Collagen Right: Femoral Vein [employer] 08/06/2026 [id number] [id number] / [id number] / [id number] [id number] [employer] Vascade Mvp 6-12fr Venous Closure [id number] - [id number] - [id number] Implanted:Qty : 1 on 12/14/2024 by Tobin Francis MD at [facility] Collagen Right: Femoral Vein [employer] 08/06/2026 800-612C- 10U / [id number] 16B / [id number] [id number] [employer] Vascade Mvp 6-12fr Venous Closure [id number] - [id number] - [id number] Implanted:Qty : 1 on 12/14/2024 by Tobin Francis MD at [facility] Collagen Right: Femoral Vein [employer] 08/06/2026 800-612C- 10U / [id number] [id number] / [id number] 16B Procedures Procedure Name Priority Date/Time Associated [...] Read Routine (OP Routine) 10/13/2024 3:19 PM SHIRT TRIMMER History of breast cancer Breast cancer screening by mammogram DEXA AXIAL SKELETON BONE DENSITY 1 OR MORE SITES Schedule Routine, Read Routine (OP Routine) 04/07/2024 11:17 AM CDT 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, estrogen receptor positive, unspecified laterality (HCC) [facility] (current) use of aromatase inhibitors COLONOSCOPY 09/26/2021 10:27 AM SHIRT TRIMMER SERUM HEPATITIS C AB Routine 04/21/2015 5:19 [...] DEVICE Fin al Result Performing Organization Address City/State/[facility] Co de Phone Number [facility] Department [place] [address] * ECG 12 lead (01/26/2025 2:30 PM [...] W Mello Unilateral Only (10/13/2024 3:19 PM SHIRT TRIMMER) Anatomical Region Laterality Modality Breast Right Mammography Narrative 10/14/2024 3:16 PM SHIRT TRIMMER Mammogram Technique: Right Breast Digital Breast Tomosynthesis, Unilateral C-view 2D Screening mammogram. Views obtained: . Computer Aided Detection was performed. Mammogram Findings: The present examination has been compared to prior imaging studies performed at [facility] on 09/18/2021, 09/25/2022 and 10/10/2023. There are [...] compared to prior imaging studies performed at [facility] on 09/18/2021, 09/25/2022 and 10/10/2023. There are [...] inal Result * COLONOSCOPY (09/26/2021 10:27 AM SHIRT TRIMMER) Anatomical Region Laterality Modality Other Narrative Procedure [...] The scope was passed under direct vision.The [id number] was introduced through the anusand advanced to [...] During normal business hours - Please call [facility] Coordinator: [phone] After hours, evening, nights, weekends and holidays- Please call the hospital hot punch press operator at and ask for the GI fellow floor coverings salesperson. Electronically by Dr Trang Alfred Trang Alfred [...] 04/26/2015 5:00 PM CDT Test performed at [facility] [address] [place] [address] Director: CONRAD JONES DO,MPH us Historical Provider LAB BLOOD ORDERABLES Poornima mcallister Result HISTORICAL RESULTS from Last 3 Months or Most Recently Relevant to Health Maintenance Insurance [facility] [place] [id number] UHC MEDICARE ADVANTAGE 4 [facility] [place] [place] [id number] [facility] MEDICARE ADVANTAGE Advance Directives For more information, please contact: [phone] * Full Code (Latest Code Status on File) Date Activated Date Inactivated Comments 09/26/2021 9:54 AM 09/26/2021 3:23 PM Care Teams Urban Planning Teacher Relationship Specialty Start Date End Date Ryne Gomes DO [address] [facility] 21 [place] [address] PCP - General Internal Medicine 07/19/24 Natalie Cerrato MD [address] [place] [address] Surgeon Surgical Oncology 05/01/18 Joaquin Hurd MD [address] [place] [address] Consulting Physician Cardiology 07/21/19 Gretta Heath MD [address] [facility] [address] [place] [address] Medical Oncologist/Pearl Peller Medical Oncology 07/06/20 Tobin Francis MD [address] [address] Consulting Physician Cardiology 10/06/24
--- OUTSIDE RECORDS SUMMARY | 2025-03-16 14:23 | XMS_ITS | Encounter Summary ---
Author Organization [facility] [email or web address] Address [address] [place] [address] Care Team Providers Care Operations Systems Specialist Name Role Phone Stewart Campbell DO Primary Care Provider [phone] Encounter Details Date Type Department Care Team ([facility] Contact Info) Description 03/14/2025 Orders Only [facility] Oncology and Hematology [address] [place] [address] Vineet Simpson MD [facility] [employer] [address] [place] [address] Erythrocytosis Social History Tobacco Use Types [...] Description 06/16/2025 11:00 AM CDT Office Visit [facility] Oncology and Hematology - Jerem[address] [place] [address] Vineet Simpson MD [facility] [employer] [address] [place] [address] documented as of this encounter Visit Diagnoses Diagnosis Erythrocytosis Reserved 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
--- OUTSIDE RECORDS SUMMARY | 2025-03-16 14:23 | XMS_ITS | Encounter Summary ---
Author Organization [facility] Address [address] [place] [address] Phone Care Team Providers Care Life Teacher Name Role Phone Stewart Campbell MD Primary Care Provider [phone] Natalie Cerrato MD Unavailable [phone] Joaquin Hurd MD Unavailable [phone] Gretta Heath MD Unavailable [phone] Ryne Gomes DO Primary Care Provider [phone] Tobin Francis MD Unavailable [phone] Encounter Details Date Type Department Care Team (Late st Contact Info) Description 04/07/2024 Orders Only [facility] Oncology [address] [facility] [address] [place] [address] Gretta Heath MD [address] [facility] [address] [place] [address] Malignant neoplasm of lower-inner quadrant [...] on file Legal Sex Female 8:52 PM MACHINE SPRING FORMER Gender Identity Female 12/13/2020 9:57 AM MACHINE SPRING FORMER Sexual Orientation Straight 12/13/2020 9: 57 AM MACHINE SPRING FORMER documented as of this encounter Plan of Treatment Not on file documented as of this encounter Visit Diagnoses Diagnosis Malignant neoplasm of lower-inner quadrant of left breast in female, estrogen receptor positive (HCC)- Primary documented in this encounter Care Teams Life Teacher Relationship Specialty Start Date End Date Stewart Campbell MD [address] [facility] [address] [place] [address] PCP - General 01/24/17 07/18/24 Ryne Gomes DO [address] [facility] [address] [place] [address] PCP - General Internal Medicine 07/19/24 Natalie Cerrato MD [address] [place] [address] Surgeon Surgical Oncology 05/01/18 Joaquin Hurd MD [address] [place] [address] Consulting Physician Cardiology 07/21/19 Gretta Heath MD [address] [facility] [address] [place] [address] Medical Oncologist/Armature Varnisher Medical Oncology 07/06/20 Tobin Francis MD [address] [address] Consulting Physician Cardiology 10/06/24 documented as of this encounter
--- OUTSIDE RECORDS SUMMARY | 2025-03-16 14:23 | XMS_ITS | Encounter Summary ---
Author Organization [facility] Address [address] [place] [address] Phone Care Team Providers Care Security Installer Name Role Phone Natalie Cerrato MD Unavailable [phone] Joaquin Hurd MD Unavailable Gretta Heath MD Unavailable [phone] Ryne Gomes DO Primary Care Provider [phone] Tobin Francis MD Unavailable [phone] Encounter Details Date Type Department Care Team (Late st Contact Info) Description 02/22/2025 Telephone [facility] Cardiology [address] [facility] 8th [place] [address] [place] [address] Tobin Francis MD [address] [facility] [address] [place], [place] [id number] Social History Tobacco Use Types Packs/Day Years [...] on file Legal Sex Female 8:52 PM HEARTH FEEDER Gender Identity Female 12/13/2020 9:57 AM HEARTH FEEDER Sexual Orientation Straight 12/13/2020 9: 57 AM HEARTH FEEDER documented as of this encounter Miscellaneous Notes [...] Angela Landon - 02/22/2025 3:24 PM CDT [facility] is calling in regards to [...] on filedocumented in this encounter Care Teams Security Installer Relationship Specialty Start Date End Date Ryne Gomes DO [address] [address] PCP - General Internal Medicine 07/19/24 Natalie Cerrato MD [address] [place] [address] Surgeon Surgical Oncology 05/01/18 Joaquin Hurd MD [address] [place] [address] Consulting Physician Cardiology 07/21/19 Gretta Heath MD [address] [place] [address] Medical Oncologist/Hide And Skin Processing Worker Medical Oncology 07/06/20 Tobin Francis MD [address] [place] [address] Consulting Physician Cardiology 10/06/24 documented as of this encounter
--- OUTSIDE RECORDS SUMMARY | 2025-03-16 14:23 | XMS_ITS | Encounter Summary ---
Author Organization [facility] Address [address] [place] [address] Phone Care Team Providers Care Process Controls Technician Name Role Phone Natalie Cerrato MD Unavailable Joaquin Hurd MD Unavailable Gretta Heath MD Unavailable [phone] Ryne Gomes DO Primary Care Provider [phone] Tobin Francis MD Unavailable [phone] Encounter Details Date Type Department Care Team (Late st Contact Info) Description 02/04/2025 Results Follow-Up [facility] Cardiology [address] [facility] Medical Office Building [address] [place] [address] Nati Zapata, SARAH [address] [facility] [address] [place] [address] CT Chest W Contrast Social History Tobacco [...] on file Legal Sex Female 8:52 PM LABOR TRAINING MANAGER Gender Identity Female 12/13/2020 9:57 AM LABOR TRAINING MANAGER Sexual Orientation Straight 12/13/2020 9: 57 AM LABOR TRAINING MANAGER documented as of this encounter Plan of Treatment Not on file documented as of this encounter Visit Diagnoses Not on filedocumented in this encounter Care Teams Process Controls Technician Relationship Specialty Start Date End Date Ryne Gomes DO [address] [facility] [address] [place] [address] PCP - General Internal Medicine 07/19/24 Natalie Cerrato MD [address] [place] [address] Surgeon Surgical Oncology 05/01/18 Joaquin Hurd MD [address] [place] [address] Consulting Physician Cardiology 07/21/19 Gretta Heath MD [address] [facility] [address] [place] [address] Medical Oncologist/Test Tech Medical Oncology 07/06/20 Tobin Francis MD [address] [address] Consulting Physician Cardiology 10/06/24 documented as of this encounter
--- OUTSIDE RECORDS SUMMARY | 2025-03-16 14:23 | XMS_ITS | Encounter Summary ---
Author Organization [facility] Address [address] [place] [address] Care Team Providers Care Lead Customer Service Representative Name Role Phone Stewart Campbell DO Primary Care Provider [phone] Encounter Details Date Type Department Care Team [...] Description 06/16/2025 11:00 AM CDT Office Visit [facility] Oncology and Hematology - Jeremias [address] [facility] 200 [place] [address] [place] [address] [place] [address] [address] [place] [address] documented as of this encounter Visit Diagnoses Not on filedocumented in this encounter Care Teams Lead Customer Service Representative Relationship Specialty Start Date End Date Stewart Campbell DO [address] [facility] 120 [place] [address] PCP - General Internal Medicine 05/25/20 documented as of this encounter
--- OUTSIDE RECORDS SUMMARY | 2025-03-16 14:23 | XMS_ITS | Clinical Summary ---
Author Organization [facility] Address [address] [place] [address] Care Team Providers Care Boiler Installer Name Role Phone Natalie Cerrato MD Unavailable [phone] Joaquin Hurd MD Unavailable [phone] Gretta Heath MD Unavailable [phone] Ryne Gomes DO Primary Care Provider [phone] Tobin Francis MD Unavailable [phone] Allergies No known active allergies Medications multivitamin [...] (07/24/2021): Added automatically from request for surgery [id number] S/P breast reconstruction 02/19/2021 Overview (02/19/2021): Added automatically from request for surgery [id number] Idiopathic peripheral neuropathy 09/12/2020 Assessment & Plan (09/03/2021 11:46 AM RENDERING EQUIPMENT TENDER): Patient continues on gabapentin for treatment of dysesthesia and paresthesia associated with idiopathic peripheral neuropathy in her lower extremities. She cites good tolerability and efficacy. I have renewed her gabapentin 300 mg t.i.d. as previously prescribed. She will follow-up in neurology clinic in a year. Assessment & Plan (09/12/2020 12:55 PM RENDERING EQUIPMENT TENDER): Patient is a former patient of [facility] being treated for idiopathic peripheral neuropathy manifested as neuropathic pain and numbness in her feet and legs. Prior medical records from [facility] have been requested but are unavailable [...] 09/12/2020 Assessment & Plan (09/12/2020 12:56 PM RENDERING EQUIPMENT TENDER): Patient has history of peripheral neuropathy with neuropathic pain as a presenting symptom. Gabapentin 300 mg t.i.d. has been historically prescribed with good tolerability and efficacy. 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 07/01/2019 Malignant neoplasm of lower- inner quadrant of breast in female, estrogen receptor positive 07/01/2019 HX: breast cancer 07/01/2019 Bone disease 07/01/2019 Labile hypertension 04/12/2019 Dizziness 10/06/2018 History of breast cancer 05/14/2018 Assessment & Plan (12/15/2024 8:05 AM RENDERING EQUIPMENT TENDER): Continue anastrazole Assessment & Plan (12/14/2024 2:03 PM RENDERING EQUIPMENT TENDER): Continue anastrazole H/O sarcoidosis 02/20/2018 ALEXIS (dyspnea [...] anticoagulation Assessment & Plan (12/15/2024 8:06 AM RENDERING EQUIPMENT TENDER): For atrial fibrillation, continue apixaban Assessment & Plan (12/14/2024 2:03 PM RENDERING EQUIPMENT TENDER): Resume Eliquis tonight per cardiology post procedure recs Dehydration 05/06/2016 Benign hypertension 04/18/2016 Overview (01/30/2017): HTN (hypertension), benign Assessment & Plan (12/15/2024 8:06 AM RENDERING EQUIPMENT TENDER): Continue home lisinopril 40mg daily Assessment & Plan (12/14/2024 2:03 PM RENDERING EQUIPMENT TENDER): BP controlled post ablation. Continue home lisinopril 40 daily Paroxysmal atrial fibrillation 04/18/2016 Overview (01/30/2017): Paroxysmal atrial fibrillation Assessment & Plan (12/15/2024 8:05 AM RENDERING EQUIPMENT TENDER): Presented for planned EP study with ablation [...] home Assessment & Plan (12/14/2024 2:13 PM RENDERING EQUIPMENT TENDER): Presented for planned EPS with ablation under [...] Type Department Care Team Description 03/02/2025 Telephone [facility] Cardiology [address] [facility] [address] [place] [address] Bret Freeman MD 02/22/2025 10:15 AM CDT Office Visit [facility] Surgery [address] [facility] [address] [place] [phone] Emmanuel Mantilla MD Status post breast reconstruction (Primary Dx); Ruptured silicone breast implant, initial encounter 02/22/2025 Telephone [facility] Surgery [address] [facility] [address] [place] [address] Emmanuel Mantilla MD 02/22/2025 Telephone [facility] Cardiology [address] [place] [address] Advanced Medicine 8th [place] [address] [place] [address] Tobin Francis MD 02/07/2025 Telephone [facility] Oncology [address] [facility] Floor 8 [place] [address] Suzette Howell, ROBERT CT chest with schedule for 03/2302/04/2025 10:18 AM CDT - 02/04/2025 11:59 PM CDT Hospital Encounter [facility] [address] [place] [address] Persistent atrial fibrillation (HCC); ALEXIS (dyspnea on exertion); H/O sarcoidosis; Gastroesophageal reflux disease without esophagitis; HX: breast cancer Discharge Disposition: Discharge to home or self care 02/04/2025 Results Follow-Up [facility] Cardiology [address] [facility] Medical Office Building [address] [place] [address] Chest W Contrast 01/31/2025 Telephone [facility] Cardiology [address] [place] [address] 8th [place] [address] [place] [address] Tobin Francis MD 01/26/2025 2:15 PM CDT Office Visit [facility] Cardiology [address] [place] [address] 8th [place] [address] [place] [address] Nati Zapata NP Paroxysmal atrial fibrillation (HCC) (Primary Dx); Persistent atrial fibrillation (HCC); ALEXIS (dyspnea on exertion); H/O sarcoidosis; Gastroesophageal reflux disease without esophagitis; HX: breast cancer 01/26/2025 Results Follow-Up [facility] Cardiology [address] [place] [address] 8th [place] [address] [place] [address] Nati Zapata NP ECG 12 lead 01/14/2025 Telephone [facility] Cardiology [address] [place] [address] Bret Freeman MD 01/11/2025 1:03 PM CDT - 01/11/2025 11:59 PM CDT Hospital Encounter [facility] Advanced Medicine Breast Imaging [facility] ([facility]) [address] [place] [address] History of breast reconstruction Discharge Disposition: Discharge to home or self care 01/10/2025 Orders Only [facility] Oncology [address] [place] [address] 8 [place] [address] Suzette Howell, RN Malignant neoplasm of lower-inner quadrant of left breast in female, estrogen receptor positive (HCC) 12/24/2024 Orders Only [facility] Oncology [address] [place] [address] 8 [place] [address] Suzette Howell RN Malignant neoplasm of lower-inner quadrant of left breast in female, estrogen receptor positive (HCC) (Primary Dx); Lymph node enlargement 12/24/2024 Telephone [facility] Surgery [address] [facility] [place] [phone] Emmanuel Mantilla MD from Last 3 Months [...] ATRIAL FIBRILLATION (A-FIB) VIA PULMONARY VEIN ISOLATION [id number]; Surgeon: Tobin Francis MD; Location: [facility] EP LAB; Service: Cardiovascular; Laterality: N/A; 3rd case Medical devices from this surgery are in the Medical Devices section. CARDIAC ELECTROPHYSIOLOGY PROCEDURE 12/14/2024 N/A Procedure: ABLATION ATRIAL FIBRILLATION ADDITIONAL LINE OR FOCI (+) [id number]; Surgeon: Tobin Francis MD; Location: [facility] EP LAB; Service: Cardiovascular; Laterality: N/A; [...] 3 Alive Sister 4 Alive Son Jefferson tSewart Social History Tobacco Use Types Packs/Day Years [...] on file Legal Sex Female 8:52 PM RENDERING EQUIPMENT TENDER Gender Identity Female 12/13/2020 9:57 AM RENDERING EQUIPMENT TENDER Sexual Orientation Straight 12/13/2020 9: 57 AM RENDERING EQUIPMENT TENDER Obstetrics History Last Filed Vital Signs Vital Sign Reading Time Taken Comments Blood Pressure 163/98 01/26/2025 2:18 PM CDT Pulse 88 01/26/2025 2:18 PM CDT Temperature 36.5 C (97.7 F) 12/15/2024 8:15 AM RENDERING EQUIPMENT TENDER Respiratory Rate 16 12/15/2024 8:15 AM RENDERING EQUIPMENT TENDER Oxygen Saturation 100% 01/26/2025 2:18 PM CDT [...] history exists Medical Devices Implanted Type Area Wheel Filler Device Identifier Shelf Expiration Date Model / Serial / Lot [employer] Vascade Mvp 6-12fr Venous Closure [id number] - [id number] - [id number] Implanted:Qty : 1 on 12/14/2024 by Tobin Francis MD at [facility] Collagen Right: Femoral Vein [employer] 08/06/2026 [id number] [id number] / [id number] / [id number] [id number] [employer] Vascade Mvp 6-12fr Venous Closure [id number] - [id number] - [id number] Implanted:Qty : 1 on 12/14/2024 by Tobin Francis MD at [facility] Collagen Right: Femoral Vein [employer] 08/06/2026 [id number] 10U / [id number] 16B / [id number] [id number] [employer] Vascade Mvp 6-12fr Venous Closure [id number] - [id number] - [id number] Implanted:Qty : 1 on 12/14/2024 by Tobin Francis MD at [facility] Collagen Right: Femoral Vein [employer] 08/06/2026 [id number] [id number] / [id number] [id number] / [id number] 16B Procedures Procedure Name Priority Date/Time Associated [...] Read Routine (OP Routine) 10/13/2024 3:19 PM RENDERING EQUIPMENT TENDER History of breast cancer Breast cancer screening by mammogram DEXA AXIAL SKELETON BONE DENSITY 1 OR MORE SITES Schedule Routine, Read Routine (OP Routine) 04/07/2024 11:17 AM CDT 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, estrogen receptor positive, unspecified laterality (HCC) 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 Nati Zapata BEAM PRESS OPERATOR IMG CT PROCEDURES Final R esult * (ABNORMAL) POCT creatinine (02/04/2025 10:35 AM CDT) Creatinine POC 1.6(H) 0.6 - 1.1 mg/dL Blood 02/04/2025 10:3 5 AM CDT 02/04/2025 10:35 AM CDT Ryne Gomes DO LAB POCT ORDERABLES - DEVICE Fin al Result [facility] [place] [address] * ECG 12 lead (01/26/2025 2:30 PM CDT) us Nati Zapata BEAM PRESS OPERATOR ECG ORDERABLES Edited Re sult - Final [...] W Mello Unilateral Only (10/13/2024 3:19 PM RENDERING EQUIPMENT TENDER) Anatomical Region Laterality Modality Breast Right Mammography Narrative 10/14/2024 3:16 PM RENDERING EQUIPMENT TENDER Mammogram Technique: Right Breast Digital Breast Tomosynthesis, Unilateral C-view 2D Screening mammogram. Views obtained: . Computer Aided Detection was performed. Mammogram Findings: The present examination has been compared to prior imaging studies performed at [facility] on 09/18/2021, 09/25/2022 and 10/10/2023. [...] compared to prior imaging studies performed at [facility] on 09/18/2021, 09/25/2022 and 10/10/2023. [...] inal Result * COLONOSCOPY (09/26/2021 10:27 AM RENDERING EQUIPMENT TENDER) Anatomical Region Laterality Modality Other Narrative Procedure Note Trang Alfred MD - 09/26/2021 10:27 AM CST ENDOSCOPY LAB Patient Name: Carmen Stewart Procedure Date: 09/26/2021 10:27 AM Date of : 1950 Admit Type: Outpatient Age: 70 Gender: Female Attending MD: Trang Alfred M.D. Room: [facility] ENDOSCOPY ROOM 01 Note Status: Finalized [...] The scope was passed under direct vision.The [id number] was introduced through the anusand advanced to [...] During normal business hours - [facility] Coord[facility]: [phone] After hours, evening, nights, weekends and holidays- Please call the hospital hot header operator at and ask for the GI fellow trailhead construction worker. Electronically by Dr Trang Alfred Trang Alfred [...] 04/26/2015 5:00 PM CDT Test performed at [facility] [address] [place] [address] Director: CONRAD JONES DO,MPH us Historical Provider LAB BLOOD ORDERABLES Poornima l Result HISTORICAL RESULTS from Last 3 Months or Most Recently Relevant to Health Maintenance Insurance [facility] MEDICARE ADVANTAGE [facility] MEDIC[facility] Address: [address] [address] [place] [address] [facility] MEDICARE ADVANTAGE [facility] MEDICARE Address: [address] [address] [place] [address] [facility] MEDICARE ADVANTAGE [facility] MEDICARE Address: [address] [address] [place] [address] Advance Directives For more information, please contact: [phone] * Full Code (Latest Code Status on File) Date Activated Date Inactivated Comments 09/26/2021 9:54 AM 09/26/2021 3:23 PM Care Teams Boiler Installer Relationship Specialty Start Date End Date Ryne Gomes DO [address] [address] PCP - General Internal Medicine 07/19/24 Natalie Cerrato MD [address] [place] [address] Surgeon Surgical Oncology 05/01/18 Joaquin Hurd MD [address] [place] [address] Consulting Physician Cardiology 07/21/19 Gretta Heath MD [address] [place] [address] Medical Oncologist/Powder Compounder Medical Oncology 07/06/20 Tobin Francis MD [address] [place] [address] Consulting Physician Cardiology 10/06/24
--- OUTSIDE RECORDS SUMMARY | 2025-03-16 14:23 | XMS_ITS | Encounter Summary ---
Author Organization [facility] Address [address] [place] [address] Phone Care Team Providers Care Environmental Officer Name Role Phone Natalie Cerrato MD Unavailable Joaquin Hurd MD Unavailable Gretta Heath MD Unavailable [phone] Ryne Gomes DO Primary Care Provider [phone] Tobin Francis MD Unavailable [phone] Encounter Details Date Type Department Care Team (Late st Contact Info) Description 01/26/2025 Results Follow-Up [facility] Cardiology [address] [facility] Advanced Medicine 8th [place] [address] [place] [address] Nati Zapata, SARAH [address] [facility] [address] [place] [address] ECG 12 lead Social History Tobacco Use [...] on file Legal Sex Female 8:52 PM SALICYLIC ACID BLENDER Gender Identity Female 12/13/2020 9:57 AM SALICYLIC ACID BLENDER Sexual Orientation Straight 12/13/2020 9: 57 AM SALICYLIC ACID BLENDER documented as of this encounter Plan of Treatment Not on file documented as of this encounter Visit Diagnoses Not on filedocumented in this encounter Care Teams Environmental Officer Relationship Specialty Start Date End Date Ryne Gomes DO [address] [facility] [address] [place] [address] PCP - General Internal Medicine 07/19/24 Natalie Cerrato MD [address] [place] [address] Surgeon Surgical Oncology 05/01/18 Joaquin Hurd MD [address] [place] [address] Consulting Physician Cardiology 07/21/19 Gretta Heath MD [address] [facility] [address] [place] [address] Medical Oncologist/Stripper And Opaquer Apprentice Medical Oncology 07/06/20 Tobin Francis MD [address] [address] Consulting Physician Cardiology 10/06/24 documented as of this encounter
--- OUTSIDE RECORDS SUMMARY | 2025-03-16 14:23 | XMS_ITS | Encounter Summary ---
Author Organization [facility] Address [address] [place] [address] Care Team Providers Care Ironworker Helper Shop Name Role Phone Stewart Campbell DO Primary Care Provider [phone] Encounter Details Date Type Department Care Team [...] Description 06/16/2025 11:00 AM CDT Office Visit [facility] Oncology and Hematology - Jeremias [address] [facility] [address] [place] [address] [place] [address] [place] [address] [address] [place] [address] documented as of this encounter Visit Diagnoses Not on filedocumented in this encounter Care Teams Ironworker Helper Shop Relationship Specialty Start Date End Date Stewart Campbell DO [address] [facility] [address] [place] [address] PCP - General Internal Medicine 05/25/20 documented as of this encounter
--- OUTSIDE RECORDS SUMMARY | 2025-03-16 14:23 | XMS_ITS | Continuity of Care Document ---
Author Organization [facility] Address [address] [place] [address] [address] [place] [address] Phone Care Team Providers Care Die Cutting Machine Operator Name Role Phone Daryl Livingston Unavailable Unavailable Procedures Procedure Date Office/outpatient Visit, Est Office/outpatient Visit, Est Eye Exam & Treatment Office/outpatient Visit, [facility] Advance Directives Directive Yes / No Effective Date File Name No Information Encounters Encounter Description Practice Location Reason(s) For Visit Diagnoses Date Provider Providers Copied on Encounter Office/outpat ient Visit, [facility], [address] [place] [address] [address], [place], [place], [id number], tel:[phone] [facility] No Information Mar- 3-201 0 Miki Brito. [address] [facility] [place] [address], [place], [place], [facility], . tel:[phone] Office/outpat ient Visit, [facility], [address] [place] [address] [address], [place], [place], [id number], [place] tel:[phone] [facility] No Information 1 0-200 9 Aleyda Jorge [address] , [address], [place], [place], [facility], [place]. tel:[phone] [facility], [address] [place] [address] [address], [place], [place], [id number], [place] tel:[phone] [facility] No Information 2 1-200 8 Aleyda Jorge [address], [place], [address], [place]. tel:[phone] Office/outpat ient Visit, [facility], [address], [place], [place], [id number], [place] tel:[phone] [facility] No Information 200 7 Chante Ortiz. [address], [place], [place], [id number], [place]. tel:[phone] Family History Family Member Type Diagnosis Age [...]
--- OUTSIDE RECORDS SUMMARY | 2025-03-16 14:24 | XMS_ITS | Clinical Summary ---
Author Organization [facility] Address [address] [facility] [place] [address] Care Team Providers Care Interventional Radiology Technologist Name Role Phone Stewart Campbell DO Primary Care Provider Source Comments [facility],non-owned Affiliates and Associated Physician Practices is amultiple site organization consisting of ambulatory clinics and hospital sitesin [place], [place], [place] and [place]. This disclosure is being madepursuant to the Care Everywhere program and may not contain all information available regarding this patient. Last updated 18.[facility] [employer] Social History Tobacco Use Types Packs/Day Years Used Date Smoking Tobacco: Never Assessed Comments Unknown Sex and Gender Information Value Date Recorded Sex Assigned at Not on file Legal Sex Female 6:14 AM COLLAR SEWER Gender Identity Not on file Sexual Orientation [...] patient's age to complete [place] [address] MEDICARE Care Teams Interventional Radiology Technologist Relationship Specialty Start Date End Date Stewart Campbell DO [address] [facility] [address] [place] [address] PCP - General 05/11/20
--- OUTSIDE RECORDS SUMMARY | 2025-03-16 14:24 | XMS_ITS | Encounter Summary ---
Author Organization [facility] Address [address] [address] Care Team Providers Care Counter Top Assembler Name Role Phone Stewart Campbell MD Primary Care Provider [phone] Stewart Campbell MD Primary Care Provider [phone] Natalie Cerrato MD Unavailable [phone] Anil Saldaña MD Unavailable Joaquin Hurd MD Unavailable [phone] Gretta Heath MD Unavailable [phone] Ryne Gomes DO Primary Care Provider [phone] Tobin Francis MD Unavailable [phone] Encounter Details Date Type Department Care Team (Late st Contact Info) Description 01/13/2017 Orders Only [facility] ProviderSara MD [address] [place] [address] Social History Tobacco Use Types Packs/Day Years Used Date Smoking Tobacco: Never Alcohol Use Standard Drinks/Week Comments No 0 (1 standard drink = 0.6 oz pur e alcohol) Comments Unknown Sex and Gender Information Value Date Recorded Sex Assigned at Not on file Legal Sex Female 8:52 PM RESEARCH AGRICULTURAL ENGINEER Gender Identity Female 12/13/2020 9:57 AM RESEARCH AGRICULTURAL ENGINEER Sexual Orientation Straight 12/13/2020 9: 57 AM RESEARCH AGRICULTURAL ENGINEER documented as of this encounter Plan of [...] on filedocumented in this encounter Care Teams Counter Top Assembler Relationship Specialty Start Date End Date Stewart Campbell MD [address] [facility] [address] [place] [address] PCP - General 01/24/17 07/18/24 Stewart Campbell MD [address] [facility] [address] [place] [address] PCP - General 01/10/17 01/23/17 Ryne Gomes DO [address] [address] PCP - General Internal Medicine 07/19/24 Natalie Cerrato MD [address] [facility] [address] [place] [address] Surgeon Surgical Oncology 05/01/18 Anil Saldaña MD [address] [place], [place] [address] Medical Oncologist/Stockroom Attendant Medical Oncology 07/21/19 07/05/20 Joaquin Hurd MD [address] [facility] [place] [id number] Consulting Physician Cardiology 07/21/19 Gretta Heath MD [address] [facility] [address] [place] [address] Medical Oncologist/Stockroom Attendant Medical Oncology 07/06/20 Tobin Francis MD [address] [employer] [address] [place], [place] [id number] Consulting Physician Cardiology 10/06/24 documented as of this encounter
--- OUTSIDE RECORDS SUMMARY | 2025-03-16 14:24 | XMS_ITS | Encounter Summary ---
Author Organization [facility] Address [address] [place] [address] Phone Care Team Providers Care Radiation Protection Technician Name Role Phone Stewart Campbell MD Primary Care Provider [phone] Natalie Cerrato MD Unavailable Anil Saldaña MD Unavailable Joaquin Hurd MD Unavailable Gretta Heath MD Unavailable [phone] Ryne Gomes DO Primary Care Provider [phone] Tobin Francis MD Unavailable [phone] Reason for Visit * Reason Onset Date Comments Provider Update 10/22/2018 Encounter Details Date Type Department Care Team (Late st Contact Info) Description 10/22/2018 Telephone [facility] Oncology [address] [facility] [address] [place] [address] Ramana Collins MD [address] [place] [address] Provider Update Social History Tobacco Use Types Packs/Day Years Used Date Smoking Tobacco: Never Smokeless Tobacco: Never Alcohol Use Standard Drinks/Week Comments No 0 (1 standard drink = 0.6 oz pur e alcohol) Comments Unknown Sex and Gender Information Value Date Recorded Sex Assigned at Not on file Legal Sex Female 8:52 PM TRIMMER BUFFING WHEEL Gender Identity Female 12/13/2020 9:57 AM TRIMMER BUFFING WHEEL Sexual Orientation Straight 12/13/2020 9: 57 AM TRIMMER BUFFING WHEEL documented as of this encounter Plan of Treatment Not on file documented as of this encounter Visit Diagnoses Not on filedocumented in this encounter Care Teams Radiation Protection Technician Relationship Specialty Start Date End Date Stewart Campbell MD [address] [place] [address] PCP - General 01/24/17 07/18/24 Ryne Gomes DO [address] [place] [address] PCP - General Internal Medicine 07/19/24 Natalie Cerrato MD [address] [place] [address] Surgeon Surgical Oncology 05/01/18 Anil Saldaña MD [address] [place] [address] Medical Oncologist/Tablet Making Machine Operator Medical Oncology 07/21/19 07/05/20 Joaquin Hurd MD [address] [place] [address] Consulting Physician Cardiology 07/21/19 Gretta Heath MD [address] [facility] [address] [place] [address] Medical Oncologist/Tablet Making Machine Operator Medical Oncology 07/06/20 Tobin Francis MD [address] [facility] [address] [place] [address] Consulting Physician Cardiology 10/06/24 documented as of this encounter
--- OUTSIDE RECORDS SUMMARY | 2025-03-16 14:24 | XMS_ITS | Encounter Summary ---
Author Organization [facility] Address [address] [place] [address] Phone Care Team Providers Care Referral Nurse Name Role Phone Stewart Campbell MD Primary Care Provider [phone] Natalie Cerrato MD Unavailable Anil Saldaña MD Unavailable Joaquin Hurd MD Unavailable Gretta Heath MD Unavailable [phone] Ryne Gomes DO Primary Care Provider [phone] Tobin Francis MD Unavailable [phone] Reason for Visit * Reason Onset Date Comments Provider Update 10/21/2018 Encounter Details Date Type Department Care Team (Late st Contact Info) Description 10/21/2018 Telephone [facility] Oncology [address] [facility] [address] [place] [address] Ramana Collins MD [address] [place] [address] [address] Provider Update Social History Tobacco Use Types Packs/Day Years Used Date Smoking Tobacco: Never Smokeless Tobacco: Never Alcohol Use Standard Drinks/Week Comments No 0 (1 standard drink = 0.6 oz pur e alcohol) Comments Unknown Sex and Gender Information Value Date Recorded Sex Assigned at Not on file Legal Sex Female 8:52 PM MANAGED SERVICES SALES CONSULTANT Gender Identity Female 12/13/2020 9:57 AM MANAGED SERVICES SALES CONSULTANT Sexual Orientation Straight 12/13/2020 9: 57 AM MANAGED SERVICES SALES CONSULTANT documented as of this encounter Plan of Treatment Not on file documented as of this encounter Visit Diagnoses Not on filedocumented in this encounter Care Teams Referral Nurse Relationship Specialty Start Date End Date Stewart Campbell MD [address] [place] [address] PCP - General 01/24/17 07/18/24 Ryne Gomes DO [address] [place] [address] PCP - General Internal Medicine 07/19/24 Natalie Cerrato MD [address] [place] [address] Surgeon Surgical Oncology 05/01/18 Anil Saldaña MD [address] [place] [address] Medical Oncologist/Model Maker Fiberglass Medical Oncology 07/21/19 07/05/20 Joaquin Hurd MD [address] [place] [address] Consulting Physician Cardiology 07/21/19 Gretta Heath MD [address] [facility] [address] [place] [address] Medical Oncologist/Model Maker Fiberglass Medical Oncology 07/06/20 Tobin Francis MD [address] [facility] [address] [place] [address] Consulting Physician Cardiology 10/06/24 documented as of this encounter
--- OUTSIDE RECORDS SUMMARY | 2025-03-16 14:24 | XMS_ITS | Encounter Summary ---
Author Organization [facility] Address [address] [place] [address] Phone Care Team Providers Care Individual Small Group Instructor Name Role Phone Stewart Campbell MD Primary Care Provider [phone] Natalie Cerrato MD Unavailable [phone] Anil Saldaña MD Unavailable Joaquin Hurd MD Unavailable [phone] Gretta Heath MD Unavailable [phone] Ryne Gomes DO Primary Care Provider [phone] Tobin Francis MD Unavailable [phone] Encounter Details Date Type Department Care Team [...] on file Legal Sex Female 8:52 PM FILE CLERK DATA ENTRY Gender Identity Female 12/13/2020 9:57 AM FILE CLERK DATA ENTRY Sexual Orientation Straight 12/13/2020 9: 57 AM FILE CLERK DATA ENTRY documented as of this encounter Plan of Treatment Not on file documented as of this encounter Procedures Procedure Name Priority Date/Time Associated Diagnosis Comments SCAN - RADIOLOGY/IMAGING 01/13/2019 documented in this encounter Results * SCAN - RADIOLOGY/IMAGING (01/13/2019) Anatomical Region Laterality Modality Other Provider Scanning Final Result documented in this encounter Visit Diagnoses Not on filedocumented in this encounter Care Teams Individual Small Group Instructor Relationship Specialty Start Date End Date Stewart Campbell MD [address] [place] [address] PCP - General 01/24/17 07/18/24 Ryne Gomes DO [address] [place] [address] PCP - General Internal Medicine 07/19/24 Natalie Cerrato MD [address] [place] [address] Surgeon Surgical Oncology 05/01/18 Anil Saldñaa MD [address] [place] [address] Medical Oncologist/Assistant Gm Of Content & Delivery Medical Oncology 07/21/19 07/05/20 Joaquin Hurd MD [address] [place] [address] Consulting Physician Cardiology 07/21/19 Gretta Heath MD [address] [facility] [address] [place] [address] Medical Oncologist/Assistant Gm Of Content & Delivery Medical Oncology 07/06/20 Tobin Francis MD [address] [facility] [address] [address] Consulting Physician Cardiology 10/06/24 documented as of this encounter
--- OUTSIDE RECORDS SUMMARY | 2025-03-16 14:24 | XMS_ITS ---
Author Organization [facility] Address [address] [place] [address] Care Team Providers Care Channel Rebuilder Name Role Phone Natalie Cerrato MD Unavailable [phone] Joaquin Hurd MD Unavailable [phone] Gretta Heath MD Unavailable [phone] Ryne Gomes DO Primary Care Provider [phone] Tobin Francis MD Unavailable [phone] Active Problems Problem Noted Date Diagnosed Date [...] (07/24/2021): Added automatically from request for surgery [id number] S/P breast reconstruction 02/19/2021 Overview (02/19/2021): Added automatically from request for surgery [id number] Idiopathic peripheral neuropathy 09/12/2020 Assessment & Plan (09/03/2021 11:46 AM AFFILIATE MARKETING SPECIALIST): Patient continues on gabapentin for treatment of dysesthesia and paresthesia associated with idiopathic peripheral neuropathy in her lower extremities. She cites good tolerability and efficacy. I have renewed her gabapentin 300 mg t.i.d. as previously prescribed. She will follow-up in neurology clinic in a year. Assessment & Plan (09/12/2020 12:55 PM AFFILIATE MARKETING SPECIALIST): Patient is a former patient of [facility] being treated for idiopathic peripheral neuropathy manifested as neuropathic pain and numbness in her feet and legs. Prior medical records from [facility] have been requested but are unavailable [...] 09/12/2020 Assessment & Plan (09/12/2020 12:56 PM AFFILIATE MARKETING SPECIALIST): Patient has history of peripheral neuropathy with neuropathic pain as a presenting symptom. Gabapentin 300 mg t.i.d. has been historically prescribed with good tolerability and efficacy. 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/2019 longterm (current) use of aromatase inhibitors 07/01/2019 Malignant neoplasm of lower- inner quadrant of breast in female, estrogen receptor positive 07/01/2019 HX: breast cancer 07/01/2019 Bone disease 07/01/2019 Labile hypertension 04/12/2019 Dizziness 10/06/2018 History of breast cancer 05/14/2018 Assessment & Plan (12/15/2024 8:05 AM AFFILIATE MARKETING SPECIALIST): Continue anastrazole Assessment & Plan (12/14/2024 2:03 PM AFFILIATE MARKETING SPECIALIST): Continue anastrazole H/O sarcoidosis 02/20/2018 ALEXIS [...] anticoagulation Assessment & Plan (12/15/2024 8:06 AM AFFILIATE MARKETING SPECIALIST): For atrial fibrillation, continue apixaban Assessment & Plan (12/14/2024 2:03 PM AFFILIATE MARKETING SPECIALIST): Resume Eliquis tonight per cardiology post procedure recs Dehydration 05/06/2016 Benign hypertension 04/18/2016 Overview (01/30/2017): HTN (hypertension), benign Assessment & Plan (12/15/2024 8:06 AM AFFILIATE MARKETING SPECIALIST): Continue home lisinopril 40mg daily Assessment & Plan (12/14/2024 2:03 PM AFFILIATE MARKETING SPECIALIST): BP controlled post ablation. Continue home lisinopril 40 daily Paroxysmal atrial fibrillation 04/18/2016 Overview (01/30/2017): Paroxysmal atrial fibrillation Assessment & Plan (12/15/2024 8:05 AM AFFILIATE MARKETING SPECIALIST): Presented for planned EP study with [...] home Assessment & Plan (12/14/2024 2:13 PM AFFILIATE MARKETING SPECIALIST): Presented for planned EPS with ablation [...]
--- OUTSIDE RECORDS SUMMARY | 2025-03-16 14:24 | XMS_ITS | Encounter Summary ---
Author Organization [facility] Address [address] [place] [address] Phone Care Team Providers Care Lumber Inspector Name Role Phone Stewart Campbell MD Primary Care Provider [phone] Natalie Cerrato MD Unavailable [phone] Joaquin Hurd MD Unavailable [phone] Gretta Heath MD Unavailable [phone] Ryne Gomes DO Primary Care Provider [phone] Tobin Francis MD Unavailable [phone] Encounter Details Date Type Department Care Team (Late st Contact Info) Description 04/06/2024 Orders Only [facility] Oncology [address] [facility] Advanced Medicine 7th [place] [address] [place] [address] [place] [address] [facility] [address] [place] [address] 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, estrogen receptor positive, unspecified laterality (HCC) (Primary Dx); Bone disease; long term care pharmacist (current) use of aromatase inhibitors Social History [...] on file Legal Sex Female 8:52 PM IRONING MACHINE OPERATOR Gender Identity Female 12/13/2020 9:57 AM IRONING MACHINE OPERATOR Sexual Orientation Straight 12/13/2020 9: 57 AM IRONING MACHINE OPERATOR documented as of this encounter Plan of Treatment Not on file documented as of this encounter Visit Diagnoses Diagnosis 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, estrogen receptor positive, unspecified laterality (HCC)- Primary Bone disease Disorder of bone and cartilage, unspecified long term care pharmacist (current) use of aromatase inhibitors documented in this encounter Care Teams Lumber Inspector Relationship Specialty Start Date End Date Stewart Campbell MD [address] [place] [address] PCP - General 01/24/17 07/18/24 Ryne Gomes DO [address] [place] [address] PCP - General Internal Medicine 07/19/24 Natalie Cerrato MD [address] [place] [address] Surgeon Surgical Oncology 05/01/18 Joaquin Hurd MD [address] [place] [address] Consulting Physician Cardiology 07/21/19 Gretta Heath MD [address] [place] [address] [address] [place] [address] Medical Oncologist/Manager E Learning Medical Oncology 07/06/20 Tobin Francis MD [address] [facility] [address] [place] [address] Consulting Physician Cardiology 10/06/24 documented as of this encounter
--- OUTSIDE RECORDS SUMMARY | 2025-03-16 14:24 | XMS_ITS | Clinical Summary ---
Author Organization [facility] Kashif Langley Address [address] [place] [address] Care Team Providers Care Socially Responsible Investment Adviser Name Role Phone Stewart Campbell DO Primary Care Provider Allergies No known active allergies Medications anastrozole [...] STL ABSTRACTION Provider, Abstract 03/14/2025 Orders Only [facility] Oncology and Hematology - [address] [place] [id number] Vineet Simpson MD Erythrocytosis 02/28/2025 Orders Only [facility] On[facility]ematology - [address] [place] [address] Vineet Simpson MD Erythrocytosis 02/14/2025 Orders Only [facility] Oncology and Hematology - [address] [place] [address] Vineet Simpson MD Erythrocytosis 01/31/2025 Orders Only [facility] Oncology and Hematology - [address] [place] [address] Vineet Simpson MD Erythrocytosis 01/17/2025 Orders Only [facility] Oncology and Hematology - [address] [place] [address] Vineet Simpson MD Erythrocytosis 01/12/2025 External Device Data STL ABSTRACTION Provider, Abstract 01/03/2025 Orders [facility] Oncology and Hematology - [address] [place] [address] Vineet Simpson MD Erythrocytosis 01/01/2025 External Device Data STL ABSTRACTION Provider, Abstract 12/31/2024 External Device Data STL ABSTRACTION Provider, Abstract 12/28/2024 External Device Data STL ABSTRACTION Provider, Abstract 12/20/2024 Orders Only [facility] Oncology and Hematology - [address] [place] [address] Vineet Simpson MD Erythrocytosis 12/17/2024 9:15 AM HOSPITAL SCIENTIST Office Visit [facility] Oncology and Hematology - [address] [place] [address] Vineet Simpson MD Erythrocytosis (Primary Dx) 12/17/2024 Orders Only [facility] Oncology and Hematology [facility] [address] [place] [address] Vineet Simpson MD from Last [...] Comments Blood Pressure 153/96 12/17/2024 9:25 AM HOSPITAL SCIENTIST did not take b/p meds this morning Pulse 86 12/17/2024 9:22 AM HOSPITAL SCIENTIST Temperature 36.1 C (97 F) 12/17/2024 9:22 AM HOSPITAL SCIENTIST Respiratory Rate 15 12/17/2024 9:22 AM HOSPITAL SCIENTIST Oxygen Saturation 97% 12/17/2024 9:2 2 AM HOSPITAL SCIENTIST Inhaled Oxygen Concentration - - Weight 70.6 kg (155 lb 9.6 oz) 12/17/2024 9:22 AM HOSPITAL SCIENTIST Height 165.1 cm (5' 5 ) 05/16/2022 11:3 0 AM CDT Body Mass Index 25.89 05/16/2022 11:30 AM CDT Plan of Treatment Upcoming Encounters Date Type Department Care Team (Late st Contact Info) Description 06/16/2025 11:00 AM CDT Office Visit [facility] Oncology and Hematology - [address] [place] [address] Vineet Simpson MD [address] [facility] [address] [place] [address] Health Maintenance Due Date Last [...] BASIC METABOLIC PANEL Routine 12/17/2024 11:50 AM HOSPITAL SCIENTIST from Last 3 Months Results * BASIC METABOLIC PANEL (12/17/2024 11:50 AM HOSPITAL SCIENTIST) Blood Vineet Simpson MD CHEMISTRY ORDERABLES Final Resu lt from Last 3 [place] [address] [facility] [id number] Care Teams Socially Responsible Investment Adviser Relationship Specialty Start Date End Date Stewart Campbell DO [address] [facility] [address] [place] [address] PCP - General Internal Medicine 05/25/20
--- OUTSIDE RECORDS SUMMARY | 2025-03-16 14:24 | XMS_ITS | Encounter Summary ---
Author Organization [facility] Address [address] [place] [address] Phone Care Team Providers Care Helicopter Repairer Name Role Phone Stewart Campbell MD Primary Care Provider [phone] Natalie Cerrato MD Unavailable Joaquin Hurd MD Unavailable [phone] Gretta Heath MD Unavailable [phone] Ryne Gomes DO Primary Care Provider [phone] Tobin Francis MD Unavailable [phone] Encounter Details Date Type Department Care Team [...] on file Legal Sex Female 8:52 PM BODY FORMER Gender Identity Female 12/13/2020 9:57 AM BODY FORMER Sexual Orientation Straight 12/13/2020 9: 57 AM BODY FORMER documented as of this encounter Plan of Treatment Not on file documented as of this encounter Procedures Procedure Name Priority Date/Time Associated Diagnosis Comments SCAN - PATHOLOGY 09/22/2021 documented in this encounter Results * SCAN - PATHOLOGY (09/22/2021) us Provider Scanning Edited Result - Final documented in this encounter Visit Diagnoses Not on filedocumented in this encounter Care Teams Helicopter Repairer Relationship Specialty Start Date End Date Stewart Campbell MD [address] [place] [address] PCP - General 01/24/17 07/18/24 Ryne Gomes DO [address] [place] [address] PCP - General Internal Medicine 07/19/24 Natalie Cerrtao MD [address] [place] [address] Surgeon Surgical Oncology 05/01/18 Joaquin Hurd MD [address] [place] [address] Consulting Physician Cardiology 07/21/19 Gretta Heath MD [address] [facility] [address] [place] [address] Medical Oncologist/Ammonium Nitrate Crystallizer Medical Oncology 07/06/20 Tobin Francis MD [address] [facility] [address] [place] [address] Consulting Physician Cardiology 10/06/24 documented as of this encounter
[2025-03-16] MEDS: ASPIRIN 81 MG CHEWABLE TABLET 324 MG PO (14:50)
[2025-03-16] MEDS: SODIUM CHLORIDE 0.9% IV 1,000 ML 999 ML IV CONT (14:53)
[2025-03-16] MEDS: METOPROLOL TARTRATE INJ 5 MG/5 ML VIAL IV PUSH (15:01)
[2025-03-16 15:13] LABS: NT Pro B Type Natriuretic Pept 420 pg/mL (19.9-100)
--- NOTE | 2025-03-16 16:57 | PM.IMHP ---
H&P: HPI History of Present Illness Date/Time: 03/16/25 16:57 Chief Complaint: Near Syncope, SOB Narrative: 74 y/o F with PMH of paroxysmal AFib on anticoagulation, hypertension, polycythemia, CKD, SONYA, and breast cancer s/p? presents here with near syncope and shortness of breath. The patient presents here on 03/16 for further evaluation of near syncope and shortness of breath. She reports she was driving to her gastroenterology appointment today at [place] when she became lightheaded, chest pressure, and shortness of breath. She reports she has intermittently had these symptoms since her ablation. She was told by her plant pathologist that she may not feel like herself until 3-4 months out. She was then treated as GERD but did not get better which is why she had a follow-up appt with GI today. Since the ablation she has been off rate controlling medications but has remained on her anticoagulation. Initial VS at presentation: 97.6? F, HR 119, R 28, 178/118, and 100% on RA. ED workup showed: No leukocytosis, hemoglobin 15.8, normal coags, creatinine 1.9 and GFR 26 (previously 1.58 and GFR 34 on 02/24/2025), initial troponin negative x2, BNP 420 (normal for age). EKG showed AFib with RVR, rate 105, nonspecific T-wave abnormality. CXR showed no acute cardiopulmonary pathology. Review of Systems Review of Systems: All systems reviewed & are unremarkable except as noted in HPI and below PMFSH Past Medical History Medical History Paroxysmal atrial fibrillation Other fatigue Hx of breast cancer Hereditary and idiopathic neuropathy, unspecified Gastro-esophageal reflux disease without esophagitis Essential (primary) hypertension Esophageal spasm Encounter for annual health examination Dizziness Polycythemia Chronic fatigue CKD (chronic kidney disease) stage 3, GFR 30-59 ml/min SONYA (obstructive sleep apnea) Breast cancer A-fib Hypertension GERD (gastroesophageal reflux disease) Surgical History Surgical History History of knee replacement History of cholecystectomy History of hysterectomy Family History Family History (Updated 03/16/25 @ 21:08 by Carlos Oliavrez RN) Sibling Family history of cardiac disorder Mother Patient's mother is Non-Hodgkin lymphoma Father Parkinson disease Social History Social History Smoking status: Never smoker Second hand tobacco smoke exposure: No Alcohol intake: never Substance use: never Substance use type: does not use Do You Feel Safe in your Home?: Yes Lack of Transportation: No Lack of Food: Never True Current Housing: I Have Housing Concerned About Future Housing: No Difficulty Paying Gas/Electric Bills: No Difficulty Paying for Meds: No Currently Unemployed: No Education: Associate Degree Difficulty w/ Childcare or Family Care: No Living arrangements: with family 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 Gender identity (if verbalized by the patient): Female Spiritual care concerns: No Meds Home Medications and Allergies Home Medications ?Medication ?Instructions ?Recorded ?Confirmed ?Type anastrozole 1 mg tablet 1 mg PO DAILY 12/29/19 03/16/25 History apixaban 5 mg tablet (Eliquis) 5 mg PO BID 12/29/19 03/16/25 History lisinopril 40 mg tablet 40 mg PO DAILY 12/29/19 03/16/25 History celecoxib 200 mg capsule (Celebrex) 200 mg PO DAILY PRN Pain, Mild 10/02/20 03/16/25 History atorvastatin 20 mg tablet (Lipitor) 20 mg PO DAILY #90 tabs 03/02/25 03/16/25 Rx pantoprazole 40 mg tablet,delayed 40 mg PO QAM #30 tabs 03/02/25 03/16/25 Rx release zolpidem 10 mg tablet (Ambien) 5 mg (1/2 x 10 mg) PO QHS PRN 03/02/25 03/16/25 Rx Insomnia #30 tabs Allergies Allergy/AdvReac Type Severity Reaction Status Date / Time No Known Allergies Allergy Unknown Verified 03/02/25 14:12 Vital Signs Vital Signs - 24 hr 03/16/25 13:24 03/16/25 14:02 03/16/25 14:32 Temperature 97.6 F Pulse Rate 119 H 90 107 H Respiratory Rate 28 H 26 H 24 H Blood Pressure 178/118 H 153/101 H 149/95 H Pulse Oximetry 100 100 100 Oxygen Delivery Room Air 03/16/25 14:43 03/16/25 15:01 03/16/25 15:04 Temperature Pulse Rate 105 H 93 76 Respiratory Rate 28 H 24 H Blood Pressure 149/95 H 151/101 H Pulse Oximetry 100 100 Oxygen Delivery 03/16/25 15:05 03/16/25 15:05 03/16/25 15:59 Temperature Pulse Rate 85 66 Respiratory Rate 13 Blood Pressure 158/96 H Pulse Oximetry 100 100 Oxygen Delivery Room Air Exam Const: General: comfortable and no acute distress Other: , female, nontoxic appearance HENMT: Face/Nose/Sinus: Normal nares present Mouth: Yes moist mucous membranes Eyes: General: appearance normal, both eyes and all related structures Sclera: sclerae normal Pupils: Equal, round and reactive pupils present EOM: EOMs intact bilaterally Resp: Effort & Inspection: normal respiratory effort Auscultation: clear to auscultation bilaterally Cardio: Rate: regular rate (70s) Rhythm: regular rhythm Other: S1-S2 present without murmur, rub, ectopy GI: Other: Abdomen soft, nondistended, nontender. Normoactive bowel sounds in all quadrants. Skin: General skin exam: normal color and no rashes or lesions noted Wounds: no wounds Neuro: Speech: normal speech Motor exam (neuro): 5/5 motor strength present throughout Sensory Exam: normal sensation Other: A&O x4 Extrem: General: normal to inspection Psych: Mental Status: mental status grossly normal Affect: normal affect Other: Good insight and judgment, very pleasant H&P: Results Labs Labs: Short CBC 03/16/25 Range/Units 13:33 WBC 7.0 (4.5-10.0) K/mm3 Hgb 15.8 H (12.0-15.0) g/dL Hct 48.7 H (37.0-47.0) % Plt Count 275 D (150-375) k/mm3 BMP 03/16/25 13:33 Sodium 139 Potassium 4.1 Chloride 104 Carbon Dioxide 17 L BUN 32 H Creatinine 1.90 H Glucose 143 H Calcium 11.4 H Cardiac Enzymes 03/16/25 Range/Units 13:33 Troponin I < 0.012 (0.000-0.034) ng/mL Liver Function 03/16/25 Range/Units 13:33 Total Bilirubin 1.0 (0.2-1.3) mg/dL AST 36 (14-36) U/L ALT 31 (6-35) U/L Alkaline Phosphatase 85 (38-126) U/L Albumin 5.2 H (3.5-5.1) g/dL Assessment and Plan Assessment and plan (1) Paroxysmal A-fib: Code(s): I48.0 - Paroxysmal atrial fibrillation Status: Acute Assessment and Plan: History of paroxysmal AFib. Previously underwent an ablation at [facility] in November of 2024. No longer on rate controlling medication, however continued on anticoagulation. Patient having intermittent AFib RVR in the ED, captured on EKG. - continue anticoagulation - cardiology consulted recommended to ED provider to give IV metoprolol and transition the patient to metoprolol 25 mg b.i.d. orally - troponin negative x2 and BNP within normal limits for age - CXR showed no acute cardiopulmonary pathology - telemetry monitoring (2) JENS (acute kidney injury): Code(s): N17.9 - Acute kidney failure, unspecified Status: Acute Assessment and Plan: - creatinine 1.9 and GFR 26, previously 1.58 and GFR 34 on 02/24/2025 - no current evidence of CHF as the patient's BNP is within normal limits for her age and chest x-ray is clear. Given 1 L bolus in the ED and started on NS at 100 mL/hour. - consider further workup in consultation if no improvement with IV fluids over the next 24 hours - trend renal function - trend electrolytes, correct as needed (3) Polycythemia: Code(s): D75.1 - Secondary polycythemia Status: Chronic Assessment and Plan: - chronic - hemoglobin 15.8, at baseline - monitor (4) Hypertension: Qualifiers: Hypertension type: primary hypertension Qualified Code(s): I10 - Essential (primary) hypertension Code(s): I10 - Essential (primary) hypertension Status: Chronic Assessment and Plan: - chronic, currently 158/96 - continue home medications: Lisinopril 40 mg daily - monitor Plan Diet: Heart healthy GI Prophylaxis: Not currently indicated DVT Prophylaxis: Eliquis IV fluids: NS at 100 mL/hour Lines/Tubes: Peripheral IV Code Status: Full code Quality VTE Prophylaxis VTE prophylaxis: pharmacologic ordered Hospitalist MIPS Advance Care Plan I have confirmed that the patient's Advanced Care Plan is present, code status is documented, or surrogate decision maker is listed in patient medical record.: Yes Medication Reconciliation I have utilized all available resources to obtain, update and review the patients current medications (includes all prescriptions, OTC, herbals, cannabis, and nutritional supplements).: Yes
[2025-03-16 17:04] LABS: Troponin I < 0.012 ng/mL (0.000-0.034)
--- NOTE | 2025-03-16 17:26 | ECG_ITS ---
Test Date: 2025-03-16 17:35:15 Measurements Intervals [place] Rate: 65 P: 0 DE: 0 QRS: -19 QRSD: 82 T: 30 QT: 405 QTc: 421 Interpretive Statements ATRIAL FIBRILLATION LOW QRS VOLTAGE IN PRECORDIAL LEADS [QRS DEFLECTION < 1.0 mV IN CHEST LEADS] ABNORMAL RHYTHM ECG Compared to ECG 03/16/2025 13:09:28 Low QRS voltage now present T-wave abnormality no longer present Electronically Signed On 03-17-2025 13:53:34 CDT by Bret Freeman M.D.
[2025-03-16] MEDS: SODIUM CHLORIDE 0.9% IV 1,000 ML 100 ML IV CONT (17:31)
--- NOTE | 2025-03-16 19:07 | ECG_ITS ---
Test Date: 2025-03-16 19:11:38 Measurements Intervals [place] Rate: 73 P: 255 [place]: 128 QRS: -11 QRSD: 88 T: 5 QT: 394 QTc: 436 Interpretive Statements ATRIAL FIBRILLATION LOW QRS VOLTAGE IN PRECORDIAL LEADS [QRS DEFLECTION < 1.0 mV IN CHEST LEADS] Compared to ECG 03/16/2025 17:35:15 NO SIGNIFICANT CHANGE Electronically Signed On 03-17-2025 13:57:38 CDT by Bret Freeman M.D.
[2025-03-16 19:43] LABS: Troponin I < 0.012 ng/mL (0.000-0.034)
--- NOTE | 2025-03-16 21:05 | ADMGEN ---
This patient, Carmen Stewart, was admitted to IMU Room 205-01. Patient/family oriented to hospital policies and general routines including ID bracelet, bed and alarms, visiting hours, pain management, procedures, bathroom and other care routines, personal items, smoking policy, room service/diet, and visiting hours. Information on how to activate the Rapid Response Team has been discussed. Patient/Family are encouraged to report perceived risks to care and to ask questions if they do not understand what they are told or what they should do.
[2025-03-16] MEDS: KETOROLAC 30 MG/ML VIAL (*BKC) IV PUSH (22:23)
[2025-03-16] MEDS: METOPROLOL TARTRATE 25 MG TABLET PO (22:25)
[2025-03-16] MEDS: diphenhydrAMINE HCl INJ 50 MG/ML VIAL 25 MG IV PUSH (22:25)
[2025-03-17] VITALS (8 sets, daily range): BP systolic 141–178; BP diastolic 79–87; PULSE 56–70; RESP 16–18; TEMP 36.5–36.7; O2SAT 98–100
[2025-03-17] MEDS: SODIUM CHLORIDE 0.9% IV 1,000 ML 100 ML IV CONT (03:25)
[2025-03-17 04:54] LABS: Basophils Percent Auto 0.5 % (0.2-1.2); Eosinophils Absolute Auto 0.2 K/mm3 (0-0.3); Eosinophils Percent Auto 3.4 % (0-4.4); Hematocrit 37.9 % (37.0-47.0); Hemoglobin 12.1 g/dL (12.0-15.0); Immature Granulocyte Absolute 0.04 K/mm3 (0.00-0.031); Immature Granulocyte Percent A 0.7 % (0-0.5); Lymphocytes Absolute Auto 2.44 K/mm3 (0.9-3.2); Lymphocytes Percent Auto 42.1 % (18.3-44.2); Mean Corpuscular HGB Conc 31.9 g/dl (32-36); Mean Corpuscular Hemoglobin 30.2 pg (26-34); Mean Corpuscular Volume 94.5 fl (80-100); Monocytes Absolute Auto 0.5 K/mm3 (0.1-0.6); Monocytes Percent Auto 7.8 % (2.6-8.5); Neutrophils Absolute Auto 2.6 K/mm3 (1.3-6.7); Neutrophils Percent Auto 45.5 % (45.5-73.1); Platelet Count Result 205 k/mm3 (150-375); Red Blood Count 4.01 M/mm3 (4.2-5.4); White Blood Count 5.8 K/mm3 (4.5-10.0)
[2025-03-17 05:08] LABS: Anion Gap 7 mmol/L (4-12); Blood Urea Nitrogen 31 mg/dL (7-17); Calcium 8.6 mg/dL (8.4-10.2); Carbon Dioxide 20 mmol/L (22-30); Chloride 112 mmol/L (98-107); Estimated CRCL calculation 23 ml/min; Estimated Glomerular Filt Rate 29; Glucose 85 mg/dL (65-110); Magnesium 1.9 mg/dL (1.6-2.3); Potassium 4.1 mmol/L (3.4-5.0); Sodium 139 mmol/L (137-145)
[2025-03-17] MEDS: METOPROLOL TARTRATE 25 MG TABLET PO (08:37)
[2025-03-17] MEDS: APIXABAN 5 MG TABLET PO (08:37)
[2025-03-17] MEDS: lisinopriL 20 MG TABLET 40 MG PO (08:37)
[2025-03-17] MEDS: ATORVASTATIN 20 MG TABLET PO (08:38)
[2025-03-17] MEDS: PANTOPRAZOLE 40 MG TABLET PO (08:38)
[2025-03-17] MEDS: ANASTROZOLE (*CHEMO) 1 MG TABLET PO (08:39)
--- NOTE | 2025-03-17 10:37 | P.DS_ITS ---
DS: Admitting Diagnosis Discharge Date 03/17/2025 Admitting Diagnosis Chest pain, shortness of breath DS: Discharge Diagnosis Discharge Diagnosis (1) A-fib: Code(s): I48.91 - Unspecified atrial fibrillation Status: Acute (2) Hypertension: Qualifiers: Hypertension type: primary hypertension Qualified Code(s): I10 - Essential (primary) hypertension Code(s): I10 - Essential (primary) hypertension Status: Chronic (3) Hyperlipidemia: Code(s): E78.5 - Hyperlipidemia, unspecified Status: Acute DS: Summary Hospital Course Hospital Course: Initial VS at presentation: 97.6? F, HR 119, R 28, 178/118, and 100% on RA. ED workup showed: No leukocytosis, hemoglobin 15.8, normal coags, creatinine 1.9 and GFR 26 (previously 1.58 and GFR 34 on 02/24/2025), initial troponin neg ative x2, BNP 420 (normal for age). EKG showed AFib with RVR, rate 105, nonspecific T-wave abnormality. CXR showed no acute cardiopulmonary pathology. Cardiology consulted. Now Sinus ariadne 58. Start on Metoprolol Succinate 25 mg PO daily. Follow with Cardiology. Creatinine improved to 1.70 with fluids. Patient eating and drinking. Status at Discharge Functional status at discharge: independent ambulation Overall status at discharge: patient is progressing back to baseline Time Spent with Patient Time attestation: Total time spent providing and/or coordinating discharge services: Time spent: Greater than 30 minutes Exam Const: General: comfortable and no acute distress Resp: Effort & Inspection: normal respiratory effort Auscultation: clear to auscultation bilaterally Cardio: Rate: bradycardic Rhythm: regular rhythm Other: Sinus bradycardia 58 GI: GI Palp: Yes Soft to palpation Auscultation: normal bowel sounds Extrem: General: no pedal edema Psych: Mental Status: mental status grossly normal Affect: normal affect DS: Data Data Completed and Pending Labs on day of discharge: Labs from last 24 hours 03/17/25 03/16/25 03/16/25 04:10 19:15 16:35 WBC 5.8 RBC 4.01 L Hgb 12.1 D Hct 37.9 MCV 94.5 MCH 30.2 MCHC 31.9 L RDW 14.0 Plt Count 205 MPV 10.0 Immature Gran % (Auto) 0.7 H Neut % (Auto) 45.5 Lymph % (Auto) 42.1 [place] % (Auto) 7.8 Eos % (Auto) 3.4 Baso % (Auto) 0.5 Lymph # (Auto) 2.44 [place] # (Auto) 0.5 Eos # (Auto) 0.2 Baso # (Auto) 0.0 Abs Immat Gran (auto) 0.04 H Absolute Neuts (auto) 2.6 Absolute Nucleated RBC 0.000 Nucleated RBC % 0.0 PT INR APTT Sodium 139 Potassium 4.1 Chloride 112 H Carbon Dioxide 20 L Anion Gap 7 BUN 31 H Creatinine 1.70 H Estim Creat Clear Calc 23 Estimated GFR 29 L Glucose 85 Calcium 8.6 Magnesium 1.9 Total Bilirubin AST ALT Alkaline Phosphatase Troponin I < 0.012 < 0.012 NT-Pro-B Natriuret Pep Total Protein Albumin Lipase 03/16/25 03/16/25 13:33 13:32 WBC 7.0 RBC 5.41 H Hgb 15.8 H Hct 48.7 H MCV 90.0 MCH 29.2 MCHC 32.4 RDW 13.8 Plt Count 275 D MPV 9.8 Immature Gran % (Auto) 0.7 H Neut % (Auto) 64.1 Lymph % (Auto) 27.4 [place] % (Auto) 6.4 Eos % (Auto) 1.0 Baso % (Auto) 0.4 Lymph # (Auto) 1.91 [place] # (Auto) 0.5 Eos # (Auto) 0.1 Baso # (Auto) 0.0 Abs Immat Gran (auto) 0.05 H Absolute Neuts (auto) 4.5 Absolute Nucleated RBC 0.000 Nucleated RBC % 0.0 PT 13.8 INR 1.0 APTT 26.6 Sodium 139 Potassium 4.1 Chloride 104 Carbon Dioxide 17 L Anion Gap 18 H BUN 32 H Creatinine 1.90 H Estim Creat Clear Calc 21 Estimated GFR 26 L Glucose 143 H Calcium 11.4 H Magnesium Total Bilirubin 1.0 AST 36 ALT 31 Alkaline Phosphatase 85 Troponin I < 0.012 NT-Pro-B Natriuret Pep 420 H Total Protein 9.0 H Albumin 5.2 H Lipase 145 Discharge Plan Discharge Attending physician on discharge: Mino Mota Consulting providers: Alessandro Barakat Discharging Clinician: Julio,Natalie N. Anticipated Discharge Date/Time: 03/17/25 13:00 Patient Disposition: Home Activity: may shower Diet: as tolerated and heart healthy Discharge Instructions: * Take medications as prescribed. * Avoid sudden movements. * Report to provider if you develop shortness of breath, chest discomfort, or palpitations. * Increase water intake, stay hydrated. Thank you for entrusting [facility] with your healthcare! Patient Instructions: Antibiotic Form, Apixaban (By mouth), A-fib (Atrial Fibrillation) (GEN), Heart Healthy Diet (DC), Blood Thinners (GEN) Patient Language: Tajik Stand Alone Forms: General Discharge Information Follow-up/Referrals: Bret Freeman MD [Physician] - Keep Reg. Scheduled Appt. Ryne Gomes DO [Primary Care Provider] - 1 Week Discharge Medications: New metoprolol succinate 25 mg tablet extended release 24 hr 25 mg PO DAILY Qty: 30 0RF Continued anastrozole 1 mg tablet 1 mg PO DAILY Eliquis 5 mg tablet 5 mg PO BID lisinopril 40 mg tablet 40 mg PO DAILY celecoxib [Celebrex] 200 mg capsule 200 mg PO DAILY PRN (Reason: Pain, Mild) Patient Comments: DOES NOT TAKE OFTEN pantoprazole 40 mg tablet,delayed release (DR/EC) 40 mg PO QAM Qty: 30 0RF atorvastatin [Lipitor] 20 mg tablet 20 mg PO DAILY Qty: 90 2RF zolpidem [Ambien] 10 mg tablet 5 mg PO QHS PRN (Reason: Insomnia) Qty: 30 0RF Date of admission: 03/16/25 15:20 Primary Care Provider: Ryne Gomes Admitting Provider: Esvin Hammond Attending physician on admission: Esvin Hammond Condition: Stable Hospitalist MIPS Heart Failure (Exclusion) Patient has history of Heart Transplant or Left Ventricular Assistive Device?: No IF YES, STOP HERE Heart Failure (Qualifier) Patient has current or prior documentation of LVEF less than or equal to 40%, or mod/servere depressed LVSF?: No IF NO, STOP HERE
--- NOTE | 2025-03-17 12:51 | P.CONCA_ITS ---
Assessment and Plan Assessment and plan (1) Hypertension: Qualifiers: Hypertension type: primary hypertension Qualified Code(s): I10 - Essential (primary) hypertension Code(s): I10 - Essential (primary) hypertension Status: Chronic (2) A-fib: Code(s): I48.91 - Unspecified atrial fibrillation Status: Acute (3) Hyperlipidemia: Code(s): E78.5 - Hyperlipidemia, unspecified Status: Acute Plan 74-year-old woman with hypertension and paroxysmal atrial fibrillation/flutter presented to the emergency room for lightheadedness Lightheadedness -possibly secondary to dehydration versus atrial fibrillation with rapid ventricular rates -we have discussed that if she continues to have these symptoms especially with positional changes or prolonged stationary positions, she should try compression stockings in addition to stain well hydrated Paroxysmal atrial fibrillation -continue anticoagulation and can start metoprolol succinate 25 mg p.o. daily -CT chest with contrast normal for 02/04/2025 did not reveal any complications from ablation therapy; will clarify with Radiology the right subclavian takeoff Hypertension -continue lisinopril 40 mg p.o. daily Hyperlipidemia -continue atorvastatin 20 mg every evening No further inpatient workup warranted at this time. Patient can follow-up with me in clinic in 2-3 months. History of Present Illness History of Present Illness Consult date/time: 03/17/25 12:51 Requesting physician: Wandy Lynn APRN Reason For Visit: Paroxysmal afib, Near syncope Narrative: 74-year-old woman with hypertension and paroxysmal atrial fibrillation/flutter presented to the emergency room for lightheadedness. She had been driving when she started to feel lightheaded and she stop and decided to proceed to the emergency room. Currently she is not having any further lightheadedness. Since her ablation, she has been having some shortness of breath as well as worsening esophageal reflux disease. She noted substernal chest pain especially after eating and in the hours prior to laying down to sleep at night. She previously also had this chest pain especially when taking larger pills and would be appropriate to eventually evaluate with EGD. She previously also had a nuclear stress test as well as a echocardiogram there were multiple for the similar symptoms. Otherwise she has not noted any exertional symptoms. She has been able to carry out her usual activities without significant cardiopulmonary limitations that is different from her baseline. She had a CT chest performed with contrast that did not show any complications from her ablation. Review of Systems 2 Cardiovascular: Cardiovascular: Reports as per HPI Respiratory: Respiratory: Reports as per HPI [facility] Past Medical History Medical History Paroxysmal atrial fibrillation Other fatigue Hx of breast cancer Hereditary and idiopathic neuropathy, unspecified Gastro-esophageal reflux disease without esophagitis Essential (primary) hypertension Esophageal spasm Encounter for annual health examination Dizziness Polycythemia Chronic fatigue CKD (chronic kidney disease) stage 3, GFR 30-59 ml/min SONYA (obstructive sleep apnea) Breast cancer A-fib Hypertension GERD (gastroesophageal reflux disease) Surgical History Surgical History History of knee replacement History of cholecystectomy History of hysterectomy Family History Family History (Updated 03/16/25 @ 21:08 by Carlos Olivarez RN) Sibling Family history of cardiac disorder Mother Patient's mother is Non-Hodgkin lymphoma Father Parkinson disease Social History Social History Smoking status: Never smoker Second hand tobacco smoke exposure: No Alcohol intake: never Substance use: never Substance use type: does not use Do You Feel Safe in your Home?: Yes Lack of Transportation: No Lack of Food: Never True Current Housing: I Have Housing Concerned About Future Housing: No Difficulty Paying Gas/Electric Bills: No Difficulty Paying for Meds: No Currently Unemployed: No Education: Associate Degree Difficulty w/ Childcare or Family Care: No Living arrangements: with family Occupation/Education: retired Additional occupation/education comments: [employer] Gender identity (if verbalized by the patient): Female Spiritual care concerns: No Meds Home Medications and Allergies Home Medications ?Medication ?Instructions ?Recorded ?Confirmed ?Type anastrozole 1 mg tablet 1 mg PO DAILY 12/29/19 03/16/25 History apixaban 5 mg tablet (Eliquis) 5 mg PO BID 12/29/19 03/16/25 History lisinopril 40 mg tablet 40 mg PO DAILY 12/29/19 03/16/25 History celecoxib 200 mg capsule (Celebrex) 200 mg PO DAILY PRN Pain, Mild 10/02/20 03/16/25 History atorvastatin 20 mg tablet (Lipitor) 20 mg PO DAILY #90 tabs 03/02/25 03/16/25 Rx pantoprazole 40 mg tablet,delayed 40 mg PO QAM #30 tabs 03/02/25 03/16/25 Rx release zolpidem 10 mg tablet (Ambien) 5 mg (1/2 x 10 mg) PO QHS PRN 03/02/25 03/16/25 Rx Insomnia #30 tabs Allergies Allergy/AdvReac Type Severity Reaction Status Date / Time No Known Allergies Allergy Unknown Verified 03/02/25 14:12 Vital Signs Vital Signs - 24 hr 03/16/25 13:24 03/16/25 14:02 03/16/25 14:32 Temperature 36.4 C Pulse Rate 119 H 90 107 H Respiratory Rate 28 H 26 H 24 H Blood Pressure 178/118 H 153/101 H 149/95 H Pulse Oximetry 100 100 100 Oxygen Delivery Room Air Fraction of Inspired Oxygen 03/16/25 14:43 03/16/25 15:01 03/16/25 15:04 Temperature Pulse Rate 105 H 93 76 Respiratory Rate 28 H 24 H Blood Pressure 149/95 H 151/101 H Pulse Oximetry 100 100 Oxygen Delivery Fraction of Inspired Oxygen 03/16/25 15:05 03/16/25 15:05 03/16/25 15:59 Temperature Pulse Rate 85 66 Respiratory Rate 13 Blood Pressure 158/96 H Pulse Oximetry 100 100 Oxygen Delivery Room Air Fraction of Inspired Oxygen 03/16/25 16:02 03/16/25 17:31 03/16/25 18:02 Temperature Pulse Rate 82 62 76 Respiratory Rate 23 H 20 30 H Blood Pressure 151/94 H 168/93 H 172/120 H Pulse Oximetry 100 97 99 Oxygen Delivery Fraction of Inspired Oxygen 03/16/25 18:50 03/16/25 19:15 03/16/25 19:33 Temperature Pulse Rate 84 75 75 Respiratory Rate 17 19 17 Blood Pressure 153/93 H 146/96 H 141/89 H Pulse Oximetry 98 100 100 Oxygen Delivery Fraction of Inspired Oxygen 03/16/25 21:03 03/16/25 21:45 03/16/25 22:00 Temperature 36.9 C Pulse Rate 71 71 71 Respiratory Rate 16 16 Blood Pressure 178/94 H Pulse Oximetry 98 98 Oxygen Delivery Room Air Fraction of Inspired Oxygen 03/16/25 22:25 03/16/25 23:45 03/16/25 23:45 Temperature 36.8 C Pulse Rate 71 68 69 Respiratory Rate 20 16 Blood Pressure 146/82 H Pulse Oximetry 98 100 Oxygen Delivery Room Air Fraction of Inspired Oxygen 21 03/17/25 00:00 03/17/25 00:00 03/17/25 02:00 Temperature Pulse Rate 67 66 57 L Respiratory Rate 18 Blood Pressure Pulse Oximetry 98 Oxygen Delivery Room Air Fraction of Inspired Oxygen 03/17/25 04:00 03/17/25 04:00 03/17/25 04:00 Temperature 36.7 C Pulse Rate 59 L 57 L 56 L Respiratory Rate 16 18 Blood Pressure 141/83 H Pulse Oximetry 100 99 Oxygen Delivery Room Air Fraction of Inspired Oxygen 03/17/25 06:00 03/17/25 06:00 03/17/25 08:00 Temperature 36.5 C Pulse Rate 61 58 L 64 Respiratory Rate 16 Blood Pressure 178/87 H Pulse Oximetry 99 Oxygen Delivery Fraction of Inspired Oxygen 03/17/25 08:00 03/17/25 08:37 03/17/25 10:00 Temperature Pulse Rate 63 70 58 L Respiratory Rate Blood Pressure Pulse Oximetry Oxygen Delivery Fraction of Inspired Oxygen Exam 2 Const: General: comfortable HENMT: Mouth: Yes moist mucous membranes Eyes: EOM: EOMs intact bilaterally Neck: Neck: no JVD Resp: Effort & Inspection: normal respiratory effort Auscultation: clear to auscultation bilaterally Cardio: Rate: bradycardic Rhythm: regular rhythm GI: GI Palp: Yes Soft to palpation Neuro: Speech: normal speech Extrem: General: no pedal edema Results Labs and Meds 03/17/25 04:10 03/17/25 04:10 Lab results: Cardiac Enzymes 03/16/25 03/16/25 03/16/25 Range/Units 13:33 16:35 19:15 AST 36 (14-36) U/L Troponin I < 0.012 < 0.012 < 0.012 (0.000-0.034) ng/mL Coagulation 03/16/25 Range/Units 13:33 PT 13.8 (11.1-14.7) Seconds APTT 26.6 (22.3-36.8) Seconds CBC 03/16/25 03/17/25 Range/Units 13:33 04:10 WBC 7.0 5.8 (4.5-10.0) K/mm3 RBC 5.41 H 4.01 L (4.2-5.4) M/mm3 Hgb 15.8 H 12.1 D (12.0-15.0) g/dL Hct 48.7 H 37.9 (37.0-47.0) % Plt Count 275 D 205 (150-375) k/mm3 Lymph # (Auto) 1.91 2.44 (0.9-3.2) K/mm3 [place] # (Auto) 0.5 0.5 (0.1-0.6) K/mm3 Eos # (Auto) 0.1 0.2 (0-0.3) K/mm3 Baso # (Auto) 0.0 0.0 (0.0-0.1) K/mm3 Comprehensive Metabolic Panel 03/16/25 03/17/25 Range/Units 13:33 04:10 Sodium 139 139 (137-145) mmol/L Potassium 4.1 4.1 (3.4-5.0) mmol/L Chloride 104 112 H (98-107) mmol/L Carbon Dioxide 17 L 20 L (22-30) mmol/L BUN 32 H 31 H (7-17) mg/dL Creatinine 1.90 H 1.70 H (0.7-1.0) mg/dL Glucose 143 H 85 (65-110) mg/dL Calcium 11.4 H 8.6 (8.4-10.2) mg/dL AST 36 (14-36) U/L ALT 31 (6-35) U/L Alkaline Phosphatase 85 (38-126) U/L Total Protein 9.0 H (6.3-8.2) g/dL Albumin 5.2 H (3.5-5.1) g/dL Intake and Output 03/16/25 03/17/25 03/17/25 23:59 07:59 15:59 Intake Total 990 240 Output Total 300 Balance -300 990 240 Intake: IV 990 Sodium Chloride 0.9% IV 1,000 990 ml @ 100 mls/hr IV CONT .Q10H LULÚ Rx#:[id number] Oral 240 Output: Urine 300 Other: # Unmeasured Voids 1 Patient Weight 03/17/25 23:59 Weight 70 kg
== END 2025-03-17 13:35 | disposition home or self-care (01) ==
LOC: ANHED 18:43 → ANHIMU 22:49
PROVIDERS: Emergency Medicine; Student in an Organized Health Care Education/Training Program; Admitting Provider General Practice; Emergency Provider Physician Assistant; PCP Internal Medicine; Visit Provider Family Medicine
DX: I48.0 Paroxysmal atrial fibrillation (principal); I12.9 Hypertensive chronic kidney disease with stage 1 through stage 4 chronic kidney disease, or unspecified chronic kidney disease; N18.30 Chronic kidney disease, stage 3 unspecified; N17.9 Acute kidney failure, unspecified; E78.5 Hyperlipidemia, unspecified; D75.1 Secondary polycythemia; K21.9 Gastro-esophageal reflux disease without esophagitis; Z79.899 Other long term (current) drug therapy; Z79.01 Long term (current) use of anticoagulants
CPT/HCPCS: 36415; 71046; 80048; 80053; 83690; 83735; 83880; 84484; 85025; 85610; 85730; 93005; 96361; 96374; 96375; 99285; A9270; G0378; J1200; J1885; J7030

== ENCOUNTER 2025-04-07 03:47 | Day surgery (SDC) | payer MEDICARE, SELFPAY ==
[2025-03-31 14:05] VITALS: BMI 25.2
--- OUTSIDE RECORDS SUMMARY | 2025-04-07 03:50 | XMS_ITS | Encounter Summary ---
Author Organization [facility] Address [address] [place] [address] Phone Care Team Providers Care Lamination Assembler Name Role Phone Stewart Campbell MD Primary Care Provider [phone] Natalie Cerrato MD Unavailable [phone] Anil Saldaña MD Unavailable Joaquin Hurd MD Unavailable Gretta Heath MD Unavailable [phone] Ryne Gomes DO Primary Care Provider [phone] Tobin Francis MD Unavailable [phone] Reason for Visit * Reason Onset Date Comments Provider Update 10/21/2018 Encounter Details Date Type Department Care Team (Late st Contact Info) Description 10/21/2018 Telephone [facility] Oncology [address] [facility] [address] [place] [id number] Ramana Collins MD [address] [place] [address] Provider Update Social History Tobacco Use Types Packs/Day Years Used Date Smoking Tobacco: Never Smokeless Tobacco: Never Alcohol Use Standard Drinks/Week Comments No 0 (1 standard drink = 0.6 oz pur e alcohol) Comments Unknown Sex and Gender Information Value Date Recorded Sex Assigned at Not on file Legal Sex Female 8:52 PM INSOLE RASPER Gender Identity Female 12/13/2020 9:57 AM INSOLE RASPER Sexual Orientation Straight 12/13/2020 9: 57 AM INSOLE RASPER documented as of this encounter Plan of Treatment Not on file documented as of this encounter Visit Diagnoses Not on filedocumented in this encounter Care Teams Lamination Assembler Relationship Specialty Start Date End Date Stewart Campbell MD [address] [place] [address] PCP - General 01/24/17 07/18/24 Ryne Gomes DO [address] [place] [address] PCP - General Internal Medicine 07/19/24 Natalie Cerrato MD [address] [place], [place] [id number] Surgeon Surgical Oncology 05/01/18 Anil Saldaña MD [address] [place] [address] Medical Oncologist/Correctional Food Service Supervisor Medical Oncology 07/21/19 07/05/20 Joaquin Hurd MD [address] [place], [place] [id number] Consulting Physician Cardiology 07/21/19 Gretta Heath MD [address] [facility] [address] [place] [address] Medical Oncologist/Correctional Food Service Supervisor Medical Oncology 07/06/20 Tobin Francis MD [address] [address] Consulting Physician Cardiology 10/06/24 documented as of this encounter
--- OUTSIDE RECORDS SUMMARY | 2025-04-07 03:50 | XMS_ITS | Clinical Summary ---
Author Organization [facility] Address [address] [facility] [place] [address] Care Team Providers Care Irish Moss Bleacher Name Role Phone Stewart Campbell DO Primary Care Provider Source Comments [facility],non-owned Affiliates and Associated Physician Practices is amultiple site organization consisting of ambulatory clinics and hospital sitesin [place], [place], [place] and [place]. This disclosure is being madepursuant to the Care Everywhere program and may not contain all information available regarding this patient. Last updated 18.[facility] [employer] Social History Tobacco Use Types Packs/Day Years Used Date Smoking Tobacco: Never Assessed Comments Unknown Sex and Gender Information Value Date Recorded Sex Assigned at Not on file Legal Sex Female 6:14 AM PREDATORY ANIMAL TRAPPER Gender Identity Not on file Sexual Orientation [...] patient's age to complete [place] [address] MEDICARE Care Teams Irish Moss Bleacher Relationship Specialty Start Date End Date Stewart Campbell DO [address] [facility] [address] [place] [address] PCP - General 05/11/20
--- OUTSIDE RECORDS SUMMARY | 2025-04-07 03:50 | XMS_ITS | Clinical Summary ---
Author Organization [facility] Address [address] [place] [address] Care Team Providers Care Inclusion Specialist Name Role Phone Natalie Cerrato MD Unavailable [phone] Joaquin Hurd MD Unavailable [phone] Gretta Heath MD Unavailable [phone] Ryne Gomes DO Primary Care Provider [phone] Tobin Francis MD Unavailable [phone] Allergies No known active allergies Medications multivitamin [...] every morning 90 tablet 3 01/13/2025 Active atorvastatin (LIPITOR) 20 mg tablet Take 1 tablet (20 mg total) by mouth daily 03/02/2025 Active metoprolol XL (TOPROL-XL) 25 mg extended release tablet Take 1 tablet (25 mg total) by mouth daily 90 tablet 1 03/22/2025 Active Active Problems Problem Noted Date Diagnosed [...] (07/24/2021): Added automatically from request for surgery [id number] S/P breast reconstruction 02/19/2021 Overview (02/19/2021): Added automatically from request for surgery [id number] Idiopathic peripheral neuropathy 09/12/2020 Assessment & Plan (09/03/2021 11:46 AM SUPERVISOR TREE TRIMMING): Patient continues on gabapentin for treatment of dysesthesia and paresthesia associated with idiopathic peripheral neuropathy in her lower extremities. She cites good tolerability and efficacy. I have renewed her gabapentin 300 mg t.i.d. as previously prescribed. She will follow-up in neurology clinic in a year. Assessment & Plan (09/12/2020 12:55 PM SUPERVISOR TREE TRIMMING): Patient is a former patient of [facility] being treated for idiopathic peripheral neuropathy manifested as neuropathic pain and numbness in her feet and legs. Prior medical records from [facility] have been requested but are unavailable [...] 09/12/2020 Assessment & Plan (09/12/2020 12:56 PM SUPERVISOR TREE TRIMMING): Patient has history of peripheral neuropathy with neuropathic pain as a presenting symptom. Gabapentin 300 mg t.i.d. has been historically prescribed with good tolerability and efficacy. 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/2019 shelter (current) use of aromatase inhibitors 07/01/2019 Malignant neoplasm of lower- inner quadrant of breast in female, estrogen receptor positive 07/01/2019 HX: breast cancer 07/01/2019 Bone disease 07/01/2019 Labile hypertension 04/12/2019 Dizziness 10/06/2018 History of breast cancer 05/14/2018 Assessment & Plan (12/15/2024 8:05 AM SUPERVISOR TREE TRIMMING): Continue anastrazole Assessment & Plan (12/14/2024 2:03 PM SUPERVISOR TREE TRIMMING): Continue anastrazole H/O sarcoidosis 02/20/2018 ALEXIS (dyspnea [...] anticoagulation Assessment & Plan (12/15/2024 8:06 AM SUPERVISOR TREE TRIMMING): For atrial fibrillation, continue apixaban Assessment & Plan (12/14/2024 2:03 PM SUPERVISOR TREE TRIMMING): Resume Eliquis tonight per cardiology post procedure recs Dehydration 05/06/2016 Benign hypertension 04/18/2016 Overview (01/30/2017): HTN (hypertension), benign Assessment & Plan (12/15/2024 8:06 AM SUPERVISOR TREE TRIMMING): Continue home lisinopril 40mg daily Assessment & Plan (12/14/2024 2:03 PM SUPERVISOR TREE TRIMMING): BP controlled post ablation. Continue home lisinopril 40 daily Paroxysmal atrial fibrillation 04/18/2016 Overview (01/30/2017): Paroxysmal atrial fibrillation Assessment & Plan (12/15/2024 8:05 AM SUPERVISOR TREE TRIMMING): Presented for planned EP study with ablation [...] home Assessment & Plan (12/14/2024 2:13 PM SUPERVISOR TREE TRIMMING): Presented for planned EPS with ablation under [...] Encounters Date Type Department Care Team Description 03/31/2025 Telephone [facility] Cardiology [address] [facility] [address] [place] [address] Bret Freeman MD 03/22/2025 Orders Only [facility] Cardiology [address] [facility] [address] [place] [phone] Bret Freeman MD 03/22/2025 Telephone [facility] Cardiology [address] [facility] [address] [place] [address] Bret Freeman MD 03/18/2025 Telephone [facility] Cardiology [address] [facility] [address] [place] [address] Bret Freeman MD 03/02/2025 Telephone [facility] Cardiology [address] [facility] [address] [place] [address] Bret Freeman MD 02/22/2025 10:15 AM CDT Office Visit [facility] Surgery [address] [facility] [address] [place] [address] Emmanuel Mantilla MD Status post breast reconstruction (Primary Dx); Ruptured silicone breast implant, initial encounter 02/22/2025 Telephone [facility] Surgery [address] [place] [address] [address] [place] [address] Emmanuel Mantilla MD 02/22/2025 Telephone [facility] Cardiology [address] [place] [address] 8th [place] [address] [place] [address] Tobin Francis MD 02/07/2025 Telephone [facility] Oncology [facility] Floor [address] [place] [phone] chest with schedule for 03/2302/04/2025 10:18 AM CDT - 02/04/2025 11:59 PM CDT Hospital Encounter [facility] [address] [place] [address] Persistent atrial fibrillation (HCC); ALEXIS (dyspnea on exertion); H/O sarcoidosis; Gastroesophageal reflux disease without esophagitis; HX: breast cancer Discharge Disposition: Discharge to home or self care 02/04/2025 Results Follow-Up [facility]iology [address] [place] [address] Medical Office Building [address] [place] [address] Chest W Contrast, POCT creatinine 01/31/2025 Telephone [facility] Cardiology [address] [place] [address] [place] [address] [place] [address] Tobin Francis MD 01/26/2025 2:15 PM CDT Office Visit [address] 8th [place] [address] [place] [address] Nati Zapata NP Paroxysmal atrial fibrillation (HCC) (Primary Dx); Persistent atrial fibrillation (HCC); ALEXIS (dyspnea on exertion); H/O sarcoidosis; Gastroesophageal reflux disease without esophagitis; HX: breast cancer 01/26/2025 Results Follow-Up [facility] Cardiology [address] [facility] 8th [place] [address] [place] [address] Nati Zapata NP ECG 12 lead 01/14/2025 Telephone [facility] Cardiology [address] [place] [address] Bret Freeman MD 01/11/2025 1:03 PM CDT - 01/11/2025 11:59 PM CDT Hospital Encounter [facility] Breast Imaging [facility] [address] [place] [address] History of breast reconstruction Discharge Disposition: Discharge to home or self care 01/10/2025 Orders Only [facility] Oncology [address] [facility] Floor [address] [place] [address] Suzette Howell RN Malignant neoplasm of lower-inner quadrant of left breast in female, estrogen receptor positive (HCC) from Last 3 Months Immunizations Immunization [...] ATRIAL FIBRILLATION (A-FIB) VIA PULMONARY VEIN ISOLATION [id number]; Surgeon: Tobin Francis MD; Location: [facility] EP LAB; Service: Cardiovascular; Laterality: N/A; 3rd case Medical devices from this surgery are in the Medical Devices section. CARDIAC ELECTROPHYSIOLOGY PROCEDURE 12/14/2024 N/A Procedure: ABLATION ATRIAL FIBRILLATION ADDITIONAL LINE OR FOCI (+) [id number]; Surgeon: Tobin Francis MD; Location: [facility] EP LAB; Service: Cardiovascular; Laterality: N/A; [...] on file Legal Sex Female 8:52 PM SUPERVISOR TREE TRIMMING Gender Identity Female 12/13/2020 9:57 AM SUPERVISOR TREE TRIMMING Sexual Orientation Straight 12/13/2020 9: 57 AM SUPERVISOR TREE TRIMMING Obstetrics History Last Filed Vital Signs Vital Sign Reading Time Taken Comments Blood Pressure 163/98 01/26/2025 2:18 PM CDT Pulse 88 01/26/2025 2:18 PM CDT Temperature 36.5 C (97.7 F) 12/15/2024 8:15 AM SUPERVISOR TREE TRIMMING Respiratory Rate 16 12/15/2024 8:15 AM SUPERVISOR TREE TRIMMING Oxygen Saturation 100% 01/26/2025 2:18 PM CDT Inhaled Oxygen Concentration - - Weight 68.5 kg (151 lb) 02/22/2025 10:03 AM CDT Height 161 cm (5' 3.4) 02/22/2025 10:03 AM CDT Body Mass Index [...] 09/26/2021, 03/28/2015 Colon Cancer Screening-DNA Stool Discontinued 09/26/20 21, 03/28/2015 Colon Cancer Screening-FIT Discontinued 09/26/2021, Colon Cancer Screening-Sigmoidoscopy Discontinued 09/26/2021, 03/28/2015 Breast Cancer Screening-Mammogram Discontinued 10/13/2024, 10/10/2023, 09/25/2022, Additional history exists Influenza Vaccine Completed 12/15/2024, , 08/29/2016, Additional history exists Medical Devices Implanted Type Area Cultural Centre Manager Device Identifier Shelf Expiration Date Model / Serial / Lot [employer] Vascade Mvp 6-12fr Venous Closure [id number] - [id number] - [id number] Implanted:Qty : 1 on 12/14/2024 by Tobin Francis MD at [facility] Right: Femoral Vein [employer] 08/06/2026 [id number] [id number] / [id number] 16B / [id number] [id number] [employer] Vascade Mvp 6-12fr Venous Closure [id number] - [id number] - [id number] Implanted:Qty : 1 on 12/14/2024 by Tobin Francis MD at [facility] Right: Femoral Vein [employer] 08/06/2026 800-612C- 10U / [id number] 16B / [id number] 16B [employer] Vascade Mvp 6-12fr Venous Closure [id number] - [id number] - [id number] Implanted:Qty : 1 on 12/14/2024 by Tobin Francis MD at [facility] Coll[place] Right: Femoral Vein [employer] 08/06/2026 800-612C- 10U / [id number] 16B / [id number] 16B Procedures Procedure Name Priority Date/Time Associated Diagnosis Comments CARDIOLOGY DOCUMENT SCAN Routine 03/17/2025 4:[address] CHEST W CONTRAST Schedule Routine, Read [...] Read Routine (OP Routine) 10/13/2024 3:19 PM SUPERVISOR TREE TRIMMING History of breast cancer Breast cancer screening by mammogram DEXA AXIAL SKELETON BONE DENSITY 1 OR MORE SITES Schedule Routine, Read Routine (OP Routine) 04/07/2024 11:17 AM CDT 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, estrogen receptor positive, unspecified laterality (HCC) shelter (current) use of aromatase inhibitors COLONOSCOPY 09/26/2021 10:27 AM SUPERVISOR TREE TRIMMING SERUM HEPATITIS C AB Routine 04/21/2015 5:19 AM CDT from Last 3 Months or Most Recently Relevant to Health Maintenance Results * Cardiology Document Scan (03/17/2025 4:31 PM CDT) Anatomical Region Laterality Modality Other us Bret Freeman MD CV CARDIAC SERVICES PROCEDURES F inal Result * CT Chest W Contrast (02/04/2025 10:54 AM CDT) Anatomical Region Laterality Modality Body N/A Computed Tomogra phy 02/04/2025 11:1 2 AM CDT Addenda Addendum by Deepika Gibbs MD on 03/17/2025 3:08 PM CDT This addendum is being issued to reflect a correction to the prior report. In the body of the report it should read: There is an aberrant right subclavian artery. Electronically signed by: Deepika Gibbs M.D. Impressions 02/04/2025 11:12 AM CDT 1. No [...] M.D. Nati Zapata NP IMG CT PROCEDURES Edited Result - Final * (ABNORMAL) POCT creatinine (02/04/2025 10:35 AM CDT) Creatinine POC 1.6(H) 0.6 - 1.1 mg/dL Blood 02/04/2025 10:3 5 AM CDT 02/04/2025 10:35 AM CDT Ryne Gomes DO LAB POCT ORDERABLES - DEVICE Fin al Result [facility] [place] [address] * ECG 12 lead (01/26/2025 2:30 PM [...] W Mello Unilateral Only (10/13/2024 3:19 PM SUPERVISOR TREE TRIMMING) Anatomical Region Laterality Modality Breast Right Mammography Narrative 10/14/2024 3:16 PM SUPERVISOR TREE TRIMMING Mammogram Technique: Right Breast Digital Breast Tomosynthesis, Unilateral C-view 2D Screening mammogram. Views obtained: . Computer Aided Detection was performed. Mammogram Findings: The present examination has been compared to prior imaging studies performed at [facility] on 09/18/2021, 09/25/2022 and 10/10/2023. There are [...] compared to prior imaging studies performed at [facility] on 09/18/2021, 09/25/2022 and 10/10/2023. There are [...] -2.0 is below the expected range for age. A Z-score below the expected range for age in a patient with recent fractures and/or chronic corticosteroid treatment is consistent with a diagnosis of osteoporosis. B) In post menopausal women and males over 50, comparison of the measured bone mineral density with the average value in young normal subjects (the T-score) has been found to be useful in [...] -2.0 is below the expected range for age. A Z-score below the expected range for age in a patient with recent fractures and/or chronic corticosteroid treatment is consistent with a diagnosis of osteoporosis. B) In post menopausal women and males over 50, comparison of the measured bone mineral density with the average value in young normal subjects (the T-score) has been found to be useful in [...] by: Salome Craven M.D. Gretta Heath MD IM DXA PROCEDURES F inal Result * COLONOSCOPY (09/26/2021 10:27 AM SUPERVISOR TREE TRIMMING) Anatomical Region Laterality Modality Other Narrative Procedure Note Trang Alfred MD - 09/26/2021 10:27 AM CST ENDOSCOPY LAB Patient Name: Carmen Stewart Procedure Date: 09/26/2021 10:27 AM Date of : 1950 Admit Type: Outpatient Age: 70 Gender: Female Attending MD: Trang Alfred M.D. Room: [facility] ENDOSCOPY ROOM 01 Note Status: Finalized Procedure: [...] The scope was passed under direct vision.The [id number] was introduced through the anusand advanced to [...] During normal business hours - Please call [facility] Coordinator: [phone] After hours, evening, nights, weekends and holidays- Please call the hospital cigarette packing machine operator at and ask for the GI fellow neurosurgical nurse practitioner. Electronically by Dr Trang Alfred [...] 04/26/2015 5:00 PM CDT Test performed at [employer] [place] [address] [place] [address] Director: CONRAD JONES DO,MPH us Historical Provider LAB BLOOD ORDERABLES Poornima l Result HISTORICAL RESULTS from Last 3 Months or Most Recently Relevant to Health Maintenance Insurance [facility] Address: [facility] [address] [place] [address] [facility] Address: [address] [address] [place] [address] [facility] Address: [address] [address] [place] [address] Advance Directives For more information, please contact: [phone] * Full Code (Latest Code Status on File) Date Activated Date Inactivated Comments 09/26/2021 9:54 AM 09/26/2021 3:23 PM Care Teams Inclusion Specialist Relationship Specialty Start Date End Date Ryne Gomes DO [address] [place] [address] PCP - General Internal Medicine 07/19/24 Natalie Cerrato MD [address] [place] [address] Surgeon Surgical Oncology 05/01/18 Joaquin Hurd MD [address] [place] [address] Consulting Physician Cardiology 07/21/19 Gretta Heath MD [address] [facility] [address] [place] [address] Medical Oncologist/Forge Heater Medical Oncology 07/06/20 Tobin Francis MD [address] [address] Consulting Physician Cardiology 10/06/24
--- OUTSIDE RECORDS SUMMARY | 2025-04-07 03:50 | XMS_ITS | Encounter Summary ---
Author Organization [facility] Address [address] [place] [address] Phone Care Team Providers Care Knit Goods Press Hand Name Role Phone Natalie Cerrato MD Unavailable Joaquin Hurd MD Unavailable [phone] Gretta Heath MD Unavailable [phone] Ryne Gomes DO Primary Care Provider [phone] Tobin Francis MD Unavailable [phone] Encounter Details Date Type Department Care Team (Late st Contact Info) Description 02/04/2025 Results Follow-Up [facility] Cardiology [facility] Medical Office Building [address] [place] [address] Nati Zapata, SHEET METAL FORMER [address] [facility] [address] [place] [address] CT Chest W Contrast, POCT creatinine Social History Tobacco Use Types Packs/Day Years [...] on file Legal Sex Female 8:52 PM RIGGER CHIEF Gender Identity Female 12/13/2020 9:57 AM RIGGER CHIEF Sexual Orientation Straight 12/13/2020 9: 57 AM RIGGER CHIEF documented as of this encounter Plan of Treatment Not on file documented as of this encounter Visit Diagnoses Not on filedocumented in this encounter Care Teams Knit Goods Press Hand Relationship Specialty Start Date End Date Ryne Gomes DO [address] [place], [place] [id number] PCP - General Internal Medicine 07/19/24 Natalie Cerrato MD [address] [place] [address] Surgeon Surgical Oncology 05/01/18 Joaquin Hurd MD [address] [place] [address] Consulting Physician Cardiology 07/21/19 Gretta Heath MD [address] [facility] [address] [place] [address] Medical Oncologist/Programs Assistant Medical Oncology 07/06/20 Tobin Francis MD [address] [address] Consulting Physician Cardiology 10/06/24 documented as of this encounter
--- OUTSIDE RECORDS SUMMARY | 2025-04-07 03:50 | XMS_ITS | Encounter Summary ---
Author Organization [facility] Address [address] [place] [address] Phone Care Team Providers Care Web Database Developer Name Role Phone Stewart Campbell MD Primary Care Provider [phone] Natalie Cerrato MD Unavailable [phone] Joaquin Hurd MD Unavailable [phone] Gretta Heath MD Unavailable [phone] Ryne Gomes DO Primary Care Provider [phone] Tobin Francis MD Unavailable [phone] Encounter Details Date Type Department Care Team (Late st Contact Info) Description 04/07/2024 Orders Only [facility] Oncology [address] [facility] [address] [place] [phone] Gretta Heath MD [address] [facility] [address] [place] [address] Malignant neoplasm of lower-inner quadrant [...] on file Legal Sex Female 8:52 PM AERONAUTICAL INSPECTOR Gender Identity Female 12/13/2020 9:57 AM AERONAUTICAL INSPECTOR Sexual Orientation Straight 12/13/2020 9: 57 AM AERONAUTICAL INSPECTOR documented as of this encounter Plan of Treatment Not on file documented as of this encounter Visit Diagnoses Diagnosis Malignant neoplasm of lower-inner quadrant of left breast in female, estrogen receptor positive (HCC)- Primary documented in this encounter Care Teams Web Database Developer Relationship Specialty Start Date End Date Stewart Campbell MD [address] [facility] 162 [facility] [address] [place] [address] PCP - General 01/24/17 07/18/24 Ryne Gomes DO [address] [facility] [address] [facility] 21 [place] [address] PCP - General Internal Medicine 07/19/24 Natalie Cerrato MD [address] [place] [address] Surgeon Surgical Oncology 05/01/18 Joaquin Hurd MD [address] [place] [address] Consulting Physician Cardiology 07/21/19 Gretta Heath MD [address] [facility] [address] [place] [address] Medical Oncologist/Webmethods Architect Medical Oncology 07/06/20 Tobin Francis MD [address] [address] Consulting Physician Cardiology 10/06/24 documented as of this encounter
--- OUTSIDE RECORDS SUMMARY | 2025-04-07 03:50 | XMS_ITS ---
Author Organization [facility] Address [address] [place] [address] Care Team Providers Care Senior Financial Analyst Name Role Phone Natalie Cerrato MD Unavailable [phone] Joaquin Hurd MD Unavailable [phone] Gretta Heath MD Unavailable [phone] Ryne Gomes DO Primary Care Provider [phone] Tobin Francis MD Unavailable [phone] Active Problems Problem Noted Date Diagnosed Date [...] (07/24/2021): Added automatically from request for surgery [id number] S/P breast reconstruction 02/19/2021 Overview (02/19/2021): Added automatically from request for surgery [id number] Idiopathic peripheral neuropathy 09/12/2020 Assessment & Plan (09/03/2021 11:46 AM HOUSE SUPERINTENDENT): Patient continues on gabapentin for treatment of dysesthesia and paresthesia associated with idiopathic peripheral neuropathy in her lower extremities. She cites good tolerability and efficacy. I have renewed her gabapentin 300 mg t.i.d. as previously prescribed. She will follow-up in neurology clinic in a year. Assessment & Plan (09/12/2020 12:55 PM HOUSE SUPERINTENDENT): Patient is a former patient of [facility] being treated for idiopathic peripheral neuropathy manifested as neuropathic pain and numbness in her feet and legs. Prior medical records from [facility] have been requested but are unavailable [...] 09/12/2020 Assessment & Plan (09/12/2020 12:56 PM HOUSE SUPERINTENDENT): Patient has history of peripheral neuropathy with neuropathic pain as a presenting symptom. Gabapentin 300 mg t.i.d. has been historically prescribed with good tolerability and efficacy. 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 07/01/2019 Malignant neoplasm of lower- inner quadrant of breast in female, estrogen receptor positive 07/01/2019 HX: breast cancer 07/01/2019 Bone disease 07/01/2019 Labile hypertension 04/12/2019 Dizziness 10/06/2018 History of breast cancer 05/14/2018 Assessment & Plan (12/15/2024 8:05 AM HOUSE SUPERINTENDENT): Continue anastrazole Assessment & Plan (12/14/2024 2:03 PM HOUSE SUPERINTENDENT): Continue anastrazole H/O sarcoidosis 02/20/2018 ALEXIS (dyspnea [...] anticoagulation Assessment & Plan (12/15/2024 8:06 AM HOUSE SUPERINTENDENT): For atrial fibrillation, continue apixaban Assessment & Plan (12/14/2024 2:03 PM HOUSE SUPERINTENDENT): Resume Catherine burdick per cardiology post procedure recs Dehydration 05/06/2016 Benign hypertension 04/18/2016 Overview (01/30/2017): HTN (hypertension), benign Assessment & Plan (12/15/2024 8:06 AM HOUSE SUPERINTENDENT): Continue home lisinopril 40mg daily Assessment & Plan (12/14/2024 2:03 PM HOUSE SUPERINTENDENT): BP controlled post ablation. Continue home lisinopril 40 daily Paroxysmal atrial fibrillation 04/18/2016 Overview (01/30/2017): Paroxysmal atrial fibrillation Assessment & Plan (12/15/2024 8:05 AM HOUSE SUPERINTENDENT): Presented for planned EP study with ablation [...] home Assessment & Plan (12/14/2024 2:13 PM HOUSE SUPERINTENDENT): Presented for planned EPS with ablation under [...]
--- OUTSIDE RECORDS SUMMARY | 2025-04-07 03:50 | XMS_ITS | Encounter Summary ---
Author Organization [facility] Address [address] [place] [address] Phone Care Team Providers Care Computer Networker Name Role Phone Stewart Campbell MD Primary Care Provider [phone] Natalie Cerrato MD Unavailable [phone] Joaquin Hurd MD Unavailable [phone] Gretta Heath MD Unavailable [phone] Ryne Gomes DO Primary Care Provider [phone] Tobin Francis MD Unavailable [phone] Encounter Details Date Type Department Care Team (Late st Contact Info) Description 04/06/2024 Orders Only [facility] Oncology [address] [facility] Advanced Medicine 7th [place] [address] [place] [address] [place] [address] [address] [place] [address] 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, estrogen receptor positive, unspecified laterality (HCC) (Primary Dx); Bone disease; terminal system operator (current) use of aromatase inhibitors Social History [...] on file Legal Sex Female 8:52 PM ENVIRONMENTAL SERVICES TECHNICIAN Gender Identity Female 12/13/2020 9:57 AM ENVIRONMENTAL SERVICES TECHNICIAN Sexual Orientation Straight 12/13/2020 9: 57 AM ENVIRONMENTAL SERVICES TECHNICIAN documented as of this encounter Plan of Treatment Not on file documented as of this encounter Visit Diagnoses Diagnosis 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, estrogen receptor positive, unspecified laterality (HCC)- Primary Bone disease Disorder of bone and cartilage, unspecified terminal system operator (current) use of aromatase inhibitors documented in this encounter Care Teams Computer Networker Relationship Specialty Start Date End Date Stewart Campbell MD [address] [place] [address] PCP - General 01/24/17 07/18/24 Ryne Gomes DO [address] [place] [address] PCP - General Internal Medicine 07/19/24 Natalie Cerrato MD [address] [place] [address] Surgeon Surgical Oncology 05/01/18 Joaquin Hurd MD [address] [place] [address] Consulting Physician Cardiology 07/21/19 Gretta Heath MD [address] [facility] [address] [place] [address] Medical Oncologist/Patient Registration Clerk Medical Oncology 07/06/20 Tobin Francis MD [address] [facility] [address] [place] [address] Consulting Physician Cardiology 10/06/24 documented as of this encounter
--- OUTSIDE RECORDS SUMMARY | 2025-04-07 03:50 | XMS_ITS | Encounter Summary ---
Author Organization [facility] Address [address] [place] [address] Phone Care Team Providers Care Press Helper Name Role Phone Stewart Campbell MD Primary Care Provider [phone] Natalie Cerrato MD Unavailable Anil Saldaña MD Unavailable Joaquin Hurd MD Unavailable Gretta Heath MD Unavailable [phone] Ryne Gomes DO Primary Care Provider [phone] Tobin Francis MD Unavailable [phone] Reason for Visit * Reason Onset Date Comments Provider Update 10/22/2018 Encounter Details Date Type Department Care Team (Late st Contact Info) Description 10/22/2018 Telephone [facility] Oncology [address] [facility] [address] [place] [address] Ramana Collins MD [address] [place] [address] Provider Update Social History Tobacco Use Types Packs/Day Years Used Date Smoking Tobacco: Never Smokeless Tobacco: Never Alcohol Use Standard Drinks/Week Comments No 0 (1 standard drink = 0.6 oz pur e alcohol) Comments Unknown Sex and Gender Information Value Date Recorded Sex Assigned at Not on file Legal Sex Female 8:52 PM STAMPING BENCH DIE MAKER Gender Identity Female 12/13/2020 9:57 AM STAMPING BENCH DIE MAKER Sexual Orientation Straight 12/13/2020 9: 57 AM STAMPING BENCH DIE MAKER documented as of this encounter Plan of Treatment Not on file documented as of this encounter Visit Diagnoses Not on filedocumented in this encounter Care Teams Press Helper Relationship Specialty Start Date End Date Stewart Campbell MD [address] [place] [address] PCP - General 01/24/17 07/18/24 Ryne Gomes DO [address] [place] [address] PCP - General Internal Medicine 07/19/24 Natalie Cerrato MD [address] [place], [place] [id number] Surgeon Surgical Oncology 05/01/18 Anil Saldaña MD [address] [place] [address] Medical Oncologist/Montessori Toddler Teacher Medical Oncology 07/21/19 07/05/20 Joaquin Hurd MD [address] [place], [place] [address] Consulting Physician Cardiology 07/21/19 Gretta Heath MD [address] [facility] [address] [place] [address] Medical Oncologist/Montessori Toddler Teacher Medical Oncology 07/06/20 Tobin Francis MD [address] [address] Consulting Physician Cardiology 10/06/24 documented as of this encounter
--- OUTSIDE RECORDS SUMMARY | 2025-04-07 03:50 | XMS_ITS | Encounter Summary ---
Author Organization [facility] Address [address] [place] [address] Phone Care Team Providers Care Vacation Planner Name Role Phone Stewart Campbell MD Primary Care Provider [phone] Natalie Cerrato MD Unavailable [phone] Anil Saldaña MD Unavailable [phone] Joaquin Hurd MD Unavailable [phone] Gretta Heath MD Unavailable [phone] Ryne Gomes DO Primary Care Provider [phone] Tobin Francis MD Unavailable [phone] Encounter Details Date Type Department Care Team [...] on file Legal Sex Female 8:52 PM WEB MERCHANDISER Gender Identity Female 12/13/2020 9:57 AM WEB MERCHANDISER Sexual Orientation Straight 12/13/2020 9: 57 AM WEB MERCHANDISER documented as of this encounter Plan of Treatment Not on file documented as of this encounter Procedures Procedure Name Priority Date/Time Associated Diagnosis Comments SCAN - RADIOLOGY/IMAGING 01/13/2019 documented in this encounter Results * SCAN - RADIOLOGY/IMAGING (01/13/2019) Anatomical Region Laterality Modality Other us Provider Scanning Final Result documented in this encounter Visit Diagnoses Not on filedocumented in this encounter Care Teams Vacation Planner Relationship Specialty Start Date End Date Stewart Campbell MD [address] [place] [address] PCP - General 01/24/17 07/18/24 Ryne Gomes DO [address] [place] [address] PCP - General Internal Medicine 07/19/24 Natalie Cerrato MD [address] [place] [address] Surgeon Surgical Oncology 05/01/18 Anil Saldaña MD [address] [place], [place] [address] Medical Oncologist/Hydraulic Jack Mechanic Medical Oncology 07/21/19 07/05/20 Joaquin Hurd MD [address] [place] [address] Consulting Physician Cardiology 07/21/19 Gretta Heath MD [address] [facility] [address] [place] [address] Medical Oncologist/Hydraulic Jack Mechanic Medical Oncology 07/06/20 Tobin Francis MD [address] [address] Consulting Physician Cardiology 10/06/24 documented as of this encounter
--- OUTSIDE RECORDS SUMMARY | 2025-04-07 03:50 | XMS_ITS | Referral Summary ---
Author Organization [facility] Address [address] [place] [address] Care Team Providers Care Punching Machine Operator Name Role Phone Natalie Cerrato MD Unavailable [phone] Joaquin Hurd MD Unavailable Gretta Heath MD Unavailable [phone] Ryne Gomes DO Primary Care Provider [phone] Tobin Francis MD Unavailable [phone] Encounters Date Type Department Care Team Description 03/31/2025 Telephone [facility] Cardiology [address] [place] [address] Bret Freeman MD 03/22/2025 Orders Only [facility] Cardiology [address] [place] [address] Bret Freeman MD 03/22/2025 Telephone [facility] Cardiology [address] [place] [address] Bret Freeman MD 03/18/2025 Telephone [facility] Cardiology [address] [place] [address] Bret Freemna MD 03/02/2025 Telephone [facility] Cardiology [address] [address] [address] [place] [address] Bret Freeman MD 02/22/2025 Telephone [facility] Surgery [address] [facility] [address] [place] [address] Emmanuel Mantilla MD 02/22/2025 Telephone [facility] Cardiology [address] [place] [address] Advanced Medicine 8th [place] [address] [place] [address] Tobin Francis MD 02/22/2025 10:15 AM CDT Office Visit [facility] Surgery [facility] [address] [place] [address] Emmanuel Mantilla MD Status post breast reconstruction (Primary Dx); Ruptured silicone breast implant, initial encounter 02/07/2025 Telephone [facility] Oncology [facility] Floor 8 [place] [address] Suzette Howell, ROBERT CT chest with schedule for 03/2302/04/2025 Results Follow-Up [facility] Cardiology [facility] Medical Office Building [address] [place] [address] Chest W Contrast, POCT creatinine 02/04/2025 10:18 AM CDT - 02/04/2025 11:59 PM CDT Hospital Encounter [facility] [address] [place] [address] Persistent atrial fibrillation (HCC); ALEXIS (dyspnea on exertion); H/O sarcoidosis; Gastroesophageal reflux disease without esophagitis; HX: breast cancer Discharge Disposition: Discharge to home or self care 01/31/2025 Telephone [facility] Cardiology [address] [place] [address] Advanced [facility] 8th [place] [address] [place] [address] Tobin Francis MD 01/26/2025 Results Follow-Up [facility] Cardiology [address] [place] [address] Advanced [facility] 8th [place] [address] [place] [address] Nati Zapata NP ECG 12 lead 01/26/2025 2:15 PM CDT Office Visit [facility] Cardiology [address] [facility] Advanced Medicine 8th [place] [address] [place] [address] Nati Zapata NP Paroxysmal atrial fibrillation (HCC) (Primary Dx); Persistent atrial fibrillation (HCC); ALEXIS (dyspnea on exertion); H/O sarcoidosis; Gastroesophageal reflux disease without esophagitis; HX: breast cancer 01/14/2025 Telephone [facility] Cardiology [address] [place] [address] Bret Freeman MD 01/11/2025 1:03 PM CDT - 01/11/2025 11:59 PM CDT Hospital Encounter [facility] Advanced Medicine Breast Imaging [facility] ([facility]) [address] [place] [address] History of breast reconstruction Discharge Disposition: Discharge to home or self care 01/10/2025 Orders Only [facility] Oncology [address] [facility] Floor 8 [place] [address] Suzette Howell, RN Malignant neoplasm of lower-inner quadrant of left breast in female, estrogen receptor positive (HCC) from Last 3 Months Allergies No [...] (07/24/2021): Added automatically from request for surgery [id number] S/P breast reconstruction 02/19/2021 Overview (02/19/2021): Added automatically from request for surgery [id number] Idiopathic peripheral neuropathy 09/12/2020 Assessment & Plan (09/03/2021 11:46 AM CERTIFIED CYTOTECHNOLOGIST): Patient continues on gabapentin for treatment of dysesthesia and paresthesia associated with idiopathic peripheral neuropathy in her lower extremities. She cites good tolerability and efficacy. I have renewed her gabapentin 300 mg t.i.d. as previously prescribed. She will follow-up in neurology clinic in a year. Assessment & Plan (09/12/2020 12:55 PM CERTIFIED CYTOTECHNOLOGIST): Patient is a former patient of [facility] being treated for idiopathic peripheral neuropathy manifested as neuropathic pain and numbness in her feet and legs. Prior medical records from [facility] have been requested but are unavailable [...] 09/12/2020 Assessment & Plan (09/12/2020 12:56 PM CERTIFIED CYTOTECHNOLOGIST): Patient has history of peripheral neuropathy with neuropathic pain as a presenting symptom. Gabapentin 300 mg t.i.d. has been historically prescribed with good tolerability and efficacy. 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/2019 terminal manager (current) use of aromatase inhibitors 07/01/2019 Malignant neoplasm of lower- inner quadrant of breast in female, estrogen receptor positive 07/01/2019 HX: breast cancer 07/01/2019 Bone disease 07/01/2019 Labile hypertension 04/12/2019 Dizziness 10/06/2018 History of breast cancer 05/14/2018 Assessment & Plan (12/15/2024 8:05 AM CERTIFIED CYTOTECHNOLOGIST): Continue anastrazole Assessment & Plan (12/14/2024 2:03 PM CERTIFIED CYTOTECHNOLOGIST): Continue anastrazole H/O sarcoidosis 02/20/2018 ALEXIS (dyspnea [...] anticoagulation Assessment & Plan (12/15/2024 8:06 AM CERTIFIED CYTOTECHNOLOGIST): For atrial fibrillation, continue apixaban Assessment & Plan (12/14/2024 2:03 PM CERTIFIED CYTOTECHNOLOGIST): Resume Eliquis tonight per cardiology post procedure recs Dehydration 05/06/2016 Benign hypertension 04/18/2016 Overview (01/30/2017): HTN (hypertension), benign Assessment & Plan (12/15/2024 8:06 AM CERTIFIED CYTOTECHNOLOGIST): Continue home lisinopril 40mg daily Assessment & Plan (12/14/2024 2:03 PM CERTIFIED CYTOTECHNOLOGIST): BP controlled post ablation. Continue home lisinopril 40 daily Paroxysmal atrial fibrillation 04/18/2016 Overview (01/30/2017): Paroxysmal atrial fibrillation Assessment & Plan (12/15/2024 8:05 AM CERTIFIED CYTOTECHNOLOGIST): Presented for planned EP study with ablation [...] home Assessment & Plan (12/14/2024 2:13 PM CERTIFIED CYTOTECHNOLOGIST): Presented for planned EPS with ablation under [...] on file Legal Sex Female 8:52 PM CERTIFIED CYTOTECHNOLOGIST Gender Identity Female 12/13/2020 9:57 AM CERTIFIED CYTOTECHNOLOGIST Sexual Orientation Straight 12/13/2020 9: 57 AM CERTIFIED CYTOTECHNOLOGIST Last Filed Vital Signs Vital Sign Reading Time Taken Comments Blood Pressure 163/98 01/26/2025 2:18 PM CDT Pulse 88 01/26/2025 2:18 PM CDT Temperature 36.5 C (97.7 F) 12/15/2024 8:15 AM CERTIFIED CYTOTECHNOLOGIST Respiratory Rate 16 12/15/2024 8:15 AM CERTIFIED CYTOTECHNOLOGIST Oxygen Saturation 100% 01/26/2025 2:18 PM CDT Inhaled Oxygen Concentration - - Weight 68.5 kg (151 lb) 02/22/2025 10:03 AM CDT Height 161 cm (5' 3.4) 02/22/2025 10:03 AM CDT Body Mass Index 26.41 02/22/2025 10:03 AM CDT Plan of Treatment Not on file Medical Devices Implanted Type Area Cosmetic Sales Consultant Device Identifier Shelf Expiration Date Model / Serial / Lot [employer] Vascade Mvp 6-12fr Venous Closure [id number] - [id number] - [id number] Implanted:Qty : 1 on 12/14/2024 by Tobin Francis MD at [facility] Collagen Right: Femoral Vein [employer] 08/06/2026 [id number] [id number] / [id number] / [id number] [employer] Vascade Mvp 6-12fr Venous Closure [id number] - [id number] - [id number] Implanted:Qty : 1 on 12/14/2024 by Tobin Francis MD at [facility] Collagen Right: Femoral Vein [employer] 08/06/2026 [id number] [id number] / [id number] / [id number] [email or web address] Vascade Mvp 6-12fr Venous Closure [id number] - [id number] - [id number] Implanted:Qty : 1 on 12/14/2024 by Tobin Francis MD at [facility] Collagen Right: Femoral Vein [employer] 08/06/2026 [id number] [id number] / [id number] / [id number] [id number] Procedures Procedure Name Priority Date/Time Associated [...] Read Routine (OP Routine) 10/13/2024 3:19 PM CERTIFIED CYTOTECHNOLOGIST History of breast cancer Breast cancer screening by mammogram DEXA AXIAL SKELETON BONE DENSITY 1 OR MORE SITES Schedule Routine, Read Routine (OP Routine) 04/07/2024 11:17 AM CDT 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, estrogen receptor positive, unspecified laterality (HCC) terminal manager (current) use of aromatase inhibitors COLONOSCOPY 09/26/2021 10:27 AM CERTIFIED CYTOTECHNOLOGIST SERUM HEPATITIS C AB Routine 04/21/2015 5:19 [...] ORDERABLES - DEVICE Fin al Result SHARRON Peterson [facility] Department [place] [address] * ECG 12 lead (01/26/2025 2:30 PM CDT) Nati Kerns Jodi STENCILING MACHINE TENDER ECG ORDERABLES Edited Re sult - Final [...] W Mello Unilateral Only (10/13/2024 3:19 PM CERTIFIED CYTOTECHNOLOGIST) Anatomical Region Laterality Modality Breast Right Mammography Narrative 10/14/2024 3:16 PM CERTIFIED CYTOTECHNOLOGIST Mammogram Technique: Right Breast Digital Breast Tomosynthesis, Unilateral C-view 2D Screening mammogram. Views obtained: . Computer Aided Detection was performed. Mammogram Findings: The present examination has been compared to prior imaging studies performed at [facility] on 09/18/2021, 09/25/2022 and 10/10/2023. There [...] compared to prior imaging studies performed at [facility] on 09/18/2021, 09/25/2022 and 10/10/2023. There [...] it. Electronically signed by: Salome Craven M.D. us Gretta Heath MD IMG DXA PROCEDURES F inal Result * COLONOSCOPY (09/26/2021 10:27 AM CERTIFIED CYTOTECHNOLOGIST) Anatomical Region Laterality Modality Other Narrative Procedure Note Trang Alfred MD - 09/26/2021 10:27 AM [facility] ENDOSCOPY LAB Patient Name: Carmen Stewart Procedure Date: 09/26/2021 10:27 AM Date of : 1950 Admit Type: Outpatient Age: 70 Gender: Female Attending MD: Trang Alfred M.D. Room: [facility] ENDOSCOPY ROOM 01 Note Status: Finalized [...] The scope was passed under direct vision.The [id number] was introduced through the anusand advanced to [...] During normal business hours - Please call theNurse Coordinator: [phone] After hours, evening, nights, weekends and holidays- Please call the hospital radial drill press operator for plastic at and ask for the GI fellow nutritional services cook. Electronically by Dr Trang Alfred Trang Alfred [...] 04/26/2015 5:00 PM CDT Test performed at [facility] [place] [id number] [place] [id number] Director: CONRAD JONES DO,MPH us Historical Provider LAB BLOOD ORDERABLES Poornima mcallister Result HISTORICAL RESULTS from Last 3 Months or Most Recently Relevant to Health [place] [address] [facility] [employer] Address: [address] [address] [place] [address] [facility] MED[facility] Address: [address] [address] [place] [address] [employer] MEDICARE [facility] Address: [address] [address] [place] [address] Advance Directives For more information, please contact: [phone] * Full Code (Latest Code Status on File) Date Activated Date Inactivated Comments 09/26/2021 9:54 AM 09/26/2021 3:23 PM Care Teams Punching Machine Operator Relationship Specialty Start Date End Date Ryne Gomes DO [address] [facility] [address] [place], [place] [id number] PCP - General Internal Medicine 07/19/24 Natalie Cerrato MD [address] [place] [address] Surgeon Surgical Oncology 05/01/18 Joaquin Hurd MD [address] [place] [address] Consulting Physician Cardiology 07/21/19 Gretta Heath MD [address] [facility] [address] [place] [address] Medical Oncologist/Tool Smith Medical Oncology 07/06/20 Tobin Francis MD [address] [facility] [address] [place] [address] Consulting Physician Cardiology 10/06/24
--- OUTSIDE RECORDS SUMMARY | 2025-04-07 03:50 | XMS_ITS | Clinical Summary ---
Author Organization [facility] Kashif Langley Address [address] [place] [address] Care Team Providers Care Supervisor Tank Storage Name Role Phone Stewart Campbell DO Primary Care Provider [phone] Allergies No known active allergies Medications anastrozole [...] Encounters Date Type Department Care Team Description 03/28/2025 Orders Only [facility] Oncology and Hematology - [place] [address] [place] [address] Vineet Simpson MD Erythrocytosis 03/22/2025 External Device Data STL ABSTRACTION Provider, Abstract 03/17/2025 External Device Data STL ABSTRACTION Provider, Abstract 03/16/2025 External Device Data STL ABSTRACTION Provider, Abstract 03/15/2025 External Device Data STL ABSTRACTION Provider, Abstract 03/14/2025 Orders [facility] Oncology and Hematology - [place] [address] [place] [address] Vineet Simpson MD Erythrocytosis 02/28/2025 Orders Only [facility] Oncology and Hematology - [place] [address] [place] [address] Vineet Simpson MD Erythrocytosis 02/14/2025 Orders Only [facility] Oncology and Hematology - [place] [address] [place] [address] Vineet Simpson MD Erythrocytosis 01/31/2025 Orders Only [facility] Oncology and Hematology - [place] [address] [place] [address] Vineet Simpson MD Erythrocytosis 01/17/2025 Orders Only [facility] Oncology and Hematology - [place] [address] Vineet Simpson MD Erythrocytosis 01/12/2025 External Device Data STL ABSTRACTION Provider, Abstract from Last 3 Months Family History Medical [...] Comments Blood Pressure 153/96 12/17/2024 9:25 AM JOY OPERATOR HELPER did not take b/p meds this morning Pulse 86 12/17/2024 9:22 AM JOY OPERATOR HELPER Temperature 36.1 C (97 F) 12/17/2024 9:22 AM JOY OPERATOR HELPER Respiratory Rate 15 12/17/2024 9:22 AM JOY OPERATOR HELPER Oxygen Saturation 97% 12/17/2024 9:2 2 AM JOY OPERATOR HELPER Inhaled Oxygen Concentration - - Weight 70.6 kg (155 lb 9.6 oz) 12/17/2024 9:22 AM JOY OPERATOR HELPER Height 165.1 cm (5' 5) 05/16/2022 11:3 0 AM CDT Body Mass Index 25.89 05/16/2022 11:30 AM CDT Plan of Treatment Upcoming Encounters Date Type Department Care Team (Late st Contact Info) Description 06/16/2025 11:00 AM CDT Office Visit [facility] Oncology and Hematology - [place] [address] [facility] [address] [place] [address] Vineet Simpson MD [address] [facility] [address] [place] [address] Health Maintenance Due Date Last [...] 09/26/2031 INFLUENZA VACCINE Completed 12/15/2024, , 07/25/2015 [place] [address] [facility] [id number] Member Subscriber Plan / Payer (Ef fective 2022-Present) Name:Carmen Stewart Relation to Subscriber:Self Name:Carmen Stewart Payer ID:[id number] (NAIC) Type:PPO Address: [place] [id number] Care Teams Supervisor Tank Storage Relationship Specialty Start Date End Date Stewart Campbell DO [address] [facility] [address] [place] [address] PCP - General Internal Medicine 05/25/20
--- OUTSIDE RECORDS SUMMARY | 2025-04-07 03:50 | XMS_ITS ---
Author Organization [facility] Address [address] [place] [address] [address] [place] [address] Care Team Providers Care Career Orientation Teacher Name Role Phone Anglea Carlin Unavailable [phone] REASON FOR VISIT LBP Encounters Encounter Location Date Provider Diagnosis [facility] [address] [place] [address] 08/23/2024 Angela Carlin Plan Of Treatment No Information Progress Notes * Carmen MOISE EDOB:[birth year] (74 yo F)Acc No.[id number]:08/23/2024 Patient: Carmen MORELAND Taiwo Provider: Radha Carlin MD :1950 A ge:73 Y S ex:Female Date:08/23/2024 [facility] Subjective: * Chief Complaints: * 1 . LBP. * Medical History: Objective: * Vitals: Assessment: Plan: * Treatment: Forms: * Billing Information: * Visit Code: * Procedure Codes: * Electronic signature of Larisa Carlin MD on 04/07/2025 at 03:50 AM CDT Sign off status: Pending * Provider: Radha Carlin MD Date: Generated for Deidra garcia/Ellen/eTransmitting on: 0 04/07/2025 03:50 AM CDT
--- OUTSIDE RECORDS SUMMARY | 2025-04-07 03:50 | XMS_ITS | Encounter Summary ---
Author Organization [facility] Healthcare Address [address] [place] [address] Care Team Providers Care Counseling Services Director Name Role Phone Natalie Cerrato MD Unavailable [phone] Joaquin Hurd MD Unavailable [phone] Gretta Heath MD Unavailable [phone] Ryne Gomes DO Primary Care Provider [phone] Tobin Francis MD Unavailable [phone] Encounter Details Date Type Department Care Team (Late st Contact Info) Description 03/31/2025 Telephone [facility] Medical Group Cardiology [address] [place] [address] Bret Freeman MD [address] [place], [place] [id number] Social History Tobacco Use Types Packs/Day Years [...] on file Legal Sex Female 8:52 PM SERVICE TRANSFORMER REPAIR SUPERVISOR Gender Identity Female 12/13/2020 9:57 AM SERVICE TRANSFORMER REPAIR SUPERVISOR Sexual Orientation Straight 12/13/2020 9: 57 AM SERVICE TRANSFORMER REPAIR SUPERVISOR documented as of this encounter Miscellaneous Notes * Telephone Encounter - Alessandro Kang RN - 04/01/2025 12:18 PM CDT Updated clearance faxed as requested * Telephone Encounter - Genevieve Foss - 04/01/2025 12:11 PM CDT Yeni mccartney/ [facility] requesting that we have [facility] verify if the pt is clear to hold the Eliquis if so she needs to stop taking it Friday please advise they haven't received the clearance back but fromwhat I see if the chart in the medi tab it looks like we sent it today but [facility]K did not check yes or no for the medication hold thank you Contact: * Telephone Encounter - Ileana Rodriguez RN - 03/31/2025 2:42 PM CDT We have clearance and awaiting WK's approval. * Telephone Encounter - Luisana Licona - 03/31/2025 2:26 PM CDT Yeni from [facility] states she faxed a cardiac clearance request on 03/28 and last day to hold would be Friday. Pt is scheduled on 04/07. Requesting call back with an update on clearance. Contact: documented in this encounter Plan of Treatment Not on file documented as of this encounter Visit Diagnoses Not on filedocumented in this encounter Care Teams Counseling Services Director Relationship Specialty Start Date End Date Ryne Gomes DO [address] [place], [place] [id number] PCP - General Internal Medicine 07/19/24 Natalie Cerrato MD [address] [place] [address] Surgeon Surgical Oncology 05/01/18 Joaquin Hurd MD [address] [place] [address] Consulting Physician Cardiology 07/21/19 Gretta Heath MD [address] [place] [address] Medical Oncologist/Handle Machine Operator Medical Oncology 07/06/20 Tobin Francis MD [address] [place] [address] Consulting Physician Cardiology 10/06/24 documented as of this encounter
--- OUTSIDE RECORDS SUMMARY | 2025-04-07 03:50 | XMS_ITS | Encounter Summary ---
Author Organization [facility] Address [address] [place] [address] Phone Care Team Providers Care Blow Mold Operator Name Role Phone Stewart Campbell MD Primary Care Provider [phone] Natalie Cerrato MD Unavailable [phone] Joaquin Hurd MD Unavailable Gretta Heath MD Unavailable [phone] Ryne Gomes DO Primary Care Provider [phone] Tobin Francis MD Unavailable [phone] Encounter Details Date Type Department Care Team [...] on file Legal Sex Female 8:52 PM COAT CHECKER Gender Identity Female 12/13/2020 9:57 AM COAT CHECKER Sexual Orientation Straight 12/13/2020 9: 57 AM COAT CHECKER documented as of this encounter Plan of Treatment Not on file documented as of this encounter Procedures Procedure Name Priority Date/Time Associated Diagnosis Comments SCAN - PATHOLOGY 09/22/2021 documented in this encounter Results * SCAN - PATHOLOGY (09/22/2021) us Provider Scanning Edited Result - Final documented in this encounter Visit Diagnoses Not on filedocumented in this encounter Care Teams Blow Mold Operator Relationship Specialty Start Date End Date Stewart Campbell MD [address] [place] [address] PCP - General 01/24/17 07/18/24 Ryne Gomes DO [address] [place] [address] PCP - General Internal Medicine 07/19/24 Natalie Cerrato MD [address] [place] [address] Surgeon Surgical Oncology 05/01/18 Joaquin Hurd MD [address] [place] [address] Consulting Physician Cardiology 07/21/19 Gretta Heath MD [address] [place] [address] Medical Oncologist/Header Set Up Operator Medical Oncology 07/06/20 Tobin Francis MD [address] [place] [address] Consulting Physician Cardiology 10/06/24 documented as of this encounter
--- OUTSIDE RECORDS SUMMARY | 2025-04-07 03:50 | XMS_ITS | Encounter Summary ---
Author Organization [facility] Medical Group Address [address] [address] Care Team Providers Care Warp Drawer Name Role Phone Stewart Campbell MD Primary Care Provider [phone] Stewart Campbell MD Primary Care Provider [phone] Natalie Cerrato MD Unavailable [phone] Anil Saldaña MD Unavailable [phone] Joaquin Hurd MD Unavailable [phone] Gretta Heath MD Unavailable [phone] Ryne Gomes DO Primary Care Provider [phone] Tobin Francis MD Unavailable [phone] Encounter Details Date Type Department Care Team (Late st Contact Info) Description 01/13/2017 Orders Only [facility] Provider, MD Sara [facility] [place] [address] Social History Tobacco Use Types Packs/Day Years Used Date Smoking Tobacco: Never Alcohol Use Standard Drinks/Week Comments No 0 (1 standard drink = 0.6 oz pur e alcohol) Comments Unknown Sex and Gender Information Value Date Recorded Sex Assigned at Not on file Legal Sex Female 8:52 PM OXYGEN THERAPY TEACHER Gender Identity Female 12/13/2020 9:57 AM OXYGEN THERAPY TEACHER Sexual Orientation Straight 12/13/2020 9: 57 AM OXYGEN THERAPY TEACHER documented as of this encounter Plan of [...] on filedocumented in this encounter Care Teams Warp Drawer Relationship Specialty Start Date End Date Stewart Campbell MD [address] [facility] [address] [place] [address] PCP - General 01/24/17 07/18/24 Stewart Campbell MD [address] [facility] [address] [place] [address] PCP - General 01/10/17 01/23/17 Ryne Gomes DO [address] [address] PCP - General Internal Medicine 07/19/24 Natalie Cerrato MD [facility] [address] [place] [address] Surgeon Surgical Oncology 05/01/18 Anil Saldaña MD [address] [place] [address] Medical Oncologist/Dredge Worker Medical Oncology 07/21/19 07/05/20 Joaquin Hurd MD [address] [place], [place] [address] Consulting Physician Cardiology 07/21/19 Gretta Heath MD [address] [facility] [address] [place] [address] Medical Oncologist/Dredge Worker Medical Oncology 07/06/20 Tobin Francis MD [address] [place] [address] Consulting Physician Cardiology 10/06/24 documented as of this encounter
--- OUTSIDE RECORDS SUMMARY | 2025-04-07 03:51 | XMS_ITS | Patient Health Record ---
Author Organization [facility] Address [address] [place] [address] Care Team Providers Care Material Chaser Name Role Phone Angela Carlin Unavailable [phone] Reason For Referral No Information Plan Of Treatment No Information Insurance Providers Payer Name Payer Address Payer Phone Subscriber Number Group Number Insured Name Patient Relationship to Insured Coverage Start Date Coverage End Date [place] [address] [address] [place] [address] [id number] Carmen Stewart Self - patient is the insured 4 [facility] [address] [place] [phone] [id number] Carmen Stewart Self - patient is the insured 5
[2025-04-07 09:56] VITALS: BP 169/88; PULSE 71; RESP 16; TEMP 36.8; O2SAT 100
[2025-04-07] MEDS: SIMETHICONE ORAL SUSPENSION 20 MG/0.3 ML 30 ML BOTTLE 1.8 ML PO (10:03)
[2025-04-07] MEDS: LACTATED RINGERS 1,000 ML 150 ML IV CONT (10:13)
--- NOTE | 2025-04-07 10:49 | WPDANESEPPF ---
Anes - Initial Pre Proc Eval Procedure: Operation Date: 04/07/25 11:15 Proposed Procedures p Esophagogastroduodenoscopy - Hira Longoria MD Date/Time: 04/07/25 10:49 Surgeon: Hira Longoria MD Pre Op Diagnosis: Gastro-esophageal reflux disease without esophagit Patient Data Age: 74 Gender: F Height: 1.65 m Weight: 69.2 kg Last Vital Signs Temp 98.2 F 04/07/25 09:56 Pulse 71 04/07/25 09:56 Resp 16 04/07/25 09:56 BP 169/88 H 04/07/25 09:56 Pulse Ox 100 04/07/25 09:56 Allergies Allergy/AdvReac Type Severity Reaction Status Date / Time No Known Allergies Allergy Unknown Verified 04/07/25 09:54 Home Medications ?Medication ?Instructions ?Recorded ?Confirmed ?Type anastrozole 1 mg tablet 1 mg PO DAILY 12/29/19 04/07/25 History apixaban 5 mg tablet (Eliquis) 5 mg PO BID 12/29/19 04/07/25 History lisinopril 40 mg tablet 40 mg PO DAILY 12/29/19 04/07/25 History celecoxib 200 mg capsule (Celebrex) 200 mg PO DAILY PRN Pain, Mild 10/02/20 04/07/25 History atorvastatin 20 mg tablet (Lipitor) 20 mg PO DAILY #90 tabs 03/02/25 04/07/25 Rx pantoprazole 40 mg tablet,delayed 40 mg PO QAM #30 tabs 03/02/25 04/07/25 Rx release zolpidem 10 mg tablet (Ambien) 5 mg (1/2 x 10 mg) PO QHS PRN 03/02/25 04/07/25 Rx Insomnia #30 tabs metoprolol succinate 25 mg 25 mg PO DAILY #30 tabs 03/17/25 04/07/25 Rx tablet,extended release 24 hr Patient hx anesthesia problems: none Family hx anesthesia problems: none Results Review: All pre-operative results and documents have been reviewed as part of the pre-operative evaluation. [facility] Past Medical History Medical History Paroxysmal atrial fibrillation Other fatigue Hx of breast cancer Hereditary and idiopathic neuropathy, unspecified Gastro-esophageal reflux disease without esophagitis Essential (primary) hypertension Esophageal spasm Encounter for annual health examination Dizziness Polycythemia Chronic fatigue CKD (chronic kidney disease) stage 3, GFR 30-59 ml/min SONYA (obstructive sleep apnea) Breast cancer A-fib Hypertension GERD (gastroesophageal reflux disease) Surgical History Surgical History History of knee replacement History of cholecystectomy History of hysterectomy Family History Family History (Updated 03/16/25 @ 21:08 by Carlos Olivarez RN) Sibling Family history of cardiac disorder Mother Patient's mother is Non-Hodgkin lymphoma Father Parkinson disease Social History Social History Smoking status: Never smoker Second hand tobacco smoke exposure: No Alcohol intake: current Substance use: never Substance use type: does not use Do You Feel Safe in your Home?: Yes Lack of Transportation: No Lack of Food: Never True Current Housing: I Have Housing Concerned About Future Housing: No Difficulty Paying Gas/Electric Bills: No Difficulty Paying for Meds: No Currently Unemployed: No Education: Associate Degree Difficulty w/ Childcare or Family Care: No Living arrangements: with family Occupation/Education: 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 Informed Consent: The patient's anesthetic plan and its attendant risks and benefits were discussed with the patient/family/POA. Questions were solicited and answers provided to the satisfaction of the patient/family/POA.
--- NOTE | 2025-04-07 11:09 | PM.IMHP ---
H&P: HPI History of Present Illness Date/Time: 04/07/25 11:09 Chief Complaint: GERD Narrative: the patient has been suffering from reflux for several years, however she was well controlled just on diet. After her cardiac ablation for atrial fibrillation 4 months ago, she started to have recurrence of heartburn again, and did not respond to pantoprazole 40 mg q.d.. He denies dysphagia. She is here for EGD. Review of Systems Review of Systems: All systems reviewed & are unremarkable except as noted in HPI and below [facility] Past Medical History Medical History Paroxysmal atrial fibrillation Other fatigue Hx of breast cancer Hereditary and idiopathic neuropathy, unspecified Gastro-esophageal reflux disease without esophagitis Essential (primary) hypertension Esophageal spasm Encounter for annual health examination Dizziness Polycythemia Chronic fatigue CKD (chronic kidney disease) stage 3, GFR 30-59 ml/min SONYA (obstructive sleep apnea) Breast cancer A-fib Hypertension GERD (gastroesophageal reflux disease) Surgical History Surgical History History of knee replacement History of cholecystectomy History of hysterectomy Family History Family History (Updated 03/16/25 @ 21:08 by Carlos Olivarez RN) Sibling Family history of cardiac disorder Mother Patient's mother is Non-Hodgkin lymphoma Father Parkinson disease Social History Social History Smoking status: Never smoker Second hand tobacco smoke exposure: No Alcohol intake: current Substance use: never Substance use type: does not use Do You Feel Safe in your Home?: Yes Lack of Transportation: No Lack of Food: Never True Current Housing: I Have Housing Concerned About Future Housing: No Difficulty Paying Gas/Electric Bills: No Difficulty Paying for Meds: No Currently Unemployed: No Education: Associate Degree Difficulty w/ Childcare or Family Care: No Living arrangements: with family 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 Gender identity (if verbalized by the patient): Female Spiritual care concerns: No Meds Home Medications and Allergies Home Medications ?Medication ?Instructions ?Recorded ?Confirmed ?Type anastrozole 1 mg tablet 1 mg PO DAILY 12/29/19 04/07/25 History apixaban 5 mg tablet (Eliquis) 5 mg PO BID 12/29/19 04/07/25 History lisinopril 40 mg tablet 40 mg PO DAILY 12/29/19 04/07/25 History celecoxib 200 mg capsule (Celebrex) 200 mg PO DAILY PRN Pain, Mild 10/02/20 04/07/25 History atorvastatin 20 mg tablet (Lipitor) 20 mg PO DAILY #90 tabs 03/02/25 04/07/25 Rx pantoprazole 40 mg tablet,delayed 40 mg PO QAM #30 tabs 03/02/25 04/07/25 Rx release zolpidem 10 mg tablet (Ambien) 5 mg (1/2 x 10 mg) PO QHS PRN 03/02/25 04/07/25 Rx Insomnia #30 tabs metoprolol succinate 25 mg 25 mg PO DAILY #30 tabs 03/17/25 04/07/25 Rx tablet,extended release 24 hr Allergies Allergy/AdvReac Type Severity Reaction Status Date / Time No Known Allergies Allergy Unknown Verified 04/07/25 09:54 Vital Signs Vital Signs - 24 hr 04/07/25 09:56 Temperature 98.2 F Pulse Rate 71 Respiratory Rate 16 Blood Pressure 169/88 H Pulse Oximetry 100 Exam Const: General: cooperative and healthy appearing Resp: Effort & Inspection: normal respiratory effort and able to speak in complete sentences Auscultation: clear to auscultation bilaterally Cardio: Rate: regular rate Rhythm: regular rhythm GI: Inspection: normal to inspection GI Palp: No No hepatosplenomegaly present Auscultation: normal bowel sounds Rectal Exam: deferred Skin: General skin exam: normal color Psych: Appearance: grossly normal Mental Status: mental status grossly normal Assessment and Plan Assessment and plan (1) GERD (gastroesophageal reflux disease): Code(s): K21.9 - Gastro-esophageal reflux disease without esophagitis Status: Acute Assessment and Plan: The patient is deemed a good candidate for the procedure. Consent signed. Will proceed.
--- NOTE | 2025-04-07 11:21 | S_PTH ---
PATIENT: Carmen Stewart LOC: [facility] U#:[id number] AGE/SX: 74/F ROOM: RE04/07/[address]: Hira Longoria MD : 1950 BED: DIS: 04/07/2025 SPEC #: [id number] RECD: 04/07/25 12:03 STATUS: AVILA REQ #: [id number] NING: 04/07/25 11:[address]: Hira Longoria DEPT: [facility] Surgical RECD BY: Chelsea Maldonado ENTERED: 04/07/25 12:03 SP TYPE: Surgical OTHR DR: Ryne Gomes DO Tissues: A - Gastric Biopsy B - Gastric Biopsy Procedures: Hematoxylin and Eosin Stain Gross and Microscopic Level 4
[2025-04-07 11:25] VITALS: BP 110/61; PULSE 58; RESP 18; O2SAT 100
[2025-04-07 11:35] VITALS: BP 114/64; PULSE 57; RESP 17; O2SAT 100
[2025-04-07 11:45] VITALS: BP 128/72; PULSE 55; RESP 19; O2SAT 100
== END 2025-04-07 11:59 | disposition home or self-care (01) ==
PROVIDERS: PCP Internal Medicine; Visit Provider Internal Medicine Gastroenterology
PROC: 0DJ08ZZ Inspection of Upper Intestinal Tract, Via Natural or Artificial Opening Endoscopic (ICD-10-PCS; CPT 43239; principal; 2025-04-07 11:15)
DX: K21.9 Gastro-esophageal reflux disease without esophagitis (principal); K31.89 Other diseases of stomach and duodenum; K44.9 Diaphragmatic hernia without obstruction or gangrene; K29.30 Chronic superficial gastritis without bleeding; I12.9 Hypertensive chronic kidney disease with stage 1 through stage 4 chronic kidney disease, or unspecified chronic kidney disease; N18.30 Chronic kidney disease, stage 3 unspecified; I48.0 Paroxysmal atrial fibrillation; G60.9 Hereditary and idiopathic neuropathy, unspecified; D75.1 Secondary polycythemia; G47.33 Obstructive sleep apnea (adult) (pediatric); R53.82 Chronic fatigue, unspecified; Z79.01 Long term (current) use of anticoagulants; Z79.1 Long term (current) use of non-steroidal anti-inflammatories (NSAID); Z98.890 Other specified postprocedural states; Z90.49 Acquired absence of other specified parts of digestive tract; Z86.79 Personal history of other diseases of the circulatory system; Z85.3 Personal history of malignant neoplasm of breast; Z80.7 Family history of other malignant neoplasms of lymphoid, hematopoietic and related tissues; Z82.49 Family history of ischemic heart disease and other diseases of the circulatory system
CPT/HCPCS: 43239; 88305; J2003; J2704; J7120

== ENCOUNTER 2025-04-26 13:29 | Outpatient (CLI) | payer MEDICARE, SELFPAY ==
--- NOTE | ~2025-04-26 | US_ITS ---
EXAMINATION: US renal BI DATE: 04/26/2025 14:57 INDICATION: Extensive stage on chronic kidney disease TECHNIQUE: Multiple ultrasound grayscale images of the kidneys were obtained. COMPARISON: None. FINDINGS: The right kidney measures 8.1 x 4.5 x 4.0 cm. The left kidney measures 10.2 x 4.7 x 4.0 cm. The kidne ys demonstrate normal echogenicity. There is no hydronephrosis in either kidney. No stones identifie d. The bladder is normal with bilateral ureteral jets on color Doppler. IMPRESSION: 1. Normal kidneys without hydronephrosis. Reviewed, dictated and finalized at location B.
--- OUTSIDE RECORDS SUMMARY | 2025-04-26 13:37 | XMS_ITS | Encounter Summary ---
Author Organization [facility] Address [address] [place] [address] Phone Care Team Providers Care Automation Qa Analyst Name Role Phone Stewart Campbell MD Primary Care Provider [phone] Natalie Cerrato MD Unavailable [phone] Anil Saldaña MD Unavailable [phone] Joaquin Hurd MD Unavailable [phone] Gretta Heath MD Unavailable [phone] Ryne Gomes DO Primary Care Provider [phone] Tobin Francis MD Unavailable [phone] Encounter Details Date Type Department Care Team [...] on file Legal Sex Female 8:52 PM TRANSPORTATION DISPATCH MANAGER Gender Identity Female 12/13/2020 9:57 AM TRANSPORTATION DISPATCH MANAGER Sexual Orientation Straight 12/13/2020 9: 57 AM TRANSPORTATION DISPATCH MANAGER documented as of this encounter Plan of Treatment Not on file documented as of this encounter Procedures Procedure Name Priority Date/Time Associated Diagnosis Comments SCAN - RADIOLOGY/IMAGING 01/13/2019 documented in this encounter Results * SCAN - RADIOLOGY/IMAGING (01/13/2019) Anatomical Region Laterality Modality Other us Provider Scanning Final Result documented in this encounter Visit Diagnoses Not on filedocumented in this encounter Care Teams Automation Qa Analyst Relationship Specialty Start Date End Date Stewart Campbell MD [address] [place] [address] PCP - General 01/24/17 07/18/24 Ryne Gomes DO [address] [place] [address] PCP - General Internal Medicine 07/19/24 Natalie Cerrato MD [address] [facility] [address] [place] [address] Surgeon Surgical Oncology 05/01/18 Anil Saldaña MD [address] [place], [place] [address] Medical Oncologist/Stock Digger Medical Oncology 07/21/19 07/05/20 Joaquin Hurd MD [address] [place] [address] Consulting Physician Cardiology 07/21/19 Gretta Heath MD [address] [facility] [address] [place] [address] Medical Oncologist/Stock Digger Medical Oncology 07/06/20 Tobin Francis MD [address] [address] Consulting Physician Cardiology 10/06/24 documented as of this encounter
--- OUTSIDE RECORDS SUMMARY | 2025-04-26 13:37 | XMS_ITS | Clinical Summary ---
Author Organization [facility] Address [address] [place] [address] Care Team Providers Care Infant Childcare Provider Name Role Phone None, Provider MD Primary [...] age to complete this topic Insurance MEDICARE [facility] Care Teams Infant Childcare Provider Relationship Specialty Start Date End Date None, Provider, PCP - General UNKNOWN PHYSICIAN SPECIALTY 08/23/22
--- OUTSIDE RECORDS SUMMARY | 2025-04-26 13:37 | XMS_ITS ---
Author Organization [facility] Address [address] [place] [address] Care Team Providers Care Chaplain Name Role Phone Natalie Cerrato MD Unavailable [phone] Joaquin Hurd MD Unavailable [phone] Gretta Heath MD Unavailable [phone] Ryne Gomes DO Primary Care Provider [phone] Tobin Francis MD Unavailable [phone] Active Problems Problem Noted Date Diagnosed Date Aberrant subclavian artery 04/26/2025 Assessment & Plan (04/26/2025 8:07 AM CDT): Aberrant right subclavian artery found on CTA incidentally. No diverticulum. No need for further surveillance can follow up me as needed. AF (atrial fibrillation) 12/14/2024 Assessment & Plan [...] (07/24/2021): Added automatically from request for surgery [id number] S/P breast reconstruction 02/19/2021 Overview (02/19/2021): Added automatically from request for surgery [id number] Idiopathic peripheral neuropathy 09/12/2020 Assessment & Plan (09/03/2021 11:46 AM DIRECTOR FUNDS DEVELOPMENT): Patient continues on gabapentin for treatment of dysesthesia and paresthesia associated with idiopathic peripheral neuropathy in her lower extremities. She cites good tolerability and efficacy. I have renewed her gabapentin 300 mg t.i.d. as previously prescribed. She will follow-up in neurology clinic in a year. Assessment & Plan (09/12/2020 12:55 PM DIRECTOR FUNDS DEVELOPMENT): Patient is a former patient of [facility] being treated for idiopathic peripheral neuropathy manifested as neuropathic pain and numbness in her feet and legs. Prior medical records from [facility] have been requested but are unavailable [...] 09/12/2020 Assessment & Plan (09/12/2020 12:56 PM DIRECTOR FUNDS DEVELOPMENT): Patient has history of peripheral neuropathy with neuropathic pain as a presenting symptom. Gabapentin 300 mg t.i.d. has been historically prescribed with good tolerability and efficacy. 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 07/01/2019 Malignant neoplasm of lower- inner quadrant of breast in female, estrogen receptor positive 07/01/2019 HX: breast cancer 07/01/2019 Bone disease 07/01/2019 Labile hypertension 04/12/2019 Dizziness 10/06/2018 History of breast cancer 05/14/2018 Assessment & Plan (12/15/2024 8:05 AM DIRECTOR FUNDS DEVELOPMENT): Continue anastrazole Assessment & Plan (12/14/2024 2:03 PM DIRECTOR FUNDS DEVELOPMENT): Continue anastrazole H/O sarcoidosis 02/20/2018 ALEXIS (dyspnea [...] anticoagulation Assessment & Plan (12/15/2024 8:06 AM DIRECTOR FUNDS DEVELOPMENT): For atrial fibrillation, continue apixaban Assessment & Plan (12/14/2024 2:03 PM DIRECTOR FUNDS DEVELOPMENT): Resume Catherine burdick per cardiology post procedure recs Dehydration 05/06/2016 Benign hypertension 04/18/2016 Overview (01/30/2017): HTN (hypertension), benign Assessment & Plan (04/26/2025 8:07 AM CDT): Stable continue lisinopril Assessment & Plan (12/15/2024 8:06 AM DIRECTOR FUNDS DEVELOPMENT): Continue home lisinopril 40mg daily Assessment & Plan (12/14/2024 2:03 PM DIRECTOR FUNDS DEVELOPMENT): BP controlled post ablation. Continue home lisinopril 40 daily Paroxysmal atrial fibrillation 04/18/2016 Overview (01/30/2017): Paroxysmal atrial fibrillation Assessment & Plan (04/26/2025 8:07 AM CDT): Stable continue metoprolol and Eliquis Assessment & Plan (12/15/2024 8:05 AM DIRECTOR FUNDS DEVELOPMENT): Presented for planned EP study with ablation under general anesthesia 12/14, successful electrical isolation of the pulmonary veins and LA roof line and right atrial CTI line. AF terminated with isolation of the RPV pair per procedure notes. Ms. Stewrat was monitored overnight, Monitor on tele overnight - amiodarone 200 mg daily - Eliquis 5 mg BID - Protonix 40 mg daily x 30 days per cards - Monitor R groin site (hx CKD 3 on Eliquis) - Cardiology to see in am and plan DC home Assessment & Plan (12/14/2024 2:13 PM DIRECTOR FUNDS DEVELOPMENT): Presented for planned EPS with ablation under [...]
--- OUTSIDE RECORDS SUMMARY | 2025-04-26 13:37 | XMS_ITS | Patient Health Record ---
Author Organization [facility] Address [address] [facility] [address] [place] [address] Care Team Providers Care Oven Attendant Name Role Phone Angela Carlin Unavailable [phone] Reason For Referral No Information Plan Of Treatment No Information Insurance Providers Payer Name Payer Address Payer Phone Subscriber Number Group Number Insured Name Patient Relationship to Insured Coverage Start Date Coverage End Date [place] [address] [address] [place] [address] [id number] Carmen Stewart Self - patient is the insured 4 [facility] [address] [place] [phone] [id number] Carmen Stewart Self - patient is the insured 5
--- OUTSIDE RECORDS SUMMARY | 2025-04-26 13:37 | XMS_ITS ---
Author Organization [facility] Address [address] [place] [address] [address] [place] [address] Care Team Providers Care Palliative Senior Np Name Role Phone Angela Carlin Unavailable [phone] REASON FOR VISIT LBP Encounters Encounter Location Date Provider Diagnosis [facility] [address] [place] [address] 08/23/2024 Angela Carlin Plan Of Treatment No Information Progress Notes * Carmen MOISE EDOB:[birth year] (74 yo F)Acc No.[id number]:08/23/2024 Patient: Carmen MORELAND Taiwo Provider: Radha Carlin MD :1950 A ge:73 Y S ex:Female Date:08/23/2024 [facility] Subjective: * Chief Complaints: * 1 . LBP. * Medical History: Objective: * Vitals: Assessment: Plan: * Treatment: Forms: * Billing Information: * Visit Code: * Procedure Codes: * Electronic signature of Larisa Carlin MD on 04/26/2025 at 01:36 PM CDT Sign off status: Pending * Provider: Radha Carlin MD Date: Generated for Deidra garcia/Ellen/eTransmitting on: 0 04/26/2025 01:36 PM CDT
--- OUTSIDE RECORDS SUMMARY | 2025-04-26 13:37 | XMS_ITS | Encounter Summary ---
Author Organization [facility] Address [address] [place] [address] Phone Care Team Providers Care Associate Professor Of Forestry Name Role Phone Stewart Campbell MD Primary Care Provider [phone] Natalie Cerrato MD Unavailable [phone] Anil Saldaña MD Unavailable Joaquin Hurd MD Unavailable [phone] Gretta Heath MD Unavailable [phone] Ryne Gomes DO Primary Care Provider [phone] Tobin Francis MD Unavailable [phone] Reason for Visit * Reason Onset Date Comments Provider Update 10/22/2018 Encounter Details Date Type Department Care Team (Late st Contact Info) Description 10/22/2018 Telephone [facility] Oncology [address] [facility] [address] [place] [address] Ramana Collins MD [address] [place] [address] Provider Update Social History Tobacco Use Types Packs/Day Years Used Date Smoking Tobacco: Never Smokeless Tobacco: Never Alcohol Use Standard Drinks/Week Comments No 0 (1 standard drink = 0.6 oz pur e alcohol) Comments Unknown Sex and Gender Information Value Date Recorded Sex Assigned at Not on file Legal Sex Female 8:52 PM DIRECTOR LOAN Gender Identity Female 12/13/2020 9:57 AM DIRECTOR LOAN Sexual Orientation Straight 12/13/2020 9: 57 AM DIRECTOR LOAN documented as of this encounter Plan of Treatment Not on file documented as of this encounter Visit Diagnoses Not on filedocumented in this encounter Care Teams Associate Professor Of Forestry Relationship Specialty Start Date End Date Stewart Campbell MD [address] [place] [address] PCP - General 01/24/17 07/18/24 Ryne Gomes DO [address] [place] [address] PCP - General Internal Medicine 07/19/24 Natalie Cerrato MD [address] [place], [place] [id number] Surgeon Surgical Oncology 05/01/18 Anil Saldaña MD [address] [place] [address] Medical Oncologist/Him Specialist Medical Oncology 07/21/19 07/05/20 Joaquin Hurd MD [address] [place], [place] [address] Consulting Physician Cardiology 07/21/19 Gretta Heath MD [address] [facility] [address] [place] [address] Medical Oncologist/Him Specialist Medical Oncology 07/06/20 Tobin Francis MD [address] [address] Consulting Physician Cardiology 10/06/24 documented as of this encounter
--- OUTSIDE RECORDS SUMMARY | 2025-04-26 13:37 | XMS_ITS | Clinical Summary ---
Author Organization [facility] Kashif Langley Address [address] [place] [address] Care Team Providers Care Rotational Moulding Operator Name Role Phone Stewart Campbell Primary Care Provider [phone] Allergies No known active allergies Medications anastrozole [...] Encounters Date Type Department Care Team Description 04/25/2025 Orders Only [facility] Oncology and Hematology - Jeremias [address] [place] [id number] Vineet Simpson MD Erythrocytosis 04/19/2025 External Device Data STL ABSTRACTION Provider, Abstract 04/12/2025 External Device Data STL ABSTRACTION Provider, Abstract 04/11/2025 Orders Only [facility] Oncology and Hematology - [place] [address] Vineet Simpson MD Erythrocytosis 03/28/2025 Orders Only [facility] Oncology and Hematology - Jeremias [address] Vineet Simpson MD Erythrocytosis 03/22/2025 External Device Data STL ABSTRACTION Provider, Abstract 03/17/2025 External Device Data STL ABSTRACTION Provider, Abstract 03/16/2025 External Device Data STL ABSTRACTION Provider, Abstract 03/15/2025 External Device Data STL ABSTRACTION Provider, Abstract 03/14/2025 Orders Only [facility] Oncology and Hematology - Jeremias [address] Vineet Simpson MD Erythrocytosis 02/28/2025 Orders Only [facility] Oncology and Hematology - Jeremias [address] [place] [address] Vineet Simpson MD Erythrocytosis 02/14/2025 Orders Only [facility] Oncology and Hematology - Jeremias [address] [place] [address] Vineet Simpson MD Erythrocytosis 01/31/2025 Orders Only [facility] Oncology and Hematology - Jeremias [address] [place] [address] Vineet Simpson MD Erythrocytosis from Last 3 [...] Comments Blood Pressure 153/96 12/17/2024 9:25 AM CONCESSION MANAGER did not take b/p meds this morning Pulse 86 12/17/2024 9:22 AM CONCESSION MANAGER Temperature 36.1 C (97 F) 12/17/2024 9:22 AM CONCESSION MANAGER Respiratory Rate 15 12/17/2024 9:22 AM CONCESSION MANAGER Oxygen Saturation 97% 12/17/2024 9:2 2 AM CONCESSION MANAGER Inhaled Oxygen Concentration - - Weight 70.6 kg (155 lb 9.6 oz) 12/17/2024 9:22 AM CONCESSION MANAGER Height 165.1 cm (5' 5) 05/16/2022 11:3 0 AM CDT Body Mass Index 25.89 05/16/2022 11:30 AM CDT Plan of Treatment Upcoming Encounters Date Type Department Care Team (Late st Contact Info) Description 06/16/2025 11:00 AM CDT Office Visit [facility] Oncology and Hematology - [place] [address] [place] [address] [facility] [address] [place] [address] Vineet Simpson MD [address] [facility] [address] [place] [address] Health Maintenance Due Date Last [...] INFLUENZA VACCINE Completed 12/15/2024, , 07/25/2015 [place] [address] [facility] [id number] Care Teams Rotational Moulding Operator Relationship Specialty Start Date End Date Stewart Campbell DO [address] [facility] [address] [place] [address] PCP - General Internal Medicine 05/25/20
--- OUTSIDE RECORDS SUMMARY | 2025-04-26 13:37 | XMS_ITS | Encounter Summary ---
Author Organization [facility] Address [address] [place] [address] Phone Care Team Providers Care Process Control Manager Name Role Phone Stewart Campbell MD Primary Care Provider [phone] Natalie Cerrato MD Unavailable [phone] Joaquin Hurd MD Unavailable [phone] Gretta Heath MD Unavailable [phone] Ryne Gomes DO Primary Care Provider [phone] Tobin Francis MD Unavailable [phone] Encounter Details Date Type Department Care Team (Late st Contact Info) Description 04/07/2024 Orders Only [facility] Oncology [address] [facility] [address] [place] [address] Gretta Heath MD [address] [facility] [address] [place] [address] Malignant neoplasm of lower-inner quadrant [...] on file Legal Sex Female 8:52 PM SETTER AUTOMATIC SPINNING LATHE Gender Identity Female 12/13/2020 9:57 AM SETTER AUTOMATIC SPINNING LATHE Sexual Orientation Straight 12/13/2020 9: 57 AM SETTER AUTOMATIC SPINNING LATHE documented as of this encounter Plan of Treatment Not on file documented as of this encounter Visit Diagnoses Diagnosis Malignant neoplasm of lower-inner quadrant of left breast in female, estrogen receptor positive (HCC)- Primary documented in this encounter Care Teams Process Control Manager Relationship Specialty Start Date End Date Stewart Campbell MD [address] [facility] [address] [facility] 120 [place] [address] PCP - General 01/24/17 07/18/24 Ryne Gomes DO [address] [facility] [address] [facility] 21 [place] [address] PCP - General Internal Medicine 07/19/24 Natalie Cerrato MD [address] [place] [address] Surgeon Surgical Oncology 05/01/18 Joaquin Hurd MD [address] [place] [address] Consulting Physician Cardiology 07/21/19 Gretta Heath MD [address] [facility] [address] [place] [address] Medical Oncologist/Retail Director Medical Oncology 07/06/20 Tobin Francis MD [address] [address] Consulting Physician Cardiology 10/06/24 documented as of this encounter
--- OUTSIDE RECORDS SUMMARY | 2025-04-26 13:37 | XMS_ITS | Encounter Summary ---
Author Organization [facility] Address [address] [address] Care Team Providers Care Certified Rehabilitation Counselor Name Role Phone Stewart Campbell MD Primary Care Provider [phone] Stewart Campbell MD Primary Care Provider [phone] Natalie Cerrato MD Unavailable [phone] Anil Saldaña MD Unavailable [phone] Joaquin Hurd MD Unavailable [phone] Gretta Heath MD Unavailable [phone] Ryne Gomes DO Primary Care Provider [phone] Tobin Francis MD Unavailable [phone] Encounter Details Date Type Department Care Team (Late st Contact Info) Description 01/13/2017 Orders Only [facility] Provider, MD Sara [facility] [place] [address] Social History Tobacco Use Types Packs/Day Years Used Date Smoking Tobacco: Never Alcohol Use Standard Drinks/Week Comments No 0 (1 standard drink = 0.6 oz pur e alcohol) Comments Unknown Sex and Gender Information Value Date Recorded Sex Assigned at Not on file Legal Sex Female 8:52 PM PROPOSAL REP Gender Identity Female 12/13/2020 9:57 AM PROPOSAL REP Sexual Orientation Straight 12/13/2020 9: 57 AM PROPOSAL REP documented as of this encounter Plan of [...] on filedocumented in this encounter Care Teams Certified Rehabilitation Counselor Relationship Specialty Start Date End Date Stewart Campbell MD [address] [facility] 120 [place] [address] PCP - General 01/24/17 07/18/24 Stewart Campbell MD [address] [facility] 120 [place] [address] PCP - General 01/10/17 01/23/17 Rnye Gomes DO [address] [address] PCP - General Internal Medicine 07/19/24 Natalie Cerrato MD [facility] [address] [place] [address] Surgeon Surgical Oncology 05/01/18 Anil Saldaña MD [address] [place] [address] Medical Oncologist/K 8 School Principal Medical Oncology 07/21/19 07/05/20 Joaquin Hurd MD [address] [place], [place] [address] Consulting Physician Cardiology 07/21/19 Gretta Heath MD [address] [employer] [address] [place] [address] Medical Oncologist/K 8 School Principal Medical Oncology 07/06/20 Tobin Francis MD [address] [employer] [address] [place] [address] Consulting Physician Cardiology 10/06/24 documented as of this encounter
--- OUTSIDE RECORDS SUMMARY | 2025-04-26 13:37 | XMS_ITS | Encounter Summary ---
Author Organization [facility] Address [address] [place] [address] Phone Care Team Providers Care Lay Ups Assembler Name Role Phone Natalie Cerrato MD Unavailable Joaquin Hurd MD Unavailable [phone] Gretta Heath MD Unavailable [phone] Ryne Gomes DO Primary Care Provider [phone] Tobin Francis MD Unavailable [phone] Encounter Details Date Type Department Care Team (Late st Contact Info) Description 04/13/2025 Telephone [facility] Cardiology [address] [facility] Advanced Medicine [address]th [place] [address] [place] [address] Tobin Francis MD [address] [facility] [address] [place] [address] Social History Tobacco Use Types Packs/Day Years [...] on file Legal Sex Female 8:52 PM FORMING OPERATOR Gender Identity Female 12/13/2020 9:57 AM FORMING OPERATOR Sexual Orientation Straight 12/13/2020 9: 57 AM FORMING OPERATOR documented as of this encounter Miscellaneous Notes * Telephone Encounter - Michelle Ramírez RN - 04/14/2025 8:09 AM CDT Order in for 7 day HOLTER monitor -please mail to patient * Telephone Encounter - Michelle Ramírez RN - 04/13/2025 3:52 PM CDT Images from the original note were not included. Tobin Francis MD Sax, Kathleen T., RN; Felicitas Vivar -- please make a 6 month video visit. Geovanna -- please mail her a 7 day holter monitor for afib burden. Thanks! PSC documented in this encounter Plan of Treatment Not on file documented as of this encounter Visit Diagnoses Not on filedocumented in this encounter Care Teams Lay Ups Assembler Relationship Specialty Start Date End Date Ryne Gomes DO [address] [address] PCP - General Internal Medicine 07/19/24 Natalie Cerrato MD [address] [place] [address] Surgeon Surgical Oncology 05/01/18 Joaquin Hurd MD [address] [place] [address] Consulting Physician Cardiology 07/21/19 Gretta Heath MD [address] [place] [address] Medical Oncologist/Retail Link Analyst Medical Oncology 07/06/20 Tobin Francis MD [address] [place] [address] Consulting Physician Cardiology 10/06/24 documented as of this encounter
--- OUTSIDE RECORDS SUMMARY | 2025-04-26 13:37 | XMS_ITS | Encounter Summary ---
Author Organization [facility] Address [address] [place] [address] Phone Care Team Providers Care Digital Engineer Name Role Phone Stewart Campbell MD Primary Care Provider [phone] Natalie Cerrato MD Unavailable Anil Saldaña MD Unavailable Joaquin Hurd MD Unavailable Gretta Heath MD Unavailable [phone] Ryne Gomes DO Primary Care Provider [phone] Tobin Francis MD Unavailable [phone] Reason for Visit * Reason Onset Date Comments Provider Update 10/21/2018 Encounter Details Date Type Department Care Team (Late st Contact Info) Description 10/21/[address] [facility] Oncology [address] [facility] [address] [place] [address] Ramana Collins MD [address] [place] [place] [address] Provider Update Social History Tobacco Use Types Packs/Day Years Used Date Smoking Tobacco: Never Smokeless Tobacco: Never Alcohol Use Standard Drinks/Week Comments No 0 (1 standard drink = 0.6 oz pur e alcohol) Comments Unknown Sex and Gender Information Value Date Recorded Sex Assigned at Not on file Legal Sex Female 8:52 PM PUBLIC HEALTH TECHNICIAN Gender Identity Female 12/13/2020 9:57 AM PUBLIC HEALTH TECHNICIAN Sexual Orientation Straight 12/13/2020 9: 57 AM PUBLIC HEALTH TECHNICIAN documented as of this encounter Plan of Treatment Not on file documented as of this encounter Visit Diagnoses Not on filedocumented in this encounter Care Teams Digital Engineer Relationship Specialty Start Date End Date Stewart Campbell MD [address] [place] [address] PCP - General 01/24/17 07/18/24 Ryne Gomes DO [address] [place] [address] PCP - General Internal Medicine 07/19/24 Natalie Cerrato MD [address] [place], [place] [address] Surgeon Surgical Oncology 05/01/18 Anil Saldaña MD [address] [place] [address] Medical Oncologist/Phone Screener Medical Oncology 07/21/19 07/05/20 Joaquin Hurd MD [address] [place], [place] [address] Consulting Physician Cardiology 07/21/19 Gretta Heath MD [address] [facility] [address] [place] [address] Medical Oncologist/Phone Screener Medical Oncology 07/06/20 Tobin Francis MD [address] [address] Consulting Physician Cardiology 10/06/24 documented as of this encounter
--- OUTSIDE RECORDS SUMMARY | 2025-04-26 13:37 | XMS_ITS | Referral Summary ---
Author Organization [facility] Address [address] [place] [address] Care Team Providers Care Marketing Education Teacher Name Role Phone Natalie Cerrato MD Unavailable [phone] Joaquin Hurd MD Unavailable [phone] Gretta Heath MD Unavailable [phone] Ryne Gomes DO Primary Care Provider [phone] Tobin Francis MD Unavailable [phone] Encounters Date Type Department Care Team Description 04/20/2025 1:45 PM CDT Office Visit [facility] Vascular and Vein Surgery [address] [facility] [address] [place] [address] Tanner Martinez MD Aberrant subclavian artery (Primary Dx); Abnormal CT scan, chest; Paroxysmal atrial fibrillation (HCC); Benign hypertension 04/14/2025 8:30 AM CDT Ancillary Procedure [facility] Cardiology [address] [place] [address] Advanced Medicine 8th [place] [address] [place] [address] Paroxysmal atrial fibrillation (HCC) 04/14/2025 Orders Only [facility] Cardiology [address] [place] [address] 8th [place] [address] [place] [address] Tobin Francis MD Paroxysmal atrial fibrillation (HCC) (Primary Dx) 04/13/2025 Telephone [facility] Cardiology [facility] 8th [place] [address] [place] [address] Tobin Francis MD 04/13/2025 1:30 PM CDT Telemedicine [facility] Cardiology [address] [facility] 8th [place] [address] [place] [address] Tobin Frnacis MD Persistent atrial fibrillation (HCC) (Primary Dx); Atrial flutter, unspecified type (HCC) 03/31/2025 Telephone [facility] Cardiology [address] [place] [address] [place] [address] Bret Freeman MD 03/22/2025 Orders Only [facility] Cardiology [address] [place] [address] [address] [place] [address] Bret Freeman MD 03/22/2025 Telephone [facility] Cardiology [address] [place] [address] [place] [address] Bret Freeman MD 03/18/2025 Telephone [facility] Cardiology [address] [place] [address] [address] [place] [address] Bret Freeman MD 03/02/2025 Telephone [facility] Cardiology [address] [facility] [address] [place] [address] Bret Freeman MD 02/22/2025 Telephone [facility] Surgery [address] [place] [address] [address] [place] [phone] Emmanuel Mantilla MD 02/22/2025 Telephone [facility] Cardiology [address] [place] [address] 8th [place] [address] [place] [address] Tobin Francis MD 02/22/2025 10:15 AM CDT Office Visit [facility] Surgery [address] [place] [address] [address] [place] [phone] Emmanuel Mantilla MD Status post breast reconstruction (Primary Dx); Ruptured silicone breast implant, initial encounter 02/07/2025 Telephone [facility] Oncology [address] [facility] Floor 8 [place] [address] Suzette Howell, RN CT chest with schedule for 03/2302/04/2025 Results Follow-Up [facility] Cardiology [address] [facility] Medical Office Building 3 [address] [place] [address] Chest W Contrast, POCT creatinine 02/04/2025 10:18 AM CDT - 02/04/2025 11:59 PM CDT Hospital Encounter [facility] [address] [place] [address] Persistent atrial fibrillation (HCC); ALEXIS (dyspnea on exertion); H/O sarcoidosis; Gastroesophageal reflux disease without esophagitis; HX: breast cancer Discharge Disposition: Discharge to home or self care 01/31/2025 Telephone [facility] Cardiology [address] [place] [address] Medicine 8th [place] [address] [place] [address] Tobin Francis MD 01/26/2025 Results Follow-Up [facility] Cardiology [address] [place] [address] 8th [place] [address] [place] [address] Nati Zapata NP ECG 12 lead 01/26/2025 2:15 PM CDT Office Visit [facility] Cardiology [address] [place] [address] 8th [place] [address] [place] [address] Nati Zapata NP Paroxysmal atrial fibrillation (HCC) (Primary Dx); Persistent atrial fibrillation (HCC); ALEXIS (dyspnea on exertion); H/O sarcoidosis; Gastroesophageal reflux disease without esophagitis; HX: breast cancer from Last 3 Months Allergies No known active allergies Medications multivitamin tablet tablet take 1 by Oral route once 0 0 06/03/20 14 Active zolpidem (AMBIEN) 10 mg tabletIndicati ons:Sleep-Onse t Insomnia Take 0.5 tablets (5 mg total) by mouth nightly as needed for sleep 1/2 tablet prn q hs Active cholecalcifero l, vitamin D3, (VITAMIN D3 ORAL)Indicatio ns:supplement Take 1 tablet by mouth every evening Active amiodarone (PACERONE) 200 mg tablet Take 1 tablet (200 mg total) by mouth daily 30 tablet 12/16/[address] (PROTONIX) 40 mg EC tablet TAKE 1 TABLET(40 MG) BY MOUTH DAILY 90 tablet 12/15/19 25 Active Additional Information Patient not taking.Reported on 04/20/2025 anastrozole (ARIMIDEX) 1 mg tabletIndicati ons:Malignant neoplasm of lower-inner quadrant of left breast in female, estrogen receptor positive (HCC) Take 1 tablet (1 mg total) by mouth daily 90 tablet 3 01/11/20 25 Active lisinopriL (PRINIVIL,ZEST RIL) 40 mg tablet Take 1 tablet (40 mg total) by mouth every morning 90 tablet 3 01/14/20 25 Active atorvastatin (LIPITOR) 20 mg tablet Take 1 tablet (20 mg total) by mouth daily 03/02/20 25 Active metoprolol XL (TOPROL-XL) 25 mg extended release tablet Take 1 tablet (25 mg total) by mouth daily 90 tablet 1 03/22/20 25 026 Active Eliquis 5 mg tablet TAKE 1 TABLET(5 MG) BY MOUTH TWICE DAILY 180 tablet 3 04/19/20 25 Active Eliquis 5 mg tablet TAKE 1 TABLET(5 MG) BY MOUTH TWICE DAILY 180 tablet 3 04/08/20 24 025 Discontinued Active Problems Problem Noted Date Diagnosed Date [...] (07/24/2021): Added automatically from request for surgery [id number] S/P breast reconstruction 02/19/2021 Overview (02/19/2021): Added automatically from request for surgery [id number] Idiopathic peripheral neuropathy 09/12/2020 Assessment & Plan (09/03/2021 11:46 AM TRUST AND ESTATES ATTORNEY): Patient continues on gabapentin for treatment of dysesthesia and paresthesia associated with idiopathic peripheral neuropathy in her lower extremities. She cites good tolerability and efficacy. I have renewed her gabapentin 300 mg t.i.d. as previously prescribed. She will follow-up in neurology clinic in a year. Assessment & Plan (09/12/2020 12:55 PM TRUST AND ESTATES ATTORNEY): Patient is a former patient of [facility] being treated for idiopathic peripheral neuropathy manifested as neuropathic pain and numbness in her feet and legs. Prior medical records from [facility] have been requested but are unavailable [...] 09/12/2020 Assessment & Plan (09/12/2020 12:56 PM TRUST AND ESTATES ATTORNEY): Patient has history of peripheral neuropathy with neuropathic pain as a presenting symptom. Gabapentin 300 mg t.i.d. has been historically prescribed with good tolerability and efficacy. 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/2019 [facility] (current) use of aromatase inhibitors 07/01/2019 Malignant neoplasm of lower- inner quadrant of breast in female, estrogen receptor positive 07/01/2019 HX: breast cancer 07/01/2019 Bone disease 07/01/2019 Labile hypertension 04/12/2019 Dizziness 10/06/2018 History of breast cancer 05/14/2018 Assessment & Plan (12/15/2024 8:05 AM TRUST AND ESTATES ATTORNEY): Continue anastrazole Assessment & Plan (12/14/2024 2:03 PM TRUST AND ESTATES ATTORNEY): Continue anastrazole H/O sarcoidosis 02/20/2018 ALEXIS (dyspnea [...] anticoagulation Assessment & Plan (12/15/2024 8:06 AM TRUST AND ESTATES ATTORNEY): For atrial fibrillation, continue apixaban Assessment & Plan (12/14/2024 2:03 PM TRUST AND ESTATES ATTORNEY): Resume Catherine burdick per cardiology post procedure recs Dehydration 05/06/2016 Benign hypertension 04/18/2016 Overview (01/30/2017): HTN (hypertension), benign Assessment & Plan (04/26/2025 8:07 AM CDT): Stable continue lisinopril Assessment & Plan (12/15/2024 8:06 AM TRUST AND ESTATES ATTORNEY): Continue home lisinopril 40mg daily Assessment & Plan (12/14/2024 2:03 PM TRUST AND ESTATES ATTORNEY): BP controlled post ablation. Continue home lisinopril 40 daily Paroxysmal atrial fibrillation 04/18/2016 Overview (01/30/2017): Paroxysmal atrial fibrillation Assessment & Plan (04/26/2025 8:07 AM CDT): Stable continue metoprolol and Eliquis Assessment & Plan (12/15/2024 8:05 AM TRUST AND ESTATES ATTORNEY): Presented for planned EP study with ablation [...] home Assessment & Plan (12/14/2024 2:13 PM TRUST AND ESTATES ATTORNEY): Presented for planned EPS with ablation under [...] on file Legal Sex Female 8:52 PM TRUST AND ESTATES ATTORNEY Gender Identity Female 12/13/2020 9:57 AM TRUST AND ESTATES ATTORNEY Sexual Orientation Straight 12/13/2020 9: 57 AM TRUST AND ESTATES ATTORNEY Last Filed Vital Signs Vital Sign Reading Time Taken Comments Blood Pressure 150/94 04/20/2025 1:37 PM CDT Pulse 81 04/20/2025 1:37 PM CDT Temperature 36.5 C (97.7 F) 12/15/2024 8:15 AM TRUST AND ESTATES ATTORNEY Respiratory Rate 16 12/15/2024 8:15 AM TRUST AND ESTATES ATTORNEY Oxygen Saturation 100% 01/26/2025 2:18 PM CDT Inhaled Oxygen Concentration - - Weight 69.4 kg (153 lb) 04/20/2025 1:37 PM CDT Height 165.1 cm (5' 5) 04/20/2025 1:37 PM CDT Body Mass Index 25.46 04/20/2025 1:37 PM CDT Plan of Treatment Not on file Medical Devices Implanted Type Area Safety Intern Device Identifier Shelf Expiration Date Model / Serial / Lot [employer] Vascade Mvp 6-12fr Venous Closure [id number] - [id number] - [id number] Implanted:Qty : 1 on 12/14/2024 by Tobin Francis MD at [facility] Collagen Right: Femoral Vein [employer] 08/06/2026 800-612C- [id number] / [id number] / [id number] [id number] [employer] Vascade Mvp 6-12fr Venous Closure [id number] - [id number] - [id number] Implanted:Qty : 1 on 12/14/2024 by Tobin Francis MD at [facility] Collagen Right: Femoral Vein [employer] 08/06/2026 800-612C- 10U / [id number] 16B / [id number] [id number] [employer] Vascade Mvp 6-12fr Venous Closure [id number] - [id number] - [id number] Implanted:Qty : 1 on 12/14/2024 by Tobin Francis MD at [facility] Collagen Right: Femoral Vein [employer] 08/06/2026 800-612C- 10U / [id number] 16B / [id number] [id number] Procedures Procedure Name Priority Date/Time Associated [...] 2:30 PM CDT Paroxysmal atrial fibrillation (HCC) SCREENING MAMMOGRAM RIGHT W MELLO UNILATERAL ONLY Schedule Routine, Read Routine (OP Routine) 10/13/2024 3:19 PM TRUST AND ESTATES ATTORNEY History of breast cancer Breast cancer screening by mammogram DEXA AXIAL SKELETON BONE DENSITY 1 OR MORE SITES Schedule Routine, Read Routine (OP Routine) 04/07/2024 11:17 AM CDT 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, estrogen receptor positive, unspecified laterality (HCC) [facility] (current) use of aromatase inhibitors COLONOSCOPY 09/26/2021 10:27 AM TRUST AND ESTATES ATTORNEY SERUM HEPATITIS C AB Routine 04/21/2015 5:19 [...] POCT ORDERABLES - DEVICE Fin al Result [facility] [place] [address] * ECG 12 lead (01/26/2025 2:30 PM CDT) Nati Zapata NP ECG ORDERABLES Edited Re sult - Final * Screening Mammogram Right W Mello Unilateral Only (10/13/2024 3:19 PM TRUST AND ESTATES ATTORNEY) Anatomical Region Laterality Modality Breast Right Mammography Narrative 10/14/2024 3:16 PM TRUST AND ESTATES ATTORNEY Mammogram Technique: Right Breast Digital Breast Tomosynthesis, Unilateral C-view 2D Screening mammogram. Views obtained: . Computer Aided Detection was performed. Mammogram Findings: The present examination has been compared to prior imaging studies performed at [facility] on 09/18/2021, 09/25/2022 and 10/10/2023. [...] prior imaging studies performed at [facility] on 09/18/2021, 09/25/2022 and 10/10/2023. [...] inal Result * COLONOSCOPY (09/26/2021 10:27 AM TRUST AND ESTATES ATTORNEY) Anatomical Region Laterality Modality Other Narrative Procedure Note Trang Alfred MD - 09/26/2021 10:27 AM CST ENDOSCOPY LAB Patient Name: Carmen Stewart Procedure Date: 09/26/2021 10:27 AM Date of : 1950 Admit Type: Outpatient Age: 70 Gender: Female Attending MD: Trang Alfred M.D. Room: [facility] ENDOSCOPY ROOM 01 Note Status: [...] The scope was passed under direct vision.The [id number] was introduced through the anusand advanced to [...] During normal business hours - [facility]: [phone] After hours, evening, nights, weekends and holidays- Please call the hospital electric arc furnace operator at and ask for the GI fellow public information officer. Electronically by Dr Trang Alfred Trang Alfred [...] 04/26/2015 5:00 PM CDT [facility] [address] [place] [address] Director: CONRAD JONES DO,MPH us Historical Provider LAB BLOOD ORDERABLES Poornima mcallister Result HISTORICAL RESULTS from Last 3 Months or Most Recently Relevant to Health Maintenance Insurance [facility] MEDICARE ADVANTAGE UHC MEDICARE ADVANTAGE UHC MEDICARE ADVANTAGE Advance Directives For more information, please contact: [phone] * Full Code (Latest Code Status on File) Date Activated Date Inactivated Comments 09/26/2021 9:54 AM 09/26/2021 3:23 PM Care Teams Marketing Education Teacher Relationship Specialty Start Date End Date Ryne Gomes DO [address] [place] [address] PCP - General Internal Medicine 07/19/24 Natalie Cerrato MD [address] [place] [address] Surgeon Surgical Oncology 05/01/18 Joaquin Hurd MD [address] [place] [address] Consulting Physician Cardiology 07/21/19 Gretta Heath MD [address] [facility] [address] [place] [address] Medical Oncologist/Housing Grant Analyst Medical Oncology 07/06/20 Tobin Francis MD [address] [facility] [address] [place] [address] Consulting Physician Cardiology 10/06/24
--- OUTSIDE RECORDS SUMMARY | 2025-04-26 13:37 | XMS_ITS | Encounter Summary ---
Author Organization [facility] Address [address] [place] [address] Care Team Providers Care Agricultural Education Teacher Name Role Phone Natalie Cerrato MD Unavailable [phone] Joaquin Hurd MD Unavailable [phone] Gretta Heath MD Unavailable [phone] Ryne Gomes DO Primary Care Provider [phone] Tobin Francis MD Unavailable [phone] Encounter Details Date Type Department Care Team (Late st Contact Info) Description 03/31/2025 Telephone [facility] Cardiology [address] [facility] [address] [place] [address] Bret Freeman MD [address] [place], [place] [address] Social History Tobacco Use Types Packs/Day Years [...] on file Legal Sex Female 8:52 PM PRODUCTION BORING MACHINE OPERATOR Gender Identity Female 12/13/2020 9:57 AM PRODUCTION BORING MACHINE OPERATOR Sexual Orientation Straight 12/13/2020 9: 57 AM PRODUCTION BORING MACHINE OPERATOR documented as of this encounter Miscellaneous [...] 2:26 PM CDT Yeni from [facility] states she faxed a cardiac clearance request on 03/28 and last day to hold would be Friday. Pt is scheduled on 04/07. Requesting call back with an update on clearance. Contact: documented in this encounter Plan of Treatment Not on file documented as of this encounter Visit Diagnoses Not on filedocumented in this encounter Care Teams Agricultural Education Teacher Relationship Specialty Start Date End Date Ryne Gomes DO [address] [place], [place] [address] PCP - General Internal Medicine 07/19/24 Natalie Cerrato MD [address] [place] [address] Surgeon Surgical Oncology 05/01/18 Joaquin Hurd MD [address] [place] [address] Consulting Physician Cardiology 07/21/19 Gretta Heath MD [address] [facility] [address] [place] [address] Medical Oncologist/[employer] Medical Oncology 07/06/20 Tobin Francis MD [address] [place] [address] Consulting Physician Cardiology 10/06/24 documented as of this encounter
--- OUTSIDE RECORDS SUMMARY | 2025-04-26 13:37 | XMS_ITS | Encounter Summary ---
Author Organization [facility] Address [address] [place] [address] Phone Care Team Providers Care Reactor Service Operator Name Role Phone Stewart Campbell MD Primary Care Provider [phone] Natalie Cerrato MD Unavailable [phone] Joaquin Hurd MD Unavailable Gretta Heath MD Unavailable [phone] Ryne Gomes DO Primary Care Provider [phone] Tobin Francis MD Unavailable [phone] Encounter Details Date Type Department Care Team (Late st Contact Info) Description 04/06/2024 Orders Only [facility] Oncology [address] [facility] Advanced Medicine 7th [place] [address] [place] [address] [place] [address] [address] [place] [address] 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, estrogen receptor positive, unspecified laterality (HCC) (Primary Dx); Bone disease; group home (current) use of aromatase inhibitors Social History [...] on file Legal Sex Female 8:52 PM CATH LAB TECHNOLOGIST Gender Identity Female 12/13/2020 9:57 AM CATH LAB TECHNOLOGIST Sexual Orientation Straight 12/13/2020 9: 57 AM CATH LAB TECHNOLOGIST documented as of this encounter Plan of Treatment Not on file documented as of this encounter Visit Diagnoses Diagnosis 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, estrogen receptor positive, unspecified laterality (HCC)- Primary Bone disease Disorder of bone and cartilage, unspecified group home (current) use of aromatase inhibitors documented in this encounter Care Teams Reactor Service Operator Relationship Specialty Start Date End Date Stewart Campbell MD [address] [place] [address] PCP - General 01/24/17 07/18/24 Ryne Gomes DO [address] [place] [address] PCP - General Internal Medicine 07/19/24 Natalie Cerrato MD [address] [place] [address] Surgeon Surgical Oncology 05/01/18 Joaquin Hurd MD [address] [place] [address] Consulting Physician Cardiology 07/21/19 Gretta Heath MD [address] [facility] [address] [place] [address] Medical Oncologist/Lead Case Manager Medical Oncology 07/06/20 Tobin Francis MD [address] [facility] [address] [place] [address] Consulting Physician Cardiology 10/06/24 documented as of this encounter
--- OUTSIDE RECORDS SUMMARY | 2025-04-26 13:37 | XMS_ITS | Encounter Summary ---
Author Organization [facility] [employer] [facility] Address [address] [place] [address] Care Team Providers Care Mine Shifter Name Role Phone Stewart Campbell DO Primary Care Provider [phone] Encounter Details Date Type Department Care Team ([facility] Contact Info) Description 04/25/2025 Orders Only [facility] Oncology and Hematology [address] [place] [address] Vineet Simpson MD [facility] [employer] [address] [place] [address] Erythrocytosis Social History Tobacco Use Types [...] Description 06/16/2025 11:00 AM CDT Office Visit [facility] Oncology and Hematology - [address] [place] [address] Vineet Simpson MD [facility] [employer] [address] [place] [address] documented as of this encounter Visit Diagnoses Diagnosis Erythrocytosis Reserved for inherently not codable concepts WITHOUT codable children documented in this encounter Care Teams Mine Shifter Relationship Specialty Start Date End Date Stewart Campbell, DO [address] [facility] [address] [place] [address] PCP - General Internal Medicine 05/25/20 documented as of this encounter
--- OUTSIDE RECORDS SUMMARY | 2025-04-26 13:37 | XMS_ITS | Continuity of Care Document ---
Author Organization [facility] Address [address] [place] [address] [address] [place] [address] Phone Care Team Providers Care Resawyer Name Role Phone Daryl Livingston Unavailable Unavailable Procedures Procedure Date Office/outpatient Visit, Est Office/outpatient Visit, Est Eye Exam & Treatment Office/outpatient Visit, [facility] Advance Directives Directive Yes / No Effective Date File Name No Information Encounters Encounter Description Practice Location Reason(s) For Visit Diagnoses Date Provider Providers Copied on Encounter Office/[place]pat [place] [facility] [place] [address] [place] [address] [address], [place], [place], [id number], tel:[phone] [facility] No Information Mar- 3-201 0 Miki Hernandezl. [address] [facility] [place] [address], [place], [place], [facility], . tel:[phone] Office/[place]pat ient [place], [facility] [place] [address] [place] [address] [address], [place], [place], [id number], [place] tel:[phone] [facility] No Information 1 0-200 9 Aleyda Jorge [address] , [address], [place], [place], [facility], [place]. tel:[phone] [facility] [place], [address] [place] [address] [address], [place], [place], [id number], [place] tel:[phone] [facility] No Information 2 1-200 8 Aleyda Jorge [address], [place], [address], [place]. tel:[phone] Office/outpat ient Visit, [facility], [address], [place], [place], [id number], [place] tel:[phone] [facility] No Information 200 7 Chante Ortiz. [address], [place], [place], [id number], [place]. tel:[phone] Family History Family Member Type Diagnosis Age At Onset No Information Payers Payer name Insurance type Covered constitution party ID Authoriza tion(s) No Information Social [...]
--- OUTSIDE RECORDS SUMMARY | 2025-04-26 13:37 | XMS_ITS | Clinical Summary ---
Author Organization [facility] Address [address] [facility] [address] Care Team Providers Care Injection Specialist Name Role Phone Stewart Campbell DO Primary Care Provider Source Comments [facility],non-owned Affiliates and Associated Physician Practices is amultiple site organization consisting of ambulatory clinics and hospital sitesin [place], [place], [place] and [place]. This disclosure is being madepursuant to the Care Everywhere program and may not contain all information available regarding this patient. Last updated 18.[facility] [place] Social History Tobacco Use Types Packs/Day Years Used Date Smoking Tobacco: Never Assessed Comments Unknown Sex and Gender Information Value Date Recorded Sex Assigned at Not on file Legal Sex Female 6:14 AM HEAD OF TALENT MANAGEMENT Gender Identity Not on file Sexual Orientation [...] SCREENING 1950 LIPID TESTING 1950 MAMMOGRAM 1950 MEDICARE AWV 12 MONTHS 1950 HEPATITIS C SCREENING 09/26/1967 DTAP/TDAP/TD VACCINES [...] age to complete this topic Insurance MEDICARE UHC MANAGED MEDICARE ADV SELF PAY NO INSURANCE Member Subscriber Plan / Payer (Ef fective for All Dates) Name:Carmen Stewart Member ID:Not on file Relation to Subscriber:Not on file Name:CARMEN STEWART Subscriber ID:Not on file (Home) Address: [address] [place] [id number] Payer ID:Not on file Group ID:Not on file Type:Self Pay Address: [place], [place] Care Teams Injection Specialist Relationship Specialty Start Date End Date Stewart Campbell DO [address] [facility] [facility] [address] [facility] [address] [place], [place] [id number] PCP - General 05/11/20
--- OUTSIDE RECORDS SUMMARY | 2025-04-26 13:37 | XMS_ITS | Clinical Summary ---
Author Organization [facility] Address [address] [place] [address] Care Team Providers Care Weasand Trimmer Name Role Phone Natalie Cerrato MD Unavailable [phone] Joaquin Hurd MD Unavailable [phone] Gretta Heath MD Unavailable [phone] Ryne Gomes DO Primary Care Provider [phone] Tobin Francis MD Unavailable [phone] Allergies No known active allergies Medications multivitamin [...] (07/24/2021): Added automatically from request for surgery [id number] S/P breast reconstruction 02/19/2021 Overview (02/19/2021): Added automatically from request for surgery [id number] Idiopathic peripheral neuropathy 09/12/2020 Assessment & Plan (09/03/2021 11:46 AM PUPPET MAKER): Patient continues on gabapentin for treatment of dysesthesia and paresthesia associated with idiopathic peripheral neuropathy in her lower extremities. She cites good tolerability and efficacy. I have renewed her gabapentin 300 mg t.i.d. as previously prescribed. She will follow-up in neurology clinic in a year. Assessment & Plan (09/12/2020 12:55 PM PUPPET MAKER): Patient is a former patient of [facility] being treated for idiopathic peripheral neuropathy manifested as neuropathic pain and numbness in her feet and legs. Prior medical records from [facility] have been requested but are unavailable [...] 09/12/2020 Assessment & Plan (09/12/2020 12:56 PM PUPPET MAKER): Patient has history of peripheral neuropathy with neuropathic pain as a presenting symptom. Gabapentin 300 mg t.i.d. has been historically prescribed with good tolerability and efficacy. 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 07/01/2019 Malignant neoplasm of lower- inner quadrant of breast in female, estrogen receptor positive 07/01/2019 HX: breast cancer 07/01/2019 Bone disease 07/01/2019 Labile hypertension 04/12/2019 Dizziness 10/06/2018 History of breast cancer 05/14/2018 Assessment & Plan (12/15/2024 8:05 AM PUPPET MAKER): Continue anastrazole Assessment & Plan (12/14/2024 2:03 PM PUPPET MAKER): Continue anastrazole H/O sarcoidosis 02/20/2018 ALEXIS [...] anticoagulation Assessment & Plan (12/15/2024 8:06 AM PUPPET MAKER): For atrial fibrillation, continue apixaban Assessment & Plan (12/14/2024 2:03 PM PUPPET MAKER): Resume Eliquis tonight per cardiology post procedure recs Dehydration 05/06/2016 Benign hypertension 04/18/2016 Overview (01/30/2017): HTN (hypertension), benign Assessment & Plan (04/26/2025 8:07 AM CDT): Stable continue lisinopril Assessment & Plan (12/15/2024 8:06 AM PUPPET MAKER): Continue home lisinopril 40mg daily Assessment & Plan (12/14/2024 2:03 PM PUPPET MAKER): BP controlled post ablation. Continue home lisinopril 40 daily Paroxysmal atrial fibrillation 04/18/2016 Overview (01/30/2017): Paroxysmal atrial fibrillation Assessment & Plan (04/26/2025 8:07 AM CDT): Stable continue metoprolol and Eliquis Assessment & Plan (12/15/2024 8:05 AM PUPPET MAKER): Presented for planned EP study with [...] home Assessment & Plan (12/14/2024 2:13 PM PUPPET MAKER): Presented for planned EPS with ablation [...] Description 04/20/2025 1:45 PM CDT Office Visit [facility] [address] [facility] [address] [place] [address] Tanner Martinez MD Aberrant subclavian artery (Primary Dx); Abnormal CT scan, chest; Paroxysmal atrial fibrillation (HCC); Benign hypertension 04/14/2025 8:30 AM CDT Ancillary Procedure [facility] [address] [place] [address] 8th [place] [address] Paroxysmal atrial fibrillation (HCC) 04/14/2025 Orders Only [facility] [address] [place] [address] 8th [place] [address] [place] [address] Tobin Francis MD Paroxysmal atrial fibrillation (HCC) (Primary Dx) 04/13/2025 1:30 PM CDT Telemedicine [facility] [address] [place] [address] 8th [place] [address] [place] [address] Tobin Francis MD Persistent atrial fibrillation (HCC) (Primary Dx); Atrial flutter, unspecified type (HCC) 04/13/2025 Telephone [facility] [address] [place] [address] 8th [place] [address] [place] [address] Tobin Francis MD 03/31/2025 Telephone [facility] [address] [facility] [address] [place] [address] Bret Freeman MD 03/22/2025 Orders Only [facility] Card[facility] [address] [place] [address] [address] [place] [address] Bret Freeman MD 03/22/2025 Telephone [facility] Cardiology [address] [facility] [address] [place] [address] Bret Freeman MD 03/18/2025 Telephone [facility] Cardiology [address] [place] [address] [address] [place] [address] Bret Freeman MD 03/02/2025 Telephone [facility] Cardiology [address] [facility] [address] [place] [address] Bret Freeman MD 02/22/2025 10:15 AM CDT Office Visit [facility] Surgery [address] [facility] [address] [place] [address] Emmanuel Mantilla MD Status post breast reconstruction (Primary Dx); Ruptured silicone breast implant, initial encounter 02/22/2025 Telephone [facility] Surgery [facility] [facility] [address] [place] [address] Emmanuel Mantilla MD 02/22/2025 Telephone [facility] Cardiology [address] [place] [address] Medicine 8th [place] [address] [place] [address] Tobin Francis MD 02/07/2025 Telephone [facility] Oncology [address] [place] [address] Floor 8 [place] [address] chest with schedule for 03/2302/04/2025 10:18 AM CDT - 02/04/2025 11:59 PM CDT Hospital Encounter [facility] [address] [place] [address] Persistent atrial fibrillation (HCC); ALEXIS (dyspnea on exertion); H/O sarcoidosis; Gastroesophageal reflux disease without esophagitis; HX: breast cancer Discharge Disposition: Discharge to home or self care 02/04/2025 Results Follow-Up [facility] [address] [place] [address] Medical Office Building [address] [place] [address] Chest W Contrast, POCT creatinine 01/31/2025 Telephone [facility]iology [address] [place] [address] 8th [place] [address] [place] [address] Tobin Francis MD 01/26/2025 2:15 PM CDT Office Visit [facility]iology [address] [place] [address] 8th [place] [address] [place] [address] Nati Zapata NP Paroxysmal atrial fibrillation (HCC) (Primary Dx); Persistent atrial fibrillation (HCC); ALEXIS (dyspnea on exertion); H/O sarcoidosis; Gastroesophageal reflux disease without esophagitis; HX: breast cancer 01/26/2025 Results Follow-Up [facility] Cardiology [address] [facility] Medicine 8th [place] [address] [place] [address] Nati Zapata, SARAH ECG 12 lead from Last 3 Months Immunizations Immunization Administration [...] ATRIAL FIBRILLATION (A-FIB) VIA PULMONARY VEIN ISOLATION [address]5225; Surgeon: Tobin Francis MD; Location: [facility] EP [facility]; Service: Cardiovascular; Laterality: N/A; 3rd case Medical devices from this surgery are in the Medical Devices section. CARDIAC ELECTROPHYSIOLOGY PROCEDURE 12/14/2024 N/A Procedure: ABLATION ATRIAL FIBRILLATION ADDITIONAL LINE OR FOCI (+) [id number]; Surgeon: Tobin Francis MD; Location: [facility] EP LAB; Service: Cardiovascular; Laterality: N/A; [...] Hx Relation Name Status Comments Father Mother Celia gross (Age 70) Sister 1 Alive Sister 2 [...] on file Legal Sex Female 8:52 PM PUPPET MAKER Gender Identity Female 12/13/2020 9:57 AM PUPPET MAKER Sexual Orientation Straight 12/13/2020 9: 57 AM PUPPET MAKER Obstetrics History Last Filed Vital Signs Vital Sign Reading Time Taken Comments Blood Pressure 150/94 04/20/2025 1:37 PM CDT Pulse 81 04/20/2025 1:37 PM CDT Temperature 36.5 C (97.7 F) 12/15/2024 8:15 AM PUPPET MAKER Respiratory Rate 16 12/15/2024 8:15 AM PUPPET MAKER Oxygen Saturation 100% 01/26/2025 2:18 PM CDT Inhaled Oxygen Concentration - - Weight 69.4 kg (153 lb) 04/20/2025 1:37 PM CDT Height 165.1 cm (5' 5) 04/20/2025 1:37 PM CDT Body Mass Index 25.46 04/20/2025 1:37 PM CDT Plan of Treatment Health Maintenance Due Date Last Done Comments Hepatitis B Screening 1968 Zoster Vaccine (1 of 2) 09/27/2014 08/02/2014 Well Visit 65+ 2014 Pneumococcal vaccine 65+ (2 of 2 - PPSV23) 03/03/2020 01/07/2020 DTaP/Tdap/Td Vaccine (2 - Td or Tdap) 08/02/2024 08/02/2014 Influenza Vaccine (#1) 2025 5, 01/07/2020, 08/29/2016, Additional history exists Depression Screening 09/22/2025 09/22/2024, 09/22/20 24 Fall [...] Discontinued 10/13/2024, 10/10/2023, 09/25/2022, Additional history exists Medical Devices Implanted Type Area Qualitative Field Project Manager Device Identifier Shelf Expiration Date Model / Serial / Lot [employer] Vascade Mvp 6-12fr Venous Closure [id number] - [id number] - [id number] Implanted:Qty : 1 on 12/14/2024 by Tobin Francis MD at [facility] Collagen Right: Femoral Vein [employer] 08/06/2026 800-612C- [id number] / [id number] 16B / [id number] [id number] [employer] Vascade Mvp 6-12fr Venous Closure [id number] - [id number] - [id number] Implanted:Qty : 1 on 12/14/2024 by Tobin Francis MD at [facility] Collagen Right: Femoral Vein [employer] 08/06/2026 800-612C- [id number] / [id number] 16B / [id number] [id number] [employer] Vascade Mvp 6-12fr Venous Closure [id number] - [id number] - [id number] Implanted:Qty : 1 on 12/14/2024 by Tobin Francis MD at [facility] Collagen Right: Femoral Vein [employer] 08/06/2026 [id number] [id number] / [id number] [id number] / [id number] 16B Procedures Procedure Name Priority Date/Time Associated [...] Read Routine (OP Routine) 10/13/2024 3:19 PM PUPPET MAKER History of breast cancer Breast cancer screening by mammogram DEXA AXIAL SKELETON BONE DENSITY 1 OR MORE SITES Schedule Routine, Read Routine (OP Routine) 04/07/2024 11:17 AM CDT 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, estrogen receptor positive, unspecified laterality (HCC) 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 Nati Zapata NP IM CT PROCEDURES Edited Result - Final * (ABNORMAL) POCT creatinine (02/04/2025 10:35 AM CDT) Creatinine POC 1.6(H) 0.6 - 1.1 mg/dL Blood 02/04/2025 10:3 5 AM CDT 02/04/2025 10:35 AM CDT Ryne Mireya DO LAB POCT ORDERABLES - DEVICE Fin al Result SHARRON KAM [facility] Department [place] [address] * ECG 12 lead (01/26/2025 2:30 PM CDT) Nati Kerns Jodi TOUR OPERATOR ECG ORDERABLES Edited Re sult - Final * Screening Mammogram Right W Mello Unilateral Only (10/13/2024 3:19 PM PUPPET MAKER) Anatomical Region Laterality Modality Breast Right Mammography Narrative 10/14/2024 3:16 PM PUPPET MAKER Mammogram Technique: Right Breast Digital Breast Tomosynthesis, Unilateral C-view 2D Screening mammogram. Views obtained: . Computer Aided Detection was performed. Mammogram Findings: The present examination has been compared to prior imaging studies performed at [facility] on 09/18/2021, 09/25/2022 and 10/10/2023. [...] compared to prior imaging studies performed at [facility] on 09/18/2021, 09/25/2022 and 10/10/2023. [...] inal Result * COLONOSCOPY (09/26/2021 10:27 AM PUPPET MAKER) Anatomical Region Laterality Modality Other Narrative Procedure Note Trang Alfred MD - 09/26/2021 10:27 AM CST ENDOSCOPY LAB Patient Name: Carmen Stewart Procedure Date: 09/26/2021 10:27 AM Date of : 1950 Admit Type: Outpatient Age: 70 Gender: Female Attending MD: Trang Alfred M.D. Room: [facility] ENDOSCOPY ROOM 01 Note Status: Finalized [...] The scope was passed under direct vision.The [id number] was introduced through the anusand advanced to [...] business hours - Please call theNurse Coordinator: [phone] After hours, evening, nights, weekends and holidays- Please call the hospital side seam machine operator at and ask for the GI fellow physician liaison. Electronically by Dr Trang Alfred Trang Alfred [...] 04/26/2015 5:00 PM CDT Test performed at [facility] [address] [place] [address] Director: CONRAD JONES DO,MPH us Historical Provider LAB BLOOD ORDERABLES Poornima l Result Performing Organization Address City/State/[facility] Co de Phone Number HISTORICAL RESULTS from Last 3 Months or Most Recently Relevant [place] [address] [facility] MEDIC[facility] ADVANTAGE [facility] MED[facility] AD[facility]AGE UHC MEDICARE ADVANTAGE Advance Directives For more information, please contact: [phone] * Full Code (Latest Code Status on File) Date Activated Date Inactivated Comments 09/26/2021 9:54 AM 09/26/2021 3:23 PM Care Teams Weasand Trimmer Relationship Specialty Start Date End Date Ryne Gomes DO [address] [facility] [address] [place], [place] [id number] PCP - General Internal Medicine 07/19/24 Natalie Cerrato MD [address] [place] [address] Surgeon Surgical Oncology 05/01/18 Joaquin Hurd MD [address] [place] [address] Consulting Physician Cardiology 07/21/19 Gretta Heath MD [address] [place] [address] Medical Oncologist/Software Development Project Manager Medical Oncology 07/06/20 Tobin Francis MD [address] [place] [address] Consulting Physician Cardiology 10/06/24
--- OUTSIDE RECORDS SUMMARY | 2025-04-26 13:37 | XMS_ITS | Encounter Summary ---
Author Organization [facility] Address [address] [place] [address] Phone Care Team Providers Care Sterile Processing Technician Name Role Phone Stewart Campbell MD Primary Care Provider [phone] Natalie Cerrato MD Unavailable [phone] Joaquin Hurd MD Unavailable [phone] Gretta Heath MD Unavailable [phone] Ryne Gomes DO Primary Care Provider [phone] Tobin Francis MD Unavailable [phone] Encounter Details Date Type Department Care Team [...] on file Legal Sex Female 8:52 PM ANIME DESIGNER Gender Identity Female 12/13/2020 9:57 AM ANIME DESIGNER Sexual Orientation Straight 12/13/2020 9: 57 AM ANIME DESIGNER documented as of this encounter Plan of Treatment Not on file documented as of this encounter Procedures Procedure Name Priority Date/Time Associated Diagnosis Comments SCAN - PATHOLOGY 09/22/2021 documented in this encounter Results * SCAN - PATHOLOGY (09/22/2021) us Provider Scanning Edited Result - Final documented in this encounter Visit Diagnoses Not on filedocumented in this encounter Care Teams Sterile Processing Technician Relationship Specialty Start Date End Date Stewart Campbell MD [address] [place] [address] PCP - General 01/24/17 07/18/24 Ryne Gomes DO [address] [place] [address] PCP - General Internal Medicine 07/19/24 Natalie Cerrato MD [address] [place] [address] Surgeon Surgical Oncology 05/01/18 Joaquin Hurd MD [address] [place] [address] Consulting Physician Cardiology 07/21/19 Gretta Heath MD [address] [place] [address] Medical Oncologist/Finisher Wallboard And Plasterboard Medical Oncology 07/06/20 Tobin Francis MD [address] [place] [address] Consulting Physician Cardiology 10/06/24 documented as of this encounter
== END 2025-04-26 13:30 | disposition home or self-care (01) ==
PROVIDERS: PCP Internal Medicine; Visit Provider Internal Medicine Nephrology
DX: I12.9 Hypertensive chronic kidney disease with stage 1 through stage 4 chronic kidney disease, or unspecified chronic kidney disease (principal); N18.32 Chronic kidney disease, stage 3b
CPT/HCPCS: 76775

== ENCOUNTER 2025-05-27 09:23 | Outpatient (CLI) | payer MEDICARE, SELFPAY ==
--- NOTE | ~2025-05-27 | US_ITS ---
EXAMINATION: US carotid duplex BI DATE: 05/27/2025 13:58 CDT INDICATION: Vertigo TECHNIQUE: Grayscale, color Doppler, and pulsed Doppler images of the cervical carotid arteries were obtained. The degree of vessel stenosis is placed in one of the following categories: normal, <50%, 50-69%, >=7 0% but less than near-occlusion, near-occlusion, or total occlusion. Note that percent stenosis relative to normal distal artery lumen diameter is indirectly measured fro m velocity measurements as described originally by Adan, et al. Radiology 2003; 229:340-346 and upda cassius by Js Blake et al STROKE 2012;43(3);915-921. COMPARISON: 09/10/2024 FINDINGS: There is mild atherosclerosis of both carotid arteries. Peak systolic velocity (in cm/s) is detailed below RIGHT: Right common carotid artery (CCA): 60 cm/s. Right internal carotid artery (ICA) PSV: 60 cm/s. Right ICA end-diastolic velocity (EDV): 21 cm/s. Right ICA/CCA PSV ratio is 1.0. Right external carotid artery (ECA): 98cm/s. There is antegrade flow in the right vertebral artery LEFT: Left common carotid artery (CCA): 50 cm/s. Left internal carotid artery (ICA) PSV: 81 cm/s. Left ICA end-diastolic velocity (EDV): 32 cm/s. Left ICA/CCA PSV ratio is 1.6. Left external carotid artery (ECA): 76cm/s. There is antegrade flow in the left vertebral artery. IMPRESSION: 1. Less than 50% stenosis in the right internal carotid artery, unchanged from prior. 2. Less than 50% stenosis in the left internal carotid artery demonstrating mild progression from chayito or examination. Reviewed, dictated and finalized at location A. IMPRESSION: 1. Less than 50% stenosis in the right internal carotid artery, unchanged from prior. 2. Less than 50% stenosis in the left internal carotid artery demonstrating mil d progression from prior examination.
--- OUTSIDE RECORDS SUMMARY | 2025-05-27 09:28 | XMS_ITS | Encounter Summary ---
Author Organization [facility] Address [address] [place] [address] Phone Care Team Providers Care Swing Driver Name Role Phone Stewart Campbell MD Primary Care Provider [phone] Natalie Cerrato MD Unavailable [phone] Joaquin Hurd MD Unavailable [phone] Gretta Heath MD Unavailable [phone] Ryne Gomes DO Primary Care Provider [phone] Tobin Francis MD Unavailable [phone] Encounter Details Date Type Department Care Team (Late st Contact Info) Description 04/06/2024 Orders Only [facility] Oncology [address] [facility] Advanced Medicine 7th [place] [address] [place] [address] [place] [address] [place] [address] 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, estrogen receptor positive, unspecified laterality (HCC) (Primary Dx); Bone disease; 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 Social History [...] on file Legal Sex Female 8:52 PM GORING CUTTER Gender Identity Female 12/13/2020 9:57 AM GORING CUTTER Sexual Orientation Straight 12/13/2020 9: 57 AM GORING CUTTER documented as of this encounter Plan of Treatment Not on file documented as of this encounter Visit Diagnoses Diagnosis 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, estrogen receptor positive, unspecified laterality (HCC)- Primary Bone disease Disorder of bone and cartilage, unspecified FPC (current) use of aromatase inhibitors documented in this encounter Care Teams Swing Driver Relationship Specialty Start Date End Date Stewart Campbell MD [address] [place] [address] PCP - General 01/24/17 07/18/24 Ryne Gomes DO [address] [place] [address] PCP - General Internal Medicine 07/19/24 Natalie Cerrato MD [address] [place] [address] Surgeon Surgical Oncology 05/01/18 Joaquin Hurd MD [address] [place] [address] Consulting Physician Cardiology 07/21/19 Gretta Heath MD [address] [facility] [address] [place] [address] Medical Oncologist/Hospital Wellness Coordinator Medical Oncology 07/06/20 Tobin Francis MD [address] [facility] [address] [place] [address] Consulting Physician Cardiology 10/06/24 documented as of this encounter
--- OUTSIDE RECORDS SUMMARY | 2025-05-27 09:28 | XMS_ITS | Encounter Summary ---
Author Organization [facility] Address [address] [place] [address] Phone Care Team Providers Care Hair Specialist Name Role Phone Stewart Campbell MD Primary Care Provider [phone] Natalie Cerrato MD Unavailable Joaquin Hurd MD Unavailable [phone] Gretta Heath MD Unavailable [phone] Ryne Gomes DO Primary Care Provider [phone] Tobin Francis MD Unavailable [phone] Encounter Details Date Type Department Care Team (Late st Contact Info) Description 04/07/2024 Orders Only [facility] Oncology [address] [facility] [address] [place] [id number] Gretta Heath MD [address] [facility] [address] [place] [address] Malignant neoplasm of lower-inner quadrant [...] file Legal Sex Female 8:52 PM MANAGER OF HOUSEKEEPING Gender Identity Female 12/13/2020 9:57 AM MANAGER OF HOUSEKEEPING Sexual Orientation Straight 12/13/2020 9: 57 AM MANAGER OF HOUSEKEEPING documented as of this encounter Plan of Treatment Not on file documented as of this encounter Visit Diagnoses Diagnosis Malignant neoplasm of lower-inner quadrant of left breast in female, estrogen receptor positive (HCC)- Primary documented in this encounter Care Teams Hair Specialist Relationship Specialty Start Date End Date Stewart Campbell MD [address] [facility] [address] [facility] [address] [place] [address] PCP - General 01/24/17 07/18/24 Ryne Gomes DO [address] [facility] [address] [facility] [address] [place] [address] PCP - General Internal Medicine 07/19/24 Natalie Cerrato MD [address] [place] [address] Surgeon Surgical Oncology 05/01/18 Joaquin Hurd MD [address] [place] [address] Consulting Physician Cardiology 07/21/19 Gretta Heath MD [address] [facility] [address] [place] [address] Medical Oncologist/Quality Control Inspector Medical Oncology 07/06/20 Tobin Francis MD [address] [address] Consulting Physician Cardiology 10/06/24 documented as of this encounter
--- OUTSIDE RECORDS SUMMARY | 2025-05-27 09:28 | XMS_ITS | Encounter Summary ---
Author Organization [facility] Address [address] [place] [address] Care Team Providers Care Donor Relations Manager Name Role Phone Stewart Campbell DO Primary Care Provider [phone] Encounter Details Date Type Department Care Team ([facility] Contact Info) Description 05/23/2025 Orders Only [facility] Oncology [facility] Hematology [address] [place] [id number] Vineet Simpson MD [facility] [address] [place] [phone] Erythrocytosis Social History Tobacco Use Types [...] Description 06/16/2025 11:00 AM CDT Office Visit [facility] Oncology and Hematology - Jeremias [address] [place] [address] Vineet Simpson MD [facility] [address] [place] [phone] documented as of this encounter Visit Diagnoses Diagnosis Erythrocytosis Reserved for inherently not codable concepts WITHOUT codable children documented in this encounter Care Teams Donor Relations Manager Relationship Specialty Start Date End Date Stewart Campbell, DO [address] [facility] [address] [place] [address] PCP - General Internal Medicine 05/25/20 documented as of this encounter
--- OUTSIDE RECORDS SUMMARY | 2025-05-27 09:28 | XMS_ITS ---
Author Organization [facility] Address [address] [place] [address] Care Team Providers Care Rural Service Engineer Name Role Phone Natalie Cerrato MD Unavailable [phone] Joaquin Hurd MD Unavailable [phone] Gretta Heath MD Unavailable [phone] Ryne Gomes DO Primary Care Provider [phone] Tobin Francis MD Unavailable [phone] Active Problems Problem Noted Date Diagnosed Date [...] (07/24/2021): Added automatically from request for surgery [id number] S/P breast reconstruction 02/19/2021 Overview (02/19/2021): Added automatically from request for surgery [id number] Idiopathic peripheral neuropathy 09/12/2020 Assessment & Plan (09/03/2021 11:46 AM WIRE STITCHER MACHINE): Patient continues on gabapentin for treatment of dysesthesia and paresthesia associated with idiopathic peripheral neuropathy in her lower extremities. She cites good tolerability and efficacy. I have renewed her gabapentin 300 mg t.i.d. as previously prescribed. She will follow-up in neurology clinic in a year. Assessment & Plan (09/12/2020 12:55 PM WIRE STITCHER MACHINE): Patient is a former patient of [facility] being treated for idiopathic peripheral neuropathy manifested as neuropathic pain and numbness in her feet and legs. Prior medical records from [facility] have been requested but are unavailable [...] 09/12/2020 Assessment & Plan (09/12/2020 12:56 PM WIRE STITCHER MACHINE): Patient has history of peripheral neuropathy with neuropathic pain as a presenting symptom. Gabapentin 300 mg t.i.d. has been historically prescribed with good tolerability and efficacy. 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, estrogen receptor positive 07/01/2019 HX: breast cancer 07/01/2019 Bone disease 07/01/2019 Labile hypertension 04/12/2019 Dizziness 10/06/2018 History of breast cancer 05/14/2018 Assessment & Plan (12/15/2024 8:05 AM WIRE STITCHER MACHINE): Continue anastrazole Assessment & Plan (12/14/2024 2:03 PM WIRE STITCHER MACHINE): Continue anastrazole H/O sarcoidosis 02/20/2018 ALEXIS (dyspnea [...] anticoagulation Assessment & Plan (12/15/2024 8:06 AM WIRE STITCHER MACHINE): For atrial fibrillation, continue apixaban Assessment & Plan (12/14/2024 2:03 PM WIRE STITCHER MACHINE): Resume Catherine burdick per cardiology post procedure recs Dehydration 05/06/2016 Benign hypertension 04/18/2016 Overview (01/30/2017): HTN (hypertension), benign Assessment & Plan (04/26/2025 8:07 AM CDT): Stable continue lisinopril Assessment & Plan (12/15/2024 8:06 AM WIRE STITCHER MACHINE): Continue home lisinopril 40mg daily Assessment & Plan (12/14/2024 2:03 PM WIRE STITCHER MACHINE): BP controlled post ablation. Continue home lisinopril 40 daily Paroxysmal atrial fibrillation 04/18/2016 Overview (01/30/2017): Paroxysmal atrial fibrillation Assessment & Plan (04/26/2025 8:07 AM CDT): Stable continue metoprolol and Eliquis Assessment & Plan (12/15/2024 8:05 AM WIRE STITCHER MACHINE): Presented for planned EP study with ablation [...] home Assessment & Plan (12/14/2024 2:13 PM WIRE STITCHER MACHINE): Presented for planned EPS with ablation under [...]
--- OUTSIDE RECORDS SUMMARY | 2025-05-27 09:28 | XMS_ITS | Encounter Summary ---
Author Organization [facility] Address [address] [place] [address] Phone Care Team Providers Care Cabinet Installer Name Role Phone Stewart Campbell MD Primary Care Provider [phone] Natalie Cerrato MD Unavailable [phone] Anil Saldaña MD Unavailable [phone] Joaquin Hurd MD Unavailable [phone] Gretta Heath MD Unavailable [phone] Ryne Gomes DO Primary Care Provider Tobin Francis MD Unavailable [phone] Encounter Details Date Type Department Care Team [...] on file 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 Gender Identity Female 12/13/2020 9:57 AM FIELD CROP FARMER Sexual Orientation Straight 12/13/2020 9: 57 AM FIELD CROP FARMER documented as of this encounter Plan of Treatment Not on file documented as of this encounter Procedures Procedure Name Priority Date/Time Associated Diagnosis Comments SCAN - RADIOLOGY/IMAGING 01/13/2019 documented in this encounter Results * SCAN - RADIOLOGY/IMAGING (01/13/2019) Anatomical Region Laterality Modality Other us Provider Scanning Final Result documented in this encounter Visit Diagnoses Not on filedocumented in this encounter Care Teams Cabinet Installer Relationship Specialty Start Date End Date Stewart Campbell MD [address] [place] [address] PCP - General 01/24/17 07/18/24 Ryne Gomes DO [address] [place] [address] PCP - General Internal Medicine 07/19/24 Natalie Cerrato MD [address] [facility] [address] [place] [address] Surgeon Surgical Oncology 05/01/18 Anil Saldaña MD [address] [place], [place] [id number] Medical Oncologist/Electromechanical Technician Medical Oncology 07/21/19 07/05/20 Joaquin Hurd MD [address] [place] [address] Consulting Physician Cardiology 07/21/19 Gretta Heath MD [address] [facility] [address] [place] [address] Medical Oncologist/Electromechanical Technician Medical Oncology 07/06/20 Tobin Francis MD [address] [address] Consulting Physician Cardiology 10/06/24 documented as of this encounter
--- OUTSIDE RECORDS SUMMARY | 2025-05-27 09:28 | XMS_ITS | Clinical Summary ---
Author Organization [facility] Address [address] [facility] [place] [address] Care Team Providers Care Vice Chair Name Role Phone Stewart Campbell DO Primary Care Provider Source Comments [facility],non-owned Affiliates and Associated Physician Practices is amultiple site organization consisting of ambulatory clinics and hospital sitesin [place], [place], [place] and [place]. This disclosure is being madepursuant to the Care Everywhere program and may not contain all information available regarding this patient. Last updated 18.[facility] [employer] Social History Tobacco Use Types Packs/Day Years Used Date Smoking Tobacco: Never Assessed Comments Unknown Sex and Gender Information Value Date Recorded Sex Assigned at Not on file Legal Sex Female 6:14 AM CALL MANAGER Gender Identity Not on file Sexual Orientation [...] series) 2024 DEPRESSION SCREENING 10/27/2024 INFLUENZA VACCINE (#1) 2025 HEPATITIS B VACCINE Aged Out No [...] STEWART Subscriber ID:Not on file (Home) Address: [address] [place] [id number] Payer ID:Not on file Group ID:Not on file Type:Self Pay Address: [place], [place] Care Teams Vice Chair Relationship Specialty Start Date End Date Stewart Campbell DO [address] [facility] [address] [facility] [address] [place], [place] [id number] PCP - General 05/11/20
--- OUTSIDE RECORDS SUMMARY | 2025-05-27 09:28 | XMS_ITS ---
Author Organization [facility] Address [address] [place] [address] [address] [place] [address] Care Team Providers Care Venture Capital Analyst Name Role Phone Angela Carlin Unavailable [phone] REASON FOR VISIT LBP Encounters Encounter Location Date Provider Diagnosis [facility] [address] [facility] [address] [place] [address] 08/23/2024 Angela Carlin Plan Of Treatment No Information Progress Notes * Carmen MOISE EDOB:[birth year] (74 yo F)Acc No.[id number]:08/23/2024 Patient: Carmen MORELAND Provider: Radha Carlin MD :1950 A ge:73 Y S ex:Female Date:08/23/2024 Address: [address] Subjective: * Chief Complaints: * 1 . LBP. * Medical History: Objective: * Vitals: Assessment: Plan: * Treatment: Forms: * Billing Information: * Visit Code: * Procedure Codes: * Electronic signature of Larisa Carlin MD on 05/27/2025 at 09:28 AM CDT Sign off status: Pending * Provider: Radha Carlin MD Date: Generated for Deidra garcia/Ellen/eTjarredsmitting on: 0 05/27/2025 09:28 AM CDT
--- OUTSIDE RECORDS SUMMARY | 2025-05-27 09:28 | XMS_ITS | Encounter Summary ---
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 Gender Identity Female 12/13/2020 9:57 AM CLIENT SUPPORT COORDINATOR Sexual Orientation Straight 12/13/2020 9: 57 AM CLIENT SUPPORT COORDINATOR documented as of this encounter Plan of Treatment Not on file documented as of this encounter Procedures Procedure Name Priority Date/Time Associated Diagnosis Comments SCAN - PATHOLOGY 09/22/2021 documented in this encounter Results * SCAN - PATHOLOGY (09/22/2021) us Provider Scanning Edited Result - Final documented in this encounter Visit Diagnoses Not on filedocumented in this encounter Care Teams Electronic Security Technician Relationship Specialty Start Date End Date Stewart Campbell MD [address] [place] [address] PCP - General 01/24/17 07/18/24 Ryne Gomes DO [address] [place] [address] PCP - General Internal Medicine 07/19/24 Natalie Cerrato MD [address] [place] [address] Surgeon Surgical Oncology 05/01/18 Joaquin Hurd MD [address] [place] [address] Consulting Physician Cardiology 07/21/19 Gretta Heath MD [address] [place] [address] Medical Oncologist/Crusher Supervisor Medical Oncology 07/06/20 Tobin Francis MD [address] [place] [address] Consulting Physician Cardiology 10/06/24 documented as of this encounter
--- OUTSIDE RECORDS SUMMARY | 2025-05-27 09:28 | XMS_ITS | Encounter Summary ---
Author Organization [facility] Address [address] [address] Care Team Providers Care Motion Picture Commentator Name Role Phone Stewart Campbell MD Primary Care Provider [phone] Stewart Campbell MD Primary Care Provider [phone] Natalie Cerrato MD Unavailable [phone] Anil Saldaña MD Unavailable [phone] Joaquin Hurd MD Unavailable [phone] Gretta Heath MD Unavailable [phone] Ryne Gomes DO Primary Care Provider [phone] Tobin Frnacis MD Unavailable [phone] Encounter Details Date Type Department Care Team (Late st Contact Info) Description 01/13/2017 Orders Only [facility] Provider, MD [facility] [place] [address] Social History Tobacco Use Types Packs/Day Years Used Date Smoking Tobacco: Never Alcohol Use Standard Drinks/Week Comments No 0 (1 standard drink = 0.6 oz pur e alcohol) Comments Unknown Sex and Gender Information Value Date Recorded Sex Assigned at Not on file Legal Sex 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 Gender Identity Female 12/13/2020 9:57 AM DIE DRAWING CHECKER Sexual Orientation Straight 12/13/2020 9: 57 AM DIE DRAWING CHECKER documented as of this encounter Plan [...] on filedocumented in this encounter Care Teams Motion Picture Commentator Relationship Specialty Start Date End Date Stewart Campbell MD [address] [facility] [address] [place] [address] PCP - General 01/24/17 07/18/24 Stewart Campbell MD [address] [facility] [address] [place] [address] PCP - General 01/10/17 01/23/17 Ryne Gomes DO [address] [address] PCP - General Internal Medicine 07/19/24 Natalie Cerrato MD [facility] [address] [place] [address] Surgeon Surgical Oncology 05/01/18 Anil Saldaña MD [address] [place] [address] Medical Oncologist/Barytes Grinder Medical Oncology 07/21/19 07/05/20 Joaquin Hurd MD [address] [place], [place] [address] Consulting Physician Cardiology 07/21/19 Gretta Heath MD [address] [facility] [address] [place] [address] Medical Oncologist/Barytes Grinder Medical Oncology 07/06/20 Tobin Francis MD [address] [place] [address] Consulting Physician Cardiology 10/06/24 documented as of this encounter
--- OUTSIDE RECORDS SUMMARY | 2025-05-27 09:28 | XMS_ITS | Referral Summary ---
Author Organization [facility] Address [address] [place] [address] Care Team Providers Care Administrative Dietitian Name Role Phone Natalie Cerrato MD Unavailable [phone] Joaquin Hurd MD Unavailable Gretta Heath MD Unavailable [phone] Ryne Gomes DO Primary Care Provider [phone] Adelaida Francis MD Unavailable [phone] Encounters Date Type Department Care Team Description 05/23/2025 Telephone [facility] Cardiology [address] [place] [address] [place] [address] [phone] Connie Villarreal MD 05/23/2025 9:15 AM CDT Ancillary Procedure [facility] Cardiology [address] [place] [address] [address] [place] [phone] Paroxysmal atrial fibrillation (HCC) 05/17/2025 9:30 AM CDT Office Visit [facility] Cardiology [address] [place] [address] [address] [place] [phone] Connie Villarreal MD Lipid screening (Primary Dx); Paroxysmal atrial fibrillation (HCC); Dizziness 04/28/2025 Telephone [facility] Cardiology [facility] 8th [place] [address] [place] [address] Adelaida Francis MD 04/20/2025 1:45 PM CDT Office Visit [facility] Vascular and Vein Surgery [address] [place] [address] Tanner Martinez MD Aberrant subclavian artery (Primary Dx); Abnormal CT scan, chest; Paroxysmal atrial fibrillation (HCC); Benign hypertension 04/14/2025 8:30 AM CDT Ancillary Procedure [facility] Cardiology [address] [place] [address] 8th [place] [address] [place] [address] Paroxysmal atrial fibrillation (HCC) 04/14/2025 Orders Only [address] 8th [place] [address] [place] [address] Adelaida Francis MD Paroxysmal atrial fibrillation (HCC) (Primary Dx) 04/13/[address] 8th [place] [address] [place] [address] Adelaida Francis MD 04/13/2025 1:30 PM CDT Telemedicine [facility] Cardiology [address] [place] [address] 8th [place] [address] [place] [address] Adelaida Francis MD Persistent atrial fibrillation (HCC) (Primary Dx); Atrial flutter, unspecified type (HCC) 03/31/2025 Telephone [facility] Cardiology [address] [place] [address] [place] [phone] Connie Villarreal MD 03/22/2025 Orders Only [facility] Cardiology [address] [place] [address] [address] [place] [phone] Connie Villarreal MD 03/22/2025 Telephone [facility] Cardiology [address] [place] [address] [address] [place] [phone] Connie Villarreal MD 03/18/2025 Telephone [facility] Cardiology [address] [place] [address] [address] [place] [phone] Connie Villarreal MD 03/02/2025 Telephone [facility] Cardiology [address] [place] [address] Connie Villarreal MD from Last 3 Months Allergies No known active allergies Medications multivitamin tablet tablet take 1 by Oral route once 0 0 4 Active zolpidem (AMBIEN) 10 mg tabletIndicatio ns:Sleep-Onset Insomnia Take 0.5 tablets (5 mg total) by mouth nightly as needed for sleep 1/2 tablet prn q hs Active cholecalciferol , vitamin D3, (VITAMIN D3 ORAL)Indication s:supplement Take 1 tablet by mouth every evening Active anastrozole (ARIMIDEX) 1 mg tabletIndicatio ns:Malignant neoplasm of lower-inner quadrant of left breast in female, estrogen receptor positive (HCC) Take 1 tablet (1 mg total) by mouth daily 90 tablet 3 5 Active lisinopriL (PRINIVIL,ZESTR IL) 40 mg tablet Take 1 tablet (40 mg total) by mouth every morning 90 tablet 3 5 Active atorvastatin (LIPITOR) 20 mg tablet Take 1 tablet (20 mg total) by mouth daily 5 Active metoprolol XL (TOPROL-XL) 25 mg extended release tablet Take 1 tablet (25 mg total) by mouth daily 90 tablet 1 5 03/22/20 26 Active Eliquis 5 mg tablet TAKE 1 TABLET(5 MG) BY MOUTH TWICE DAILY 180 tablet 3 5 Active amiodarone (PACERONE) 200 mg tablet Take 1 tablet (200 mg total) by mouth daily 30 tablet 5 05/17/20 25 Discontinu ed(Patient Reported) pantoprazole DR (PROTONIX) 40 mg EC tablet TAKE 1 TABLET(40 MG) BY MOUTH DAILY 90 tablet 5 05/17/20 25 Discontinu ed(Patient Reported) Active Problems Problem Noted Date Diagnosed Date [...] (07/24/2021): Added automatically from request for surgery [id number] S/P breast reconstruction 02/19/2021 Overview (02/19/2021): Added automatically from request for surgery [id number] Idiopathic peripheral neuropathy 09/12/2020 Assessment & Plan (09/03/2021 11:46 AM CHIEF OF PRODUCTION): Patient continues on gabapentin for treatment of dysesthesia and paresthesia associated with idiopathic peripheral neuropathy in her lower extremities. She cites good tolerability and efficacy. I have renewed her gabapentin 300 mg t.i.d. as previously prescribed. She will follow-up in neurology clinic in a year. Assessment & Plan (09/12/2020 12:55 PM CHIEF OF PRODUCTION): Patient is a former patient of [facility] being treated for idiopathic peripheral neuropathy manifested as neuropathic pain and numbness in her feet and legs. Prior medical records from [facility] have been requested but are unavailable [...] 09/12/2020 Assessment & Plan (09/12/2020 12:56 PM CHIEF OF PRODUCTION): Patient has history of peripheral neuropathy with neuropathic pain as a presenting symptom. Gabapentin 300 mg t.i.d. has been historically prescribed with good tolerability and efficacy. 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 07/01/2019 Malignant neoplasm of lower- inner quadrant of breast in female, estrogen receptor positive 07/01/2019 HX: breast cancer 07/01/2019 Bone disease 07/01/2019 Labile hypertension 04/12/2019 Dizziness 10/06/2018 History of breast cancer 05/14/2018 Assessment & Plan (12/15/2024 8:05 AM CHIEF OF PRODUCTION): Continue anastrazole Assessment & Plan (12/14/2024 2:03 PM CHIEF OF PRODUCTION): Continue anastrazole H/O sarcoidosis 02/20/2018 ALEXIS (dyspnea [...] anticoagulation Assessment & Plan (12/15/2024 8:06 AM CHIEF OF PRODUCTION): For atrial fibrillation, continue apixaban Assessment & Plan (12/14/2024 2:03 PM CHIEF OF PRODUCTION): Resume Catherine burdick per cardiology post procedure recs Dehydration 05/06/2016 Benign hypertension 04/18/2016 Overview (01/30/2017): HTN (hypertension), benign Assessment & Plan (04/26/2025 8:07 AM CDT): Stable continue lisinopril Assessment & Plan (12/15/2024 8:06 AM CHIEF OF PRODUCTION): Continue home lisinopril 40mg daily Assessment & Plan (12/14/2024 2:03 PM CHIEF OF PRODUCTION): BP controlled post ablation. Continue home lisinopril 40 daily Paroxysmal atrial fibrillation 04/18/2016 Overview (01/30/2017): Paroxysmal atrial fibrillation Assessment & Plan (04/26/2025 8:07 AM CDT): Stable continue metoprolol and Eliquis Assessment & Plan (12/15/2024 8:05 AM CHIEF OF PRODUCTION): Presented for planned EP study with ablation under general anesthesia 12/14, successful electrical isolation of the pulmonary veins and LA roof line and right atrial CTI line. AF terminated with isolation of the RPV pair per procedure notes. Ms. Moise was monitored overnight, Monitor on tele overnight - amiodarone 200 mg daily - Eliquis 5 mg BID - Protonix 40 mg daily x 30 days per cards - Monitor R groin site (hx CKD 3 on Eliquis) - Cardiology to see in am and plan DC home Assessment & Plan (12/14/2024 2:13 PM CHIEF OF PRODUCTION): Presented for planned EPS with ablation under [...] on file Legal Sex Female 8:52 PM CHIEF OF PRODUCTION Gender Identity Female 12/13/2020 9:57 AM CHIEF OF PRODUCTION Sexual Orientation Straight 12/13/2020 9: 57 AM CHIEF OF PRODUCTION Last Filed Vital Signs Vital Sign Reading Time Taken Comments Blood Pressure 148/98 05/17/2025 9:21 AM CDT Pulse 86 05/17/2025 9:21 AM CDT Temperature 36.5 C (97.7 F) 12/15/2024 8:15 AM CHIEF OF PRODUCTION Respiratory Rate 16 05/17/2025 9:21 AM CDT Oxygen Saturation 98% 05/17/2025 9:21 AM CDT Inhaled Oxygen Concentration - - Weight 69.9 kg (154 lb) 05/17/2025 9:21 AM CDT Height 165.1 cm (5' 5) 05/17/2025 9:21 AM CDT Body Mass Index 25.63 05/17/2025 9:21 AM CDT Plan of Treatment Not on file Medical Devices Implanted Type Area Biological Chemist Device Identifier Shelf Expiration Date Model / Serial / Lot [employer] Vascade Mvp 6-12fr Venous Closure [id number] - [id number] - [id number] Implanted:Qty : 1 on 12/14/2024 by Adelaida Francis MD at [facility] Collagen Right: Femoral Vein [employer] 08/06/2026 [id number] [id number] / [id number] / [id number] [employer] Vascade Mvp 6-12fr Venous Closure [id number] - [id number] - [id number] Implanted:Qty : 1 on 12/14/2024 by Adelaida Francis MD at [facility] Collagen Right: Femoral Vein [employer] 08/06/2026 [id number] [id number] / [id number] / [id number] [id number] [employer] Vascade Mvp 6-12fr Venous Closure [id number] - [id number] - [id number] Implanted:Qty : 1 on 12/14/2024 by Adelaida Francis MD at [facility] Collagen Right: Femoral Vein [employer] 08/06/2026 [id number] [id number] / [id number] [id number] / [id number] [id number] Procedures Procedure Name Priority Date/Time Associated Diagnosis Comments TRANSTHORACIC ECHO (TTE) COMPLETE W DOPPLER/CF WO CONTRAST Routine 05/23/2025 10:14 AM CDT Paroxysmal atrial fibrillation (HCC) POCT LIPID PANEL Routine 05/17/2025 9:15 AM CDT Lipid screening EXTENDED/LONG-TERM HOLTER PATCH (>48 HOURS UP TO 7 DAYS) Routine 04/14/2025 9:13 AM CDT Paroxysmal atrial fibrillation (HCC) CARDIOLOGY DOCUMENT SCAN Routine 03/17/2025 4:31 PM CDT SCREENING MAMMOGRAM RIGHT W MELLO UNILATERAL ONLY Schedule Routine, Read Routine (OP Routine) 10/13/2024 3:19 PM CHIEF OF PRODUCTION History of breast cancer Breast cancer screening by mammogram DEXA AXIAL SKELETON BONE DENSITY 1 OR MORE SITES Schedule Routine, Read Routine (OP Routine) 04/07/2024 11:17 AM CDT 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, estrogen receptor positive, unspecified laterality (HCC) [facility] (current) use of aromatase inhibitors COLONOSCOPY 09/26/2021 10:27 AM CHIEF OF PRODUCTION SERUM HEPATITIS C AB Routine 04/21/2015 5:19 AM CDT from Last 3 Months or Most Recently Relevant to Health Maintenance Results * TRANSTHORACIC ECHO (TTE) COMPLETE W DOPPLER/CF WO CONTRAST (05/23/2025 10:14 AM CDT) EF Mod BP 59 % CONS SCIMAGE Anatomical Region Laterality Modality Ultrasound 05/23/2025 9:09 AM CDT Narrative 05/23/2025 10:47 AM CDT [facility] Cardiology [address], [place] [address] [address] [facility] [address], [place] [address] P:[phone] P:[phone] Echocardiographic Report Patient Name: CARMEN MOISE E : 1950 Study Date: 05/23/2025 9:09:47 AM Gender: F Supervisor Type Bar And Segment: Juliet Barroso (Radha)(CT), RD Location: [facility] Provider: CONNIE VILLARREAL Height(Cm): 165 BSA: 1.79 Weight(Kg): 69.9 Heart Rate: 71 BP: 148 / 98 Quality: Good Order Provider: CONNIE VILLARREAL PROCEDURES: Echocardiographic Report: Transthoracic echocardiogram with complete 2D, M-Mode, and color Doppler examination. With Strain Analysis. INDICATIONS: I48.0 Paroxysmal atrial fibrillation. MEASUREMENTS: 2D/MM Value Range Doppler Value Range EF Mod BP 59 % [ 54 - 74 ] SHEFALI Vmax 1.59 cm2 [ 2.00 - 4.00 ] LV GLS -15.77 % AV Mean PG 5 mmHg LVIDd 2D 2.73 cm [ 3.80 - 5.20 ] AV Peak Darnell 1.50 m/s [ 1.00 - 1.70 ] LVIDs 2D 2.02 cm [ 2.20 - 3.50 ] AV Peak PG 9 mmHg LVPWd 2D 1.01 cm [ 0.60 - 0.90 ] AV VTI 34.01 cm IVSd 2D 1.21 cm [ 0.60 - 0.90 ] LVOT Diam 2.00 cm [ 1.70 - 2.10 ] AoR Diam 2D 3.11 cm [ 2.70 - 3.70 ] LVOT Peak Darnell 0.76 m/s [ 0.70 - 1.10 ] LA Volume 31.96 ml [ 22.00 - 52.00 ] LVOT VTI 17.49 cm LA Volume Index 18 cc/m2 [ 16 - 28 ] PV Peak Darnell 0.81 m/s [ 0.40 - 0.80 ] RA Volume 17.02 ml TR Peak Darnell 2.37 m/s [ 1.00 - 2.80 ] TR Peak PG 23 mmHg RV S` 9.83 mmHg 2D/MM Value Range Doppler Value Range - FINDINGS: Interpretation Site: Exam was interpreted at [facility]. Left Ventricle: Global Longitudinal Strain is -16 %. The left ventricle is normal in size and systolic function. The left ventricular ejection fraction is visually estimated to be 60- 65%. Right Ventricle: Normal right ventricular size. Normal right ventricular systolic function. Left Atrium: The left atrium is normal in size. Right Atrium: The right atrium is normal in size. Atrial Septum: Normal atrial septum. Mitral Valve: The mitral valve is normal. There is trace mitral regurgitation. Aortic Valve: Normal appearance of the aortic valve. Tricuspid Valve: The tricuspid valve is normal. There is trace tricuspid regurgitation. Pulmonic Valve: The pulmonic valve is not well visualized. There is color Doppler evidence of trace pulmonic valve regurgitation. Pericardium: Normal pericardium with no significant pericardial effusion. Aorta: Sinus of Valsalva 3.1 cm. IVC: Normal size and normal respiratory collapse consistent with normal right atrial pressure (<5 mmHg). CONCLUSIONS: There is normal biventricular size and systolic function. There were no significant valvular abnormalities. Electronically Signed By: Dr. Connie Villarreal 05/23/2025 10:46:18 AM CDT Procedure Note Connie Villarreal MD - 05/23/2025 [facility] Cardiology [address] [facility] [address], [place] [address] [address] [facility] [address], [place] [address] P:[phone] P:[phone] Echocardiographic Report Patient Name: CARMEN MOISE E : 1950 Study Date: 05/23/2025 9:09:47 AM Gender: F Supervisor Type Bar And Segment: Juliet Young)(CT), [facility] Location: [facility] Provider: CONNIE VILLARREAL Height(Cm): 165 BSA: 1.79 Weight(Kg): 69.9 Heart Rate: 71 BP: 148 / 98 Quality: Good Order Provider: CONNIE VILLARREAL PROCEDURES: Echocardiographic Report: Transthoracic echocardiogram with complete 2D, M-Mode, and color Dopplerexamination. With Strain Analysis. INDICATIONS: I48.0 Paroxysmal atrial fibrillation. MEASUREMENTS: 2D/MM Value Range Doppler ValueRange EF Mod BP 59 % [ 54 - 74 ] SHEFALI Vmax 1.59cm2 [ 2.00 - 4.00 ] LV GLS -15.77 % AV Mean PG 5mmHg LVIDd 2D 2.73 cm [ 3.80 - 5.20 ] AV Peak Darnell 1.50m/s [ 1.00 - 1.70 ] LVIDs 2D 2.02 cm [ 2.20 - 3.50 ] AV Peak PG 9mmHg LVPWd 2D 1.01 cm [ 0.60 - 0.90 ] AV VTI 34.01cm IVSd 2D 1.21 cm [ 0.60 - 0.90 ] LVOT Diam 2.00cm [ 1.70 - 2.10 ] AoR Diam 2D 3.11 cm [ 2.70 - 3.70 ] LVOT Peak Darnell 0.76m/s [ 0.70 - 1.10 ] LA Volume 31.96 ml [ 22.00 - 52.00 ] LVOT VTI 17.49cm LA Volume Index 18 cc/m2 [ 16 - 28 ] PV Peak Darnell 0.81m/s [ 0.40 - 0.80 ] RA Volume 17.02 ml TR Peak Darnell 2.37m/s [ 1.00 - 2.80 ] TR Peak PG 23 mmHg RV S` 9.83 mmHg 2D/MM Value Range Doppler ValueRange - FINDINGS: Interpretation Site: Exam was interpreted at [facility]. Left Ventricle: Global Longitudinal Strain is -16 %. The left ventricle is normal in sizeand systolic function. The left ventricular ejection fraction is visually estimated ailyn 60- 65%. Right Ventricle: Normal right ventricular size. Normal right ventricular systolicfunction. Left Atrium: The left atrium is normal in size. Right Atrium: The right atrium is normal in size. Atrial Septum: Normal atrial septum. Mitral Valve: The mitral valve is normal. There is trace mitral regurgitation. Aortic Valve: Normal appearance of the aortic valve. Tricuspid Valve: The tricuspid valve is normal. There is trace tricuspid regurgitation. Pulmonic Valve: The pulmonic valve is not well visualized. There is color Doppler evidenceof trace pulmonic valve regurgitation. Pericardium: Normal pericardium with no significant pericardial effusion. Aorta: Sinus of Valsalva 3.1 cm. IVC: Normal size and normal respiratory collapse consistent with normal rightatrial pressure (<5 mmHg). CONCLUSIONS: There is normal biventricular size and systolic function. There were no significant valvular abnormalities. Electronically Signed By: Dr. Connie Villarreal 05/23/2025 10:46:18 AM CDT us Connie Villarreal MD CV ECHO PROCEDURES Final Result * POCT lipid panel (05/17/2025 9:15 AM CDT) [facility] Cholesterol, POC 137 <200 MG/DL HDL, POC 62 >=40 mg/dL Triglycerides, POC 56 <=149 mg/dL LDL Cholesterol POC 64 <=129 mg/dL Chol/HDL Ratio, POC 1.0 NONE Non-HDL Cholesterol, POC 75 NONE mg/dL Cholesterol Total, POC 137 30 - 199 mg/dL Capillary blood 05/17/2025 9 :15 AM CDT us Connie Villarreal MD POINT OF CARE TEST ORDERABLES Fi nal Result * Extended/Intermediate Holter Patch (>48 hours up to 7 days) (04/14/2025 9:13 AM CDT) Anatomical Region Laterality Modality Electrocardiogra phy 04/21/2025 3:44 PM CDT Narrative 05/06/2025 1:44 PM CDT [facility] [place] [address] HOLTER MONITOR Patient Name: CARMEN MOISE ELAINE : 1950 (74y 6m) Gender: F Study Date: 04/21/2025 03:44:50 PM Ht(Inch): Wt(Lb): BSA: Tech: Location: [facility] Order Provider: ADELAIDA FRANCIS BMI: Ref Provider: ADELAIDA FRANCIS PROCEDURES: Holter Report: EXTENDED/LONG-TERM HOLTER PATCH (>48 HOURS UP TO 7 DAYS) [[id number]]. Enrollment Period: 2025-04-21 00:00:00 through 2025-04-28 00:00:00. Monitor Number: [id number]. Location: [facility]. INDICATIONS: I48.0 Paroxysmal atrial fibrillation. FINDINGS: Holter Data: Min Rate: 31 BPM Min Rate Timestamp: 2025-04-27 09:41:04 Bradycardia (% of study): 8 Max Rate: 130 BPM Max Rate Timestamp: 2025-04-21 17:22:19 Tachycardia (% of study): 0 Mean Rate: 69 BPM AFib (% of study): 32.8 Singlets (PACs): 1978 events Couplets (PACs): 42 events Total (PACs): 2096 events Singlets (PVCs): 45 events Couplets (PVCs): 2 events Total (VE): 49 events Runs (VT): 0 events Total beats: [id number] SIGNIFICANT PAUSES: 0 >3 sec Protocol: Recording Duration (Ordered): [id number] Recording Duration (Actual): 042505.25 SUMMARY: *The predominant rhythm was Sinus. *The Maximum Heart Rate recorded was 130 bpm, 04/21 17:22:19, the Minimum Heart Rate recorded was 31 bpm, 04/27 09:41:04, and the Average Heart Rate was 69 bpm. *There were 49 VE beats with a burden of <1 %. *There were 2,096 SVE beats with a burden of <1 %. There were 12 occurrences of Supraventricular Tachycardia with the Fastest episode 103 bpm, 04/26 17:58:19, and the Longest episode 3 beats, 04/26 17:58:19. *The study included an Atrial Fibrillation/Flutter Franklin of 33 % with 2 % in RVR and 12 % in SVR. The longest episode was 19h 47m 59.1s, 04/26 19:29:44, and the Fastest episode was 130 bpm, 04/21 15:44:50. *There were 7 Patient Triggers.;. There were 7 Patient Triggers, 4 with a fib/flutter, 3 w supraventricular ectopy. CONCLUSIONS: 1. *The predominant rhythm was Sinus. *The Maximum Heart Rate recorded was 130 bpm, 04/21 17:22:19, the Minimum Heart Rate recorded was 31 bpm, 04/27 09:41:04, and the Average Heart Rate was 69 bpm. *There were 49 VE beats with a burden of <1 %. *There were 2,096 SVE beats with a burden of <1 %. There were 12 occurrences of Supraventricular Tachycardia with the Fastest episode 103 bpm, 04/26 17:58:19, and the Longest episode 3 beats, 04/26 17:58:19. *The study included an Atrial Fibrillation/Flutter Franklin of 33 % with 2 % in RVR and 12 % in SVR. The longest episode was 19h 47m 59.1s, 04/26 19:29:44, and the Fastest episode was 130 bpm, 04/21 15:44:50. *There were 7 Patient Triggers.; There were 7 Patient Triggers, 4 with a fib/flutter, 3 w supraventricular ectopy. 2. I have reviewed the PDF and all the ECG strips. I agree with the interpretations as detailed in the report 3. The PDF can be found in the Epic Patient chart. Please go to the Cardiology tab, click on the holter or event exam. Scroll to bottom where the ORDER LEVEL Documents reside and click the blue link to the pdf. Electronically Signed By: Raul Galindo Jr., M.D. 05/06/2025 1:34:54 PM CDT Electronically Signed By: Raul Galindo Jr., M.D. 05/06/2025 1:34:54 PM CDT Procedure Note Raul Galindo MD PhD - 05/06/2025 [facility] [place] [address] [place] [address] HOLTER MONITOR Patient Name: CARMEN MOIES ELAINE : 1950 (74y 6m) Gender: F Study Date: 04/21/2025 03:44:50 PM Ht(Inch): Wt(Lb): BSA: Tech: Location: [facility] Order Provider: ADELAIDA FRANCIS BMI: Ref Provider: ADELAIDA FRANCIS PROCEDURES: Holter Report: EXTENDED/LONG-TERM HOLTER PATCH (>48 HOURS UP TO 7 DAYS)[[id number]]. Enrollment Period: 2025-04-21 00:00:00 through 2025-04-28 00:00:00. Monitor Number: [id number]. Location: [facility]. INDICATIONS: I48.0 Paroxysmal atrial fibrillation. FINDINGS: Holter Data: Min Rate: 31 BPM Min Rate Timestamp: 2025-04-27 09:41:04 Bradycardia (% of study): 8 Max Rate: 130 BPM Max Rate Timestamp: 2025-04-21 17:22:19 Tachycardia (% of study): 0 Mean Rate: 69 BPM AFib (% of study): 32.8 Singlets (PACs): 1978 events Couplets (PACs): 42 events Total (PACs): 2096 events Singlets (PVCs): 45 events Couplets (PVCs): 2 events Total (VE): 49 events Runs (VT): 0 events Total beats: [id number] SIGNIFICANT PAUSES: 0 >3 sec Protocol: Recording Duration (Ordered): [id number] Recording Duration (Actual): 872687.25 SUMMARY: *The predominant rhythm was Sinus. *The Maximum Heart Raterecorded was 130 bpm, 04/21 17:22:19, the Minimum Heart Rate recorded was 31 bpm, 04/209:41:04, and the Average Heart Rate was 69 bpm. *There were 49 VE beats with a burden of <1%. *There were 2,096 SVE beats with a burden of <1 %. There were 12 occurrences ofSupraventricular Tachycardia with the Fastest episode 103 bpm, 04/26 17:58:19, and theLongest episode 3 beats, 04/26 17:58:19. *The study included an Atrial Fibrillation/FlutterBurden of 33 % with 2 % in RVR and 12 % in SVR. The longest episode was 19h 47m 59.1s,04/26 19:29:44, and the Fastest episode was 130 bpm, 04/21 15:44:50. *There were 7 PatientTriggers.;. There were 7 Patient Triggers, 4 with a fib/flutter, 3 w supraventricularectopy. CONCLUSIONS: 1. *The predominant rhythm was Sinus. *The Maximum Heart Rate recorded cfu330 bpm, 04/21 17:22:19, the Minimum Heart Rate recorded was 31 bpm, 04/27 09:41:04, andthe Average Heart Rate was 69 bpm. *There were 49 VE beats with a burden of <1 %.*There were 2,096 SVE beats with a burden of <1 %. There were 12 occurrences ofSupraventricular Tachycardia with the Fastest episode 103 bpm, 04/26 17:58:19, and theLongest episode 3 beats, 04/26 17:58:19. *The study included an Atrial Fibrillation/FlutterBurden of 33 % with 2 % in RVR and 12 % in SVR. The longest episode was 19h 47m 59.1s,04/26 19:29:44, and the Fastest episode was 130 bpm, 04/21 15:44:50. *There were 7 PatientTriggers.; There were 7 Patient Triggers, 4 with a fib/flutter, 3 w supraventricularectopy. 2. I have reviewed the PDF and all the ECG strips. I agree with theinterpretations as detailed in the report 3. The PDF can be found in the Epic Patient chart. Please go to theCardiology tab, click on the holter or event exam. Scroll to bottom where the ORDER LEVELDocuments reside and click the blue link to the pdf. Electronically Signed By: Raul Galindo Jr., M.D. 05/06/2025 1:34:54 PM CDT Electronically Signed By: Raul Galindo Jr., M.D. 05/06/2025 1:34:54 PM CDT Adelaida Francis MD CV CARDIAC SERVICES PROCEDURES Final Result * Cardiology Document Scan (03/17/2025 4:31 PM CDT) Anatomical Region Laterality Modality Other us Connie Villarreal MD CV CARDIAC SERVICES PROCEDURES F inal Result * Screening Mammogram Right W Mello Unilateral Only (10/13/2024 3:19 PM CHIEF OF PRODUCTION) Anatomical Region Laterality Modality Breast Right Mammography Narrative 10/14/2024 3:16 PM CHIEF OF PRODUCTION Mammogram Technique: Right Breast Digital Breast Tomosynthesis, Unilateral C-view 2D Screening mammogram. Views obtained: . Computer Aided Detection was performed. Mammogram Findings: The present examination has been compared to prior imaging studies performed at [facility] on 09/18/2021, 09/25/2022 and 10/10/2023. There are scattered areas of fibroglandular density. There is no suspicious abnormality in the right breast. Patient status post contralateral mastectomy for personal history of breast cancer. Impression: There is no mammographic evidence of malignancy. Annual screening mammography is recommended. OVERALL FINAL ASSESSMENT: BI-RADS CATEGORY 1: Negative. Procedure Note Bhaskar Lui MD - 12/19/2024 Mammogram Technique: Right Breast Digital Breast Tomosynthesis, Unilateral C-view 2DScreening mammogram. Views obtained: . Computer Aided Detection was performed. Mammogram Findings: The present examination has been compared to prior imaging studies performed at [facility] on 09/18/2021, 09/25/2022 and 10/10/2023. [...] inal Result * COLONOSCOPY (09/26/2021 10:27 AM CHIEF OF PRODUCTION) Anatomical Region Laterality Modality Other Narrative Procedure Note Trang Alfred MD - 09/26/2021 10:27 AM CST ENDOSCOPY LAB Patient Name: Carmen Moise Procedure Date: 09/26/2021 10:27 AM Date of : 1950 Admit Type: Outpatient Age: 70 Gender: Female Attending MD: Trang Alfred M.D. Room: [facility] ENDOSCOPY ROOM 01 Note Status: Finalized Procedure: [...] The scope was passed under direct vision.The [id number] was introduced through the anusand advanced to [...] business hours - Please call theNurse Coordinator: [phone] After hours, evening, nights, weekends and holidays- Please call the hospital catalytic converter operator helper at and ask for the GI fellow non profit financial controller. Electronically by Dr Trang Alfred Trang Alfred [...] 04/26/2015 5:00 PM CDT Test performed at [facility] [id number] [place] [id number] Director: CONRAD JONES DO,MPH us Historical Provider LAB BLOOD ORDERABLES Poornima mcallister Result HISTORICAL RESULTS from Last 3 Months or Most Recently Relevant to Health [place] [address] [facility] MEDICARE ADVANT[facility] Address: [address] [address] [place] [address] [facility] MEDICARE ADVANTAGE [facility] Address: [address] [address] [place] [address] [employer] MEDICARE ADVANTAGE Advance Directives For more information, please contact: [phone] * Full Code (Latest Code Status on File) Date Activated Date Inactivated Comments 09/26/2021 9:54 AM 09/26/2021 3:23 PM Care Teams Administrative Dietitian Relationship Specialty Start Date End Date Ryne Gomes DO [address] [place] [address] PCP - General Internal Medicine 07/19/24 Natalie Cerrato MD [address] [place] [address] Surgeon Surgical Oncology 05/01/18 Joaquin Hurd MD [address] [place] [address] Consulting Physician Cardiology 07/21/19 Gretta Heath MD [address] [facility] [address] [place] [address] Medical Oncologist/Bath Tester Medical Oncology 07/06/20 Adelaida Francis MD [address] [facility] [address] [place] [address] Consulting Physician Cardiology 10/06/24
--- OUTSIDE RECORDS SUMMARY | 2025-05-27 09:28 | XMS_ITS | Clinical Summary ---
Author Organization [facility] Address [address] [place] [address] Care Team Providers Care Auto Dealer Name Role Phone Natalie Cerrato MD Unavailable [phone] Joaquin Hurd MD Unavailable [phone] Gretta Heath MD Unavailable [phone] Ryne Gomes DO Primary Care Provider [phone] Adelaida Francis MD Unavailable [phone] Allergies No known active allergies Medications multivitamin [...] (07/24/2021): Added automatically from request for surgery [id number] S/P breast reconstruction 02/19/2021 Overview (02/19/2021): Added automatically from request for surgery [id number] Idiopathic peripheral neuropathy 09/12/2020 Assessment & Plan (09/03/2021 11:46 AM CREDIT AUTHORIZER): Patient continues on gabapentin for treatment of dysesthesia and paresthesia associated with idiopathic peripheral neuropathy in her lower extremities. She cites good tolerability and efficacy. I have renewed her gabapentin 300 mg t.i.d. as previously prescribed. She will follow-up in neurology clinic in a year. Assessment & Plan (09/12/2020 12:55 PM CREDIT AUTHORIZER): Patient is a former patient of [facility] being treated for idiopathic peripheral neuropathy manifested as neuropathic pain and numbness in her feet and legs. Prior medical records from [facility] have been requested but are unavailable [...] 09/12/2020 Assessment & Plan (09/12/2020 12:56 PM CREDIT AUTHORIZER): Patient has history of peripheral neuropathy with neuropathic pain as a presenting symptom. Gabapentin 300 mg t.i.d. has been historically prescribed with good tolerability and efficacy. 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/2019 watermaster (current) use of aromatase inhibitors 07/01/2019 Malignant neoplasm of lower- inner quadrant of breast in female, estrogen receptor positive 07/01/2019 HX: breast cancer 07/01/2019 Bone disease 07/01/2019 Labile hypertension 04/12/2019 Dizziness 10/06/2018 History of breast cancer 05/14/2018 Assessment & Plan (12/15/2024 8:05 AM CREDIT AUTHORIZER): Continue anastrazole Assessment & Plan (12/14/2024 2:03 PM CREDIT AUTHORIZER): Continue anastrazole H/O sarcoidosis 02/20/2018 ALEXIS (dyspnea [...] anticoagulation Assessment & Plan (12/15/2024 8:06 AM CREDIT AUTHORIZER): For atrial fibrillation, continue apixaban Assessment & Plan (12/14/2024 2:03 PM CREDIT AUTHORIZER): Resume Catherine meloight per cardiology post procedure recs Dehydration 05/06/2016 Benign hypertension 04/18/2016 Overview (01/30/2017): HTN (hypertension), benign Assessment & Plan (04/26/2025 8:07 AM CDT): Stable continue lisinopril Assessment & Plan (12/15/2024 8:06 AM CREDIT AUTHORIZER): Continue home lisinopril 40mg daily Assessment & Plan (12/14/2024 2:03 PM CREDIT AUTHORIZER): BP controlled post ablation. Continue home lisinopril 40 daily Paroxysmal atrial fibrillation 04/18/2016 Overview (01/30/2017): Paroxysmal atrial fibrillation Assessment & Plan (04/26/2025 8:07 AM CDT): Stable continue metoprolol and Eliquis Assessment & Plan (12/15/2024 8:05 AM CREDIT AUTHORIZER): Presented for planned EP study with ablation [...] home Assessment & Plan (12/14/2024 2:13 PM CREDIT AUTHORIZER): Presented for planned EPS with ablation under [...] Date Type Department Care Team Description 05/23/2025 9:15 AM CDT Ancillary Procedure [facility] Medical Group Cardiology [address] [place] [address] Paroxysmal atrial fibrillation (HCC) 05/23/2025 Telephone [facility] Cardiology [address] [facility] [address] [place] [phone] Connie Villarreal MD 05/17/2025 9:30 AM CDT Office Visit [facility] Cardiology [address] [place] [address] [address] [place] [phone] Connie Villarreal MD Lipid screening (Primary Dx); Paroxysmal atrial fibrillation (HCC); Dizziness 04/28/2025 Telephone [facility] Cardiology [address] [place] [address] 8th [place] [address] [place] [address] Adelaida Francis MD 04/20/2025 1:45 PM CDT Office Visit [facility] Vascular and Vein Surgery [address] [facility] [address] [place] [address] Tanner Martinez MD Aberrant subclavian artery (Primary Dx); Abnormal CT scan, chest; Paroxysmal atrial fibrillation (HCC); Benign hypertension 04/14/2025 8:30 AM CDT Ancillary Procedure [facility] Cardiology [address] [place] [address] 8th [place] [address] [place] [address] Paroxysmal atrial fibrillation (HCC) 04/14/2025 Orders Only [facility] Cardiology [address] [place] [address] 8th [place] [address] [place] [address] Adelaida Francis MD Paroxysmal atrial fibrillation (HCC) (Primary Dx) 04/13/2025 1:30 PM CDT Telemedicine [facility] Cardiology [address] [place] [address] 8th [place] [address] [place] [address] Adelaida Francis MD Persistent atrial fibrillation (HCC) (Primary Dx); Atrial flutter, unspecified type (HCC) 04/13/2025 Telephone [facility] Cardiology [address] [place] [address] 8th [place] [address] [place] [address] Adelaida Francis MD 03/31/2025 Telephone [facility] Cardiology [address] [place] [address] [address] [place] [phone] Connie Villarreal MD 03/22/2025 Orders Only [facility] Cardiology [address] [place] [phone] Connie Villarreal MD 03/22/2025 Telephone [facility] Cardiology [address] [place] [address] Connie Villarreal MD 03/18/2025 Telephone [facility] Cardiology [facility] [address] [place] [phone] Connie Villarreal MD 03/02/2025 Telephone [facility] Cardiology [facility] [address] [place] [address] Connie Villarreal MD from Last 3 Months Immunizations Immunization [...] ATRIAL FIBRILLATION (A-FIB) VIA PULMONARY VEIN ISOLATION [id number]; Surgeon: Adelaida Francis MD; Location: [facility] EP LAB; Service: Cardiovascular; Laterality: N/A; 3rd case Medical devices from this surgery are in the Medical Devices section. CARDIAC ELECTROPHYSIOLOGY PROCEDURE 12/14/2024 N/A Procedure: ABLATION ATRIAL FIBRILLATION ADDITIONAL LINE OR FOCI (+) [id number]; Surgeon: Adelaida Francis MD; Location: [facility] EP [...] Known Problems Sister 4 Cancer Son Jefferson Moise Anesthesia problems Neg Hx Relation Name Status Comments Father Mother Iris curless (Age 70) Sister 1 Alive Sister 2 Alive Sister 3 Alive Sister 4 Alive Son Jefferson Moies Social History Tobacco Use Types Packs/Day Years [...] on file Legal Sex Female 8:52 PM CREDIT AUTHORIZER Gender Identity Female 12/13/2020 9:57 AM CREDIT AUTHORIZER Sexual Orientation Straight 12/13/2020 9: 57 AM CREDIT AUTHORIZER Obstetrics History Last Filed Vital Signs Vital Sign Reading Time Taken Comments Blood Pressure 148/98 05/17/2025 9:21 AM CDT Pulse 86 05/17/2025 9:21 AM CDT Temperature 36.5 C (97.7 F) 12/15/2024 8:15 AM CREDIT AUTHORIZER Respiratory Rate 16 05/17/2025 9:21 AM CDT Oxygen Saturation 98% 05/17/2025 9:21 AM CDT Inhaled Oxygen Concentration - - Weight 69.9 kg (154 lb) 05/17/2025 9:21 AM CDT Height 165.1 cm (5' 5) 05/17/2025 9:21 AM CDT Body Mass Index 25.63 05/17/2025 9:21 AM CDT Plan of Treatment Health Maintenance Due Date Last Done Comments Hepatitis B Screening 1968 Zoster Vaccine (1 of 2) 09/27/2014 08/02/2014 Well Visit 65+ 2014 Pneumococcal vaccine 65+ (2 of 2 - PPSV23) 03/03/2020 01/07/2020 DTaP/Tdap/Td Vaccine (2 - Td or Tdap) 08/02/2024 08/02/2014 Influenza Vaccine (#1) 2025 , 01/07/2020, 08/29/2016, Additional history exists Depression Screening 09/22/2025 09/22/2024, 09/22/20 Fall Risk Assessment 12/15/2025 12/15/2024 Osteoporosis Screening-Bone Density Scan 04/07/2026 04/07/2024, 04/01/2022, 04/21/2019 Colon Cancer Screening-Colonoscopy 09/26/2031 09/26/2021, 03/28/2015 Hepatitis C Screening Completed 04/21/2015 Colon Cancer Screening-CT Colonography Discontinued 09/26/2021, 03/28/2015 Colon Cancer Screening-DNA Stool Discontinued 09/26/20 21, 03/28/2015 Colon Cancer Screening-FIT Discontinued 09/26/2021, Colon Cancer Screening-Sigmoidoscopy Discontinued 09/26/2021, 03/28/2015 Breast Cancer Screening-Mammogram Discontinued 10/13/2024, 10/10/2023, 09/25/2022, Additional history exists Medical Devices Implanted Type Area Director Of Marketing [employer] Device Identifier Shelf Expiration Date Model / Serial / Lot [employer] Vascade Mvp 6-12fr Venous Closure [id number] - [id number] - [id number] Implanted:Qty : 1 on 12/14/2024 by Adelaida Francis MD at [facility] Collagen Right: Femoral Vein [employer] 08/06/2026 [id number] [id number] / [id number] / [id number] [id number] [employer] Vascade Mvp 6-12fr Venous Closure [id number] - [id number] - [id number] Implanted:Qty : 1 on 12/14/2024 by Adelaida Francis MD at [facility] Collagen Right: Femoral Vein [employer] 08/06/2026 [id number] 10U / [id number] 16B / [id number] [id number] [employer] Vascade Mvp 6-12fr Venous Closure [id number] - [id number] - [id number] Implanted:Qty : 1 on 12/14/2024 by Adelaida Francis MD at [facility] Collagen Right: Femoral Vein [employer] 08/06/2026 [id number] [id number] / [id number] 16B / [id number] 16B Procedures Procedure Name Priority Date/Time Associated Diagnosis Comments TRANSTHORACIC ECHO (TTE) COMPLETE W DOPPLER/CF WO CONTRAST Routine 05/23/2025 10:14 AM CDT Paroxysmal atrial fibrillation (HCC) POCT LIPID PANEL Routine 05/17/2025 9:15 AM CDT Lipid screening EXTENDED/MCFP HOLTER PATCH (>48 HOURS UP TO 7 DAYS) Routine 04/14/2025 9:13 AM CDT Paroxysmal atrial fibrillation (HCC) CARDIOLOGY DOCUMENT SCAN Routine 03/17/2025 4:31 PM CDT SCREENING MAMMOGRAM RIGHT W MELLO UNILATERAL ONLY Schedule Routine, Read Routine (OP Routine) 10/13/2024 3:19 PM CREDIT AUTHORIZER History of breast cancer Breast cancer screening by mammogram DEXA AXIAL SKELETON BONE DENSITY 1 OR MORE SITES Schedule Routine, Read Routine (OP Routine) 04/07/2024 11:17 AM CDT 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, estrogen receptor positive, unspecified laterality (HCC) longterm (current) use of aromatase inhibitors COLONOSCOPY 09/26/2021 10:27 AM CREDIT AUTHORIZER SERUM HEPATITIS C AB Routine 04/21/2015 5:19 AM CDT from Last 3 Months or Most Recently Relevant to Health Maintenance Results * TRANSTHORACIC ECHO (TTE) COMPLETE W DOPPLER/CF WO CONTRAST (05/23/2025 10:14 AM CDT) EF Mod BP 59 % CONS SCIMAGE Anatomical Region Laterality Modality Ultrasound 05/23/2025 9:09 AM CDT Narrative 05/23/2025 10:47 AM CDT [facility] Medical [facility] Cardiology [address] [facility] [address], [place] [address] [address] [facility] [address], [place] [address] P:[phone] P:[phone] Echocardiographic Report Patient Name: CARMEN MOISE E : 1950 Study Date: 05/23/2025 9:09:47 AM Gender: F City Treasurer: Juliet Young)([place]), [facility] Location: [place] Ref Provider: CONNIE VILLARREAL Height(Cm): 165 BSA: 1.79 [...] FINDINGS: Interpretation Site: Exam was interpreted at [facility]. Left Ventricle: Global Longitudinal Strain [...] Procedure Note Connie Villarreal MD - 05/23/2025 [facility] Medical [facility] Cardiology [address] [facility] [address], [place] [address] [address] [facility] [address], [place] [address] P:[phone] P:[phone] Echocardiographic Report Patient Name: CARMEN MOISE E : 1950 Study Date: 05/23/2025 9:09:47 AM Gender: F City Treasurer: Juliet Barroso ([place]ha)([place]), [facility] Location: [facility] Provider: CONNIE VILLARREAL Height(Cm): 165 BSA: 1.79 [...] FINDINGS: Interpretation Site: Exam was interpreted at [facility]. Left Ventricle: Global Longitudinal Strain [...] POCT lipid panel (05/17/2025 9:15 AM CDT) Cholesterol, POC 137 <200 MG/DL HDL, POC 62 >=40 mg/dL Triglycerides, POC 56 <=149 mg/dL LDL Cholesterol POC 64 <=129 mg/dL Chol/HDL Ratio, POC 1.0 NONE Non-HDL Cholesterol, POC 75 NONE mg/dL Cholesterol Total, POC 137 30 - 199 mg/dL Capillary blood 05/17/2025 9 :15 AM CDT us Connie Villarrael MD POINT OF CARE TEST ORDERABLES Fi nal Result * Extended/Detention Holter Patch (>48 hours up to 7 days) (04/14/2025 9:13 AM CDT) Anatomical Region Laterality Modality Electrocardiogra phy 04/21/2025 3:44 PM CDT Narrative 05/06/2025 1:44 PM CDT [facility] [place] [address] HOLTER MONITOR Patient Name: CARMEN MOISE ELAINE : 1950 (74y 6m) Gender: F Study Date: 04/21/2025 03:44:50 PM Ht(Inch): Wt(Lb): BSA: Tech: Location: [facility] Order Provider: ADELAIDA FRANCIS BMI: Ref Provider: ADELAIDA FRANCIS PROCEDURES: Holter Report: EXTENDED/MCFP HOLTER PATCH (>48 HOURS UP TO 7 DAYS) [[id number]]. Enrollment Period: 2025-04-21 00:00:00 through 2025-04-28 00:00:00. Monitor Number: [id number]. Location: [facility]. INDICATIONS: I48.0 Paroxysmal atrial fibrillation. FINDINGS: Holter [...] events Runs (VT): 0 events Total beats: 944836 SIGNIFICANT PAUSES: 0 >3 sec Protocol: Recording Duration (Ordered): [id number] Recording Duration (Actual): 276778.25 SUMMARY: *The predominant rhythm was Sinus. *The [...] 17:58:19. *The study included an Atrial Fibrillation/Flutter [place] of 33 % with 2 % in [...] 17:58:19. *The study included an Atrial Fibrillation/Flutter [place] of 33 % with 2 % in [...] Note Raul Galindo MD PhD - 05/06/2025 [facility] [place] [address] [place] [address] HOLTER MONITOR Patient Name: CARMEN MOISE ELAINE : 1950 (74y 6m) Gender: F Study Date: 04/21/2025 03:44:50 PM Ht(Inch): Wt(Lb): BSA: Tech: Location: [facility] Order Provider: ADELAIDA FRANCIS BMI: Ref Provider: ADELAIDA FRANCIS PROCEDURES: Holter Report: EXTENDED/MCFP HOLTER PATCH (>48 HOURS UP TO 7 DAYS)[[id number]]. Enrollment Period: 2025-04-21 00:00:00 through 2025-04-28 00:00:00. Monitor Number: [id number]. Location: [facility]. INDICATIONS: I48.0 Paroxysmal atrial fibrillation. FINDINGS: Holter [...] events Runs (VT): 0 events Total beats: 196841 SIGNIFICANT PAUSES: 0 >3 sec Protocol: Recording Duration (Ordered): [id number] Recording Duration (Actual): 462191.25 SUMMARY: *The predominant rhythm was Sinus. *The [...] was Sinus. *The Maximum Heart Rate recorded zrf103 bpm, 04/21 17:22:19, the Minimum Heart Rate [...] The PDF can be found in the [facility] Patient chart. Please go to theCardiology tab, [...] PM CDT) Anatomical Region Laterality Modality Other Connie Villarreal MD CV CARDIAC SERVICES PROCEDURES F inal Result * Screening Mammogram Right W [place] Unilateral Only (10/13/2024 3:19 PM CREDIT AUTHORIZER) Anatomical Region Laterality Modality Breast Right Mammography Narrative 10/14/2024 3:16 PM CREDIT AUTHORIZER Mammogram Technique: Right Breast Digital Breast Tomosynthesis, Unilateral C-view 2D Screening mammogram. Views obtained: . Computer Aided Detection was performed. Mammogram Findings: The present examination has been compared to prior imaging studies performed at [facility] on 09/18/2021, 09/25/2022 and 10/10/2023. [...] compared to prior imaging studies performed at [facility] on 09/18/2021, 09/25/2022 and 10/10/2023. [...] inal Result * COLONOSCOPY (09/26/2021 10:27 AM CREDIT AUTHORIZER) Anatomical Region Laterality Modality Other Narrative Procedure Note Trang Alfred MD - 09/26/2021 10:27 AM CST ENDOSCOPY LAB Patient Name: Carmen Moise Procedure Date: 09/26/2021 10:27 AM Date of : 1950 Admit Type: Outpatient Age: 70 Gender: Female Attending MD: Trang Alfred M.D. Room: [facility] ENDOSCOPY ROOM 01 Note Status: Finalized Procedure: [...] The scope was passed under direct vision.The [id number] was introduced through the anusand advanced to [...] During normal business hours - Please call [facility] Coordinator: [phone] After hours, evening, nights, weekends and holidays- Please call the hospital stiff leg operator at and ask for the GI fellow information clerk. Electronically by Dr Trang Alfred Trang Alfred [...] 04/26/2015 5:00 PM CDT Test performed at [facility] [address] [place] [address] Director: CONRAD JONES DO,MPH us Historical Provider LAB BLOOD ORDERABLES Poornima mcallister Result HISTORICAL RESULTS from Last 3 Months or Most Recently Relevant to Health Maintenance Insurance [facility] MEDICARE ADVANTAGE [facility] MEDICARE Address: [address] [address] [facility] MEDICARE AD[facility]ANTAGE [facility] MEDICARE Address: [address] [address] [place] [address] [place] [address] [facility] MEDICARE ADVANTAGE [facility] MEDICARE Address: [address] [address] [place] [address] Advance Directives For more information, please contact: [phone] * Full Code (Latest Code Status on File) Date Activated Date Inactivated Comments 09/26/2021 9:54 AM 09/26/2021 3:23 PM Care Teams Auto Dealer Relationship Specialty Start Date End Date Ryne Gomes DO [address] [place], [place] [id number] PCP - General Internal Medicine 07/19/24 Natalie Cerrato MD [address] [place] [address] Surgeon Surgical Oncology 05/01/18 Joaquin Hurd MD [address] [place] [address] Consulting Physician Cardiology 07/21/19 Gretta Heath MD [address] [facility] [address] [place] [address] Medical Oncologist/Engineering Manager Medical Oncology 07/06/20 Adelaida Francis MD [address] [address] Consulting Physician Cardiology 10/06/24
--- OUTSIDE RECORDS SUMMARY | 2025-05-27 09:29 | XMS_ITS | Patient Health Record ---
Author Organization [facility] Address [address] [place], [place] [address] Care Team Providers Care Software Quality Analyst Name Role Phone SERENA MONTES Unavailable [phone] Stewart Campbell Unavailable Unavailable Reason For Referral No Information Medications Medication SIG (Take, Route, Frequency, Duration) Notes Start Date End Date Status terbinafine 250 MG Oral Tablet ORAL terbinafine 250 MG Oral TabletOriginal Medicationterbinafine 250 MG Oral Tablet *Reorder from [employer] for eRx and Interaction Alerts* 04/11/2021 Active hyoscyamine sulfate 0.125 MG Disintegrating Oral Tablet ORAL hyoscyamine sulfate 0.125 MG Disintegrating Oral TabletOriginal Medicationhyoscyamine sulfate 0.125 MG Disintegrating Oral Tablet *Reorder from [employer] for eRx and Interaction Alerts* 04/06/2021 Active Metoprolol Tartrate 50 MG Oral Tablet ORAL metoprolol tartrate 50 MG Oral TabletOriginal Medicationmetoprolol tartrate 50 MG Oral Tablet *Reorder from [employer] for eRx and Interaction Alerts* 04/06/2021 Active Plan Of Treatment No Information Insurance Providers Payer Name Payer Address Payer Phone Subscriber Number Group Number Insured Name Patient Relationship to Insured Coverage Start Date Coverage End Date Medicare Part B [place] [address] [place] [id number] JAREK MOISE Self - patient is the insured [facility] [employer] ([facility] ATTN CLAIMS [address] [place] [address] [id number] JAREK MOISE Self - patient is the insured
--- OUTSIDE RECORDS SUMMARY | 2025-05-27 09:29 | XMS_ITS | Patient Health Record ---
Author Organization [facility] Resource [facility] Address [address] [place] [address] Care Team Providers Care Local Az Truck Driver Name Role Phone Angela Carlin Unavailable [phone] Reason For Referral No Information Plan Of Treatment No Information Insurance Providers Payer Name Payer Address Payer Phone Subscriber Number Group Number Insured Name Patient Relationship to Insured Coverage Start Date Coverage End Date [place] [address] [address] [place] [address] [id number] Carmen Stewart Self - patient is the insured 4 [facility] [address] [place] [phone] [id number] Carmen Stewart Self - patient is the insured 5
--- OUTSIDE RECORDS SUMMARY | 2025-05-27 09:29 | XMS_ITS | Encounter Summary ---
Author Organization [facility] Address [address] [place] [address] Phone Care Team Providers Care Directional Driller Name Role Phone Stewart Campbell MD Primary Care Provider [phone] Natalie Cerrato MD Unavailable [phone] Anil Saldaña MD Unavailable Joaquin Hurd MD Unavailable [phone] Gretta Heath MD Unavailable [phone] Ryne Gomes DO Primary Care Provider Tobin Francis MD Unavailable [phone] Reason for Visit * Reason Onset Date Comments Provider Update 10/21/2018 Encounter Details Date Type Department Care Team (Late st Contact Info) Description 10/21/2018 Telephone [facility] Oncology [address] [place] [address] Ramana Collins MD [address] [place] [address] Provider Update Social History Tobacco Use Types Packs/Day Years Used Date Smoking Tobacco: Never Smokeless Tobacco: Never Alcohol Use Standard Drinks/Week Comments No 0 (1 standard drink = 0.6 oz pur e alcohol) Comments Unknown Sex and Gender Information Value Date Recorded Sex Assigned at Not on file Legal Sex Female 8:52 PM BILINGUAL COUNTER SALES RETAIL Gender Identity Female 12/13/2020 9:57 AM BILINGUAL COUNTER SALES RETAIL Sexual Orientation Straight 12/13/2020 9: 57 AM BILINGUAL COUNTER SALES RETAIL documented as of this encounter Plan of Treatment Not on file documented as of this encounter Visit Diagnoses Not on filedocumented in this encounter Care Teams Directional Driller Relationship Specialty Start Date End Date Stewart Campbell MD [address] [place] [address] PCP - General 01/24/17 07/18/24 Ryne Gomes DO [address] [place] [address] PCP - General Internal Medicine 07/19/24 Natalie Cerrato MD [address] [place], [place] [id number] Surgeon Surgical Oncology 05/01/18 Anil Saldaña MD [address] [place] [address] Medical Oncologist/Mark Up Designer Medical Oncology 07/21/19 07/05/20 Joaquin Hurd MD [address] [place], [place] [id number] Consulting Physician Cardiology 07/21/19 Gretta Heath MD [address] [facility] [address] [place] [address] Medical Oncologist/Mark Up Designer Medical Oncology 07/06/20 Tobin Francis MD [address] [address] Consulting Physician Cardiology 10/06/24 documented as of this encounter
--- OUTSIDE RECORDS SUMMARY | 2025-05-27 09:29 | XMS_ITS | Clinical Summary ---
Author Organization [facility] Kashif Langley Address [address] [place] [address] Care Team Providers Care Dance Costume Designer Name Role Phone Stewart Campbell Primary Care Provider [phone] Allergies No known active allergies Medications anastrozole [...] Date Type Department Care Team Description 05/23/2025 Orders Only [facility] Oncology and Hematology - [address] Vineet Simpson MD Erythrocytosis 05/11/2025 External Device Data STL ABSTRACTION Provider, Abstract 05/10/2025 External Device Data STL ABSTRACTION Provider, Abstract 05/09/2025 Orders Only [facility] Oncology and Hematology - [place] [address] Vineet Simpson MD Erythrocytosis 04/25/2025 Orders Only [facility] Oncology and Hematology - Jeremias [address] Vineet Simpson MD Erythrocytosis 04/19/2025 External Device Data STL ABSTRACTION Provider, Abstract 04/12/2025 External Device Data STL ABSTRACTION Provider, Abstract 04/11/2025 Orders Only [facility] Oncology and Hematology - Jeremias [address] [place] [id number] Vineet Simpson MD Erythrocytosis 03/28/2025 Orders Only [facility] Oncology and Hematology - Jeremias [address] [place] [id number] Vineet Simpson MD Erythrocytosis 03/22/2025 External Device Data STL ABSTRACTION Provider, Abstract 03/17/2025 External Device Data STL ABSTRACTION Provider, Abstract 03/16/2025 External Device Data STL ABSTRACTION Provider, Abstract 03/15/2025 External Device Data STL ABSTRACTION Provider, Abstract 03/14/2025 Orders Only [facility] Oncology and Hematology - Jeremias [address] [place] [address] Vineet Simpson MD Erythrocytosis 02/28/2025 Orders Only [facility] Oncology and Hematology - Jeremias [address] [place] [address] Vineet Simpson MD Erythrocytosis from Last 3 [...] Comments Blood Pressure 153/96 12/17/2024 9:25 AM GROUND CREW SUPERVISOR did not take b/p meds this morning Pulse 86 12/17/2024 9:22 AM GROUND CREW SUPERVISOR Temperature 36.1 C (97 F) 12/17/2024 9:22 AM GROUND CREW SUPERVISOR Respiratory Rate 15 12/17/2024 9:22 AM GROUND CREW SUPERVISOR Oxygen Saturation 97% 12/17/2024 9:2 2 AM GROUND CREW SUPERVISOR Inhaled Oxygen Concentration - - Weight 70.6 kg (155 lb 9.6 oz) 12/17/2024 9:22 AM GROUND CREW SUPERVISOR Height 165.1 cm (5' 5) 05/16/2022 11:3 0 AM CDT Body Mass Index 25.89 05/16/2022 11:30 AM CDT Plan of Treatment Upcoming Encounters Date Type Department Care Team (Late st Contact Info) Description 06/16/2025 11:00 AM CDT Office Visit [facility] Oncology and Hematology - Jeremias [address] [facility] [address] [place] [address] Vineet Simpson MD [address] [facility] [address] [place] [address] Health Maintenance Due Date Last Done Comments FIT-DNA Q 3 years 1994 FIT/FOBT Q 1 year 1994 Flex Sig/CT Colonography Q 5 years 1994 ZOSTER VACCINE (2 of 3) 09/27/2014 08/02/2014 PNEUMOCOCCAL VACCINE 50+ YEA RS (2 of 2 - PCV20 or PCV21) 01/06/2021 01/07/2020 DTAP/TDAP/TD VACCINES (2 - T d or Tdap) 08/02/2024 08/02/2014 RSV VACCINE (60+ or ) (1 - 1-dose 75+ series) 2024 INFLUENZA VACCINE (#1) 2025 5, 01/07/2020, 07/25/2015 OSTEOPOROSIS SCREENING 04/07/2029 4, 04/07/2024, 04/01/2022, Additional history exists COLORECTAL SCREENING 09/26/2031 09/26/2021, 09/26/2021, 09/26/2021, Additional history exists Colorectal Cancer Screening 09/26/2031 [place] [address] [facility] [id number] Care Teams Dance Costume Designer Relationship Specialty Start Date End Date Stewart Campbell DO [address] [facility] [address] [place] [address] PCP - General Internal Medicine 05/25/20
--- OUTSIDE RECORDS SUMMARY | 2025-05-27 09:29 | XMS_ITS | Encounter Summary ---
Author Organization [facility] Address [address] [place] [address] Phone Care Team Providers Care Silk Examiner Name Role Phone Natalie Cerrato MD Unavailable Joaquin Hurd MD Unavailable Gretta Heath MD Unavailable [phone] Ryne Gomes DO Primary Care Provider [phone] Tobin Francis MD Unavailable [phone] Encounter Details Date Type Department Care Team (Late st Contact Info) Description 04/28/2025 Telephone [facility] Cardiology [address] [place] [address] [place] [address] Tobin Francis MD [address] [place] [address] Social History Tobacco Use Types [...] on file Legal Sex Female 8:52 PM WILD LIFE MANAGER Gender Identity Female 12/13/2020 9:57 AM WILD LIFE MANAGER Sexual Orientation Straight 12/13/2020 9: 57 AM WILD LIFE MANAGER documented as of this encounter Miscellaneous Notes * Telephone Encounter - Peg Crisostomo RN - 05/17/2025 8:14 AM CDT Results are in. Dr. Francis to review when he returns. * Telephone Encounter - Nati Bermudez - 04/28/2025 4:12 PM CDT Tito Pt calling and states she finished 7 day holter monitor today and would like to know if she should mail back to [facility] or bring to office. documented in this encounter Plan of Treatment Not on file documented as of this encounter Visit Diagnoses Not on filedocumented in this encounter Care Teams Silk Examiner Relationship Specialty Start Date End Date Ryne Gomes DO [address] [address] PCP - General Internal Medicine 07/19/24 Natalie Cerrato MD [address] [place] [address] Surgeon Surgical Oncology 05/01/18 Joaquin Hurd MD [address] [place] [address] Consulting Physician Cardiology 07/21/19 Gretta Heath MD [address] [place] [address] Medical Oncologist/Painter Railroad Car Medical Oncology 07/06/20 Tobin Francis MD [address] [place] [address] Consulting Physician Cardiology 10/06/24 documented as of this encounter
--- OUTSIDE RECORDS SUMMARY | 2025-05-27 09:29 | XMS_ITS | Encounter Summary ---
Author Organization [facility] Address [address] [place] [address] Phone Care Team Providers Care Bias Machine Operator Helper Name Role Phone Stewart Campbell MD Primary Care Provider [phone] Natalie Cerrato MD Unavailable Anil Saldaña MD Unavailable [phone] Joaquin Hurd MD Unavailable [phone] Gretta Heath MD Unavailable [phone] Ryne Gomes DO Primary Care Provider [phone] Tobin Francis MD Unavailable [phone] Reason for Visit * Reason Onset Date Comments Provider Update 10/22/2018 Encounter Details Date Type Department Care Team (Late st Contact Info) Description 10/22/2018 Telephone [facility] Oncology [address] [place] [address] Ramana Collins MD [address] [place] [address] Provider Update Social History Tobacco Use Types Packs/Day Years Used Date Smoking Tobacco: Never Smokeless Tobacco: Never Alcohol Use Standard Drinks/Week Comments No 0 (1 standard drink = 0.6 oz pur e alcohol) Comments Unknown Sex and Gender Information Value Date Recorded Sex Assigned at Not on file Legal Sex Female 8:[address] JUDGE Gender Identity Female 12/13/2020 9:[address] JUDGE Sexual Orientation Straight 12/13/2020 9: [address] JUDGE documented as of this encounter Plan of Treatment Not on file documented as of this encounter Visit Diagnoses Not on filedocumented in this encounter Care Teams Bias Machine Operator Helper Relationship Specialty Start Date End Date Stewart Campbell MD [address] [place] [address] PCP - General 01/24/17 07/18/24 Ryne Gomes DO [address] [place] [address] PCP - General Internal Medicine 07/19/24 Natalie Cerrato MD [address] [place], [place] [id number] Surgeon Surgical Oncology 05/01/18 Anil Saldaña MD [address] [place] [address] Medical Oncologist/Fire Alarm Mechanic Medical Oncology 07/21/19 07/05/20 Joaquin Hurd MD [address] [place], [place] [address] Consulting Physician Cardiology 07/21/19 Gretta Heath MD [address] [facility] [address] [place] [address] Medical Oncologist/Fire Alarm Mechanic Medical Oncology 07/06/20 Tobin Francis MD [address] [address] Consulting Physician Cardiology 10/06/24 documented as of this encounter
== END 2025-05-27 09:24 | disposition home or self-care (01) ==
PROVIDERS: PCP Internal Medicine; Visit Provider Internal Medicine
DX: I65.23 Occlusion and stenosis of bilateral carotid arteries (principal)
CPT/HCPCS: 93880